=== PATIENT | male | born 1960 | race Caucasian/White ===

== ENCOUNTER → 2017-08-10 | Outpatient (CLI) | payer OTHER, SELFPAY | PROVIDERS: Visit Provider Physician Assistant | DX: R79.89 Other specified abnormal findings of blood chemistry (principal) | CPT/HCPCS: 80048 ==

== ENCOUNTER 2018-08-22 10:43 | Inpatient (IN) ==
--- NOTE | 2018-08-22 11:18 | Emergency Department Note ---
ED Disposition Clinical Impression: Occult blood in stools, Hypokalemia Community acquired pneumonia Qualifiers: Laterality: right Lung location: lower lobe of lung Qualified Code(s): J18.1 - Lobar pneumonia, unspecified organism Anemia Qualifiers: Anemia type: unspecified type Qualified Code(s): D64.9 - Anemia, unspecified Disposition: Still a Patient Condition on Discharge: Serious Referrals: Jonathan Lucia MD [Primary Care Provider] - - Critical Care Critical Care Time: Yes Attestation: On 08/22/18, the high probability of a clinically significant, sudden or life threatening deterioration of the following system(s) required my full and direct attention, intervention and personal management. The time I documented below is in addition to time spent performing reported procedures but includes the following listed in this critical care notation. Total Critical Care Time: 40 Vital system(s) involved:: Metabolic Failure My critical care processes included: Assessment & monitoring of V/S, Initial and Re-exams, Data Review/Interpretation, Coordinating Care, Medication Orders and management, Documentation Medical Decision Making - Huy Inquiry Pt receiving controlled substance: No Vital Signs: 08/22/18 10:44 08/22/18 11:03 08/22/18 11:08 Temperature 98.2 F Temperature Source Oral Pulse Rate 100 H Pulse Rate [Right Radial] 110 H Respiratory Rate 20 Blood Pressure [Right Arm] 100/73 L Blood Pressure Mean [Right Arm] 82 Blood Pressure Source [Right Arm] Automatic Cuff Blood Pressure Position [Right Arm] Sitting 02 Sat by Pulse Oximetry 98 98 Oxygen Delivery Method Nasal Cannula Nasal Cannula Oxygen Flow Rate (LPM) 2 2 08/22/18 11:46 08/22/18 12:22 08/22/18 12:54 Temperature Temperature Source Pulse Rate Pulse Rate [Right Radial] 105 H 109 H 107 H Respiratory Rate 20 20 20 Blood Pressure [Right Arm] 111/56 L 106/64 L 105/58 L Blood Pressure Mean [Right Arm] 74 78 73 Blood Pressure Source [Right Arm] Automatic Cuff Automatic Cuff Automatic Cuff Blood Pressure Position [Right Arm] Sitting Sitting Sitting 02 Sat by Pulse Oximetry 94 L 98 98 Oxygen Delivery Method Nasal Cannula Nasal Cannula Nasal Cannula Oxygen Flow Rate (LPM) 2 2 2 - Lab Data Lab Results 08/22/18 10:55: WBC 23.7 H*, RBC 2.17 L, Hgb 4.6 L*, Hct 16.2 L*, MCV 74.6 L, MCH 21.0 L, MCHC 28.2 L, RDW 19.6 H, Plt Count 464 H, MPV 7.1 L, Neut % (Auto) 93.9 H, Lymph % (Auto) 3.3 L, [place] % (Auto) 2.8, Eos % (Auto) 0.0 L, Baso % ( Auto) 0.1, Neut # (Auto) 22.3 H, Lymph # (Auto) 0.8, [place] # (Auto) 0.7, Eos # (Auto) 0.0, Baso # (Auto) 0.0, Total Counted 100, Neutrophils % (Manual) 95 H, Band Neutrophils % 1.0, Lymphocytes % (Manual) 3 L, Monocytes % (Manual) 1 L, Platelet Estimate Normal, Hypochromasia 3+, Microcytosis 1+ 08/22/18 10:55: Sodium 124 L, Potassium 2.3 L*, Chloride 83 L, Carbon Dioxide 30, Anion Gap 13.3, BUN 10, Creatinine 1.43 H, Estimated Creat Clear 59, Estimated GFR 51 L, Est GFR ( Amer) 62, Glucose 119 H, Calcium 8.0 L, To daniel Bilirubin 0.3, AST 16, ALT 8 L, Alkaline Phosphatase 259 H, Total Protein 6.4, Albumin 1.5 L, Globulin 4.9 H, Albumin/Globulin Ratio 0.3 L 08/22/18 11:10: Lactate 2.3 H 08/22/18 11:10: Troponin I < 0.02 08/22/18 11:30: Stool Occult Blood Positive A Result diagrams: 08/22/18 10:55 08/22/18 10:55 Orders (Tests/Meds): ED MEDICATIONS Generic Name Dose Route Start Last Admin Trade Name Freq PRN Reason Stop Dose Admin Azithromycin 500 mg/ Sodium 250 mls @ 250 mls/hr 08/22/18 11:30 08/22/18 12:49 Chloride IV 09/05/18 11:29 250 mls/hr 1100 DULCE Administration Protocol Ceftriaxone Sodium 1 gm/ 50 mls @ 100 mls/hr 08/22/18 11:30 08/22/18 11:42 Sodium Chloride IV 09/05/18 11:29 100 mls/hr 0900 DULCE Administration Protocol Potassium Chloride/Water 100 mls @ 50 mls/hr 08/22/18 13:00 Potassium Chloride 20meq/100ml Ivpb IV 08/22/18 14:59 ONCE ONE Sodium Chloride 10 ml 08/22/18 10:55 Saline Flush 10ml Syringe IV 09/21/18 10:54 NEEDED PRN Maintain IV Site Discontinued Medications Generic Name Dose Route Start Last Admin Trade Name Freq PRN Reason Stop Dose Admin Albuterol/Ipratropium 3 ml 08/22/18 10:53 08/22/18 11:02 Duoneb 3ml Neb IH 08/22/18 10:54 3 ml ONCE ONE Administration Methylprednisolone Sodium Succinate 125 mg 08/22/18 11:25 08/22/18 11:42 Solu-Medrol 125mg/2ml Vial IV 08/22/18 11:26 125 mg ONCE ONE Administration Potassium Chloride 60 meq 08/22/18 12:30 08/22/18 12:49 Klor-Con 20meq Tablet PO 08/22/18 12:31 60 meq ONCE ONE Administration ORDERS Category Date Time Status Occult Blood,Stool Stat Lab 08/22/18 11:30 Ordered Blood Culture Stat Micro 08/22/18 11:10 Received - Radiology Data #1 Image(s): Chest Image Reviewed: Yes I reviewed the patient's radiology image infiltrate R base - ECG Data Tracing #1 EKG interpreted by Jorge Sharp MD: Rhythm: sinus Rate: 100 [place]: normal Ectopy: none Conduction: Prolonged QT ST Segment Changes: none T Wave Changes: none Q Waves: none No evidence of acute ischemia or injury - Physician Consults Physician Consulted: Nuno Jain NP for Dr. Lucia Time: 13:04 Reason -: Admission Comment/Response: Agrees to admit the patient to the hospital. We discussed the patient's clinical information, including history, exam, laboratory and radiology results and ED course. Per hospital procedure, I will write temporary bridge inpatient orders on the patient. Specific orders requested by the admitting physician: Antibiotics, transfusion, potassium placement General Adult HPI - General Chief complaint: Weakness Stated complaint: weakness Time Seen by Provider: 08/22/18 11:18 Mode of Arrival: EMS Limitations: No Limitations Description of Symptoms (Recalled from ER Triage Doc. by RN): Pt reports weakness for 3-4 days, reports has not eating since yesterday. Pt reports just not felling well. Pt reports productive cough, pt reports SOA - History of Present Illness HPI narrative: History from patient and . He has been sick for about 1 month. He has had a sinus and chest infection. He has been on one course of antibiotic, possibly Keflex, and 2 courses of prednisone per his primary care physician. He quit smoking and started Chantix during this time. The Chantix made him sick. He complains of worsening shortness of breath, productive cough. Sputum production has improved somewhat. - Related Data Home Medications Medication Instructions Recorded Confirmed Fluticasone/Vilanterol [Breo 1 inh INHALATION DAILY 08/22/18 08/22/18 Ellipta] Furosemide [Furosemide 40MG tAB] 40 mg PO DAILY 08/22/18 08/22/18 Gabapentin [Gabapentin 100mg Cap] 100 mg PO TID 08/22/18 08/22/18 Potassium Chloride [Klor-con 20 20 meq PO DAILY 08/22/18 08/22/18 mEq tablet] Quetiapine Fumarate 450 mg PO HS 08/22/18 08/22/18 SUMAtriptan succinate [Imitrex] 50 mg PO DAILY PRN 08/22/18 08/22/18 hydroCHLOROthiazide [HCTZ 25mg 25 mg PO DAILY 08/22/18 08/22/18 tab] Previous Rx's Medication Instructions Recorded albuterol sulfate HFA 90 2 puff INHALATION BID PRN #6.7 g 07/13/18 mcg/actuation aerosol inhaler Allergies Allergy/AdvReac Type Severity Reaction Status Date / Time No Known Allergies Allergy Verified 07/13/18 14:35 [facility] History - Hepatitis A Screen Drug use history?: No High risk sexual behaviors?: No History of sexually transmitted infection?: No Currently employed?: No Childcare worker?: No Do you have indoor plumbing?: Yes Do you have electricity?: Yes Attestation statement:: This patient has been screened for Hepatitis A risk factors. Medical History: Reports:: Hypertension Denies:: Diabetes Mellitus Type 1, Diabetes Mellitus Type 2 Other Surgeries: Yes: Other Amputation: No Fractures: Yes - Social History Smoking Status: Former smoker Alcohol Intake: current Alcohol Intake Frequency:: holidays/special occasions only Substance Use Type: denies use - Psychiatric History Expresses thoughts of harming self/others: None Suicide Plan Description: No Plan Family Hx:: Stroke ROS Obtained: Yes All systems reviewed & no additional complaints - Constitutional Constitutional: Reports fatigue - ENT Ears, Nose, Mouth, and Throat: Reports nasal discharge - Respiratory Respiratory: Yes cough, Yes dyspnea, Yes excessive phlegm production - Gastrointestinal Gastrointestingal: Denies: bright red blood in stools, black, tarry stools Physical Exam - General General appearance: alert Comment: Frequent cough. Very pale. - Head Head exam: atraumatic, normocephalic - Eye Eye exam: Present: normal appearance, PERRL, EOMI - ENT ENT exam: Present: mucous membranes moist - Neck Neck exam: Present: normal inspection, trachea midline - Chest Chest inspection: Present: normal inspection, symmetric chest wall rise - Respiratory Respiratory exam: Present: normal lung sounds bilaterally - Cardiovascular Cardiovascular exam: Present: normal rhythm, tachycardia, normal heart sounds - Abdominal Exam Abdominal exam: Present: soft, normal bowel sounds. Absent: distention, tenderness - Rectal Exam Rectal exam: Present: normal inspection, normal rectal tone. Absent: black stool, bloody stool, fecal impaction, mass, tenderness - Extremities Exam Extremities exam: Present: normal inspection - Neurological Exam Neurological exam: Present: alert, oriented X3 - Psychiatric Psychiatric exam: Present: normal affect, normal mood - Skin Skin exam: Present: warm, pallor
[2018-08-22 11:23] LABS: Basophils % 0.1 % (0.1-2.0); Lymphocytes # 0.8 K/mm3 (0.7-4.5); Lymphocytes % 3.3 % (10-50); Mean Corpuscular HGB Conc 28.2 g/dL (31.8-35.4); Mean Corpuscular Volume 74.6 fl (80-94); Mean Platelet Volume 7.1 fl (7.4-10.4); Monocytes # 0.7 K/mm3 (0.1-1.0); Monocytes % 2.8 % (1.7-9.3); Neutrophils # 22.3 K/mm3 (1.8-7.8); Neutrophils % 93.9 % (37.0-80.0); Platelet Count 464 K/mm3 (142-424); Red Blood Count 2.17 M/mm3 (4.60-6.20); Red Cell Distribution Width 19.6 % (11.5-17.5); White Blood Count 23.7 K/mm3 (4.8-10.8)
[2018-08-22 11:26] LABS: Hematocrit 16.2 % (42.0-52.0); Hemoglobin 4.6 g/dL (14.1-18.0)
[2018-08-22 11:34] LABS: Albumin Level 1.5 gm/dL (3.4-5.0)
[2018-08-22 11:35] LABS: Lymphocytes % 3 % (10-50); Monocytes % 1 % (2-9); Neutrophils % 95 % (42-76); Total Cells Counted 100
[2018-08-22 11:36] LABS: Hypochromasia 3+
[2018-08-22 12:03] LABS: Albumin/Globulin Ratio 0.3 (1.1-1.8); Anion Gap 13.3 mEq/L (5-15); Bilirubin,Total 0.3 mg/dL (0.2-1.0); Globulin 4.9 gm/dl (1.3-3.2); Total Protein,Serum 6.4 gm/dL (6.4-8.2)
[2018-08-22 12:26] LABS: Potassium 2.3 mmoL/L (3.5-5.1)
--- NOTE | 2018-08-22 15:29 | Pharmacy Consult Notes ---
[facility] Pharmacy VTE Monitoring - Patient Demographics Admission date: 08/22/18 Report Date: 08/22/18 Time: 15:29 Allergies/Adverse Reactions: Patient Allergies No Known Allergies Allergy (Verified 07/13/18 14:35) Height: 1.75 m Weight: 63.503 kg Patient Problems: Current Active Problems Community acquired pneumonia (Acute) Anemia (Acute) Occult blood in stools (Acute) Hypokalemia (Acute) - VTE Risk Labs: VTE Related Lab Results Hgb 4.6 g/dL (14.1-18.0) L* 08/22/18 10:55 Hct 16.2 % (42.0-52.0) L* 08/22/18 10:55 Plt Count 464 K/mm3 (142-424) H 08/22/18 10:55 BUN 10 mg/dL (7-18) 08/22/18 10:55 Creatinine 1.43 mg/dL (0.70-1.30) H 08/22/18 10:55 Estimated Creat Clear 59 mL/min (50-200) 08/22/18 10:55 VTE Score: 3 VTE Risk Level: Low Risk - Prophylaxis VTE Prophylaxis Ordered?: Yes Types of VTE Prophylaxis: TEDS Knee High Location of Applied Device: Bilateral Lower Extremeties
[2018-08-22 15:45] LABS: Microscopic, Urine URINE MICROSCOPIC (MICROSCOPIC)
[2018-08-22 15:46] LABS: Appearance,Urine CLEAR (Clear); Bilirubin,Urine Negative (Negative); Blood, Urine TRACE-I (Negative); Color,Urine YELLOW (Yellow); Glucose,Urine (UA) Negative (Negative); Ketones,Urine Negative (Negative); Leukocyte Esterase,Urine Negative (Negative); PH,Urine 7.5 (5.0-8.5); Protein,Urine Negative (Negative); Urobilinogen,Urine 0.2 EU/dl (0.2)
[2018-08-22 16:05] LABS: Bacteria,Urine Trace /lpf
[2018-08-23 01:02] LABS: Hematocrit 21.7 % (42.0-52.0); Hemoglobin 6.7 g/dL (14.1-18.0)
--- NOTE | 2018-08-23 06:36 | Consult Report ---
*Admission Date: 08/22/18 *Chief complaint: Anemia/gastrointestinal blood loss *History of present illness: This is a 58-year-old gentleman who presented to the emergency department yesterday "feeling sick". He was diagnosed with pneumonia, but was also found to be profoundly anemic. He was guaiac positive. The surgical service was consulted for evaluation regarding possible gastrointestinal blood loss. A copy of his HPI from his emergency department evaluation is forwarded below: History from patient and . He has been sick for about 1 month. He has had a sinus and chest infection. He has been on one course of antibiotic, possibly Keflex, and 2 courses of prednisone per his primary care physician. He quit smoking and started Chantix during this time. The Chantix made him sick. He complains of worsening shortness of breath, productive cough. Sputum production has improved somewhat. NOTE: He had an appropriate response to his initial 2 unit blood transfusion. 2 additional units were ordered; however, he has received only 1 of those units for a total of 3. Posttransfusion H&H pending. Review of Systems - Constitutional Denies fever(s) - Eyes Denies change in vision - *Cardiovascular Denies chest pain - *Respiratory Reports chest congestion, Reports cough - *Gastrointestinal Denies bright, red blood in stools Comments: "dark stools" - Psychiatric Denies anxiety - Hematologic/Lymphatic Denies easy bleeding [facility] History Medical History: Reports:: Hypertension Denies:: Cancer, Diabetes Mellitus Type 1, Diabetes Mellitus Type 2, MRSA Have you ever received a pneumonia vaccine?: No Have you received a flu vaccine this season?: No Other Surgeries: Yes: No Previous Surgery, Other Amputation: No Fractures: Yes (arm fracture at age 8) - *Social History Educational Level: Completed College Smoking Status: Former smoker Tobacco Type: cigarettes # Packs/Day (cigarettes): 3 #Yrs smoked (if former smoker): 40 Smoking End Date: 08/04/18 Alcohol Intake: never Alcohol Intake Frequency:: holidays/special occasions only Substance Use Type: denies use Occupational Status: disabled Housing: house Household Members: significant other Travel in the last 8 weeks: Inside the [place] - Psychiatric History Expresses thoughts of harming self/others: None Suicide Plan Description: No Plan *Family Hx:: Unable to obtain, Stroke Meds Home Medications Medication Instructions Recorded Confirmed Type albuterol sulfate HFA 90 2 puff INHALATION BID PRN #6.7 g 07/13/18 08/22/18 Rx mcg/actuation aerosol inhaler Ascorbic Acid [Vitamin C] 250 mg PO DAILY 08/22/18 08/22/18 History Calcium Carbonate [Calcium] 500 mg PO DAILY 08/22/18 08/22/18 History Fluticasone/Vilanterol [Breo 1 inh INHALATION DAILY 08/22/18 08/22/18 History Ellipta] Furosemide [Furosemide 40MG tAB] 40 mg PO DAILY 08/22/18 08/22/18 History Gabapentin [Gabapentin 100mg Cap] 100 mg PO TID 08/22/18 08/22/18 History Multivit-Min/Folic/Vit K/Lycop 1 each PO DAILY 08/22/18 08/22/18 History [Men's Multivitamin Caplet] Potassium Chloride [Klor-con 20 20 meq PO DAILY 08/22/18 08/22/18 History mEq tablet] Quetiapine Fumarate 450 mg PO HS 08/22/18 08/22/18 History SUMAtriptan succinate [Imitrex] 50 mg PO DAILY 08/22/18 08/22/18 History Venlafaxine HCl [Effexor XR 75mg 75 mg PO DAILY 08/22/18 08/22/18 History capsule] hydroCHLOROthiazide [HCTZ 25mg 25 mg PO DAILY 08/22/18 08/22/18 History tab] Allergies Allergy/AdvReac Type Severity Reaction Status Date / Time No Known Allergies Allergy Verified 07/13/18 14:35 Exam Vital signs and Labs for Last 24 Hours: Temp Pulse Resp BP Pulse Ox 97.7 F 84 16 102/63 L 94 L 08/23/18 05:00 08/23/18 05:00 08/23/18 05:00 08/23/18 05:00 08/23/18 05:00 Laboratory Results - last 24 hr 08/22/18 10:55: WBC 23.7 H*, RBC 2.17 L, Hgb 4.6 L*, Hct 16.2 L*, MCV 74.6 L, MCH 21.0 L, MCHC 28.2 L, RDW 19.6 H, Plt Count 464 H, MPV 7.1 L, Neut % (Auto) 93.9 H, Lymph % (Auto) 3.3 L, [place] % (Auto) 2.8, Eos % (Auto) 0.0 L, Baso % (Auto) 0.1, Neut # (Auto) 22.3 H, Lymph # (Auto) 0.8, [place] # (Auto) 0.7, Eos # (Auto) 0.0, Baso # (Auto) 0.0, Total Counted 100, Neutrophils % (Manual) 95 H, Band Neutrophils % 1.0, Lymphocytes % (Manual) 3 L, Monocytes % (Manual) 1 L, Platelet Estimate Normal, Hypochromasia 3+, Microcytosis 1+ 08/22/18 10:55: Sodium 124 L, Potassium 2.3 L*, Chloride 83 L, Carbon Dioxide 30, Anion Gap 13.3, BUN 10, Creatinine 1.43 H, Estimated Creat Clear 59, Estimated GFR 51 L, Est GFR ( Amer) 62, Glucose 119 H, Calcium 8.0 L, Total Bilirubin 0.3, AST 16, ALT 8 L, Alkaline Phosphatase 259 H, Total Protein 6.4, Albumin 1.5 L, Globulin 4.9 H, Albumin/Globulin Ratio 0.3 L 08/22/18 11:10: Lactate 2.3 H 08/22/18 11:10: Troponin I < 0.02 08/22/18 11:30: Stool Occult Blood Positive A 08/22/18 13:15: Urine Color Yellow, Urine Appearance Clear, Urine pH 7.5, Ur Specific [place] 1.010, Urine Protein Negative, Urine Glucose (UA) Negative, Urine Ketones Negative, Urine Blood Trace-i, Urine Nitrate Negative, Urine Bilirubin Negative, Urine Urobilinogen 0.2, Ur Leukocyte Esterase Negative, Urine RBC None, Urine WBC 5-10, Ur Squamous Epith Cells None, Urine Bacteria Trace 08/22/18 14:19: Blood Type A Negative, Antibody Screen Negative, Crossmatch (AHG) See Detail 08/22/18 14:40: Blood Type Confirm A Negative 08/22/18 15:22: Lactate 2.8 H 08/22/18 18:00: Lactate 1.7 08/23/18 00:35: Hgb 6.7 L* D, Hct 21.7 L* I & O for Last 24 hours: Intake & Output 08/20/18 08/21/18 08/22/18 08/23/18 11:59 11:59 11:59 11:59 Intake Total 860 / 860 Output Total 200 / 200 Balance 660 / 660 Weight 160 lb 140 lb - Constitutional no acute distress - *Routine Respiratory Exam Absent: respiratory distress - *Routine Cardiovascular Exam Present: RRR - *Routine Abdominal Exam Present: soft Results - Labs 08/23/18 00:35 08/22/18 10:55 Laboratory Results - last 24 hr 08/22/18 10:55: WBC 23.7 H*, RBC 2.17 L, Hgb 4.6 L*, Hct 16.2 L*, MCV 74.6 L, MCH 21.0 L, MCHC 28.2 L, RDW 19.6 H, Plt Count 464 H, MPV 7.1 L, Neut % (Auto) 93.9 H, Lymph % (Auto) 3.3 L, [place] % (Auto) 2.8, Eos % (Auto) 0.0 L, Baso % (Auto) 0.1, Neut # (Auto) 22.3 H, Lymph # (Auto) 0.8, [place] # (Auto) 0.7, Eos # (Auto) 0.0, Baso # (Auto) 0.0, Total Counted 100, Neutrophils % (Manual) 95 H, Band Neutrophils % 1.0, Lymphocytes % (Manual) 3 L, Monocytes % (Manual) 1 L, Platelet Estimate Normal, Hypochromasia 3+, Microcytosis 1+ 08/22/18 10:55: Sodium 124 L, Potassium 2.3 L*, Chloride 83 L, Carbon Dioxide 30, Anion Gap 13.3, BUN 10, Creatinine 1.43 H, Estimated Creat Clear 59, Estimated GFR 51 L, Est GFR ( Amer) 62, Glucose 119 H, Calcium 8.0 L, Total Bilirubin 0.3, AST 16, ALT 8 L, Alkaline Phosphatase 259 H, Total Protein 6.4, Albumin 1.5 L, Globulin 4.9 H, Albumin/Globulin Ratio 0.3 L 08/22/18 11:10: Lactate 2.3 H 08/22/18 11:10: Troponin I < 0.02 08/22/18 11:30: Stool Occult Blood Positive A 08/22/18 13:15: Urine Color Yellow, Urine Appearance Clear, Urine pH 7.5, Ur Specific [place] 1.010, Urine Protein Negative, Urine Glucose (UA) Negative, Urine Ketones Negative, Urine Blood Trace-i, Urine Nitrate Negative, Urine Bilirubin Negative, Urine Urobilinogen 0.2, Ur Leukocyte Esterase Negative, [place] RBC None, Urine WBC 5-10, Ur Squamous Epith Cells None, Urine Bacteria Trace 08/22/18 14:19: Blood Type A Negative, Antibody Screen Negative, Crossmatch (AHG) See Detail 08/22/18 14:40: Blood Type Confirm A Negative 08/22/18 15:22: Lactate 2.8 H 08/22/18 18:00: Lactate 1.7 08/23/18 00:35: Hgb 6.7 L* D, Hct 21.7 L* Assessment and Plan (1) Anemia Current visit: Yes Status: Acute Qualifiers: Anemia type: unspecified type Qualified Code(s): D64.9 - Anemia, unspecified Category: Medical Code(s): D64.9 - Anemia, unspecified The patient's blood loss has likely been chronic over the past few months. He does not appear to be acutely hemorrhaging. He has had an appropriate response to his first 2 units of packed red blood cells. EGD once medically stable (unless required urgently) Colonoscopy in near future (may combine with EGD; however, his ability to tolerate a bowel prep may be limited as he recovers from pneumonia) ? SBFT and ? Capsule Endoscopy (pending results of EGD/Colonoscopy) (2) Community acquired pneumonia Current visit: Yes Status: Acute Qualifiers: Laterality: right Lung location: lower lobe of lung Qualified Code(s): J18.1 - Lobar pneumonia, unspecified organism Category: Medical Code(s): J18.9 - Pneumonia, unspecified organism (3) Hypokalemia Current visit: Yes Status: Acute Category: Medical Code(s): E87.6 - Hypokalemia (4) Occult blood in stools Current visit: Yes Status: Acute Category: Medical Code(s): R19.5 - Other fecal abnormalities
[2018-08-23 07:21] LABS: Basophils % 0.1 % (0.1-2.0); Lymphocytes # 0.7 K/mm3 (0.7-4.5); Mean Corpuscular HGB Conc 31.2 g/dL (31.8-35.4); Mean Corpuscular Hemoglobin 25.5 pg (27.0-31.2); Mean Corpuscular Volume 81.7 fl (80-94); Mean Platelet Volume 7.2 fl (7.4-10.4); Monocytes # 0.3 K/mm3 (0.1-1.0); Monocytes % 2.4 % (1.7-9.3); Neutrophils # 10.6 K/mm3 (1.8-7.8); Neutrophils % 91.5 % (37.0-80.0); Platelet Count 372 K/mm3 (142-424); Red Blood Count 3.51 M/mm3 (4.60-6.20); Red Cell Distribution Width 17.8 % (11.5-17.5); White Blood Count 11.6 K/mm3 (4.8-10.8)
[2018-08-23 07:24] LABS: Anion Gap 14.6 mEq/L (5-15); Calcium 7.8 mg/dL (8.5-10.1)
[2018-08-23 07:29] LABS: Potassium 2.6 mmoL/L (3.5-5.1)
[2018-08-23 08:15] LABS: Anisocytosis 1+; Hypochromasia 1+; Lymphocytes % 4 % (10-50); Monocytes % 4 % (2-9); Neutrophils % 91 % (42-76); Total Cells Counted 100
--- NOTE | 2018-08-23 09:22 | History & Physical Report ---
*Admission Date: 08/22/18 *Chief complaint: soa *History of present illness: 58-year-old male who presented to the emergency department yesterday "feeling sick"and shortness of breath. Pt states he has been sick for over 1 month and has been on antibotics and steroids. Pt was admittied and diagnosed with p neumonia, and anemia-guaiac positive. [facility] History I have reviewed the patient's past medical history: Yes Medical History: Reports:: Hypertension Denies:: Cancer, Diabetes Mellitus Type 1, Diabetes Mellitus Type 2, MRSA Have you ever received a pneumonia vaccine?: No Have you received a flu vaccine this season?: No Other Surgeries: Yes: No Previous Surgery, Other Amputation: No Fractures: Yes (arm fracture at age 8) - *Social History Educational Level: Completed College Smoking Status: Former smoker Tobacco Type: cigarettes # Packs/Day (cigarettes): 3 #Yrs smoked (if former smoker): 40 Smoking End Date: 08/04/18 Alcohol Intake: never Alcohol Intake Frequency:: holidays/special occasions only Substance Use Type: denies use Occupational Status: disabled Housing: house Household Members: significant other Travel in the last 8 weeks: Inside the [place] - Psychiatric History Expresses thoughts of harming self/others: None Suicide Plan Description: No Plan *Family Hx:: Unable to obtain, Stroke Review of Systems - Review of Systems Review of systems:: pertinent systems reviewed and negative unless documented below - Constitutional Reports weakness, Denies chills, Denies fever(s) - Eyes Denies change in vision - ENT Denies change in voice - *Cardiovascular Reports shortness of breath, Reports shortness of breath with activity - *Respiratory Reports change in phlegm color, Reports shortness of breath, Reports shortness of breath with activity - *Gastrointestinal Reports vomiting, Denies abdominal pain, Denies vomiting blood - *Genitourinary Denies difficulty urinating - *Musculoskeletal Denies back pain - Integumentary/Breasts Denies rash - *Neurologic Denies abnormal movements - Psychiatric Denies anxiety - Endocrine Denies heat intolerance - Hematologic/Lymphatic Denies enlarged lymph nodes - Allergic/Immunologic Denies lip swelling Meds Home Medications Medication Instructions Recorded Confirmed Type albuterol sulfate HFA 90 2 puff INHALATION BID PRN #6.7 g 07/13/18 08/22/18 Rx mcg/actuation aerosol inhaler Ascorbic Acid [Vitamin C] 250 mg PO DAILY 08/22/18 08/23/18 History Calcium Carbonate [Calcium] 500 mg PO DAILY 08/22/18 08/22/18 History Fluticasone/Vilanterol [Breo 1 inh INHALATION DAILY 08/22/18 08/22/18 History Ellipta] Furosemide [Furosemide 40MG tAB] 40 mg PO DAILY 08/22/18 08/23/18 History Gabapentin [Gabapentin 100mg Cap] 100 mg PO TID 08/22/18 08/23/18 History Multivit-Min/Folic/Vit K/Lycop 1 each PO DAILY 08/22/18 08/23/18 History [Men's Multivitamin Caplet] Potassium Chloride [Klor-con 20 20 meq PO DAILY 08/22/18 08/23/18 History mEq tablet] Quetiapine Fumarate 450 mg PO HS 08/22/18 08/23/18 History SUMAtriptan succinate [Imitrex] 50 mg PO NEEDED PRN 08/22/18 08/23/18 History Venlafaxine HCl [Effexor XR 75mg 75 mg PO DAILY 08/22/18 08/23/18 History capsule] hydroCHLOROthiazide [HCTZ 25mg 25 mg PO DAILY 08/22/18 08/23/18 History tab] clonazePAM [Clonazepam] 0.5 mg PO HS 08/23/18 08/23/18 History Allergies Allergy/AdvReac Type Severity Reaction Status Date / Time No Known Allergies Allergy Verified 07/13/18 14:35 Exam Vital signs and Labs for Last 24 Hours: Temp Pulse Resp BP Pulse Ox 98.0 F 83 17 106/63 L 98 08/23/18 06:31 08/23/18 06:52 08/23/18 06:31 08/23/18 06:31 08/23/18 06:52 Laboratory Results - last 24 hr 08/22/18 10:55: WBC 23.7 H*, RBC 2.17 L, Hgb 4.6 L*, Hct 16.2 L*, MCV 74.6 L, MCH 21.0 L, MCHC 28.2 L, RDW 19.6 H, Plt Count 464 H, MPV 7.1 L, Neut % (Auto) 93.9 H, Lymph % (Auto) 3.3 L, [place] % (Auto) 2.8, Eos % (Auto) 0.0 L, Baso % (Auto) 0.1, Neut # (Auto) 22.3 H, Lymph # (Auto) 0.8, [place] # (Auto) 0.7, Eos # (Auto) 0.0, Baso # (Auto) 0.0, Total Counted 100, Neutrophils % (Manual) 95 H, Band Neutrophils % 1.0, Lymphocytes % (Manual) 3 L, Monocytes % (Manual) 1 L, Platelet Estimate Normal, Hypochromasia 3+, Microcytosis 1+ 08/22/18 10:55: Sodium 124 L, Potassium 2.3 L*, Chloride 83 L, Carbon Dioxide 30, Anion Gap 13.3, BUN 10, Creatinine 1.43 H, Estimated Creat Clear 59, Estimated GFR 51 L, Est GFR ( Amer) 62, Glucose 119 H, Calcium 8.0 L, Total Bilirubin 0.3, AST 16, ALT 8 L, Alkaline Phosphatase 259 H, Total Protein 6.4, Albumin 1.5 L, Globulin 4.9 H, Albumin/Globulin Ratio 0.3 L 08/22/18 11:10: Lactate 2.3 H 08/22/18 11:10: Troponin I < 0.02 08/22/18 11:30: Stool Occult Blood Positive A 08/22/18 13:15: Urine Color Yellow, Urine Appearance Clear, Urine pH 7.5, Ur Specific [place] 1.010, Urine Protein Negative, Urine Glucose (UA) Negative, Urine Ketones Negative, Urine Blood Trace-i, Urine Nitrate Negative, Urine Bilirubin Negative, Urine Urobilinogen 0.2, Ur Leukocyte Esterase Negative, Urine RBC None, Urine WBC 5-10, Ur Squamous Epith Cells None, Urine Bacteria Trace 08/22/18 14:19: Blood Type A Negative, Antibody Screen Negative, Crossmatch (AHG) See Detail 08/22/18 14:40: Blood Type Confirm A Negative 08/22/18 15:22: Lactate 2.8 H 08/22/18 18:00: Lactate 1.7 08/23/18 00:35: Hgb 6.7 L* D, Hct 21.7 L* 08/23/18 07:04: WBC 11.6 H D, RBC 3.51 L D, Hgb 9.0 L D, Hct 29.0 L, MCV 81.7, MCH 25.5 L, MCHC 31.2 L, RDW 17.8 H, Plt Count 372, MPV 7.2 L, Neut % (Auto) 91.5 H, Lymph % (Auto) 6.0 L, [place] % (Auto) 2.4, Eos % (Auto) 0.0 L, Baso % (Auto) 0.1, Neut # (Auto) 10.6 H, Lymph # (Auto) 0.7, [place] # (Auto) 0.3, Eos # (Auto) 0.0, Baso # (Auto) 0.0, Total Counted 100, Neutrophils % (Manual) 91 H, Band Neutrophils % 1.0, Lymphocytes % (Manual) 4 L, Monocytes % (Manual) 4, Platelet Estimate Normal, RBC Morphology Not Reportable, Hypochromasia 1+, Anisocytosis 1+ 08/23/18 07:04: Sodium 128 L, Potassium 2.6 L*, Chloride 90 L, Carbon Dioxide 26, Anion Gap 14.6, BUN 10, Creatinine 0.99 D, Estimated Creat Clear 75, Estimated GFR 78, Est GFR ( Amer) 95 D, Glucose 141 H, Calcium 7.8 L I & O for Last 24 hours: Intake & Output 08/20/18 08/21/18 08/22/18 08/23/18 11:59 11:59 11:59 11:59 Intake Total 1110 / 1110 Output Total 200 / 200 Balance 910 / 910 Weight 160 lb 140 lb - Constitutional no acute distress - *Routine HEENT Exam Head: Present: normocephalic Eye: Present: PERRL ENT: Present: mucous membranes moist - *Routine Neck Exam Present: supple. Absent: lymphadenopathy - *Routine Respiratory Exam Present: rhonchi, diminished air movement - *Routine Cardiovascular Exam Present: RRR - *Routine Abdominal Exam Present: soft, normoactive bowel sounds, tenderness - *Routine Extremities Exam Absent: cyanosis, clubbing, edema - *Routine Skin Exam Present: warm. Absent: rash - *Routine Neurological Exam Present: alert, oriented X3 - Routine Psychiatric Exam Present: normal affect Assessment and Plan (1) Anemia Current visit: Yes Status: Acute Qualifiers: Anemia type: unspecified type Qualified Code(s): D64.9 - Anemia, unspecified Category: Medical Code(s): D64.9 - Anemia, unspecified (2) Community acquired pneumonia Current visit: Yes Status: Acute Qualifiers: Laterality: right Lung location: lower lobe of lung Qualified Code(s): J18.1 - Lobar pneumonia, unspecified organism Category: Medical Code(s): J18.9 - Pneumonia, unspecified organism (3) Hypokalemia Current visit: Yes Status: Acute Category: Medical Code(s): E87.6 - Hypokalemia (4) Occult blood in stools Current visit: Yes Status: Acute Category: Medical Code(s): R19.5 - Other fecal abnormalities - Assessment and plan all Dx Assessment and Plan for all problems:: rounded with alfie, all orders per alfie ct abd/pelvis chest x ray replace Ka+
[2018-08-23 14:42] LABS: Hematocrit 31.8 % (42.0-52.0); Hemoglobin 9.7 g/dL (14.1-18.0)
--- NOTE | 2018-08-24 06:23 | Progress Note ---
Subjective Patient reports: no new complaints (The patient states that he is "first on the list for transfer to ".) Exam Vital signs and Labs for Last 24 Hours: Temp Pulse Resp BP Pulse Ox 98.1 F 109 H 17 117/75 92 L 08/24/18 00:00 08/24/18 06:08 08/24/18 00:00 08/24/18 00:00 08/24/18 06:08 Laboratory Results - last 24 hr 08/22/18 14:19: Blood Type A Negative, Antibody Screen Negative, Crossmatch (AHG) See Detail 08/23/18 07:04: WBC 11.6 H D, RBC 3.51 L D, Hgb 9.0 L D, Hct 29.0 L, MCV 81.7, MCH 25.5 L, MCHC 31.2 L, RDW 17.8 H, Plt Count 372, MPV 7.2 L, Neut % (Auto) 91.5 H, Lymph % (Auto) 6.0 L, [place] % (Auto) 2.4, Eos % (Auto) 0.0 L, Baso % (Auto) 0.1, Neut # (Auto) 10.6 H, Lymph # (Auto) 0.7, [place] # (Auto) 0.3, Eos # (Auto) 0.0, Baso # (Auto) 0.0, Total Counted 100, Neutrophils % (Manual) 91 H, Band Neutrophils % 1.0, Lymphocytes % (Manual) 4 L, Monocytes % (Manual) 4, Platelet Estimate Normal, RBC Morphology Not Reportable, Hypochromasia 1+, Anisocytosis 1+ 08/23/18 07:04: Sodium 128 L, Potassium 2.6 L*, Chloride 90 L, Carbon Dioxide 26, Anion Gap 14.6, BUN 10, Creatinine 0.99 D, Estimated Creat Clear 75, Estimated GFR 78, Est GFR ( Amer) 95 D, Glucose 141 H, Calcium 7.8 L 08/23/18 07:04: ESR > 120 H 08/23/18 14:30: Hgb 9.7 L, Hct 31.8 L I & O for Last 24 hours: Intake & Output 08/21/18 08/22/18 08/23/18 08/24/18 11:59 11:59 11:59 11:59 Intake Total 1110 / 1110 4511.667 / 4511.667 Output Total 600 / 600 375 / 375 Balance 510 / 510 4136.667 / 4136.667 Weight 160 lb 140 lb Microbiology Reports for the Last 24 Hours: Microbiology 08/24/18 01:45 Sputum - Expectorated Sputum Gram Stain - Final 08/24/18 01:45 Sputum - Expectorated Sputum Sputum Culture - Final Not Reportable Radiology Reports for the Last 24 Hours: CT chest w con IMPRESSION: 1. Dense heterogeneous consolidation of the right lower lobe in the posterior aspect of the right middle lobe consistent with necrotizing pneumonia. A large heterogeneous pulmonary masses felt to be less likely but not totally excluded 2. Small bilateral effusions. 3. Centrilobular emphysema with COPD CT abdomen pelvis w con IMPRESSION: 1. There is mild thickening of the duodenal bulb and minimal stranding of the fat between the gallbladder and duodenum suggesting some underlying inflammatory change. The tinnitus is considered. Gallstones are also noted. 2. Minimal amount of perihepatic fluid with a small amount fluid also noted in the pelvis. - Constitutional no acute distress - *Routine Abdominal Exam Present: soft Progress Note: A&P (1) Anemia Status: Acute Assessment and plan: Good response blood transfusion. Once the patient is stable from overall medical standpoint (significant pneumonia) endoscopy is warranted. In the interim, it is reasonable to continue to treat the patient as if he has peptic ulcer disease (particularly with some duodenal thickening noted on CT scan). Ongoing evaluation and management with regard to anemia can be accomplished after transfer to the [facility]. Current Visit: Yes (2) Community acquired pneumonia Status: Acute Current Visit: Yes (3) Hypokalemia Status: Acute Current Visit: Yes (4) Occult blood in stools Status: Acute Current Visit: Yes
[2018-08-24 07:16] LABS: Basophils % 0.1 % (0.1-2.0); Hematocrit 30.9 % (42.0-52.0); Hemoglobin 9.7 g/dL (14.1-18.0); Lymphocytes # 0.9 K/mm3 (0.7-4.5); Lymphocytes % 6.4 % (10-50); Mean Corpuscular HGB Conc 31.5 g/dL (31.8-35.4); Mean Corpuscular Volume 82.4 fl (80-94); Mean Platelet Volume 7.5 fl (7.4-10.4); Monocytes # 0.6 K/mm3 (0.1-1.0); Monocytes % 4.3 % (1.7-9.3); Neutrophils # 11.8 K/mm3 (1.8-7.8); Neutrophils % 89.2 % (37.0-80.0); Platelet Count 348 K/mm3 (142-424); Red Blood Count 3.75 M/mm3 (4.60-6.20); Red Cell Distribution Width 17.7 % (11.5-17.5); White Blood Count 13.2 K/mm3 (4.8-10.8)
[2018-08-24 07:27] LABS: Anion Gap 16.9 mEq/L (5-15); Calcium 7.9 mg/dL (8.5-10.1)
[2018-08-24 07:31] LABS: Potassium 2.9 mmoL/L (3.5-5.1)
--- NOTE | 2018-08-24 07:36 | Pharmacy Consult Notes ---
- Pharmacy Consult Date: 08/24/18 Time: 07:35 Referring provider: DR. HESS Reason for Consult:: VANCOMYCIN DOSING Allergies and ADEs:: Allergies Allergy/AdvReac Type Severity Reaction Status Date / Time No Known Allergies Allergy Verified 07/13/18 14:35 Home Medications:: Home Medications Medication Instructions Recorded Confirmed Type albuterol sulfate HFA 90 2 puff INHALATION BID PRN #6.7 g 07/13/18 08/22/18 Rx mcg/actuation aerosol inhaler Ascorbic Acid [Vitamin C] 250 mg PO DAILY 08/22/18 08/23/18 History Calcium Carbonate [Calcium] 500 mg PO DAILY 08/22/18 08/22/18 History Fluticasone/Vilanterol [Breo 1 inh INHALATION DAILY 08/22/18 08/22/18 History Ellipta] Furosemide [Furosemide 40MG tAB] 40 mg PO DAILY 08/22/18 08/23/18 History Gabapentin [Gabapentin 100mg Cap] 100 mg PO TID 08/22/18 08/23/18 History Multivit-Min/Folic/Vit K/Lycop 1 each PO DAILY 08/22/18 08/23/18 History [Men's Multivitamin Caplet] Potassium Chloride [Klor-con 20 20 meq PO DAILY 08/22/18 08/23/18 History mEq tablet] Quetiapine Fumarate 450 mg PO HS 08/22/18 08/23/18 History SUMAtriptan succinate [Imitrex] 50 mg PO NEEDED PRN 08/22/18 08/23/18 History Venlafaxine HCl [Effexor XR 75mg 75 mg PO DAILY 08/22/18 08/23/18 History capsule] hydroCHLOROthiazide [HCTZ 25mg 25 mg PO DAILY 08/22/18 08/23/18 History tab] clonazePAM [Clonazepam] 0.5 mg PO HS 08/23/18 08/23/18 History Height: 1.75 m Weight: 63.503 kg Laboratory Results:: Laboratory Results - last 24 hr 08/22/18 14:19: Blood Type A Negative, Antibody Screen Negative, Crossmatch (AHG) See Detail 08/23/18 07:04: WBC 11.6 H D, RBC 3.51 L D, Hgb 9.0 L D, Hct 29.0 L, MCV 81.7, MCH 25.5 L, MCHC 31.2 L, RDW 17.8 H, Plt Count 372, MPV 7.2 L, Neut % (Auto) 91.5 H, Lymph % (Auto) 6.0 L, [place] % (Auto) 2.4, Eos % (Auto) 0.0 L, Baso % (Auto) 0.1, Neut # (Auto) 10.6 H, Lymph # (Auto) 0.7, [place] # (Auto) 0.3, Eos # (Auto) 0.0, Baso # (Auto) 0.0, Total Counted 100, Neutrophils % (Manual) 91 H, Band Neutrophils % 1.0, Lymphocytes % (Manual) 4 L, Monocytes % (Manual) 4, Platelet Estimate Normal, RBC Morphology Not Reportable, Hypochromasia 1+, Anisocytosis 1+ 08/23/18 07:04: ESR > 120 H 08/23/18 14:30: Hgb 9.7 L, Hct 31.8 L 08/24/18 06:33: WBC 13.2 H, RBC 3.75 L, Hgb 9.7 L, Hct 30.9 L, MCV 82.4, MCH 26.0 L, MCHC 31.5 L, RDW 17.7 H, Plt Count 348, MPV 7.5, Neut % (Auto) 89.2 H, Lymph % (Auto) 6.4 L, [place] % (Auto) 4.3, Eos % (Auto) 0.0 L, Baso % (Auto) 0.1, Neut # (Auto) 11.8 H, Lymph # (Auto) 0.9, [place] # (Auto) 0.6, Eos # (Auto) 0.0, Baso # (Auto) 0.0 08/24/18 06:33: Sodium 132 L, Potassium 2.9 L*, Chloride 97 L, Carbon Dioxide 21, Anion Gap 16.9 H, BUN 9, Creatinine 1.01, Estimated Creat Clear 73, Estimated GFR 76, Est GFR ( Amer) 92, Glucose 126 H, Calcium 7.9 L Medical History: Reports:: Hypertension Denies:: Cancer, Diabetes Mellitus Type 1, Diabetes Mellitus Type 2, MRSA Assessment and Plan (1) Anemia Current visit: Yes Status: Acute Qualifiers: Anemia type: unspecified type Qualified Code(s): D64.9 - Anemia, unspecified Category: Medical Code(s): D64.9 - Anemia, unspecified (2) Community acquired pneumonia Current visit: Yes Status: Acute Qualifiers: Laterality: right Lung location: lower lobe of lung Qualified Code(s): J18.1 - Lobar pneumonia, unspecified organism Category: Medical Code(s): J18.9 - Pneumonia, unspecified organism (3) Hypokalemia Current visit: Yes Status: Acute Category: Medical Code(s): E87.6 - Hypokalemia (4) Occult blood in stools Current visit: Yes Status: Acute Category: Medical Code(s): R19.5 - Other fecal abnormalities - Assessment and plan all Dx Assessment and Plan for all problems:: BASED ON PATIENT FACTORS, RECOMMEND VANCOMYCIN 1,250MG IV EVERY 18 HOURS. PHARMACY WILL MONITOR AND ADJUST DOSE APPROPRIATE. -RICARDA MCRAE, GERARDD
[2018-08-24 08:52] LABS: Lymphocytes % 7 % (10-50); Monocytes % 3 % (2-9); Neutrophils % 90 % (42-76); Total Cells Counted 100
[2018-08-24 08:53] LABS: Anisocytosis 1+; Hypochromasia 1+
[2018-08-24 08:54] LABS: Stomatocytes 1+
--- NOTE | 2018-08-24 08:56 | Progress Note ---
Internal Medicine - PN: Subj *Date: 08/24/18 *Time: 08:51 Interval history: Awaiting transfer to for further evaluation and treatment Exam Vital signs and Labs for Last 24 Hours: Temp Pulse Resp BP Pulse Ox 97.8 F 94 H 18 123/62 92 L 08/24/18 08:00 08/24/18 08:00 08/24/18 08:00 08/24/18 08:00 08/24/18 08:00 Laboratory Results - last 24 hr 08/22/18 14:19: Blood Type A Negative, Antibody Screen Negative, Crossmatch (AHG) See Detail 08/23/18 07:04: ESR > 120 H 08/23/18 14:30: Hgb 9.7 L, Hct 31.8 L 08/24/18 06:33: WBC 13.2 H, RBC 3.75 L, Hgb 9.7 L, Hct 30.9 L, MCV 82.4, MCH 26.0 L, MCHC 31.5 L, RDW 17.7 H, Plt Count 348, MPV 7.5, Neut % (Auto) 89.2 H, Lymph % (Auto) 6.4 L, [place] % (Auto) 4.3, Eos % (Auto) 0.0 L, Baso % (Auto) 0.1, Neut # (Auto) 11.8 H, Lymph # (Auto) 0.9, [place] # (Auto) 0.6, Eos # (Auto) 0.0, Baso # (Auto) 0.0 08/24/18 06:33: Sodium 132 L, Potassium 2.9 L*, Chloride 97 L, Carbon Dioxide 21, Anion Gap 16.9 H, BUN 9, Creatinine 1.01, Estimated Creat Clear 73, Estimated GFR 76, Est GFR ( Amer) 92, Glucose 126 H, Calcium 7.9 L I & O for Last 24 hours: Intake & Output 08/21/18 08/22/18 08/23/18 08/24/18 11:59 11:59 11:59 11:59 Intake Total 1110 / 1110 4991.667 / 4991.667 Output Total 600 / 600 375 / 375 Balance 510 / 510 4616.667 / 4616.667 Weight 160 lb 140 lb 140 lb Microbiology Reports for the Last 24 Hours: Microbiology 01/11/19 01:45 Sputum - Expectorated Sputum Gram Stain - Final 08/24/18 01:45 Sputum - Expectorated Sputum Sputum Culture - Final Not Reportable - Constitutional no acute distress - *Routine HEENT Exam Head: Present: normocephalic Eye: Present: PERRL ENT: Present: mucous membranes moist - *Routine Neck Exam Present: supple. Absent: lymphadenopathy - *Routine Respiratory Exam Present: rhonchi, wheezes, diminished air movement - *Routine Cardiovascular Exam Present: RRR - *Routine Abdominal Exam Present: soft, normoactive bowel sounds. Absent: tenderness - *Routine Extremities Exam Absent: cyanosis, clubbing, edema - *Routine Skin Exam Present: warm. Absent: rash - *Routine Neurological Exam Present: alert, oriented X3 - Routine Psychiatric Exam Present: normal affect Assessment and Plan (1) Anemia Current visit: Yes Status: Acute Qualifiers: Anemia type: unspecified type Qualified Code(s): D64.9 - Anemia, unspecified Category: Medical Code(s): D64.9 - Anemia, unspecified (2) Community acquired pneumonia Current visit: Yes Status: Acute Qualifiers: Laterality: right Lung location: lower lobe of lung Qualified Code(s): J18.1 - Lobar pneumonia, unspecified organism Category: Medical Code(s): J18.9 - Pneumonia, unspecified organism (3) Hypokalemia Current visit: Yes Status: Acute Category: Medical Code(s): E87.6 - Hypokalemia (4) Occult blood in stools Current visit: Yes Status: Acute Category: Medical Code(s): R19.5 - Other fecal abnormalities (5) Necrotizing pneumonia Current visit: Yes Status: Acute Category: Medical Code(s): J85.0 - Gangrene and necrosis of lung (6) Multiple sclerosis Current visit: Yes Status: Acute Category: Medical Code(s): G35 - Multiple sclerosis (7) Anemia associated with acute blood loss Current visit: Yes Status: Acute Category: Medical Code(s): D62 - Acute posthemorrhagic anemia (8) COPD exacerbation Current visit: Yes Status: Acute Category: Medical Code(s): J44.1 - Chronic obstructive pulmonary disease with (acute) exacerbation - Assessment and plan all Dx Assessment and Plan for all problems:: Rounded with Dr. Lucia all orders per Khari
[2018-08-25 06:55] LABS: Basophils % 0.1 % (0.1-2.0); Eosinophils % 0.1 % (0.1-12.0); Hematocrit 30.8 % (42.0-52.0); Hemoglobin 9.9 g/dL (14.1-18.0); Lymphocytes # 0.6 K/mm3 (0.7-4.5); Lymphocytes % 5.3 % (10-50); Mean Corpuscular HGB Conc 32.1 g/dL (31.8-35.4); Mean Corpuscular Hemoglobin 26.3 pg (27.0-31.2); Mean Platelet Volume 7.5 fl (7.4-10.4); Monocytes # 0.4 K/mm3 (0.1-1.0); Monocytes % 3.4 % (1.7-9.3); Neutrophils # 10.8 K/mm3 (1.8-7.8); Neutrophils % 91.2 % (37.0-80.0); Platelet Count 342 K/mm3 (142-424); Red Blood Count 3.76 M/mm3 (4.60-6.20); Red Cell Distribution Width 17.9 % (11.5-17.5); White Blood Count 11.9 K/mm3 (4.8-10.8)
[2018-08-25 07:02] LABS: Anion Gap 17.4 mEq/L (5-15); Calcium 7.3 mg/dL (8.5-10.1)
[2018-08-25 07:05] LABS: Potassium 2.4 mmoL/L (3.5-5.1)
[2018-08-25 07:19] LABS: Lymphocytes % 4 % (10-50); Monocytes % 2 % (2-9); Neutrophils % 94 % (42-76); RBC Morphology Normal; Total Cells Counted 100
--- NOTE | 2018-08-25 09:38 | Progress Note ---
Subjective Patient reports: feels better (awaiting transfer) Exam Vital signs and Labs for Last 24 Hours: Temp Pulse Resp BP Pulse Ox 98.3 F 105 H 19 127/69 94 L 08/25/18 08:00 08/25/18 08:00 08/25/18 08:00 08/25/18 08:00 08/25/18 08:00 Laboratory Results - last 24 hr 08/23/18 07:04: Carcinoembryonic Ag 3.6 08/25/18 06:45: WBC 11.9 H, RBC 3.76 L, Hgb 9.9 L, Hct 30.8 L, MCV 82.0, MCH 26.3 L, MCHC 32.1, RDW 17.9 H, Plt Count 342, MPV 7.5, Neut % (Auto) 91.2 H, Lymph % (Auto) 5.3 L, [place] % (Auto) 3.4, Eos % (Auto) 0.1, Baso % (Auto) 0.1, Neut # (Auto) 10.8 H, Lymph # (Auto) 0.6 L, [place] # (Auto) 0.4, Eos # (Auto) 0.0, Baso # (Auto) 0.0, Total Counted 100, Neutrophils % (Manual) 94 H, Lymphocytes % (Manual) 4 L, Monocytes % (Manual) 2, Platelet Estimate Normal, RBC Morphology Normal 08/25/18 06:45: Sodium 135 L, Potassium 2.4 L*, Chloride 100, Carbon Dioxide 20 L, Anion Gap 17.4 H, BUN 7, Creatinine 0.96, Estimated Creat Clear 77, Estimated GFR 81, Est GFR ( Amer) 98, Glucose 132 H, Calcium 7.3 L I & O for Last 24 hours: Intake & Output 08/22/18 08/23/18 08/24/18 08/25/18 11:59 11:59 11:59 11:59 Intake Total 1110 / 1110 4991.667 / 4991.667 720 / 720 Output Total 600 / 600 375 / 375 1500 / 1500 Balance 510 / 510 4616.667 / 4616.667 -780 / -780 Weight 160 lb 140 lb 140 lb Microbiology Reports for the Last 24 Hours: Microbiology 08/24/18 11:05 Sputum - Expectorated Sputum Gram Stain - Final 08/24/18 11:05 Sputum - Expectorated Sputum Sputum Culture - Preliminary 08/22/18 11:10 Blood Blood Culture - Preliminary NO GROWTH AFTER 48 HOURS 08/22/18 11:10 Blood Blood Culture - Preliminary NO GROWTH AFTER 48 HOURS 08/24/18 01:45 Sputum - Expectorated Sputum Gram Stain - Final 08/24/18 01:45 Sputum - Expectorated Sputum Sputum Culture - Final Not Reportable - Constitutional no acute distress - *Routine Respiratory Exam Absent: respiratory distress - *Routine Abdominal Exam Present: soft Progress Note: A&P (1) Anemia Status: Acute Assessment and plan: stable with no sign of ongoing blood loss. endoscopy when medically stable Current Visit: Yes (2) Community acquired pneumonia Status: Acute Assessment and plan: awaiting transfer to [facility] Current Visit: Yes (3) Hypokalemia Status: Acute Current Visit: Yes (4) Occult blood in stools Status: Acute Current Visit: Yes (5) Necrotizing pneumonia Status: Acute Current Visit: Yes (6) Multiple sclerosis Status: Acute Current Visit: Yes (7) Anemia associated with acute blood loss Status: Acute Current Visit: Yes (8) COPD exacerbation Status: Acute Current Visit: Yes
--- NOTE | 2018-08-25 14:30 | Swing Bed Reports ---
Discharge/Transfer - Discharge Disposition: Xfer Short-Term Hosp Condition: Fair - Plan of Care Resident has been informed of condition and prognosis?: Yes Mobility Status: ambulatory with assistance Goal of treatment:: dx and rx lung infection Rehab Potential: Good I concur with the most recent H & P: Yes Date of most recent H & P: 08/23/18 Certification: I have reviewed and agree with this resident's plan of care. I certify that post-hospital correction facility services are required to be given on an inpatient basis because of the need for correction care on a continuing basis for the condition(s) for which he/she is receiving inpatient hospital services prior to admission to swing bed. I also certify that the resident meets existing SNF level of care definition.
--- NOTE | 2018-08-25 14:30 | Discharge Summary ---
General - General Admission date:: 08/22/18 Discharge date: 08/25/18 HPI HPI: 58-year-old male who presented to the emergency department yesterday "feeling sick"and shortness of breath. Pt states he has been sick for over 1 month and has been on antibotics and steroids. Pt was admittied and diagnosed with pneumonia, and anemia-guaiac positive. History from patient and . He has been sick for about 1 month. He has had a sinus and chest infection. He has been on one course of antibiotic, possibly Keflex, and 2 courses of prednisone per his primary care physician. He quit smoking and started Chantix during this time. The Chantix made him sick. He complains of worsening shortness of breath, productive cough. Sputum production has improved somewhat. Hospital Course Hospital Course: pt with progressve sob and was treated with ivf and abx and blood transfusion which has aided sob - is a 58-year-old gentleman who presented to the emergency department yesterday "feeling sick". He was diagnosed with pneumonia, but was also found to be profoundly anemic. He was guaiac positive. The surgical service was consulted for evaluation regarding possible gastrointestinal blood loss. A copy of his HPI from his emergency department evaluation is forwarded below: History from patient and . He has been sick for about 1 month. He has had a sinus and chest infection. He has been on one course of antibiotic, possibly Keflex, and 2 courses of prednisone per his primary care physician. He quit smoking and started Chantix during this time. The Chantix made him sick. He complains of worsening shortness of breath, productive cough. Sputum production has improved somewhat. NOTE: He had an appropriate response to his initial 2 unit blood transfusion. 2 additional units were ordered; however, he has received only 1 of those units for a total of 3. Posttransfusion H&H pending. There remains dense consolidation in the right middle and right lower lobe consistent with pneumonia with small parapneumonic effusion. Probably unchanged given difference in technique. Old right-sided rib fractures noted with evidence of old granulomatous disease. Normal heart size. No acute bony anomalies. IMPRESSION: Persistent right lower lobe and right middle lobe pneumonia with small parapneumonic effusion and on ctINGS: No obvious mediastinal or hilar mass is evident. No adenopathy.. There are centrilobular and paraseptal emphysematous changes with scattered areas of scarring. Pleural thickening is present involving the right apex. There is diffuse bronchial thickening. There is heterogeneous consolidation involving the right lower lobe within the lung base. Less densely consolidated posteriorly. There is a small right effusion as well. In addition, there is some heterogeneous consolidation involving the posterior aspect of the right middle lobe. This is felt to represent necrotizing pneumonia. There is bulging of the major fissure anteriorly. There are a few scattered air densities along the anterior aspect of the pneumonia. An abscess is not felt to be present. There is occlusion of the right lower lobe subsegmental bronchi the mass effect from the pneumonia. There is a calcified granuloma in the left lower lobe. There is a trace left-sided effusion and calcified granulomas in the left perihilar region. Patchy groundglass density is present in the left upper lobe and may be due to an area of mild pneumonitis. There is an old left seventh rib fracture laterally. IMPRESSION: 1. Dense heterogeneous consolidation of the right lower lobe in the posterior aspect of the right middle lobe consistent with necrotizing pneumonia. A large heterogeneous pulmonary masses felt to be less likely but not totally excluded 2. Small bilateral effusions. 3. Centrilobular emphysema with COPD pt was discussed with surg and [place] pul - dr hernández and will be transfered to for rx and eval which are beyond scope of [facility]- he was changed to abx reques juana by Objective Vital signs: Temp Pulse Resp BP Pulse Ox 97.3 F L 102 H 17 137/90 93 L 08/25/18 12:00 08/25/18 12:00 08/25/18 12:00 08/25/18 12:00 08/25/18 12:00 no acute distress - *Routine HEENT Exam Head: Present: normocephalic Eye: Present: EOMI, PERRL. Absent: conjunctival icterus ENT: Present: mucous membranes dry - *Routine Neck Exam Present: supple - *Routine Respiratory Exam Present: decreased breath sounds, rhonchi. Absent: respiratory distress - *Routine Cardiovascular Exam Present: RRR, murmur, S4 - *Routine Abdominal Exam Present: soft - *Routine Extremities Exam Present: full ROM - Routine Back/Spine/Pelvis Exam Back/Spine: Present: full ROM - *Routine Skin Exam Present: intact - *Routine Neurological Exam Present: alert, oriented X3, CN II-XII intact - Routine Psychiatric Exam Present: normal affect Results Labs on day of discharge: Labs from last 24 hours 08/25/18 08/25/18 08/23/18 06:45 06:45 07:04 WBC 11.9 H RBC 3.76 L Hgb 9.9 L Hct 30.8 L MCV 82.0 MCH 26.3 L MCHC 32.1 RDW 17.9 H Plt Count 342 MPV 7.5 Neut % (Auto) 91.2 H Lymph % (Auto) 5.3 L [place] % (Auto) 3.4 Eos % (Auto) 0.1 Baso % (Auto) 0.1 Neut # (Auto) 10.8 H Lymph # (Auto) 0.6 L [place] # (Auto) 0.4 Eos # (Auto) 0.0 Baso # (Auto) 0.0 Total Counted 100 Neutrophils % (Manual) 94 H Lymphocytes % (Manual) 4 L Monocytes % (Manual) 2 Platelet Estimate Normal RBC Morphology Normal Sodium 135 L Potassium 2.4 L* Chloride 100 Carbon Dioxide 20 L Anion Gap 17.4 H BUN 7 Creatinine 0.96 Estimated Creat Clear 77 Estimated GFR 81 Est GFR ( Amer) 98 Glucose 132 H Calcium 7.3 L Carcinoembryonic Ag 3.6 Preliminary micro results at discharge 08/24/18 11:05 Sputum Culture - Preliminary Sputum - Expectorated Sputum 08/22/18 11:10 Blood Culture - Preliminary Blood NO GROWTH AFTER 48 HOURS 08/22/18 11:10 Blood Culture - Preliminary Blood NO GROWTH AFTER 48 HOURS DS: Diagnosis - Discharge Diagnosis (1) Anemia Status: Acute (2) Community acquired pneumonia Status: Acute (3) Hypokalemia Status: Acute (4) Occult blood in stools Status: Acute (5) Necrotizing pneumonia Status: Acute (6) Multiple sclerosis Status: Acute (7) Anemia associated with acute blood loss Status: Acute (8) COPD exacerbation Status: Acute Discharge Plan - Patient Discharge Instructions ACTIVITY: Continue current activity DIET: continue same diet Patient Instructions: Anemia, DI for Pneumonia -- Adult, DI for Hypokalemia - Follow up Plan Follow up with: Manjit Blake MD [Staff Physician] - 1 week Disposition: Xfer Short-Term Hosp Home Medications: Home Medications Medication Instructions Recorded Confirmed Type albuterol sulfate HFA 90 2 puff INHALATION BID PRN #6.7 g 07/13/18 08/22/18 Rx mcg/actuation aerosol inhaler Ascorbic Acid [Vitamin C] 250 mg PO DAILY 08/22/18 08/23/18 History Calcium Carbonate [Calcium] 500 mg PO DAILY 08/22/18 08/22/18 History Fluticasone/Vilanterol [Breo 1 inh INHALATION DAILY 08/22/18 08/22/18 History Ellipta] Furosemide [Furosemide 40MG tAB] 40 mg PO DAILY 08/22/18 08/23/18 History Gabapentin [Gabapentin 100mg Cap] 100 mg PO TID 08/22/18 08/23/18 History Multivit-Min/Folic/Vit K/Lycop 1 each PO DAILY 08/22/18 08/23/18 History [Men's Multivitamin Caplet] Potassium Chloride [Klor-con 20 20 meq PO DAILY 08/22/18 08/23/18 History mEq tablet] Quetiapine Fumarate 450 mg PO HS 08/22/18 08/23/18 History SUMAtriptan succinate [Imitrex] 50 mg PO NEEDED PRN 08/22/18 08/23/18 History Venlafaxine HCl [Effexor XR 75mg 75 mg PO DAILY 08/22/18 08/23/18 History capsule] hydroCHLOROthiazide [HCTZ 25mg 25 mg PO DAILY 08/22/18 08/23/18 History tab] clonazePAM [Clonazepam] 0.5 mg PO HS 08/23/18 08/23/18 History Prescriptions/Medication Reconciliation: New Pantoprazole Sodium [Protonix 40mg Vial] 40 mg IV BID vial Potassium Chloride [Klor-con 20 mEq tablet] 40 meq PO TIDWM tablet Piperacillin/Tazo [Zosyn 4.5gm ADV] 4.5 gm IV Q6H vial.port Vancomycin HCl [Vancomycin 1000mg Vial] 1,250 mg IV Q18H vial Venlafaxine HCl [Effexor XR 75mg capsule] 75 mg PO DAILY cap.er.24h Continue albuterol sulfate HFA 90 mcg/actuation aerosol inhaler 2 puff INHALATION BID PRN #6.7 g PRN Reason: shortness of breath or wheezing SUMAtriptan succinate [Imitrex] 50 mg PO NEEDED PRN PRN Reason: MIGRAINES Quetiapine Fumarate 450 mg PO HS Potassium Chloride [Klor-con 20 mEq tablet] 20 meq PO DAILY Gabapentin [Gabapentin 100mg Cap] 100 mg PO TID Fluticasone/Vilanterol [Breo Ellipta] 1 inh INHALATION DAILY Calcium Carbonate [Calcium] 500 mg PO DAILY Multivit-Min/Folic/Vit K/Lycop [Men's Multivitamin Caplet] 1 each PO DAILY Ascorbic Acid [Vitamin C] 250 mg PO DAILY clonazePAM [Clonazepam] 0.5 mg PO HS Venlafaxine HCl [Effexor XR 75mg capsule] 75 mg PO DAILY Discontinued hydroCHLOROthiazide [HCTZ 25mg tab] 25 mg PO DAILY Furosemide [Furosemide 40MG tAB] 40 mg PO DAILY
[2018-08-26 06:43] LABS: Basophils % 0.1 % (0.1-2.0); Eosinophils % 0.1 % (0.1-12.0); Hematocrit 31.1 % (42.0-52.0); Hemoglobin 9.8 g/dL (14.1-18.0); Lymphocytes # 0.7 K/mm3 (0.7-4.5); Lymphocytes % 5.7 % (10-50); Mean Corpuscular HGB Conc 31.3 g/dL (31.8-35.4); Mean Corpuscular Hemoglobin 25.7 pg (27.0-31.2); Mean Platelet Volume 7.6 fl (7.4-10.4); Monocytes # 0.4 K/mm3 (0.1-1.0); Monocytes % 3.1 % (1.7-9.3); Platelet Count 361 K/mm3 (142-424); Red Cell Distribution Width 18.1 % (11.5-17.5); White Blood Count 13.2 K/mm3 (4.8-10.8)
[2018-08-26 06:57] LABS: Calcium 7.6 mg/dL (8.5-10.1)
[2018-08-26 06:59] LABS: Lymphocytes % 10 % (10-50); Neutrophils % 88 % (42-76); Total Cells Counted 100
[2018-08-26 07:00] LABS: Hypochromasia 1+; Polychromasia 1+; Rouleaux 1+
--- NOTE | 2018-08-26 08:52 | Pharmacy Consult Notes ---
- Pharmacy Consult Date: 08/26/18 Time: 08:51 Referring provider: DR. HESS Reason for Consult:: BASED ON VANCOMYCIN TROUGH LEVEL OF 14.4, RECOMMEND CONTINUING CURRENT DOSE OF VANCOMYCIN (1,250MG IV EVERY 18H). PHARMACY WILL CONTINUE TO MONITOR AND WILL ADJUST DOSE APPROPRIATE. -RICARDA MCRAE PHARMD Allergies and ADEs:: Allergies Allergy/AdvReac Type Severity Reaction Status Date / Time No Known Allergies Allergy Verified 07/13/18 14:35 Home Medications:: Home Medications Medication Instructions Recorded Confirmed Type albuterol sulfate HFA 90 2 puff INHALATION BID PRN #6.7 g 07/13/18 08/22/18 Rx mcg/actuation aerosol inhaler Ascorbic Acid [Vitamin C] 250 mg PO DAILY 08/22/18 08/23/18 History Calcium Carbonate [Calcium] 500 mg PO DAILY 08/22/18 08/22/18 History Fluticasone/Vilanterol [Breo 1 inh INHALATION DAILY 08/22/18 08/22/18 History Ellipta] Furosemide [Furosemide 40MG tAB] 40 mg PO DAILY 08/22/18 08/23/18 History Gabapentin [Gabapentin 100mg Cap] 100 mg PO TID 08/22/18 08/23/18 History Multivit-Min/Folic/Vit K/Lycop 1 each PO DAILY 08/22/18 08/23/18 History [Men's Multivitamin Caplet] Potassium Chloride [Klor-con 20 20 meq PO DAILY 08/22/18 08/23/18 History mEq tablet] Quetiapine Fumarate 450 mg PO HS 08/22/18 08/23/18 History SUMAtriptan succinate [Imitrex] 50 mg PO NEEDED PRN 08/22/18 08/23/18 History Venlafaxine HCl [Effexor XR 75mg 75 mg PO DAILY 08/22/18 08/23/18 History capsule] hydroCHLOROthiazide [HCTZ 25mg 25 mg PO DAILY 08/22/18 08/23/18 History tab] clonazePAM [Clonazepam] 0.5 mg PO HS 08/23/18 08/23/18 History Height: 1.75 m Weight: 63.503 kg Laboratory Results:: Laboratory Results - last 24 hr 08/25/18 22:10: Vancomycin Trough 14.4 08/26/18 06:31: WBC 13.2 H, RBC 3.80 L, Hgb 9.8 L, Hct 31.1 L, MCV 82.0, MCH 25.7 L, MCHC 31.3 L, RDW 18.1 H, Plt Count 361, MPV 7.6, Neut % (Auto) 91.0 H, Lymph % (Auto) 5.7 L, [place] % (Auto) 3.1, Eos % (Auto) 0.1, Baso % (Auto) 0.1, Neut # (Auto) 12.0 H, Lymph # (Auto) 0.7, [place] # (Auto) 0.4, Eos # (Auto) 0.0, Baso # (Auto) 0.0, Total Counted 100, Neutrophils % (Manual) 88 H, Band Neutrophils % 2.0, Lymphocytes % (Manual) 10, Platelet Estimate Normal, Polychromasia 1+, Hypochromasia 1+, Poikilocytosis 1+, Rouleaux 1+ 08/26/18 06:31: Sodium 135 L, Potassium 3.0 L, Chloride 102, Carbon Dioxide 19 L , Anion Gap 17.0 H, BUN 8, Creatinine 1.03, Estimated Creat Clear 72, Estimated GFR 75, Est GFR ( Amer) 90, Glucose 128 H, Calcium 7.6 L Medical History: Reports:: Hypertension Denies:: Cancer, Diabetes Mellitus Type 1, Diabetes Mellitus Type 2, MRSA Assessment and Plan (1) Anemia Current visit: Yes Status: Acute Qualifiers: Anemia type: unspecified type Qualified Code(s): D64.9 - Anemia, unspecified Category: Medical Code(s): D64.9 - Anemia, unspecified (2) Community acquired pneumonia Current visit: Yes Status: Acute Qualifiers: Laterality: right Lung location: lower lobe of lung Qualified Code(s): J18.1 - Lobar pneumonia, unspecified organism Category: Medical Code(s): J18.9 - Pneumonia, unspecified organism (3) Hypokalemia Current visit: Yes Status: Acute Category: Medical Code(s): E87.6 - Hypokalemia (4) Occult blood in stools Current visit: Yes Status: Acute Category: Medical Code(s): R19.5 - Other fecal abnormalities (5) Necrotizing pneumonia Current visit: Yes Status: Acute Category: Medical Code(s): J85.0 - Gangrene and necrosis of lung (6) Multiple sclerosis Current visit: Yes Status: Acute Category: Medical Code(s): G35 - Multiple sclerosis (7) Anemia associated with acute blood loss Current visit: Yes Status: Acute Category: Medical Code(s): D62 - Acute posthemorrhagic anemia (8) COPD exacerbation Current visit: Yes Status: Acute Category: Medical Code(s): J44.1 - Chronic obstructive pulmonary disease with (acute) exacerbation
--- NOTE | 2018-08-26 09:43 | Progress Note ---
Internal Medicine - PN: Subj *Date: 08/26/18 *Time: 09:43 Exam Vital signs and Labs for Last 24 Hours: Temp Pulse Resp BP Pulse Ox 98.7 F 105 H 17 141/85 H 94 L 08/26/18 08:00 08/26/18 08:00 08/26/18 08:00 08/26/18 08:00 08/26/18 08:00 Laboratory Results - last 24 hr 08/25/18 22:10: Vancomycin Trough 14.4 08/26/18 06:31: WBC 13.2 H, RBC 3.80 L, Hgb 9.8 L, Hct 31.1 L, MCV 82.0, MCH 25.7 L, MCHC 31.3 L, RDW 18.1 H, Plt Count 361, MPV 7.6, Neut % (Auto) 91.0 H, Lymph % (Auto) 5.7 L, [place] % (Auto) 3.1, Eos % (Auto) 0.1, Baso % (Auto) 0.1, Neut # (Auto) 12.0 H, Lymph # (Auto) 0.7, [place] # (Auto) 0.4, Eos # (Auto) 0.0, Baso # (Auto) 0.0, Total Counted 100, Neutrophils % (Manual) 88 H, Band Neutrophils % 2.0, Lymphocytes % (Manual) 10, Platelet Estimate Normal, Polychromasia 1+, Hypochromasia 1+, Poikilocytosis 1+, Rouleaux 1+ 08/26/18 06:31: Sodium 135 L, Potassium 3.0 L, Chloride 102, Carbon Dioxide 19 L , Anion Gap 17.0 H, BUN 8, Creatinine 1.03, Estimated Creat Clear 72, Estimated GFR 75, Est GFR ( Amer) 90, Glucose 128 H, Calcium 7.6 L I & O for Last 24 hours: Intake & Output 08/23/18 08/24/18 08/25/18 08/26/18 23:59 23:59 23:59 23:59 Intake Total 1123.667 / 4542.040 6852 / 4848 720 / 720 240 / 240 Output Total 400 / 400 1575 / 1575 900 / 900 Balance 723.667 / 444.343 5247 / 3273 -180 / -180 240 / 240 Weight 63.503 kg 63.503 kg Microbiology Reports for the Last 24 Hours: Microbiology 08/24/18 11:05 Sputum - Expectorated Sputum Gram Stain - Final 08/24/18 11:05 Sputum - Expectorated Sputum Sputum Culture - Preliminary Assessment and Plan (1) Anemia Current visit: Yes Status: Acute Qualifiers: Anemia type: unspecified type Qualified Code(s): D64.9 - Anemia, unspecified Category: Medical Code(s): D64.9 - Anemia, unspecified (2) Community acquired pneumonia Current visit: Yes Status: Acute Qualifiers: Laterality: right Lung location: lower lobe of lung Qualified Code(s): J18.1 - Lobar pneumonia, unspecified organism Category: Medical Code(s): J18.9 - Pneumonia, unspecified organism (3) Hypokalemia Current visit: Yes Status: Acute Category: Medical Code(s): E87.6 - Hypokalemia (4) Occult blood in stools Current visit: Yes Status: Acute Category: Medical Code(s): R19.5 - Other fecal abnormalities (5) Necrotizing pneumonia Current visit: Yes Status: Acute Category: Medical Code(s): J85.0 - Gangrene and necrosis of lung (6) Multiple sclerosis Current visit: Yes Status: Acute Category: Medical Code(s): G35 - Multiple sclerosis (7) Anemia associated with acute blood loss Current visit: Yes Status: Acute Category: Medical Code(s): D62 - Acute posthemorrhagic anemia (8) COPD exacerbation Current visit: Yes Status: Acute Category: Medical Code(s): J44.1 - Chronic obstructive pulmonary disease with (acute) exacerbation The patient's infection will respond to the chosen ABx?: Yes Is the patient receiving the right drug, dose, and route?: Yes Could a more targeted ABx be ordered?: No (CX'S PENDING AT THIS TIME)
--- NOTE | 2018-08-26 10:15 | Progress Note ---
Internal Medicine - PN: Subj *Date: 08/26/18 *Time: 11:29 Interval history: doing ok - awaiting transfer - labs ok Exam Vital signs and Labs for Last 24 Hours: Temp Pulse Resp BP Pulse Ox 98.7 F 105 H 17 141/85 H 94 L 08/26/18 08:00 08/26/18 08:00 08/26/18 08:00 08/26/18 08:00 08/26/18 08:00 Laboratory Results - last 24 hr 08/25/18 22:10: Vancomycin Trough 14.4 08/26/18 06:31: WBC 13.2 H, RBC 3.80 L, Hgb 9.8 L, Hct 31.1 L, MCV 82.0, MCH 25.7 L, MCHC 31.3 L, RDW 18.1 H, Plt Count 361, MPV 7.6, Neut % (Auto) 91.0 H, Lymph % (Auto) 5.7 L, [place] % (Auto) 3.1, Eos % (Auto) 0.1, Baso % (Auto) 0.1, Neut # (Auto) 12.0 H, Lymph # (Auto) 0.7, [place] # (Auto) 0.4, Eos # (Auto) 0.0, Baso # (Auto) 0.0, Total Counted 100, Neutrophils % (Manual) 88 H, Band Neutrophils % 2.0, Lymphocytes % (Manual) 10, Platelet Estimate Normal, Polychromasia 1+, Hypochromasia 1+, Poikilocytosis 1+, Rouleaux 1+ 08/26/18 06:31: Sodium 135 L, Potassium 3.0 L, Chloride 102, Carbon Dioxide 19 L , Anion Gap 17.0 H, BUN 8, Creatinine 1.03, Estimated Creat Clear 72, Estimated GFR 75, Est GFR ( Amer) 90, Glucose 128 H, Calcium 7.6 L I & O for Last 24 hours: Intake & Output 08/23/18 08/24/18 08/25/18 08/26/18 11:59 11:59 11:59 11:59 Intake Total 1110 / 1110 4991.667 / 4991.667 720 / 720 720 / 720 Output Total 600 / 600 375 / 375 1500 / 1500 600 / 600 Balance 510 / 510 4616.667 / 4616.667 -780 / -780 120 / 120 Weight 140 lb 140 lb 140 lb Microbiology Reports for the Last 24 Hours: Microbiology 08/24/18 11:05 Sputum - Expectorated Sputum Gram Stain - Final 08/24/18 11:05 Sputum - Expectorated Sputum Sputum Culture - Preliminary - Constitutional no acute distress - *Routine HEENT Exam Head: Present: normocephalic Eye: Present: EOMI, PERRL ENT: Present: mucous membranes dry - *Routine Neck Exam Present: supple - *Routine Respiratory Exam Present: decreased breath sounds, rhonchi - *Routine Cardiovascular Exam Present: RRR, murmur - *Routine Abdominal Exam Present: soft - *Routine Extremities Exam Absent: calf tenderness - *Routine Skin Exam Present: intact - *Routine Neurological Exam Present: alert, oriented X3, CN II-XII intact - Routine Psychiatric Exam Present: normal affect Assessment and Plan (1) Anemia Current visit: Yes Status: Acute Qualifiers: Anemia type: unspecified type Qualified Code(s): D64.9 - Anemia, unspecified Category: Medical Code(s): D64.9 - Anemia, unspecified (2) Community acquired pneumonia Current visit: Yes Status: Acute Qualifiers: Laterality: right Lung location: lower lobe of lung Qualified Code(s): J18.1 - Lobar pneumonia, unspecified organism Category: Medical Code(s): J18.9 - Pneumonia, unspecified organism (3) Hypokalemia Current visit: Yes Status: Acute Category: Medical Code(s): E87.6 - Hypokalemia (4) Occult blood in stools Current visit: Yes Status: Acute Category: Medical Code(s): R19.5 - Other fecal abnormalities (5) Necrotizing pneumonia Current visit: Yes Status: Acute Category: Medical Code(s): J85.0 - Gangrene and necrosis of lung (6) Multiple sclerosis Current visit: Yes Status: Acute Category: Medical Code(s): G35 - Multiple sclerosis (7) Anemia associated with acute blood loss Current visit: Yes Status: Acute Category: Medical Code(s): D62 - Acute posthemorrhagic anemia (8) COPD exacerbation Current visit: Yes Status: Acute Category: Medical Code(s): J44.1 - Chronic obstructive pulmonary disease with (acute) exacerbation (9) Elevated erythrocyte sedimentation rate Current visit: Yes Status: Acute Category: Medical Code(s): R70.0 - Elevated erythrocyte sedimentation rate
--- NOTE | 2018-08-27 12:41 | Progress Note ---
Internal Medicine - PN: Subj *Date: 08/27/18 *Time: 08:00 Interval history: doing better - on day 3 of abx - no bed at -[facility] Exam Vital signs and Labs for Last 24 Hours: Temp Pulse Resp BP Pulse Ox 98.5 F 118 H 20 145/97 H 93 L 08/27/18 11:13 08/27/18 11:13 08/27/18 11:13 08/27/18 11:13 08/27/18 11:13 I & O for Last 24 hours: Intake & Output 08/25/18 08/26/18 08/27/18 08/28/18 11:59 11:59 11:59 11:59 Intake Total 720 / 720 720 / 720 1710 / 1710 Output Total 1500 / 1500 600 / 600 600 / 600 Balance -780 / -780 120 / 120 1110 / 1110 Weight 140 lb Microbiology Reports for the Last 24 Hours: Microbiology 08/22/18 11:10 Blood Blood Culture - Final NO GROWTH AFTER 5 DAYS 08/22/18 11:10 Blood Blood Culture - Final NO GROWTH AFTER 5 DAYS 08/24/18 11:05 Sputum - Expectorated Sputum Gram Stain - Final 08/24/18 11:05 Sputum - Expectorated Sputum Sputum Culture - Final Yeast - Constitutional no acute distress - *Routine HEENT Exam Head: Present: normocephalic Eye: Present: EOMI, PERRL ENT: Present: mucous membranes dry - *Routine Neck Exam Present: supple - *Routine Respiratory Exam Present: decreased breath sounds - *Routine Cardiovascular Exam Present: RRR, murmur - *Routine Abdominal Exam Present: soft - *Routine Extremities Exam Present: full ROM - *Routine Skin Exam Present: intact - *Routine Neurological Exam Present: alert, oriented X3, CN II-XII intact - Routine Psychiatric Exam Present: normal affect Assessment and Plan (1) Anemia Current visit: Yes Status: Acute Qualifiers: Anemia type: unspecified type Qualified Code(s): D64.9 - Anemia, unspecified Category: Medical Code(s): D64.9 - Anemia, unspecified (2) Community acquired pneumonia Current visit: Yes Status: Acute Qualifiers: Laterality: right Lung location: lower lobe of lung Qualified Code(s): J18.1 - Lobar pneumonia, unspecified organism Category: Medical Code(s): J18.9 - Pneumonia, unspecified organism (3) Hypokalemia Current visit: Yes Status: Acute Category: Medical Code(s): E87.6 - Hypokalemia (4) Occult blood in stools Current visit: Yes Status: Acute Category: Medical Code(s): R19.5 - Other fecal abnormalities (5) Necrotizing pneumonia Current visit: Yes Status: Acute Category: Medical Code(s): J85.0 - Gangrene and necrosis of lung (6) Multiple sclerosis Current visit: Yes Status: Acute Category: Medical Code(s): G35 - Multiple sclerosis (7) Anemia associated with acute blood loss Current visit: Yes Status: Acute Category: Medical Code(s): D62 - Acute posthemorrhagic anemia (8) COPD exacerbation Current visit: Yes Status: Acute Category: Medical Code(s): J44.1 - Chronic obstructive pulmonary disease with (acute) exacerbation (9) Elevated erythrocyte sedimentation rate Current visit: Yes Status: Acute Category: Medical Code(s): R70.0 - Elevated erythrocyte sedimentation rate
--- NOTE | 2018-08-28 08:53 | Progress Note ---
Internal Medicine - PN: Subj *Date: 08/28/18 *Time: 08:52 Exam Vital signs and Labs for Last 24 Hours: Temp Pulse Resp BP Pulse Ox 98.7 F 109 H 18 133/86 98 08/28/18 07:57 08/28/18 07:57 08/28/18 07:57 08/28/18 07:57 08/28/18 07:57 I & O for Last 24 hours: Intake & Output 08/25/18 08/26/18 08/27/18 08/28/18 11:59 11:59 11:59 11:59 Intake Total 720 / 720 720 / 720 1710 / 1710 720 / 720 Output Total 1500 / 1500 600 / 600 600 / 600 600 / 600 Balance -780 / -780 120 / 120 1110 / 1110 120 / 120 Weight 140 lb Microbiology Reports for the Last 24 Hours: Microbiology 08/22/18 11:10 Blood Blood Culture - Final NO GROWTH AFTER 5 DAYS 08/22/18 11:10 Blood Blood Culture - Final NO GROWTH AFTER 5 DAYS 08/24/18 11:05 Sputum - Expectorated Sputum Gram Stain - Final 08/24/18 11:05 Sputum - Expectorated Sputum Sputum Culture - Final Yeast - *Routine HEENT Exam Head: Present: normocephalic Eye: Present: PERRL ENT: Present: mucous membranes moist - *Routine Neck Exam Present: supple. Absent: lymphadenopathy - *Routine Respiratory Exam Present: rhonchi, diminished air movement - *Routine Cardiovascular Exam Present: RRR - *Routine Abdominal Exam Present: soft, normoactive bowel sounds. Absent: tenderness - *Routine Extremities Exam Present: full ROM. Absent: cyanosis, clubbing, edema - *Routine Skin Exam Present: warm. Absent: rash - *Routine Neurological Exam Present: alert, oriented X3 - Routine Psychiatric Exam Present: normal affect Assessment and Plan (1) Anemia Current visit: Yes Status: Acute Qualifiers: Anemia type: unspecified type Qualified Code(s): D64.9 - Anemia, unsp ecified Category: Medical Code(s): D64.9 - Anemia, unspecified (2) Community acquired pneumonia Current visit: Yes Status: Acute Qualifiers: Laterality: right Lung location: lower lobe of lung Qualified Code(s): J18.1 - Lobar pneumonia, unspecified organism Category: Medical Code(s): J18.9 - Pneumonia, unspecified organism (3) Hypokalemia Current visit: Yes Status: Acute Category: Medical Code(s): E87.6 - Hyp okalemia (4) Occult blood in stools Current visit: Yes Status: Acute Category: Medical Code(s): R19.5 - Other fecal abnormalities (5) Necrotizing pneumonia Current visit: Yes Status: Acute Category: Medical Code(s): J85.0 - Gangrene and necrosis of lung (6) Multiple sclerosis Current visit: Yes Status: Acute Category: Medical Code(s): G35 - Multiple sclerosis (7) Anemia associated with acute blood loss Current visit: Yes Status: Acute Category: Medical Code(s): D62 - Acute posthemorrhagic anemia (8) COPD exacerbation Current visit: Yes Status: Acute Category: Medical Code(s): J44.1 - Chronic obstructive pulmonary disease with (acute) exacerbation (9) Elevated erythrocyte sedimentation rate Current visit: Yes Status: Acute Category: Medical Code(s): R70.0 - Elevated erythrocyte sedimentation rate (10) Candidal pneumonia Current visit: Yes Status: Acute Category: Medical Code(s): B37.1 - Pulmonary candidiasis - Assessment and plan all Dx Assessment and Plan for all problems:: Rounded with Dr. Lucia all orders per Khari Wang to see today
[2018-08-28 09:16] LABS: Basophils % 0.1 % (0.1-2.0); Eosinophils % 0.1 % (0.1-12.0); Hematocrit 30.9 % (42.0-52.0); Hemoglobin 9.3 g/dL (14.1-18.0); Lymphocytes # 0.8 K/mm3 (0.7-4.5); Lymphocytes % 5.1 % (10-50); Mean Corpuscular HGB Conc 30.3 g/dL (31.8-35.4); Mean Corpuscular Hemoglobin 25.7 pg (27.0-31.2); Mean Corpuscular Volume 84.8 fl (80-94); Mean Platelet Volume 7.7 fl (7.4-10.4); Monocytes # 0.3 K/mm3 (0.1-1.0); Monocytes % 1.8 % (1.7-9.3); Neutrophils # 13.8 K/mm3 (1.8-7.8); Neutrophils % 92.9 % (37.0-80.0); Platelet Count 430 K/mm3 (142-424); Red Blood Count 3.64 M/mm3 (4.60-6.20); Red Cell Distribution Width 18.9 % (11.5-17.5); White Blood Count 14.9 K/mm3 (4.8-10.8)
[2018-08-28 09:24] LABS: Albumin Level 1.9 gm/dL (3.4-5.0); Albumin/Globulin Ratio 0.6 (1.1-1.8); Anion Gap 14.4 mEq/L (5-15); Bilirubin,Total 0.7 mg/dL (0.2-1.0); Calcium 7.7 mg/dL (8.5-10.1); Globulin 3.4 gm/dl (1.3-3.2); Potassium 4.4 mmoL/L (3.5-5.1); Total Protein,Serum 5.3 gm/dL (6.4-8.2)
[2018-08-28 09:41] LABS: Lymphocytes % 5 % (10-50); Monocytes % 2 % (2-9); Neutrophils % 93 % (42-76); Total Cells Counted 100
--- NOTE | 2018-08-28 16:25 | Consult Report ---
*Admission Date: 08/22/18 *Chief complaint: I have pneumonia. *History of present illness: Mr. Childress is a 58-year-old man who has the significant past history of multiple sclerosis for about the last 12 years which has caused generalized weakness, I understand, although he has been able to walk and has not had significant problems with toileting. He had no visual difficulty. He was in his usual state of health until about a month ago when, he recalls, he was started on Chantix. He has a long history of cigarette smoking, beginning in the mid 1970s and extending until the time of this admission. He smoked up to 3 packages of cigarettes daily. Before this illness, he had a daily cough which was productive of small amounts of sputum but had no history of exacerbations of bronchitis and had no history of pneumonia. He has been more breathless over the years but related that to multiple sclerosis. He was never diagnosed with a chronic lung disease. Soon after starting Chantix, he developed severe abdominal pain associated with nausea and intermittent vomiting of voluminous amounts of black and bloody sputum. This went on for 9 hours and then he went to the emergency room where he was treated and evaluated and kept overnight. Soon after, he developed fever and chills with temperatures up to 104 associated with left-sided pleuritic chest pain. The cough increased and was productive of large volumes of yellow sputum without blood. I believe he was treated as an outpatient with antibiotics without success and was ultimately admitted here almost a week ago. Since admission and management with broad-spectrum antibiotics, he feels slightly better but he is still coughing in spasms and quite short of breath. His chest pain seems better. [facility] History I have reviewed the patient's past medical history: Yes (Multiple sclerosis) Medical History: Reports:: Hypertension Denies:: Cancer, Diabetes Mellitus Type 1, Diabetes Mellitus Type 2, MRSA Have you ever received a pneumonia vaccine?: No Have you received a flu vaccine this season?: No Other Surgeries: Yes: No Previous Surgery, Other Amputation: No Fractures: Yes (arm fracture at age 8) - *Social History Educational Level: Completed College Smoking Status: Former smoker Tobacco Type: cigarettes # Packs/Day (cigarettes): 3 #Yrs smoked (if former smoker): 40 Smoking End Date: 08/04/18 Alcohol Intake: never Alcohol Intake Frequency:: holidays/special occasions only Substance Use Type: denies use Occupational Status: disabled Housing: house Household Members: significant other Travel in the last 8 weeks: Inside the [place] - Psychiatric History Expresses thoughts of harming self/others: None Suicide Plan Description: No Plan *Family Hx:: Unable to obtain, No significant family history (His father of a stroke and his mother had COPD.), Stroke Review of Systems - Constitutional Reports anorexia - *Respiratory Comments: See hpi - *Gastrointestinal Comments: see hpi - *Neurologic Reports weakness, Denies abnormal movements Meds Home Medications Medication Instructions Recorded Confirmed Type albuterol sulfate HFA 90 2 puff INHALATION BID PRN #6.7 g 07/13/18 08/22/18 Rx mcg/actuation aerosol inhaler Ascorbic Acid [Vitamin C] 250 mg PO DAILY 08/22/18 08/23/18 History Calcium Carbonate [Calcium] 500 mg PO DAILY 08/22/18 08/22/18 History Fluticasone/Vilanterol [Breo 1 inh INHALATION DAILY 08/22/18 08/22/18 History Ellipta 100-25 Mcg INH] Gabapentin [Gabapentin 100mg Cap] 100 mg PO TID 08/22/18 08/23/18 History Multivit-Min/Folic/Vit K/Lycop 1 each PO DAILY 08/22/18 08/23/18 History [Men's Multivitamin Caplet] Potassium Chloride [Klor-con 20 20 meq PO DAILY 08/22/18 08/23/18 History mEq tablet] Quetiapine Fumarate 450 mg PO HS 08/22/18 08/23/18 History SUMAtriptan succinate [Imitrex] 50 mg PO NEEDED PRN 08/22/18 08/23/18 History Venlafaxine HCl [Effexor XR 75mg 75 mg PO DAILY 08/22/18 08/23/18 History capsule] clonazePAM [Clonazepam] 0.5 mg PO HS 08/23/18 08/23/18 History Pantoprazole Sodium [Protonix 40mg 40 mg IV BID vial 08/25/18 Rx Vial] Piperacillin/Tazo [Zosyn 4.5gm ADV] 4.5 gm IV Q6H vial.port 08/25/18 Rx Potassium Chloride [Klor-con 20 40 meq PO TIDWM tab 08/25/18 Rx mEq tablet] Vancomycin HCl [Vancomycin 1000mg 1,250 mg IV Q18H vial 08/25/18 Rx Vial] Venlafaxine HCl [Effexor XR 75mg 75 mg PO DAILY cap.er.24h 08/25/18 Rx capsule] Allergies Allergy/AdvReac Type Severity Reaction Status Date / Time No Known Allergies Allergy Verified 07/13/18 14:35 Exam Vital signs and Labs for Last 24 Hours: Temp Pulse Resp BP Pulse Ox 98.4 F 121 H 23 142/72 H 94 L 08/28/18 15:59 08/28/18 15:59 08/28/18 15:59 08/28/18 15:59 08/28/18 15:59 Laboratory Results - last 24 hr 08/28/18 09:00: WBC 14.9 H, RBC 3.64 L, Hgb 9.3 L, Hct 30.9 L, MCV 84.8, MCH 25.7 L, MCHC 30.3 L, RDW 18.9 H, Plt Count 430 H, MPV 7.7, Neut % (Auto) 92.9 H, Lymph % (Auto) 5.1 L, Boyle % (Auto) 1.8, Eos % (Auto) 0.1, Baso % (Auto) 0.1, Neut # (Auto) 13.8 H, Lymph # (Auto) 0.8, Boyle # (Auto) 0.3, Eos # (Auto) 0.0, Baso # (Auto) 0.0, Total Counted 100, Neutrophils % (Manual) 93 H, Lymphocytes % (Manual) 5 L, Monocytes % (Manual) 2, Platelet Estimate Slight increase 08/28/18 09:00: Sodium 137, Potassium 4.4 D, Chloride 106, Carbon Dioxide 21, Anion Gap 14.4, BUN 7, Creatinine 1.13, Estimated Creat Clear 66, Estimated GFR 67, Est GFR ( Amer) 81, Glucose 100, Calcium 7.7 L, Total Bilirubin 0.7, AST 9 L, ALT 16, Alkaline Phosphatase 120 H, Total Protein 5.3 L, Albumin 1.9 L, Globulin 3.4 H, Albumin/Globulin Ratio 0.6 L I & O for Last 24 hours: Intake & Output 08/25/18 08/26/18 08/27/18 08/28/18 23:59 23:59 23:59 23:59 Intake Total 720 / 720 840 / 840 1590 / 1590 2723 / 2723 Output Total 900 / 900 1200 / 1200 Balance -180 / -180 840 / 840 390 / 390 2723 / 2723 Weight 63.503 kg Radiology Reports for the Last 24 Hours: I reviewed his x-rays and CT scan. The CT shows evidence of a masslike density in the right lower lobe without air bronchograms and extending to the hilar area. The hilar lymph nodes appear to be enlarged and there is heterogeneity in the density and in the nodes suggesting necrosis. A portion of the right lower lobe shows evidence of patchy alveolar infiltrates. I see that he was profoundly anemic on admission and had evidence of GI bleeding. He was transfused. Narrative: Mr. Go is a pleasant and articulate, acutely ill man who is sitting up in bed wearing oxygen at 2 L/min. Because he is acutely ill, I do not think his history is completely accurate and it does differ somewhat from what is in the medical record. He did not complain of headache or any visual difficulty. He is dyspneic in conversation. HEENT: Sclerae clear; conjunctivae pink; PERRLA; EOMs full. Oral mucosa is dry and the oropharynx is Mallampati IV. I see no oral lesions. Neck: Carotids 2+; no JVD; no adenopathy. Chest: Diminished expansion bilaterally; dullness at the right base posteriorly with diminished breath sounds. No adventitious sounds and no pleural friction rubs are audible. Heart: Regular rhythm; tachycardia. No obvious murmur or rub. Abdomen: Protuberant; bowel sounds diminished; soft, nontender, no masses or organomegaly. Skin: Numerous ecchymoses over the hands and arms and over the chest where leads must have been placed. Extremities: No edema Neurological: He seem to be able to move extremities but is quite weak in the lower extremities. His hand shake is weak as well. I see no muscle fasciculations. His voice is strong but he is dyspneic in conversation. Internal Medicine - CN: Reslt - Labs CBC & Chem 7: 08/28/18 09:00 08/28/18 09:00 Labs: Short CBC 08/28/18 Range/Units 09:00 WBC 14.9 H (4.8-10.8) K/mm3 Hgb 9.3 L (14.1-18.0) g/dL Hct 30.9 L (42.0-52.0) % Plt Count 430 H (142-424) K/mm3 BMP 08/28/18 09:00 Sodium 137 Potassium 4.4 D Chloride 106 Carbon Dioxide 21 BUN 7 Creatinine 1.13 Glucose 100 Calcium 7.7 L Liver Function 08/28/18 Range/Units 09:00 Total Bilirubin 0.7 (0.2-1.0) mg/dL AST 9 L (15-37) U/L ALT 16 (12-78) U/L Alkaline Phosphatase 120 H (46-116) U/L Albumin 1.9 L (3.4-5.0) gm/dL Assessment and Plan (1) Anemia Current visit: Yes Status: Acute Qualifiers: Anemia type: unspecified type Qualified Code(s): D64.9 - Anemia, unspecified Category: Medical Code(s): D64.9 - Anemia, unspecified (2) Community acquired pneumonia Current visit: Yes Status: Acute Qualifiers: Laterality: right Lung location: lower lobe of lung Qualified Code(s): J18.1 - Lobar pneumonia, unspecified organism Category: Medical Code(s): J18.9 - Pneumonia, unspecified organism (3) Hypokalemia Current visit: Yes Status: Acute Category: Medical Code(s): E87.6 - Hypokalemia (4) Occult blood in stools Current visit: Yes Status: Acute Category: Medical Code(s): R19.5 - Other fecal abnormalities (5) Necrotizing pneumonia Current visit: Yes Status: Acute Category: Medical Code(s): J85.0 - Gangrene and necrosis of lung (6) Multiple sclerosis Current visit: Yes Status: Acute Category: Medical Code(s): G35 - Multiple sclerosis (7) Anemia associated with acute blood loss Current visit: Yes Status: Acute Category: Medical Code(s): D62 - Acute posthemorrhagic anemia (8) COPD exacerbation Current visit: Yes Status: Acute Category: Medical Code(s): J44.1 - Chronic obstructive pulmonary disease with (acute) exacerbation (9) Elevated erythrocyte sedimentation rate Current visit: Yes Status: Acute Category: Medical Code(s): R70.0 - Elevated erythrocyte sedimentation rate (10) Candidal pneumonia Current visit: Yes Status: Acute Category: Medical Code(s): B37.1 - Pulmonary candidiasis - Assessment and plan all Dx Assessment and Plan for all problems:: Mr. Go has a history of multiple sclerosis but appears to have been in good health until the last 4-6 weeks. His history is somewhat vague this evening but he was very precise about the onset of the illness. His appetite is "0" and he is lost about 20 pounds in the last 4-6 weeks, he told me. He is profoundly weak now, much more weak than he was 6 months ago, for example. He has evidence of either a necrotizing pneumonia which may be distal to a bronchial obstruction or a necrotizing mass, possibly malignant, in the lung. When I initially saw the x-rays before I saw him, I suspected fungal infection like a pneumonia due to Histoplasma or Blastomyces. However, he has been quite disabled by multiple sclerosis and has not really gone out very much in the last 3 years, he told me. It would seem difficult for him to have been exposed to a fungus like those. I do believe he needs to undergo bronchoscopy and probably further GI evaluation for the source of the gastrointestinal bleeding. I do not believe that high- dose steroids are needed and they may be harmful. I see that he has been on chronic low-dose prednisone for a time and stress dose steroids should be sufficient. If he cannot be transferred to the [facility], I do suggest transfer to somewhere else where pulmonary consultation and bronchoscopy is available. I spent 60 minutes examining Mr. Go and evaluating personally his x-rays and tests. He is critically ill and requires monitoring and [id number] care.
--- NOTE | 2018-08-28 23:57 | Discharge Summary ---
General - General Admission date:: 08/22/18 Discharge date: 08/28/18 HPI HPI: 58-year-old male who presented to the emergency department yesterday "feeling sick"and shortness of breath. Pt states he has been sick for over 1 month and has been on antibotics and steroids. Pt was admittied and diagnosed with pneumonia, and anemia-guaiac positive. History from patient and . He has been sick for about 1 month. He has had a sinus and chest infection. He has been on one course of antibiotic, possibly Keflex, and 2 courses of prednisone per his primary care physician. He quit smoking and started Chantix during this time. The Chantix made him sick. He complains of worsening shortness of breath, productive cough. Sputum production has improved somewhat. Hospital Course Hospital Course: pt was admitted and given transfusion for his anemia - uncertain og any blood loss site did have pos hemocult but no evid of melena or other gi loss - he was found to have cap on xray and placed on abx - l Contrast: Gastroview IV Contrast: 75 mL of Isovue-[id number]. FINDINGS: Please see chest CT report for description of the lung base. There is a small amount of perihepatic fluid. 7 mm isodensity is present in the left lobe of the liver superiorly nonspecific. Low density changes are present along the falciform ligament and may be due to focal fatty infiltration. There are least 2 hyperdensities within the gallbladder consistent with small stones. There is some minimal stranding of the fat around the gallbladder to be due to some underlying inflammatory change. The duodenal bulb also appear slightly thickened. The spleen and pancreas is unremarkable.. The adrenal glands are somewhat prominent but maintain an adreniform shape. Isodensity is present in the mid aspect of the left kidney posteriorly at 14 mm consistent with a renal cyst. No renal or ureteral calculi. Urinary bladder somewhat distended. There is a small amount of fluid in the pelvis. There is a moderate amount retained colonic feces. No evidence of intestinal obstruction or free air. IMPRESSION: 1. There is mild thickening of the duodenal bulb and minimal stranding of the fat between the gallbladder and duodenum suggesting some underlying inflammatory change. The tinnitus is considered. Gallstones are also noted. 2. Minimal amount of perihepatic fluid with a small amount fluid also noted in the pelvis. he was seen by surg -s a 58-year-old gentleman who presented to the emergency department yesterday "feeling sick". He was diagnosed with pneumonia, but was also found to be profoundly anemic. He was guaiac positive. The surgical service was consulted for evaluation regarding possible gastrointestinal blood loss. A copy of his HPI from his emergency department evaluation is forwarded below: History from patient and . He has been sick for about 1 month. He has had a sinus and chest infection. He has been on one course of antibiotic, possibly Keflex, and 2 courses of prednisone per his primary care physician. He quit smoking and started Chantix during this time. The Chantix made him sick. He complains of worsening shortness of breath, productive cough. Sputum production has improved somewhat. NOTE: He had an appropriate response to his initial 2 unit blood transfusion. 2 additional units were ordered; however, he has received only 1 of those units for a total of 3. Posttransfusion H&H pending. : No obvious mediastinal or hilar mass is evident. No adenopathy.. There are centrilobular and paraseptal emphysematous changes with scattered areas of scarring. Pleural thickening is present involving the right apex. There is diffuse bronchial thickening. There is heterogeneous consolidation involving the right lower lobe within the lung base. Less densely consolidated posteriorly. There is a small right effusion as well. In addition, there is some heterogeneous consolidation involving the posterior aspect of the right middle lobe. This is felt to represent necrotizing pneumonia. There is bulging of the major fissure anteriorly. There are a few scattered air densities along the anterior aspect of the pneumonia. An abscess is not felt to be present. There is occlusion of the right lower lobe subsegmental bronchi the mass effect from the pneumonia. There is a calcified granuloma in the left lower lobe. There is a trace left-sided effusion and calcified granulomas in the left perihilar region. Patchy groundglass density is present in the left upper lobe and may be due to an area of mild pneumonitis. There is an old left seventh rib fracture laterally. IMPRESSION: 1. Dense heterogeneous consolidation of the right lower lobe in the posterior aspect of the right middle lobe consistent with necrotizing pneumonia. A large heterogeneous pulmonary masses felt to be less likely but not totally excluded 2. Small bilateral effusions. 3. Centrilobular emphysema with COPD he was placed on abx vancomycin and zosyn and has lt sided pic line - pt has hx of ms which has been stable and tob use - he has no sig pul hx - he has long hx of hypokalemia in past - he was seen by pul . Monroe is a 58-year-old man who has the significant past history of multiple sclerosis for about the last 12 years which has caused generalized weakness, I understand, although he has been able to walk and has not had significant problems with toileting. He had no visual difficulty. He was in his usual state of health until about a month ago when, he recalls, he was started on Chantix. He has a long history of cigarette smoking, beginning in the mid 1970s and extending until the time of this admission. He smoked up to 3 packages of cigarettes daily. Before this illness, he had a daily cough which was productive of small amounts of sputum but had no history of exacerbations of bronchitis and had no history of pneumonia. He has been more breathless over the years but related that to multiple sclerosis. He was never diagnosed with a chronic lung disease. Soon after starting Chantix, he developed severe abdominal pain associated with nausea and intermittent vomiting of voluminous amounts of black and bloody sputum. This went on for 9 hours and then he went to the emergency room where he was treated and evaluated and kept overnight. Soon after, he developed fever and chills with temperatures up to 104 associated with left-sided pleuritic chest pain. The cough increased and was productive of large volumes of yellow sputum without blood. I believe he was treated as an outpatient with antibiotics without success and was ultimately admitted here almost a week ago. Since admission and management with broad-spectrum antibiotics, he feels slightly better but he is still coughing in spasms and quite short of breath. His chest pain seems better. iewed his x-rays and CT scan. The CT shows evidence of a masslike density in the right lower lobe without air bronchograms and extending to the hilar area. The hilar lymph nodes appear to be enlarged and there is heterogeneity in the density and in the nodes suggesting necrosis. A portion of the right lower lobe shows evidence of patchy alveolar infiltrates. I see that he was profoundly anemic on admission and had evidence of GI bleeding. He was transfused. Narrative: Mr. Go is a pleasant and articulate, acutely ill man who is sitting up in bed wearing oxygen at 2 L/min. Because he is acutely ill, I do not think his history is completely accurate and it does differ somewhat from what is in the medical record. He did not complain of headache or any visual difficulty. He is dyspneic in conversation. HEENT: Sclerae clear; conjunctivae pink; PERRLA; EOMs full. Oral mucosa is dry and the oropharynx is Mallampati IV. I see no oral lesions. Neck: Carotids 2+; no JVD; no adenopathy. Chest: Diminished expansion bilaterally; dullness at the right base posteriorly with diminished breath sounds. No adventitious sounds and no pleural friction rubs are audible. Heart: Regular rhythm; tachycardia. No obvious murmur or rub. Abdomen: Protuberant; bowel sounds diminished; soft, nontender, no masses or organomegaly. Skin: Numerous ecchymoses over the hands and arms and over the chest where leads must have been placed. Extremities: No edema Neurological: He seem to be able to move extremities but is quite weak in the lower extremities. His hand shake is weak as well. I see no muscle fasciculations. His voice is strong but he is dyspneic in conversation. Internal Medicine - CN: Reslt - Labs CBC & Chem 7: 08/28/18 09:00 08/28/18 09:00 Labs: Short CBC 08/28/18 Range/Units 09:00 WBC 14.9 H (4.8-10.8) K/mm3 Hgb 9.3 L (14.1-18.0) g/dL Hct 30.9 L (42.0-52.0) % Plt Count 430 H (142-424) K/mm3 BMP 08/28/18 09:00 Sodium 137 Potassium 4.4 D Chloride 106 Carbon Dioxide 21 BUN 7 Creatinine 1.13 Glucose 100 Calcium 7.7 L Liver Function 08/28/18 Range/Units 09:00 Total Bilirubin 0.7 (0.2-1.0) mg/dL AST 9 L (15-37) U/L ALT 16 (12-78) U/L Alkaline Phosphatase 120 H (46-116) U/L Albumin 1.9 L (3.4-5.0) gm/dL Assessment and Plan (1) Anemia Current visit: Yes Status: Acute Qualifiers: Anemia type: unspecified type Qualified Code(s): D64.9 - Anemia, unspecified Category: Medical Code(s): D64.9 - Anemia, unspecified (2) Community acquired pneumonia Current visit: Yes Status: Acute Qualifiers: Laterality: right Lung location: lower lobe of lung Qualified Code(s): J18.1 - Lobar pneumonia, unspecified organism Category: Medical Code(s): J18.9 - Pneumonia, unspecified organism (3) Hypokalemia Current visit: Yes Status: Acute Category: Medical Code(s): E87.6 - Hypokalemia (4) Occult blood in stools Current visit: Yes Status: Acute Category: Medical Code(s): R19.5 - Other fecal abnormalities (5) Necrotizing pneumonia Current visit: Yes Status: Acute Category: Medical Code(s): J85.0 - Gangrene and necrosis of lung (6) Multiple sclerosis Current visit: Yes Status: Acute Category: Medical Code(s): G35 - Multiple sclerosis (7) Anemia associated with acute blood loss Current visit: Yes Status: Acute Category: Medical Code(s): D62 - Acute posthemorrhagic anemia (8) COPD exacerbation Current visit: Yes Status: Acute Category: Medical Code(s): J44.1 - Chronic obstructive pulmonary disease with (acute) exacerbation (9) Elevated erythrocyte sedimentation rate Current visit: Yes Status: Acute Category: Medical Code(s): R70.0 - Elevated erythrocyte sedimentation rate (10) Candidal pneumonia Current visit: Yes Status: Acute Category: Medical Code(s): B37.1 - Pulmonary candidiasis - Assessment and plan all Dx Assessment and Plan for all problems:: Mr. Go has a history of multiple sclerosis but appears to have been in good health until the last 4-6 weeks. His history is somewhat vague this evening but he was very precise about the onset of the illness. His appetite is "0" and he is lost about 20 pounds in the last 4-6 weeks, he told me. He is profoundly weak now, much more weak than he was 6 months ago, for example. He has evidence of either a necrotizing pneumonia which may be distal to a bronchial obstruction or a necrotizing mass, possibly malignant, in the lung. When I initially saw the x-rays before I saw him, I suspected fungal infection like a pneumonia due to Histoplasma or Blastomyces. However, he has been quite disabled by multiple sclerosis and has not really gone out very much in the last 3 years, he told me. It would seem difficult for him to have been exposed to a fungus like those. I do believe he needs to undergo bronchoscopy and probably further GI evaluation for the source of the gastrointestinal bleeding. I do not believe that high- dose steroids are needed and they may be harmful. I see that he has been on chronic low-dose prednisone for a time and stress dose steroids should be sufficient. If he cannot be transferred to the [facility], I do suggest transfer to somewhere else where pulmonary consultation and bronchoscopy is available. pt was discussed and will be transferred to [facility] for eval and treatment - discussed this with pt Objective Vital signs: Temp Pulse Resp BP Pulse Ox 98.3 F 119 H 15 145/93 H 95 08/28/18 20:00 08/28/18 20:00 08/28/18 20:00 08/28/18 20:00 08/28/18 20:00 no acute distress - *Routine HEENT Exam Head: Present: normocephalic Eye: Present: EOMI, PERRL. Absent: conjunctival icterus ENT: Present: mucous membranes dry - *Routine Neck Exam Present: supple. Absent: JVD - *Routine Respiratory Exam Present: decreased breath sounds, rhonchi. Absent: respiratory distress - *Routine Cardiovascular Exam Present: RRR, murmur, S4 - *Routine Abdominal Exam Present: soft - *Routine Extremities Exam Absent: calf tenderness - *Routine Skin Exam Present: intact - *Routine Neurological Exam Present: alert, oriented X3, CN II-XII intact - Routine Psychiatric Exam Present: normal affect Results Labs on day of discharge: Labs from last 24 hours 08/28/18 08/28/18 08/28/18 22:00 16:10 09:00 WBC RBC Hgb Hct MCV MCH MCHC RDW Plt Count MPV Neut % (Auto) Lymph % (Auto) Hooker % (Auto) Eos % (Auto) Baso % (Auto) Neut # (Auto) Lymph # (Auto) Hooker # (Auto) Eos # (Auto) Baso # (Auto) Total Counted Neutrophils % (Manual) Lymphocytes % (Manual) Monocytes % (Manual) Platelet Estimate Sodium 137 Potassium 4.4 D Chloride 106 Carbon Dioxide 21 Anion Gap 14.4 BUN 7 Creatinine 1.13 Estimated Creat Clear 66 Estimated GFR 67 Est GFR ( Amer) 81 Glucose 100 Calcium 7.7 L Total Bilirubin 0.7 AST 9 L ALT 16 Alkaline Phosphatase 120 H Total Protein 5.3 L Albumin 1.9 L Globulin 3.4 H Albumin/Globulin Ratio 0.6 L Stl Aeromonas (PCR) Not detected Stl C. cayetanensis PCR Not detected Stool Rotavirus (PCR) Not detected Stl Adenov F 40/ PCR Not detected Stool Astrovirus (PCR) Not detected Stool Campylobacter PCR Not detected Stl C.difficile Tox PCR Not detected Stool Cryptosporidium PCR Not detected Stl E.coli Shiga Tox PCR Not detected Stool E coli O157 PCR Not detected Stl Enterotoxigenic E PCR Not detected Stool EPEC (PCR) Not detected Stool EAEC (PCR) Not detected Stl E. histolytica PCR Not detected Stool Giardia Lamblia PCR Not detected Stool Salmonella PCR Not detected Stool Sapovirus (PCR) Not detected Stl P. shigelloides PCR Not detected Stl Shigella/EIEC PCR Not detected St Y.enterocolitica PCR Not detected Stool Vibrio (PCR) Not detected Stl Vibrio cholerae PCR Not detected Stl Norovirus GI/GII PCR Not detected Vancomycin Trough 20.1 H 08/28/18 09:00 WBC 14.9 H RBC 3.64 L Hgb 9.3 L Hct 30.9 L MCV 84.8 MCH 25.7 L MCHC 30.3 L RDW 18.9 H Plt Count 430 H MPV 7.7 Neut % (Auto) 92.9 H Lymph % (Auto) 5.1 L Hooker % (Auto) 1.8 Eos % (Auto) 0.1 Baso % (Auto) 0.1 Neut # (Auto) 13.8 H Lymph # (Auto) 0.8 Hooker # (Auto) 0.3 Eos # (Auto) 0.0 Baso # (Auto) 0.0 Total Counted 100 Neutrophils % (Manual) 93 H Lymphocytes % (Manual) 5 L Monocytes % (Manual) 2 Platelet Estimate Slight increase Sodium Potassium Chloride Carbon Dioxide Anion Gap BUN Creatinine Estimated Creat Clear Estimated GFR Est GFR ( Amer) Glucose Calcium Total Bilirubin AST ALT Alkaline Phosphatase Total Protein Albumin Globulin Albumin/Globulin Ratio Stl Aeromonas (PCR) Stl C. cayetanensis PCR Stool Rotavirus (PCR) Stl Adenov F 40/41 PCR Stool Astrovirus (PCR) Stool Campylobacter PCR Stl C.difficile Tox PCR Stool Cryptosporidium PCR Stl E.coli Shiga Tox PCR Stool E coli O157 PCR Stl Enterotoxigenic E PCR Stool EPEC (PCR) Stool EAEC (PCR) Stl E. histolytica PCR Stool Giardia Lamblia PCR Stool Salmonella PCR Stool Sapovirus (PCR) Stl P. shigelloides PCR Stl Shigella/EIEC PCR St Y.enterocolitica PCR Stool Vibrio (PCR) Stl Vibrio cholerae PCR Stl Norovirus GI/GII PCR Vancomycin Trough DS: Diagnosis - Discharge Diagnosis (1) Anemia Status: Acute (2) Community acquired pneumonia Status: Acute (3) Hypokalemia Status: Acute (4) Occult blood in stools Status: Acute (5) Necrotizing pneumonia Status: Acute (6) Multiple sclerosis Status: Acute (7) Anemia associated with acute blood loss Status: Acute (8) COPD exacerbation Status: Acute (9) Elevated erythrocyte sedimentation rate Status: Acute (10) Candidal pneumonia Status: Acute Discharge Plan - Patient Discharge Instructions ACTIVITY: Continue current activity (change d/c date to 08/28/18) DIET: continue same diet Patient Instructions: Anemia, DI for Pneumonia -- Adult, DI for Hypokalemia, Peripherally Inserted Central Catheter, Surgical Site Infection Forms: Transfer Record - Follow up Plan Follow up with: Manjit Blkae MD [Staff Physician] - 1 week Disposition: Xfer Short-Term Hosp Home Medications: Home Medications Medication Instructions Recorded Confirmed Type albuterol sulfate HFA 90 2 puff INHALATION BID PRN #6.7 g 07/13/18 08/22/18 Rx mcg/actuation aerosol inhaler Ascorbic Acid [Vitamin C] 250 mg PO DAILY 08/22/18 08/23/18 History Calcium Carbonate [Calcium] 500 mg PO DAILY 08/22/18 08/22/18 History Fluticasone/Vilanterol [Breo 1 inh INHALATION DAILY 08/22/18 08/22/18 History Ellipta 100-25 Mcg INH] Gabapentin [Gabapentin 100mg Cap] 100 mg PO TID 08/22/18 08/23/18 History Multivit-Min/Folic/Vit K/Lycop 1 each PO DAILY 08/22/18 08/23/18 History [Men's Multivitamin Caplet] Potassium Chloride [Klor-con 20 20 meq PO DAILY 08/22/18 08/23/18 History mEq tablet] Quetiapine Fumarate 450 mg PO HS 08/22/18 08/23/18 History SUMAtriptan succinate [Imitrex] 50 mg PO NEEDED PRN 08/22/18 08/23/18 History Venlafaxine HCl [Effexor XR 75mg 75 mg PO DAILY 08/22/18 08/23/18 History capsule] clonazePAM [Clonazepam] 0.5 mg PO HS 08/23/18 08/23/18 History Pantoprazole Sodium [Protonix 40mg 40 mg IV BID vial 08/25/18 Rx Vial] Piperacillin/Tazo [Zosyn 4.5gm ADV] 4.5 gm IV Q6H vial.port 08/25/18 Rx Potassium Chloride [Klor-con 20 40 meq PO TIDWM tab 08/25/18 Rx mEq tablet] Vancomycin HCl [Vancomycin 1000mg 1,250 mg IV Q18H vial 08/25/18 Rx Vial] Venlafaxine HCl [Effexor XR 75mg 75 mg PO DAILY cap.er.24h 08/25/18 Rx capsule] Prescriptions/Medication Reconciliation: New Pantoprazole Sodium [Protonix 40mg Vial] 40 mg IV BID vial Potassium Chloride [Klor-con 20 mEq tablet] 40 meq PO TIDWM tab Piperacillin/Tazo [Zosyn 4.5gm ADV] 4.5 gm IV Q6H vial.port Vancomycin HCl [Vancomycin 1000mg Vial] 1,250 mg IV Q18H vial Venlafaxine HCl [Effexor XR 75mg capsule] 75 mg PO DAILY cap.er.24h Continue albuterol sulfate HFA 90 mcg/actuation aerosol inhaler 2 puff INHALATION BID PRN #6.7 g PRN Reason: shortness of breath or wheezing SUMAtriptan succinate [Imitrex] 50 mg PO NEEDED PRN PRN Reason: MIGRAINES Quetiapine Fumarate 450 mg PO HS Potassium Chloride [Klor-con 20 mEq tablet] 20 meq PO DAILY Gabapentin [Gabapentin 100mg Cap] 100 mg PO TID Fluticasone/Vilanterol [Breo Ellipta 100-25 Mcg INH] 1 inh INHALATION DAILY Calcium Carbonate [Calcium] 500 mg PO DAILY Multivit-Min/Folic/Vit K/Lycop [Men's Multivitamin Caplet] 1 each PO DAILY Ascorbic Acid [Vitamin C] 250 mg PO DAILY clonazePAM [Clonazepam] 0.5 mg PO HS Venlafaxine HCl [Effexor XR 75mg capsule] 75 mg PO DAILY Discontinued hydroCHLOROthiazide [HCTZ 25mg tab] 25 mg PO DAILY Furosemide [Furosemide 40MG tAB] 40 mg PO DAILY
--- NOTE | 2018-08-29 00:08 | Swing Bed Reports ---
Discharge/Transfer - Discharge Disposition: Xfer Short-Term Hosp Condition: Fair - Plan of Care Resident has been informed of condition and prognosis?: Yes Mobility Status: ambulatory with assistance Goal of treatment:: eval abn cxr and appropiate treatment Rehab Potential: Fair I concur with the most recent H & P: Yes Date of most recent H & P: 08/28/18 Certification: I have reviewed and agree with this resident's plan of care. I certify that post-hospital penitentiary facility services are required to be given on an inpatient basis because of the need for penitentiary care on a continuing basis for the condition(s) for which he/she is receiving inpatient hospital services prior to admission to swing bed. I also certify that the resident meets existing SNF level of care definition.
== END 2018-08-29 01:36 | disposition short-term general hospital (02) | DRG 177 ==
LOC: SUPCPDRO → ER 10:43 → 2ND 13:08
PROVIDERS: ADMIT Emergency Medicine; ATTEND Emergency Medicine
CPT/HCPCS: 36415; 36569; 71010; 71020; 71045; 71046; 71260; 74177; 80048; 80053; 80202; 81001; 82272; 82378; 83605; 84484; 85007; 85014; 85018; 85025; 85651; 86850; 87040; 87070; 87205; 87507; 93005; 94640; 94760; 94761; 96365; 96375; 99285; C1751; G0328; J0456; J2543; J3370; P9016; Q9967

== ENCOUNTER 2018-09-05 16:10 | Outpatient (CLI) | payer MEDICARE, SELFPAY ==
[2018-09-05 16:30] VITALS: BP 109/63; PULSE 112; RESP 20; O2SAT 100
[2018-09-05 17:00] VITALS: BP 111/67; PULSE 110; RESP 20; O2SAT 99
[2018-09-05 17:20] VITALS: BP 108/64; PULSE 109; RESP 20; O2SAT 100
== END 2018-09-05 17:28 | disposition home or self-care (01) ==
LOC: INF 16:39
PROVIDERS: Visit Provider Internal Medicine Infectious Disease
DX: J18.9 Pneumonia, unspecified organism (principal)
CPT/HCPCS: 96365

== ENCOUNTER 2018-09-06 13:15 | Outpatient (CLI) | payer MEDICARE, SELFPAY ==
[2018-09-06 13:40] VITALS: BP 109/69; PULSE 108; RESP 18; TEMP 36.9; O2SAT 96
[2018-09-06 14:10] VITALS: BP 112/67; PULSE 107; RESP 18
== END 2018-09-06 14:30 | disposition home or self-care (01) ==
LOC: INF 13:24
PROVIDERS: Visit Provider Internal Medicine Infectious Disease
DX: J18.9 Pneumonia, unspecified organism (principal)
CPT/HCPCS: 96365

== ENCOUNTER 2018-09-07 13:28 | Outpatient (CLI) | payer MEDICARE, SELFPAY ==
[2018-09-07 13:40] VITALS: BP 110/76; PULSE 110; RESP 20; TEMP 36.9; O2SAT 95
[2018-09-07 14:10] VITALS: BP 122/74; PULSE 68; RESP 20; TEMP 36.9; O2SAT 95
== END 2018-09-07 14:30 | disposition home or self-care (01) ==
LOC: INF 13:29
PROVIDERS: Visit Provider Internal Medicine Infectious Disease
DX: J18.9 Pneumonia, unspecified organism (principal)
CPT/HCPCS: 96365

== ENCOUNTER → 2018-09-08 13:18 | Outpatient (CLI) | payer MEDICARE, SELFPAY ==
[2018-09-08 13:33] VITALS: BP 112/78; PULSE 105; RESP 16; TEMP 36.6; O2SAT 96; BMI 23.6
[2018-09-08 14:11] VITALS: BP 116/71; PULSE 104; RESP 16; TEMP 36.4; O2SAT 99
== END ==
PROVIDERS: PCP Emergency Medicine; Visit Provider Internal Medicine Infectious Disease
DX: J18.9 Pneumonia, unspecified organism (principal)
CPT/HCPCS: 96365

== ENCOUNTER → 2018-09-09 12:51 | Outpatient (CLI) | payer MEDICARE, SELFPAY ==
[2018-09-09 13:00] VITALS: BP 115/71; PULSE 110; RESP 16; TEMP 36.6; O2SAT 98; BMI 23.6
[2018-09-09 13:51] VITALS: BP 108/69; PULSE 105; RESP 16; TEMP 36.7; O2SAT 99
== END ==
PROVIDERS: PCP Internal Medicine Infectious Disease; Visit Provider Internal Medicine Infectious Disease
DX: J18.9 Pneumonia, unspecified organism (principal)
CPT/HCPCS: 96365

== ENCOUNTER 2018-09-10 13:19 | Outpatient (CLI) | payer MEDICARE, SELFPAY ==
[2018-09-10 13:35] VITALS: BP 106/69; PULSE 113; RESP 18; TEMP 36.6; O2SAT 98
[2018-09-10 14:05] VITALS: BP 110/62; PULSE 110; RESP 18; O2SAT 97
[2018-09-10 14:20] VITALS: BP 108/70; PULSE 109; RESP 18; O2SAT 97
== END 2018-09-10 14:20 | disposition home or self-care (01) ==
LOC: INF 13:19
PROVIDERS: Visit Provider Internal Medicine Infectious Disease
DX: J18.9 Pneumonia, unspecified organism (principal)
CPT/HCPCS: 96365

== ENCOUNTER 2018-09-11 14:10 | Outpatient (CLI) | payer MEDICARE, SELFPAY ==
[2018-09-11 14:20] VITALS: BP 115/68; PULSE 113; RESP 20; TEMP 36.7; O2SAT 98
[2018-09-11 14:50] VITALS: BP 112/64; PULSE 111; RESP 20
[2018-09-11 15:05] VITALS: BP 116/72; PULSE 110; RESP 20; O2SAT 99
== END 2018-09-11 15:10 | disposition home or self-care (01) ==
LOC: INF 14:10
PROVIDERS: Visit Provider Internal Medicine Infectious Disease
DX: J18.9 Pneumonia, unspecified organism (principal)
CPT/HCPCS: 96365

== ENCOUNTER 2018-09-12 13:07 | Outpatient (CLI) | payer MEDICARE, SELFPAY ==
[2018-09-12 13:25] VITALS: BP 97/72; PULSE 107; RESP 20; TEMP 36.2; O2SAT 98
[2018-09-12 14:00] VITALS: BP 112/71; PULSE 98; RESP 20
== END 2018-09-12 14:55 | disposition home or self-care (01) ==
LOC: INF 13:07
PROVIDERS: Visit Provider Surgery
DX: J18.9 Pneumonia, unspecified organism (principal)
CPT/HCPCS: 96365

== ENCOUNTER 2018-09-13 13:02 | Outpatient (CLI) | payer MEDICARE, SELFPAY ==
[2018-09-13 12:55] VITALS: BP 90/61; PULSE 110; RESP 16; TEMP 36.9; O2SAT 100
[2018-09-13 13:10] VITALS: BP 93/63; PULSE 99; RESP 18; TEMP 36.9; O2SAT 100
[2018-09-13 13:53] VITALS: BP 98/65; PULSE 98; RESP 18; TEMP 36.9; O2SAT 100
== END 2018-09-13 13:53 | disposition home or self-care (01) ==
LOC: INF 13:02
PROVIDERS: Visit Provider Internal Medicine Infectious Disease
DX: J18.9 Pneumonia, unspecified organism (principal)
CPT/HCPCS: 96365

== ENCOUNTER 2018-09-14 13:00 | Outpatient (CLI) | payer MEDICARE, SELFPAY ==
[2018-09-14 13:15] VITALS: BP 96/65; PULSE 100; RESP 20; TEMP 36.9; O2SAT 95
[2018-09-14 13:45] VITALS: BP 106/60; PULSE 68; RESP 20; TEMP 36.9; O2SAT 95
== END 2018-09-14 14:00 | disposition home or self-care (01) ==
LOC: INF 14:17
PROVIDERS: Visit Provider Internal Medicine Infectious Disease
DX: J18.9 Pneumonia, unspecified organism (principal)
CPT/HCPCS: 96365

== ENCOUNTER 2018-10-08 09:09 | Outpatient (RCR) | payer MEDICARE, SELFPAY ==
--- NOTE | 2018-10-08 10:18 | [facility].PTOPEV ---
PT Outpatient Evaluation Rehab PT Outpatient Evaluation Start: 10/08/18 09:46 Freq: Status: Active Protocol: Document 10/08/18 09:46 ROSLYN (Rec: 10/08/18 10:18 ROSLYN [id number]) Electronically Signed By Shaun Trejo, PT 10/08/18 09:46 Outpatient Therapy Subjective History Subjective History Pt reports h/o weakness, decreased balance, and pain secondary to M.S. Pt reports severe exacerbation s/s began ~3 yrs ago, R > L LE weakness, severe B LE and UE (stocking and glove pattern) pain, and multiple falls d/t balance deficits. Pt reports recent hospital stay d/t pneumonia, ' that took a lot of me recently as well'. Chief Complaint Pain Paresthesia Weakness Symptom Type Ache Throb Sharp Dull Stabbing Burning Numbness Tingling Shooting Symptoms Relieved By Rest/Positioning Symptoms Aggravated By Standing Physical Activity Walking Prior Functional Limitations Lifting Housework Standing Walking Stairs Balance Current Functional Limitations Lifting Housework Standing Walking Stairs Balance Symptom Description Constant and Continuous Level of pain today (0-10) 6 Pain scale - at its best (0-10) 6 Pain scale - at its worst (0-10) 10 Cervical Eval MMT Bilateral Deltoid (C5) 4- Good- Biceps Brachii Strength Grade 4 Good Wrist Extension Strength Grade 4 Good Triceps Brachii Strength Grade 4 Good Wrist Flexion Strength Grade 5 Normal Extensor Pollicis Longus Strength Grade 5 Normal Finger Abduction Strength Grade 5 Normal Altered Sensation Upper extremity Dermatomes C6 C7 Lumbopelvic Eval Gait Observation General Gait Pattern Observation Antalgic Gait
== END 2018-10-08 09:10 | disposition home or self-care (01) ==
LOC: PT 09:09
PROVIDERS: Visit Provider Emergency Medicine
DX: G35 Multiple sclerosis (principal)
CPT/HCPCS: 97110; 97163

== ENCOUNTER 2019-09-28 21:22 | Inpatient (IN) ==
[2019-09-28 22:41] LABS: Basophils % 0.2 % (0.1-2.0); Eosinophils % 0.2 % (0.1-12.0); Lymphocytes # 0.9 K/mm3 (0.7-4.5); Red Cell Distribution Width 14.6 % (11.5-17.5)
[2019-09-28 22:47] LABS: Lymphocytes % 6.8 % (10-50); Mean Corpuscular HGB Conc 33.3 g/dL (31.8-35.4); Mean Corpuscular Volume 101.7 fl (80-94); Monocytes # 0.4 K/mm3 (0.1-1.0); Neutrophils # 11.6 K/mm3 (1.8-7.8); Neutrophils % 89.8 % (37.0-80.0); Platelet Count 339 K/mm3 (142-424); Red Blood Count 5.53 M/mm3 (4.60-6.20); White Blood Count 12.9 K/mm3 (4.8-10.8)
[2019-09-28 22:50] LABS: Hematocrit 56.2 % (42.0-52.0); Hemoglobin 18.7 g/dL (14.1-18.0)
[2019-09-28 22:55] LABS: Albumin Level 3.4 g/dL (3.4-5.0); Albumin/Globulin Ratio 0.9 (1.1-1.8); Anion Gap 20.2 mEq/L (5-15); Bilirubin,Total 0.8 mg/dL (0.2-1.0); Calcium 9.1 mg/dL (8.5-10.1); Globulin 3.6 gm/dl (1.3-3.2)
--- NOTE | 2019-09-28 23:00 | Emergency Department Note ---
ED Disposition Clinical Impression: Non-STEMI (non-ST elevated myocardial infarction), Multiple sclerosis, Esophagitis Disposition: Admitted as Observation Condition on Discharge: Fair - Critical Care Critical Care Time: No Attestation: On 09/28/19, the high probability of a clinically significant, sudden or life threatening deterioration of the following system(s) required my full and direct attention, intervention and personal management. The time I documented below is in addition to time spent performing reported procedures but includes the following listed in this critical care notation. Medical Decision Making - Medical Records Medical records reviewed: Yes: I reviewed the patient's medical records. - Huy Inquiry Pt receiving controlled substance: No Vital Signs: 09/28/19 21:26 09/28/19 22:33 09/28/19 23:10 Temperature 99.4 F Temperature Source Oral Pulse Rate Pulse Rate [Right Brachial] 113 H 103 H 99 H Respiratory Rate 16 Blood Pressure [Right Arm] 165/109 H 165/106 H 172/41 H Blood Pressure Mean [Right Arm] 127 125 84 Blood Pressure Source [Right Arm] Automatic Cuff Automatic Cuff Blood Pressure Position [Right Arm] Sitting Sitting Sitting 02 Sat by Pulse Oximetry 99 94 L 100 Oxygen Delivery Method Room Air Room Air Room Air 09/28/19 23:41 09/28/19 23:56 09/29/19 00:22 Temperature Temperature Source Pulse Rate 77 Pulse Rate [Right Brachial] 95 H 98 H Respiratory Rate Blood Pressure [Right Arm] 160/87 H 157/100 H Blood Pressure Mean [Right Arm] 111 119 Blood Pressure Source [Right Arm] Automatic Cuff Blood Pressure Position [Right Arm] Sitting Sitting 02 Sat by Pulse Oximetry 95 100 Oxygen Delivery Method Room Air 09/29/19 01:11 Temperature Temperature Source Pulse Rate Pulse Rate [Right Brachial] 105 H Respiratory Rate Blood Pressure [Right Arm] 171/118 H Blood Pressure Mean [Right Arm] 135 Blood Pressure Source [Right Arm] Automatic Cuff Blood Pressure Position [Right Arm] Sitting 02 Sat by Pulse Oximetry 95 Oxygen Delivery Method - Lab Data Lab results reviewed: Yes: I reviewed the patient's lab results. Lab Results 09/28/19 21:24: Influenza Type A Ag Negative, Influenza Type B Ag Negative 09/28/19 22:20: WBC 12.9 H, RBC 5.53, Hgb 18.7 H*, Hct 56.2 H, MCV 101.7 H, MCH 33.8 H, MCHC 33.3, RDW 14.6, Plt Count 339, MPV 8.0, Neut % (Auto) 89.8 H, Lymph % (Auto) 6.8 L, [place] % (Auto) 3.0, Eos % (Auto) 0.2, Baso % (Auto) 0.2, Neut # (Auto) 11.6 H, Lymph # (Auto) 0.9, [place] # (Auto) 0.4, Eos # (Auto) 0.0, Baso # (Auto) 0.0, Total Counted 100, Neutrophils % (Manual) 88 H, Band Neutrophils % 7.0, Lymphocytes % (Manual) 5 L, Platelet Estimate Normal, Macrocytosis 2+ 09/28/19 22:20: Sodium 144, Potassium 3.2 L, Chloride 103, Carbon Dioxide 24, Anion Gap 20.2 H, BUN 11, Creatinine 1.35 H, Estimated Creat Clear 62, Estimated GFR 54 L, Est GFR ( Amer) 66, Glucose 103, Calcium 9.1, Total Bilirubin 0.8, AST 60 H, ALT 22, Alkaline Phosphatase 123 H, Total Protein 7.0 D, Albumin 3.4, Globulin 3.6 H, Albumin/Globulin Ratio 0.9 L, Amylase 37, Lipase 72 L 09/28/19 22:20: Troponin I 13.29 H Result diagrams: 09/28/19 22:20 09/28/19 22:20 Orders (Tests/Meds): ED MEDICATIONS Generic Name Dose Route Start Last Admin Trade Name Freq PRN Reason Stop Dose Admin Albuterol/Ipratropium 3 ml 09/29/19 06:00 09/28/19 23:40 Duoneb 3ml [facility] 10/29/19 05:59 3 ml TIDRT DULCE Administration Sodium Chloride 1,000 mls @ 999 mls/hr 09/28/19 21:30 09/28/19 22:09 Sod Chlor 0.9% 1000ml Bag IV 09/28/19 22:30 999 mls/hr .Q1H1M DULCE Administration Sodium Chloride 8 ml 09/28/19 22:52 Sodium Chloride 0.9% 10ml Vial IV 10/28/19 22:51 NEEDED PRN dilute pepcid Sodium Chloride 3 ml 09/28/19 22:59 Sodium Chloride 3% 15ml [facility] 10/28/19 22:58 ONCE PRN INDUCE SPUTUM COLLECTION Discontinued Medications Generic Name Dose Route Start Last Admin Trade Name Freq PRN Reason Stop Dose Admin Aspirin 324 mg 09/29/19 00:24 09/29/19 00:28 Aspirin 81mg Chewable Tablet PO 09/29/19 00:25 324 mg ONCE ONE Administration Famotidine 20 mg 09/28/19 22:52 09/28/19 22:59 Pepcid 20mg/2ml Vial IV 09/28/19 22:53 20 mg ONCE ONE Administration Ketorolac Tromethamine 30 mg 09/28/19 21:29 09/28/19 22:09 Toradol 30mg/Ml Vial IV 09/28/19 21:30 30 mg ONCE ONE Administration Metoclopramide HCl 10 mg 09/28/19 22:52 09/28/19 22:59 Reglan 10mg/2ml Vial IVP 09/28/19 22:53 10 mg ONCE ONE Administration Ondansetron HCl 4 mg 09/28/19 21:29 09/28/19 22:09 Zofran 4mg/2ml Vial IV 09/28/19 21:30 4 mg ONCE ONE Administration ORDERS Category Date Time Status XR chest 2V Stat Exams 09/28/19 21:29 Taken Troponin I Q3H Lab 09/29/19 05:00 Ordered Urinalysis and Microscopic Routine Lab 09/28/19 Ordered Sputum Culture & Gram Stain Routine Micro 09/28/19 Ordered - Radiology Data #1 Image(s): Chest Image Reviewed: Yes I reviewed the patient's radiology image Preliminary Findings: Normal/NAD - CT Data CT Scan: Abdomen, Pelvis Time Received: 01:[address] Reviewed: Yes: I have viewed the radiologist's interpretation Preliminary Findings: Abnormal (see report) - ECG Data Tracing #1 Normal Sinus Rhythm: Yes Ischemic changes: non-specific ST-T wave changes Tracing #2 Normal Sinus Rhythm: Yes Ischemic changes: non-specific ST-T wave changes - Physician Consults Physician Consulted: willem Reason -: Pt condition - STAR Score for Non-Stemi Age of Patient: 50-59 years old Heart Rate: 110-149 bpm Systolic Blood Pressure: 160-199 mmHg Serum Creatinine: 1.20-1.59 mg/dl CHF [place] Class: I-No CHF Other Risk Factors: Elevated Cardiac Enzymes or Biomarkers Non-Stemi Risk Score: 99 Nausea/Vomiting/Diarrhea HPI - General Chief complaint: Nausea/Vomiting/Diarrhea Stated complaint: nausea/vomiting x2 days Time Seen by Provider: 09/28/19 22:00 Mode of Arrival: EMS Source of Information: Patient, EMS, Medical Record Limitations: No Limitations Description of Symptoms (Recalled from ER Triage Doc. by RN): nausea and vomiting for 4 days - History of Present Illness HPI Narrative: pt with chest pain and assoc vomiting over the last few days - no fever or prod cough - has no known heart disease but has multiple sclerosis MD complaint: nausea, vomiting Onset (ago): day(s) Associated Abdominal Pain: No Severity: moderate Associated symptoms: chest pain - Related Data Home Medications Medication Instructions Recorded Confirmed Ascorbic Acid [Vitamin C] 250 mg PO DAILY 08/22/18 08/02/19 Calcium Carbonate [Calcium] 500 mg PO DAILY 08/22/18 08/02/19 Fluticasone/Vilanterol [Breo 1 inh INHALATION DAILY 08/22/18 08/02/19 Ellipta 100-25 Mcg INH] Multivit-Min/Folic/Vit K/Lycop 1 each PO DAILY 08/22/18 08/02/19 [Men's Multivitamin Caplet] sucralfate 1 gram tablet 1 g PO QACHS 09/05/18 08/02/19 Albuterol Sulfate [Albuterol HFA 2 puff INHALATION QIDP PRN 09/06/18 08/02/19 Inhaler] Previous Rx's Medication Instructions Recorded potassium chloride 20 mEq 20 meq PO DAILY #90 tab 03/11/19 tablet,extended release(part/cryst) sumatriptan succinate 50 mg tablet 50 mg PO NEEDED PRN #9 tab 04/16/19 furosemide 40 mg tablet 40 mg PO DAILY #90 tab 07/08/19 hydrochlorothiazide 25 mg tablet 25 mg PO DAILY #90 tab 07/08/19 pantoprazole 40 mg tablet,delayed 40 mg PO DAILY #90 tab 07/30/19 release venlafaxine 75 mg capsule,extended See Rx Instructions .ROUTE 07/30/19 release 24 hr .COMPLEX #30 capsule gabapentin 800 mg tablet 800 mg PO TID #90 tab 08/30/19 hydrocodone 5 mg-acetaminophen 325 1 tab PO TID PRN #90 tab 08/30/19 mg tablet quetiapine 300 mg tablet 450 mg PO HS 90 Days #135 tab 08/30/19 Allergies Allergy/AdvReac Type Severity Reaction Status Date / Time varenicline [From Chantix] Allergy Intermediate Vomiting Verified 08/02/19 15:51 [facility] History - Hepatitis A Screen Drug use history?: No High risk sexual behaviors?: No History of sexually transmitted infection?: No Currently employed?: No Childcare worker?: No Do you have indoor plumbing?: Yes Do you have electricity?: Yes Attestation statement:: This patient has been screened for Hepatitis A risk factors. I have reviewed the patient's past medical history: Yes Medical History: Reports:: Hypertension Denies:: Cancer, Diabetes Mellitus Type 1, Diabetes Mellitus Type 2, MRSA Other Surgeries: Yes: No Previous Surgery, Other Amputation: No Fractures: Yes (arm fracture at age 8) - Social History Smoking Status: Former smoker # Packs/Day (cigarettes): 3 #Yrs smoked (if former smoker): 40 Alcohol Intake: current Alcohol Intake Frequency:: holidays/special occasions only Substance Use Type: denies use Occupational Status: disabled Housing: house Household Members: significant other Family Hx:: Unable to obtain, No significant family history, Stroke ROS Obtained: Yes All systems reviewed & no additional complaints - Constitutional Constitutional: Denies fever(s) - Eyes Eyes: Denies change in vision - ENT Ears, Nose, Mouth, and Throat: Denies sore throat - Cardiovascular Cardiovascular: Reports chest pain, Denies dyspnea - Respiratory Respiratory: No cough - Gastrointestinal Gastrointestingal: Reports: vomiting - Genitourinary Male Genitourinary: Denies hematuria - Musculoskeletal Musculoskeletal: Denies joint pain, Denies joint swelling - Integumentary/Breasts Skin/Breast: Denies rash - Neurologic Neurologic: Denies focal weakness, Denies seizure-like activity Physical Exam - General General appearance: alert - Head Head exam: normocephalic - Eye Eye exam: Present: PERRL, EOMI. Absent: scleral icterus - ENT ENT exam: Present: mucous membranes moist - Neck Neck exam: Present: trachea midline - Respiratory Respiratory exam: Present: normal lung sounds bilaterally. Absent: respiratory distress - Cardiovascular Cardiovascular exam: Present: regular rate, systolic murmur. Absent: rubs, gallop - Abdominal Exam Abdominal exam: Present: soft. Absent: tenderness, guarding - Extremities Exam Extremities exam: Present: full ROM. Absent: calf tenderness - Neurological Exam Neurological exam: Present: alert, oriented X3, CN II-XII intact - Psychiatric Psychiatric exam: Present: normal affect - Skin Skin exam: Absent: rash
[2019-09-28 23:45] LABS: Lymphocytes % 5 % (10-50); Macrocytosis 2+; Neutrophils % 88 % (42-76); Total Cells Counted 100
[2019-09-29 01:22] LABS: C-Reactive Protein 3.4 mg/dL (0.0-0.9)
[2019-09-29 08:01] LABS: Basophils % 0.2 % (0.1-2.0); Eosinophils % 0.2 % (0.1-12.0); Hematocrit 48.1 % (42.0-52.0); Lymphocytes # 1.7 K/mm3 (0.7-4.5); Lymphocytes % 14.5 % (10-50); Mean Corpuscular HGB Conc 32.6 g/dL (31.8-35.4); Mean Platelet Volume 8.3 fl (7.4-10.4); Monocytes # 0.9 K/mm3 (0.1-1.0); Monocytes % 7.9 % (1.7-9.3); Neutrophils # 8.9 K/mm3 (1.8-7.8); Neutrophils % 77.3 % (37.0-80.0); Platelet Count 300 K/mm3 (142-424); Red Blood Count 4.67 M/mm3 (4.60-6.20); Red Cell Distribution Width 14.5 % (11.5-17.5); White Blood Count 11.5 K/mm3 (4.8-10.8)
--- NOTE | 2019-09-29 08:11 | History & Physical Report ---
*Admission Date: 09/28/19 *Chief complaint: vomiting *History of present illness: this pt presented to the ed with n/v over the last few days - with assoc midsternal chest pain - vice like - he has persistent pain during night - no known cardiac disease - hx of ms H History I have reviewed the patient's past medical history: Yes Medical History: Reports:: Congestive Heart Failure, Hypertension Denies:: Cancer, Diabetes Mellitus Type 1, Diabetes Mellitus Type 2, MRSA *Have you ever received a pneumonia vaccine?: No *Have you received a flu vaccine this season?: No Other Medical History: Reports: Anemia Other Surgeries: Yes: No Previous Surgery, Other Amputation: No Fractures: Yes (arm fracture at age 8) - *Social History Educational Level: Completed College Smoking Status: Former smoker Tobacco Type: cigarettes # Packs/Day (cigarettes): 3 #Yrs smoked (if former smoker): 40 Alcohol Intake: never Alcohol Intake Frequency:: holidays/special occasions only Substance Use Type: denies use *Occupational Status:: retired Housing: house Household Members: significant other *Travel in the last 8 weeks: None Family Hx:: Coronary Artery Disease, Heart Attack, Hyperlipidemia, Hypertension, Stroke, Alcoholism Review of Systems - Review of Systems Review of systems:: pertinent systems reviewed and negative unless documented below - Constitutional Denies fever(s) - Eyes Denies change in vision - ENT Denies dizziness, Denies nasal congestion, Denies sore throat - *Cardiovascular Reports chest pain at rest, Denies shortness of breath, Denies radiating jaw, neck or arm pain - *Respiratory Denies cough - *Gastrointestinal Reports nausea, Reports vomiting, Denies abdominal pain - *Genitourinary Denies blood in urine - *Musculoskeletal Denies joint pain - Integumentary/Breasts Denies rash - *Neurologic Denies localized weakness, Denies seizure-like activity - Psychiatric Denies anxiety Meds Home Medications Medication Instructions Recorded Confirmed Type Ascorbic Acid [Vitamin C] 1,000 mg PO DAILY 08/22/18 09/29/19 History Calcium Carbonate [Calcium] 500 mg PO DAILY 08/22/18 09/29/19 History Fluticasone/Vilanterol [Breo 1 inh INHALATION DAILY 08/22/18 09/29/19 History Ellipta 100-25 Mcg INH] Multivit-Min/Folic/Vit K/Lycop 1 each PO DAILY 08/22/18 09/29/19 History [Men's Multivitamin Caplet] sucralfate 1 gram tablet 1 g PO QACHS 09/05/18 09/29/19 History Albuterol Sulfate [Albuterol HFA 2 puff INHALATION QIDP PRN 09/06/18 09/29/19 History Inhaler] potassium chloride 20 mEq 20 meq PO DAILY #90 tab 03/11/19 09/29/19 Rx tablet,extended release(part/cryst) sumatriptan succinate 50 mg tablet 50 mg PO NEEDED PRN #9 tab 04/16/19 09/29/19 Rx furosemide 40 mg tablet 40 mg PO DAILY #90 tab 07/08/19 09/29/19 Rx hydrochlorothiazide 25 mg tablet 25 mg PO DAILY #90 tab 07/08/19 09/29/19 Rx pantoprazole 40 mg tablet,delayed 40 mg PO DAILY #90 tab 07/30/19 09/29/19 Rx release gabapentin 800 mg tablet 800 mg PO TID #90 tab 08/30/19 09/29/19 Rx hydrocodone 5 mg-acetaminophen 325 1 tab PO TID PRN #90 tab 08/30/19 09/29/19 Rx mg tablet quetiapine 300 mg tablet 450 mg PO HS 90 Days #135 tab 08/30/19 09/29/19 Rx Ubidecarenone [Co Q-10] 50 mg PO DAILY 09/29/19 09/29/19 History Venlafaxine HCl [Venlafaxine HCl 75 mg PO DAILY 09/29/19 09/29/19 History ER] Allergies Allergy/AdvReac Type Severity Reaction Status Date / Time varenicline [From Chantix] Allergy Intermediate Vomiting Verified 08/02/19 15:51 Exam Vital signs and Labs for Last 24 Hours: Temp Pulse Resp BP Pulse Ox 98.8 F 103 H 18 163/81 H 99 09/29/19 04:00 09/29/19 04:00 09/29/19 04:00 09/29/19 04:00 09/29/19 04:00 Laboratory Results - last 24 hr 09/28/19 21:24: Influenza Type A Ag Negative, Influenza Type B Ag Negative 09/28/19 22:20: WBC 12.9 H, RBC 5.53, Hgb 18.7 H*, Hct 56.2 H, MCV 101.7 H, MCH 33.8 H, MCHC 33.3, RDW 14.6, Plt Count 339, MPV 8.0, Neut % (Auto) 89.8 H, Lymph % (Auto) 6.8 L, [place] % (Auto) 3.0, Eos % (Auto) 0.2, Baso % (Auto) 0.2, Neut # (Auto) 11.6 H, Lymph # (Auto) 0.9, [place] # (Auto) 0.4, Eos # (Auto) 0.0, Baso # (Auto) 0.0, Total Counted 100, Neutrophils % (Manual) 88 H, Band Neutrophils % 7.0, Lymphocytes % (Manual) 5 L, Platelet Estimate Normal, Macrocytosis 2+ 09/28/19 22:20: Sodium 144, Potassium 3.2 L, Chloride 103, Carbon Dioxide 24, Anion Gap 20.2 H, BUN 11, Creatinine 1.35 H, Estimated Creat Clear 62, Estimated GFR 54 L, Est GFR ( Amer) 66, Glucose 103, Calcium 9.1, Total Bilirubin 0.8, AST 60 H, ALT 22, Alkaline Phosphatase 123 H, Total Protein 7.0 D, Albumin 3.4, Globulin 3.6 H, Albumin/Globulin Ratio 0.9 L, Amylase 37, Lipase 72 L 09/28/19 22:20: Troponin I 13.29 H 09/29/19 00:40: Total Creatine Kinase 420 H, Troponin I 15.65 H, C-Reactive Protein 3.4 H, Amylase 33 D, Lipase 72 L 09/29/19 00:40: ESR 3 I & O for Last 24 hours: Intake & Output 09/26/19 09/27/19 09/28/19 09/29/19 11:59 11:59 11:59 11:59 Intake Total 2091 Balance 2091 Weight 152 lb 6 oz - Constitutional no acute distress - *Routine HEENT Exam Head: Present: normocephalic Eye: Present: EOMI, PERRL ENT: Present: mucous membranes dry - *Routine Neck Exam Present: supple. Absent: JVD - *Routine Respiratory Exam Present: CTA bilaterally - *Routine Cardiovascular Exam Present: RRR, murmur - *Routine Abdominal Exam Present: soft - *Routine Extremities Exam Absent: calf tenderness - *Routine Skin Exam Present: intact - *Routine Neurological Exam Present: alert, oriented X3, CN II-XII intact - Routine Psychiatric Exam Present: normal affect Assessment and Plan (1) Unstable angina Current visit: Yes Status: Acute Category: Medical Code(s): I20.0 - Unstable angina (2) Multiple sclerosis Current visit: Yes Status: Acute Category: Medical Code(s): G35 - Multiple sclerosis (3) Non-STEMI (non-ST elevated myocardial infarction) Current visit: Yes Status: Acute Category: Medical Code(s): I21.4 - Non-ST elevation (NSTEMI) myocardial infarction
[2019-09-29 08:13] LABS: Calcium 8.2 mg/dL (8.5-10.1); Chol/HDL Ratio 2.3 (1-3.5)
[2019-09-29 08:47] LABS: Microscopic, Urine URINE MICROSCOPIC (MICROSCOPIC)
[2019-09-29 08:51] LABS: Appearance,Urine CLEAR (Clear); Blood, Urine Negative (Negative); Color,Urine YELLOW (Yellow); Glucose,Urine (UA) Negative (Negative); Ketones,Urine 1+ (Negative); Leukocyte Esterase,Urine Negative (Negative); PH,Urine 6.5 (5.0-8.5); Protein,Urine TRACE (Negative); Specific Gravity, Urine >= 1.030 (1.005-1.030); Urobilinogen,Urine 0.2 EU/dl (0.2)
[2019-09-29 08:55] LABS: Bilirubin,Urine Negative (Negative)
[2019-09-29 09:09] LABS: Amorphous Sediment,Urine 1+ /lpf; Mucus,Urine 1+ /lpf; Renal Epithelial Cells,Urine Occasional #/lpf (0); Transitional Epi Cells,Urine OCC #/lpf (0-3)
[2019-09-29 09:10] LABS: Hemoglobin 15.7 g/dL (14.1-18.0)
--- NOTE | 2019-09-29 10:05 | Pharmacy Consult Notes ---
[facility] Pharmacy VTE Monitoring - Patient Demographics Admission date: 09/29/19 Report Date: 09/29/19 Time: 10:05 Allergies/Adverse Reactions: Patient Allergies varenicline [From Chantix] Allergy (Intermediate, Verified 08/02/19 15:51) Vomiting Height: 1.73 m Weight: 69.116 kg Patient Problems: Current Active Problems Multiple sclerosis (Acute) Non-STEMI (non-ST elevated myocardial infarction) (Acute) Esophagitis (Acute) Unstable angina (Acute) - VTE Risk Labs: VTE Related Lab Results Hgb 15.7 g/dL (14.1-18.0) D 09/29/19 06:44 Hct 48.1 % (42.0-52.0) 09/29/19 06:44 Plt Count 300 K/mm3 (142-424) 09/29/19 06:44 BUN 12 mg/dL (7-18) 09/29/19 06:44 Creatinine 1.23 mg/dL (0.70-1.30) 09/29/19 06:44 Estimated Creat Clear 65 mL/min (50-200) 09/29/19 06:44 Was VTE Risk Assessment Performed: No VTE Score: 6 VTE Risk Level: Moderate Risk - Prophylaxis Types of VTE Prophylaxis: TEDS Knee High (SAMEERA HOSE ORDERED)
--- NOTE | 2019-09-30 09:25 | Progress Note ---
Internal Medicine - PN: Subj *Date: 09/30/19 *Time: 09:08 Interval history: Patient sitting up in bed states he feels better but does have an increase in pain on the left side of the chest with laying down Exam Vital signs and Labs for Last 24 Hours: Temp Pulse Resp BP Pulse Ox 97.7 F 72 18 149/68 H 98 09/30/19 04:00 09/30/19 04:00 09/30/19 04:00 09/30/19 04:00 09/30/19 04:00 Laboratory Results - last 24 hr 09/29/19 06:44: Hgb 15.7 D 09/29/19 08:31: Urine RBC None, Urine WBC 5-10, Ur Squamous Epith Cells 10-20, Ur Transition Epith Cell Occ, Ur Renal Epithelial Cell Occasional, Amorphous Sediment 1+, Urine Bacteria None, Hyaline Casts 5-10, Urine Mucus 1+ I & O for Last 24 hours: Intake & Output 09/27/19 09/28/19 09/29/19 09/30/19 11:59 11:59 11:59 11:59 Intake Total 2091 1523 / 1523 Output Total 300 / 300 Balance 2091 1223 / 1223 Weight 152 lb 6 oz 158 lb Microbiology Reports for the Last 24 Hours: Microbiology 09/29/19 06:40 Sputum - Expectorated Sputum Gram Stain - Final - Constitutional no acute distress - *Routine HEENT Exam Head: Present: normocephalic Eye: Present: PERRL ENT: Present: mucous membranes moist - *Routine Neck Exam Present: supple - *Routine Respiratory Exam Present: CTA bilaterally - *Routine Cardiovascular Exam Present: RRR - *Routine Abdominal Exam Present: soft, normoactive bowel sounds. Absent: tenderness - *Routine Extremities Exam Present: normal capillary refill. Absent: cyanosis, clubbing, edema - *Routine Skin Exam Present: warm. Absent: rash - *Routine Neurological Exam Present: alert, oriented X3 - Routine Psychiatric Exam Present: normal affect Assessment and Plan (1) Unstable angina Current visit: Yes Status: Acute Category: Medical Code(s): I20.0 - Unstable angina (2) Multiple sclerosis Current visit: Yes Status: Acute Category: Medical Code(s): G35 - Multiple sclerosis (3) Non-STEMI (non-ST elevated myocardial infarction) Current visit: Yes Status: Acute Category: Medical Code(s): I21.4 - Non-ST elevation (NSTEMI) myocardial infarction - Assessment and plan all Dx Assessment and Plan for all problems:: Rounded with Dr. Lucia all orders per Khari Recheck troponin Cardiology consulted Out of bed Add Solu-Medrol x1
[2019-09-30 09:43] LABS: Basophils % 0.5 % (0.1-2.0); Eosinophils # 0.1 K/mm3 (0.0-0.4); Eosinophils % 1.4 % (0.1-12.0); Hematocrit 42.4 % (42.0-52.0); Hemoglobin 13.8 g/dL (14.1-18.0); Lymphocytes # 1.7 K/mm3 (0.7-4.5); Lymphocytes % 23.3 % (10-50); Mean Corpuscular HGB Conc 32.5 g/dL (31.8-35.4); Mean Corpuscular Volume 103.3 fl (80-94); Monocytes # 0.6 K/mm3 (0.1-1.0); Neutrophils # 4.8 K/mm3 (1.8-7.8); Neutrophils % 66.8 % (37.0-80.0); Platelet Count 227 K/mm3 (142-424); Red Cell Distribution Width 14.6 % (11.5-17.5); White Blood Count 7.3 K/mm3 (4.8-10.8)
--- NOTE | 2019-09-30 10:07 | Consult Report ---
History of Present Illness Consult date: 09/30/19 Requesting physician: Jonathan Lucia Consult reason: chest pain Chief complaint: N/V, chest pain Additional Medical History:: 1. Myocarditis, 09/2019 A. Troponins elevated with peak of >15 B. LHC, 09/29/2019, ANGIOGRAPHIC RESULTS The left main artery Normal The left anterior descending artery Has a proximal 30 to 40% [id number] stenosis with remaining vessel normal The circumflex artery Large dominant and normal The right coronary artery Small vestigial and normal The GARG ventriculogram reveals Ejection fraction of 45% with inferior apical hypokinesis The left ventricular end-diastolic pressure 20 mmHg IMPRESSION Mild to moderate [id number] coronary artery disease Elevated troponins with regional wall motion abnormality most consistent with myocarditis/pericarditis Mildly elevated LVEDP consistent with myocarditis PLAN 1. Supportive care for myocarditis 2. Beta-blockers OLIVIA inhibitors 3. Echocardiogram in the morning 2. Multiple sclerosis, diagnosed about 2009 3. History of drug and ETOH use, remote 4. Tobacco use, stopped 2018 5. History of hypertension History of present illness: 59-year-old white male presented to the emergency department with 4-day history of nausea and vomiting with associated chest wall discomfort. Patient states he initially came for IV fluids due to inability to keep anything down orally. Work-up in the ER included troponins noted to be markedly elevated and due to ongoing chest discomfort patient underwent cardiac catheterization yesterday revealing nonobstructive coronary artery disease with diagnosis of myocarditis. He has been started on anti-inflammatories in the form of indomethacin with improvement in symptoms. EKG on admission showed sinus rhythm with no acute ST segment changes. Low voltage noted with poor R wave progression anteriorly. Patient does have a history of tobacco use that was discontinued last year after having GI bleed that required multiple units of blood transfusion. He does have a history of multiple sclerosis along with prior drug use and alcohol use which have been discontinued per patient. [facility] History Medical History: Reports:: Congestive Heart Failure, Hypertension Denies:: Cancer, Diabetes Mellitus Type 1, Diabetes Mellitus Type 2, MRSA *Have you ever received a pneumonia vaccine?: No *Have you received a flu vaccine this season?: No Other Medical History: Reports: Anemia Other Surgeries: Yes: No Previous Surgery, Other Amputation: No Fractures: Yes (arm fracture at age 8) - *Social History Educational Level: Completed College Smoking Status: Former smoker Tobacco Type: cigarettes # Packs/Day (cigarettes): 3 #Yrs smoked (if former smoker): 40 Alcohol Intake: never Alcohol Intake Frequency:: holidays/special occasions only Substance Use Type: denies use *Occupational Status:: retired Housing: house Household Members: significant other *Travel in the last 8 weeks: None Family Hx:: Coronary Artery Disease, Heart Attack, Hyperlipidemia, Hypertension, Stroke, Alcoholism Meds Home Medications Medication Instructions Recorded Confirmed Type Ascorbic Acid [Vitamin C] 1,000 mg PO DAILY 08/22/18 09/29/19 History Calcium Carbonate [Calcium] 500 mg PO DAILY 08/22/18 09/29/19 History Fluticasone/Vilanterol [Breo 1 inh INHALATION DAILY 08/22/18 09/29/19 History Ellipta 100-25 Mcg INH] Multivit-Min/Folic/Vit K/Lycop 1 each PO DAILY 08/22/18 09/29/19 History [Men's Multivitamin Caplet] sucralfate 1 gram tablet 1 g PO QACHS 09/05/18 09/29/19 History Albuterol Sulfate [Albuterol HFA 2 puff INHALATION QIDP PRN 09/06/18 09/29/19 History Inhaler] potassium chloride 20 mEq 20 meq PO DAILY #90 tab 03/11/19 09/29/19 Rx tablet,extended release(part/cryst) sumatriptan succinate 50 mg tablet 50 mg PO NEEDED PRN #9 tab 04/16/19 09/29/19 Rx furosemide 40 mg tablet 40 mg PO DAILY #90 tab 07/08/19 09/29/19 Rx hydrochlorothiazide 25 mg tablet 25 mg PO DAILY #90 tab 07/08/19 09/29/19 Rx pantoprazole 40 mg tablet,delayed 40 mg PO DAILY #90 tab 07/30/19 09/29/19 Rx release gabapentin 800 mg tablet 800 mg PO TID #90 tab 08/30/19 09/29/19 Rx hydrocodone 5 mg-acetaminophen 325 1 tab PO TID PRN #90 tab 08/30/19 09/29/19 Rx mg tablet quetiapine 300 mg tablet 450 mg PO HS 90 Days #135 tab 08/30/19 09/29/19 Rx Ubidecarenone [Co Q-10] 50 mg PO DAILY 09/29/19 09/29/19 History Venlafaxine HCl [Venlafaxine HCl 75 mg PO DAILY 09/29/19 09/29/19 History ER] Allergies Allergy/AdvReac Type Severity Reaction Status Date / Time varenicline [From Chantix] Allergy Intermediate Vomiting Verified 08/02/19 15:51 Review of Systems - Review of Systems Review of systems:: pertinent systems reviewed and negative unless documented below - *Cardiovascular Reports chest pain, Denies shortness of breath - *Respiratory Denies cough, Denies shortness of breath - *Gastrointestinal Reports nausea, Reports vomiting, Denies loose stools - *Genitourinary Denies blood in urine - *Musculoskeletal Reports muscle weakness - *Neurologic Denies dizziness, Denies localized weakness, Denies seizure-like activity Exam Vital signs and Labs for Last 24 Hours: Temp Pulse Resp BP Pulse Ox 97.6 F 62 20 129/97 H 99 09/30/19 08:00 09/30/19 08:00 09/30/19 08:00 09/30/19 08:00 09/30/19 08:00 Laboratory Results - last 24 hr 09/30/19 09:35: WBC 7.3 D, RBC 4.10 L, Hgb 13.8 L, Hct 42.4, MCV 103.3 H, MCH 33.6 H, MCHC 32.5, RDW 14.6, Plt Count 227, MPV 8.0, Neut % (Auto) 66.8, Lymph % (Auto) 23.3, [place] % (Auto) 8.0, Eos % (Auto) 1.4, Baso % (Auto) 0.5, Neut # (Auto) 4.8, Lymph # (Auto) 1.7, [place] # (Auto) 0.6, Eos # (Auto) 0.1, Baso # (Auto) 0.0 I & O for Last 24 hours: Intake & Output 09/27/19 09/28/19 09/29/19 09/30/19 11:59 11:59 11:59 11:59 Intake Total 2091 1883 / 1883 Output Total 300 / 300 Balance 2091 1583 / 1583 Weight 152 lb 6 oz 158 lb Microbiology Reports for the Last 24 Hours: Microbiology 09/29/19 06:40 Sputum - Expectorated Sputum Gram Stain - Final 09/29/19 06:40 Sputum - Expectorated Sputum Sputum Culture - Preliminary - *Routine HEENT Exam Head: Present: normocephalic Eye: Present: EOMI, PERRL ENT: Present: mucous membranes moist - *Routine Neck Exam Present: supple. Absent: JVD, carotid bruit - *Routine Respiratory Exam Present: CTA bilaterally. Absent: accessory muscle use, rales, rhonchi, wheezes - *Routine Cardiovascular Exam Present: RRR. Absent: murmur, gallop, rubs - *Routine Abdominal Exam Present: soft. Absent: tenderness, distended, guarding - *Routine Extremities Exam Absent: edema, calf tenderness - *Routine Neurological Exam Present: alert, oriented X3, moving all extremities Assessment and Plan (1) Unstable angina Current visit: Yes Status: Acute Category: Medical Code(s): I20.0 - Unstable angina (2) Multiple sclerosis Current visit: Yes Status: Acute Category: Medical Code(s): G35 - Multiple sclerosis (3) Non-STEMI (non-ST elevated myocardial infarction) Current visit: Yes Status: Acute Category: Medical Code(s): I21.4 - Non-ST elevation (NSTEMI) myocardial infarction (4) Myocarditis Current visit: Yes Status: Acute Category: Medical Code(s): I51.4 - Myocarditis, unspecified - Assessment and plan all Dx Assessment and Plan for all problems:: 1. Myocarditis with mild Cardiomyopathy, likely due to recent viral GI illness, continue indomethacin and combo of beta jermaine and will add lisinopril. Plan is to discharge home in AM if no further problems. Telemetry shows NSR without arrhythmias. 2. MS, per Dr. Lucia
[2019-09-30 10:11] LABS: Anion Gap 12.9 mEq/L (5-15); Calcium 8.1 mg/dL (8.5-10.1)
--- NOTE | 2019-09-30 18:12 | Electrocardiograph Report ---
APPROVED REPORT Exam: Resting ECG HR:96 bpm ECG Measurements Heart Rate [address] 142 P 69 QRSd 66 QRS -54 QT 362 T16 QTc 457 <Conclusion> Normal sinus rhythm Possible Left atrial enlargement Left axis deviation,LAHB Low voltage QRS Inferior infarct, age undetermined infarct(versus changes due to LAHB), Incomplete RBBB Abnormal ECG Electronically signed by : Jose Cruz Eaton, 09/30/2019 18:12:32
--- NOTE | 2019-09-30 18:16 | Electrocardiograph Report ---
APPROVED REPORT Exam: Resting ECG HR:99 bpm ECG Measurements Heart Rate 99 AXES MI 142 P 90 QRSd 66 QRS -27 QT 378 T89 QTc 485 <Conclusion> Normal sinus rhythm Right atrial enlargement Low voltage QRS Possible Inferior infarct, age undetermined(versus changes due to LAHB) Incomplete RBBB,LAHB Abnormal ECG Electronically signed by : Jose Cruz Eaton, 09/30/2019 18:16:38
--- NOTE | 2019-09-30 18:20 | Electrocardiograph Report ---
APPROVED REPORT Exam: Resting ECG HR:101 bpm ECG Measurements Heart Rate 101 AXES FL 136 P 79 QRSd 66 QRS -76 QT 360 T67 QTc 466 <Conclusion> Sinus tachycardia Right atrial enlargement Left axis deviation,LAHB Low voltage QRS Inferior infarct, age undetermined(versus changes due to LAHB) Incomplete RBBB Abnormal ECG Electronically signed by : Jose Cruz Eaton, 09/30/2019 18:19:57
--- NOTE | 2019-09-30 18:39 | Cardiology Report ---
APPROVED REPORT EXAM: Comprehensive 2D, Doppler, and color-flow Echocardiogram Professional Programmer Analyst: Felicity Villalobos RDCS Ht: 5 ft 8 in Wt: 158lbs BSA: 1.85 BP: 163/81 mmHg Indications: Chest Pain, Hypertension/HDD,NSTEMI,CHF,MS M-Mode Dimensions RVDd 2.92 cm (0.9-2.6)LVDd 4.61 cm (3.5-5.7) LVDs 4.07 cm (3.5-5.7)IVSd 0.78 cm (0.6-1.1) PWd 0.74 cm (0.6-1.1)EF (Teich) 25.50% FS 11.70% EDV (Teich) 97.80 mL ESV (Teich) 72.90 mL LV Diastology E/A Ratio 1.05 Mitral Valve MV A Velocity 54.00 (40-130 cm/s) Left Ventricle Left atrium is mildly enlarged, left ventricle is normal size, mild concentric left ventricular hypertrophy, visually estimated ejection fraction 55% with no regional wall motion abnormality, grade 1 diastolic dysfunction seen without tissue Doppler evidence of raise left atrial pressure. Right Ventricle Right atrium and right ventricular normal size and contractility. Aortic Valve Aortic valve is thickened and calcified leaflet chordae display good mobility, there is no aortic stenosis, there is mild aortic insufficiency. Mitral Valve Mitral valve is grossly normal, there is mild mitral regurgitation. Tricuspid Valve Tricuspid valve is grossly normal, there is mild tricuspid regurgitation. Pulmonic Valve Pulmonic valve is poorly visualized. Great Vessels Aortic root is normal size. Pericardium No significant pericardial effusion noted. Conclusion 1. Mildly enlarged left atrium, normal left ventricular size, mild concentric left ventricular hypertrophy, visually estimated ejection fraction 55% with no regional wall motion abnormality, grade 1 diastolic dysfunction seen without tissue Doppler evidence of raise left atrial pressure. 2. Mild mitral and tricuspid regurgitation. 3. mild aortic insufficiency. 4. No significant pericardial effusion noted. Electronically signed by : Miki Reid, 09/30/2019 18:38:41
[2019-10-01 07:02] LABS: Mean Corpuscular Volume 102.7 fl (80-94); Mean Platelet Volume 8.8 fl (7.4-10.4)
[2019-10-01 07:10] LABS: Anion Gap 13.5 mEq/L (5-15)
[2019-10-01 07:11] LABS: Basophils % 0.2 % (0.1-2.0); Eosinophils % 0.3 % (0.1-12.0); Hematocrit 38.5 % (42.0-52.0); Lymphocytes % 16.6 % (10-50); Mean Corpuscular HGB Conc 32.6 g/dL (31.8-35.4); Monocytes # 0.4 K/mm3 (0.1-1.0); Monocytes % 7.1 % (1.7-9.3); Neutrophils # 4.5 K/mm3 (1.8-7.8); Neutrophils % 75.9 % (37.0-80.0); Platelet Count 203 K/mm3 (142-424); Red Blood Count 3.75 M/mm3 (4.60-6.20); Red Cell Distribution Width 14.5 % (11.5-17.5)
[2019-10-01 07:13] LABS: Hemoglobin 12.6 g/dL (14.1-18.0)
--- NOTE | 2019-10-01 07:49 | Progress Note ---
Subjective Date: 10/01/19 Time: 07:46 Principal diagnosis: Myocarditis Interval history: 59-year-old white male sleeping in bed in no acute distress. No complaints overnight. Telemetry shows sinus rhythm with no arrhythmias. Blood pressure noted to be borderline low but patient asymptomatic. Exam Vital signs and Labs for Last 24 Hours: Temp Pulse Resp BP Pulse Ox 97.6 F 57 L 16 95/50 L 97 10/01/19 04:00 10/01/19 04:00 10/01/19 04:00 10/01/19 04:00 10/01/19 04:00 Laboratory Results - last 24 hr 09/30/19 09:35: Troponin I 2.88 H 09/30/19 09:35: WBC 7.3 D, RBC 4.10 L, Hgb 13.8 L, Hct 42.4, MCV 103.3 H, MCH 33.6 H, MCHC 32.5, RDW 14.6, Plt Count 227, MPV 8.0, Neut % (Auto) 66.8, Lymph % (Auto) 23.3, [place] % (Auto) 8.0, Eos % (Auto) 1.4, Baso % (Auto) 0.5, Neut # (Auto) 4.8, Lymph # (Auto) 1.7, [place] # (Auto) 0.6, Eos # (Auto) 0.1, Baso # (Auto) 0.0 09/30/19 09:35: Sodium 145, Potassium 2.9 L*, Chloride 111 H, Carbon Dioxide 24 D, Anion Gap 12.9, BUN 10, Creatinine 1.30, Estimated Creat Clear 64, Estimated GFR 57 L, Est GFR ( Amer) 69, Glucose 64 L, Calcium 8.1 L 10/01/19 06:18: WBC 6.0, RBC 3.75 L, Hgb 12.6 L, Hct 38.5 L, MCV 102.7 H, MCH 33.5 H, MCHC 32.6, RDW 14.5, Plt Count 203, MPV 8.8, Neut % (Auto) 75.9, Lymph % (Auto) 16.6, [place] % (Auto) 7.1, Eos % (Auto) 0.3, Baso % (Auto) 0.2, Neut # (Auto) 4.5, Lymph # (Auto) 1.0, [place] # (Auto) 0.4, Eos # (Auto) 0.0, Baso # (Auto) 0.0 10/01/19 06:18: Sodium 139, Potassium 3.5 D, Chloride 109 H, Carbon Dioxide 20 L, Anion Gap 13.5, BUN 10, Creatinine 1.18, Estimated Creat Clear 73, Estimated GFR 64, Est GFR ( Amer) 77, Glucose 112 H D, Calcium 8.0 L I & O for Last 24 hours: Intake & Output 09/28/19 09/29/19 09/30/19 10/01/19 11:59 11:59 11:59 11:59 Intake Total 2091 1883 / 1883 780 / 780 Output Total 300 / 300 Balance 2091 1583 / 1583 780 / 780 Weight 152 lb 6 oz 158 lb 164 lb Microbiology Reports for the Last 24 Hours: Microbiology 09/29/19 06:40 Sputum - Expectorated Sputum Gram Stain - Final 09/29/19 06:40 Sputum - Expectorated Sputum Sputum Culture - Preliminary - *Routine Respiratory Exam Present: CTA bilaterally. Absent: accessory muscle use, rales, rhonchi, wheezes - *Routine Cardiovascular Exam Present: RRR. Absent: murmur, gallop, rubs - *Routine Extremities Exam Absent: edema, calf tenderness Progress Note: A&P (1) Myocarditis Status: Acute Current Visit: Yes (2) Multiple sclerosis Status: Acute Current Visit: Yes (3) Non-STEMI (non-ST elevated myocardial infarction) Status: Acute Current Visit: Yes Assessment and Plan for All Diagnoses:: 1. Myocarditis without pericardial effusion, continue indomethacin therapy. 2. Mild cardiomyopathy at the time of cath with echocardiogram showing ejection fraction approximately 55%, patient has been started on lisinopril 2.5 mg daily and will reduce bisoprolol to 5 mg daily due to borderline low blood pressure. 3. Hypokalemia, has been corrected 4. Multiple sclerosis, per PCP 5. Mild coronary artery disease, will begin statin therapy 6. Patient okay for discharge home with follow-up in our office in 1 to 2 weeks.
--- NOTE | 2019-10-01 09:05 | Discharge Summary ---
General - General Admission date:: 09/29/19 Discharge date: 10/01/19 HPI HPI: this pt presented to the ed with n/v over the last few days - with assoc midsternal chest pain - vice like - he has persistent pain during night - no known cardiac disease - hx of ms Hospital Course Hospital Course: 89-year-old male patient sitting up in bed resting quietly, denies chest pain. Discussed with patient discharge this morning he is agreeable to this this pt presented to the ed with n/v over the last few days - with assoc midsternal chest pain - vice like - he has persistent pain during night - no known cardiac disease - hx of ms 09/30/2019 ECHO: Conclusion 1. Mildly enlarged left atrium, normal left ventricular size, mild concentric left ventricular hypertrophy, visually estimated ejection fraction 55% with no regional wall motion abnormality, grade 1 diastolic dysfunction seen without tissue Doppler evidence of raise left atrial pressure. 2. Mild mitral and tricuspid regurgitation. 3. mild aortic insufficiency. 4. No significant pericardial effusion noted. Electronically signed by : Miki Reid 09/29/2019 Abd/Pelvis: IMPRESSION: Circumferential wall thickening of distal esophagus. Diffuse esophagitis is suspected. Upper endoscopy or barium swallow could further evaluate if felt to be clinically indicated. Otherwise, no acute finding Interval clearing of previously reported pulmonary findings including infiltrates and bilateral pleural effusions. Dictated by: Dr. Hairston 09/28/2019 CXR: IMPRESSION: No acute findings. Dictated by: Yovanny Cards seen and Rec: 1. Myocarditis without pericardial effusion, continue indomethacin therapy. 2. Mild cardiomyopathy at the time of cath with echocardiogram showing ejection fraction approximately 55%, patient has been started on lisinopril 2.5 mg daily and will reduce bisoprolol to 5 mg daily due to borderline low blood pressure. 3. Hypokalemia, has been corrected 4. Multiple sclerosis, per PCP 5. Mild coronary artery disease, will begin statin therapy 6. Patient okay for discharge home with follow-up in our office in 1 to 2 weeks. Objective Vital signs: Temp Pulse Resp BP Pulse Ox 97.9 F 70 18 104/53 L 97 10/01/19 08:00 10/01/19 08:00 10/01/19 08:00 10/01/19 08:00 10/01/19 08:00 no acute distress - *Routine HEENT Exam Head: Present: normocephalic, atraumatic. Absent: scalp tenderness Eye: Present: EOMI, PERRL, normal accommodation. Absent: periorbital tenderness ENT: Present: mucous membranes moist, mucous membranes dry. Absent: sinus tenderness - *Routine Neck Exam Present: supple, full ROM, trachea midline. Absent: JVD, tracheal deviation - *Routine Respiratory Exam Present: CTA bilaterally. Absent: accessory muscle use - *Routine Cardiovascular Exam Present: RRR - *Routine Abdominal Exam Present: normoactive bowel sounds. Absent: tenderness, firm - *Routine Extremities Exam Present: full ROM, pulses intact. Absent: calf tenderness - Routine Back/Spine/Pelvis Exam Back/Spine: Present: full ROM. Absent: CVA tenderness - *Routine Skin Exam Present: intact, warm. Absent: jaundice, wounds - *Routine Neurological Exam Present: alert, oriented X3, CN II-XII intact. Absent: altered mental status - Routine Psychiatric Exam Present: normal affect, normal thought process. Absent: auditory hallucinations, visual hallucinations Results Labs on day of discharge: Labs from last 24 hours 10/01/19 10/01/19 09/30/19 06:18 06:18 09:35 WBC 6.0 RBC 3.75 L Hgb 12.6 L Hct 38.5 L MCV 102.7 H MCH 33.5 H MCHC 32.6 RDW 14.5 Plt Count 203 MPV 8.8 Neut % (Auto) 75.9 Lymph % (Auto) 16.6 [place] % (Auto) 7.1 Eos % (Auto) 0.3 Baso % (Auto) 0.2 Neut # (Auto) 4.5 Lymph # (Auto) 1.0 [place] # (Auto) 0.4 Eos # (Auto) 0.0 Baso # (Auto) 0.0 Sodium 139 145 Potassium 3.5 D 2.9 L* Chloride 109 H 111 H Carbon Dioxide 20 L 24 D Anion Gap 13.5 12.9 BUN 10 10 Creatinine 1.18 1.30 Estimated Creat Clear 73 64 Estimated GFR 64 57 L Est GFR ( Amer) 77 69 Glucose 112 H D 64 L Calcium 8.0 L 8.1 L Troponin I 09/30/19 09/30/19 09:35 09:35 WBC 7.3 D RBC 4.10 L Hgb 13.8 L Hct 42.4 MCV 103.3 H MCH 33.6 H MCHC 32.5 RDW 14.6 Plt Count 227 MPV 8.0 Neut % (Auto) 66.8 Lymph % (Auto) 23.3 [place] % (Auto) 8.0 Eos % (Auto) 1.4 Baso % (Auto) 0.5 Neut # (Auto) 4.8 Lymph # (Auto) 1.7 [place] # (Auto) 0.6 Eos # (Auto) 0.1 Baso # (Auto) 0.0 Sodium Potassium Chloride Carbon Dioxide Anion Gap BUN Creatinine Estimated Creat Clear Estimated GFR Est GFR ( Amer) Glucose Calcium Troponin I 2.88 H Preliminary micro results at discharge 09/29/19 06:40 Sputum Culture - Preliminary Sputum - Expectorated Sputum - Additional Comments Rounded with Dr. Lucia, all orders per Dr. Lucia 1. We will discharge home today 2. Follow-up with cardiology in 1 to 2 weeks 3. Follow-up with PCP in 1 to 2 weeks DS: Diagnosis - Discharge Diagnosis (1) Myocarditis Status: Acute (2) Multiple sclerosis Status: Acute (3) Non-STEMI (non-ST elevated myocardial infarction) Status: Acute Discharge Plan - Patient Discharge Instructions ACTIVITY: Continue current activity DIET: continue same diet - Follow up Plan Follow up with: Jonathan Lucia MD [Primary Care Provider] - 2 weeks Carlos Medrano MD [Staff Physician] - Disposition: Home, Self-Longterm Medications: Home Medications Medication Instructions Recorded Confirmed Type Ascorbic Acid [Vitamin C] 1,000 mg PO DAILY 08/22/18 09/29/19 History Calcium Carbonate [Calcium] 500 mg PO DAILY 08/22/18 09/29/19 History Fluticasone/Vilanterol [Breo 1 inh INHALATION DAILY 08/22/18 09/29/19 History Ellipta 100-25 Mcg INH] Multivit-Min/Folic/Vit K/Lycop 1 each PO DAILY 08/22/18 09/29/19 History [Men's Multivitamin Caplet] sucralfate 1 gram tablet 1 g PO QACHS 09/05/18 09/29/19 History Albuterol Sulfate [Albuterol HFA 2 puff INHALATION QIDP PRN 09/06/18 09/29/19 History Inhaler] potassium chloride 20 mEq 20 meq PO DAILY #90 tab 03/11/19 09/29/19 Rx tablet,extended release(part/cryst) sumatriptan succinate 50 mg tablet 50 mg PO NEEDED PRN #9 tab 04/16/19 09/29/19 Rx furosemide 40 mg tablet 40 mg PO DAILY #90 tab 07/08/19 09/29/19 Rx hydrochlorothiazide 25 mg tablet 25 mg PO DAILY #90 tab 07/08/19 09/29/19 Rx pantoprazole 40 mg tablet,delayed 40 mg PO DAILY #90 tab 07/30/19 09/29/19 Rx release gabapentin 800 mg tablet 800 mg PO TID #90 tab 08/30/19 09/29/19 Rx hydrocodone 5 mg-acetaminophen 325 1 tab PO TID PRN #90 tab 08/30/19 09/29/19 Rx mg tablet quetiapine 300 mg tablet 450 mg PO HS 90 Days #135 tab 08/30/19 09/29/19 Rx Ubidecarenone [Co Q-10] 50 mg PO DAILY 09/29/19 09/29/19 History Venlafaxine HCl [Venlafaxine HCl 75 mg PO DAILY 09/29/19 09/29/19 History ER] Prescriptions/Medication Reconciliation: Continued potassium chloride 20 mEq tablet,extended release(part/cryst) 20 meq PO DAILY #90 tab sumatriptan succinate 50 mg tablet 50 mg PO NEEDED PRN #9 tab PRN Reason: MIGRAINES pantoprazole 40 mg tablet,delayed release 40 mg PO DAILY #90 tab hydrocodone 5 mg-acetaminophen 325 mg tablet 1 tab PO TID PRN #90 tab PRN Reason: pain gabapentin 800 mg tablet 800 mg PO TID #90 tab sucralfate 1 gram tablet 1 g PO QACHS hydrochlorothiazide 25 mg tablet 25 mg PO DAILY #90 tab furosemide 40 mg tablet 40 mg PO DAILY #90 tab quetiapine 300 mg tablet 450 mg PO HS 90 Days #135 tab Fluticasone/Vilanterol [Breo Ellipta 100-25 Mcg INH] 1 inh INHALATION DAILY Calcium Carbonate [Calcium] 500 mg PO DAILY Multivit-Min/Folic/Vit K/Lycop [Men's Multivitamin Caplet] 1 each PO DAILY Ascorbic Acid [Vitamin C] 1,000 mg PO DAILY Albuterol Sulfate [Albuterol HFA Inhaler] 2 puff INHALATION QIDP PRN PRN Reason: shortness of breath or wheezing Ubidecarenone [Co Q-10] 50 mg PO DAILY Venlafaxine HCl [Venlafaxine HCl ER] 75 mg PO DAILY - Problem Reconciliation Problems Reviewed?: Yes
== END 2019-10-01 10:55 | disposition home or self-care (01) | DRG 280 ==
LOC: 2ND 21:22 → ER 21:22 → 2ND 09-29 02:19
PROVIDERS: ADMIT Emergency Medicine; ATTEND Emergency Medicine
CPT/HCPCS: 36415; 71020; 71046; 74176; 80048; 80053; 80061; 81001; 82150; 82550; 83690; 83735; 84484; 85007; 85025; 85651; 86140; 87070; 87077; 87186; 87205; 87275; 87276; 93005; 93306; 93458; 96365; 99152; 99284; C1725; C1769; J1644; J2405; Q9967

== ENCOUNTER 2019-10-03 14:05 | Observation (INO) ==
--- NOTE | 2019-10-03 14:27 | Emergency Department Note ---
ED Disposition Clinical Impression: Chest pain, Fall, Influenza A Disposition: Admitted as Observation Condition on Discharge: Good Referrals: Jonathan Lucia MD [Primary Care Provider] - - Critical Care Critical Care Time: No Attestation: On 10/03/19, the high probability of a clinically significant, sudden or life threatening deterioration of the following system(s) required my full and direct attention, intervention and personal management. The time I documented below is in addition to time spent performing reported procedures but includes the following listed in this critical care notation. Medical Decision Making - Medical Records MR Comment: Patient has influenza positive and fever. He feels weak, he has intermittent chest pain. His troponin was 0.9 2:09 hours was 1.11. Discussed the case with Dr. Santacruz and he agreed to admit for observation with IV fluid. Troponin in the morning. - Huy Inquiry Pt receiving controlled substance: No Huy was queried for this patient: No Vital Signs: 10/03/19 14:06 10/03/19 15:33 10/03/19 17:19 Temperature 101.7 F H Temperature Source Oral Pulse Rate [Left Radial] 105 H 99 H 91 H Respiratory Rate 20 Blood Pressure [Right Arm] 116/74 103/65 L Blood Pressure Mean [Right Arm] 88 77 Blood Pressure Position [Right Arm] Sitting Sitting 02 Sat by Pulse Oximetry 90 L 95 96 Oxygen Delivery Method Room Air Room Air Room Air - Lab Data Lab Results 10/03/19 14:24: Urine Color Yellow, Urine Appearance Clear, Urine pH 5.0, Ur Specific [place] 1.015, Urine Protein Negative, Urine Glucose (UA) Negative, Uri ne Ketones Negative, Urine Blood Negative, Urine Nitrate Negative, Urine Bilirubin Negative, Urine Urobilinogen 0.2, Ur Leukocyte Esterase Negative, Urine RBC None, Urine WBC None, Ur Squamous Epith Cells Occasional, Urine Bacteria None 10/03/19 14:30: WBC 8.7 D, RBC 4.40 L, Hgb 15.2, Hct 44.7, MCV 101.4 H, MCH 34.5 H, MCHC 34.0, RDW 14.3, Plt Count 266 D, MPV 8.4, Neut % (Auto) 82.5 H, Lymph % (Auto) 6.6 L, [place] % (Auto) 7.8, Eos % (Auto) 1.5, Baso % (Auto) 1.6, Neut # (Auto) 7.2, Lymph # (Auto) 0.6 L, [place] # (Auto) 0.7, Eos # (Auto) 0.1, Baso # (Auto) 0.1 10/03/19 14:30: Sodium 129 L, Potassium 3.4 L, Chloride 93 L, Carbon Dioxide 31 H, Anion Gap 8.4, BUN 9, Creatinine 1.20, Estimated Creat Clear 70, Estimated GFR 62, Est GFR ( Amer) 76, Glucose 94, Calcium 8.3 L, Total Bilirubin 0.4, Direct Bilirubin 0.0, Conjugated Bilirubin 0.0, Indirect Bilirubin 0.4, Unconjugated Bilirubin 0.4, AST 34, ALT 22, Alkaline Phosphatase 81, Troponin I 0.99 H, Total Protein 6.1 L, Albumin 3.4 L 10/03/19 14:30: Lactate 2.3 H 10/03/19 14:30: Influenza Type A Ag Positive A, Influenza Type B Ag Negative 10/03/19 16:25: Troponin I 1.11 H Result diagrams: 10/03/19 14:30 10/03/19 14:30 Orders (Tests/Meds): ED MEDICATIONS Generic Name Dose Route Start Last Admin Trade Name Freq PRN Reason Stop Dose Admin Oseltamivir Phosphate 75 mg 10/03/19 21:00 10/03/19 17:22 Tamiflu 75mg Capsule PO 10/17/19 20:59 75 mg BID DULCE Administration Discontinued Medications Generic Name Dose Route Start Last Admin Trade Name Freq PRN Reason Stop Dose Admin Aspirin 325 mg 10/03/19 15:05 10/03/19 15:27 Aspirin 325mg Tablet PO 10/03/19 15:06 Not Given ONCE ONE Sodium Chloride 1,000 mls @ 999 mls/hr 10/03/19 15:15 10/03/19 15:33 Sod Chlor 0.9% 1000ml Bag IV 10/03/19 16:15 999 mls/hr .Q1H1M DULCE Administration Ibuprofen 600 mg 10/03/19 15:28 10/03/19 15:28 Motrin 600mg Tablet PO 10/03/19 15:29 600 mg ONCE ONE Administration ORDERS Category Date Time Status Troponin I Q3H Lab 10/03/19 20:15 Ordered Blood Culture Stat Micro 10/03/19 14:30 Received General Adult HPI - General Chief complaint: Fall Stated complaint: FALL Time Seen by Provider: 10/03/19 14:23 Mode of Arrival: EMS Limitations: No Limitations Description of Symptoms (Recalled from ER Triage Doc. by RN): TO ED PER SQUAD PT C/O COUGH, SOB, CHEST PAIN, LT ARM PAIN LOWER BACK PAIN, GENERALIZED WEAKNESS X 2 DAYS PT STATES FELL AT HOME APPROX 2 1/2 HRS AGO DUE TO UNSTEADY GAIT AND WAS UNABLE TO GET UP OFF FLOOR. PT STATES SEEN LAST WEEK DUE TO HI AND HAS NOT HAD HIS MEDICATIONS FILLED SINCE DISCHARGE FROM HOSPITAL. PT DENIES NAUSEA, VOMITING, DIAPHORESIS. PT TOOK EXCEDRIN AT 11 AM - History of Present Illness HPI narrative: 59-year-old male. He was brought here by EMS after a fall injury. He said he has history of multiple sclerosis for the past 8 years and his gait is clumsy all the time. He fell and landed on his back. He said today he started having intermittent chest pain with no radiation and no diaphoresis or nausea. He was discharged from the hospital 5 days ago with a diagnosis of acute HI. He had a heart catheter at that time. According to him he did not have PTCA. He used to be a smoker 2 packs a day for 35 years till he quitted 14 months ago. He drinks alcohol once or twice a week. He never had any heavy consumption of alcohol in the past. He takes pain medication on daily basis consistent with hydrocodone and gabapentin. He used to's be seen by neurologist till few years ago. He said he has chest pain today but he does not know was related to the fall or not he said when he fell he landed on his back on his buttocks. There was no chest wall tenderness. He said he could not get up because of the back pain so he called a friend and then subsequently called EMS to bring him to the emergency room. He is and lives by himself. He takes aspirin daily. The results of the heart catheterization which was done on September 29 shows 30 to 40% blockage of the left descending artery with good flow. Right artery was normal. His troponin was 15.6 on September 29 and 2.88 on September 30/2010. Had a heart catheterization on September 292009. - Related Data Home Medications Medication Instructions Recorded Confirmed Ascorbic Acid [Vitamin C] 1,000 mg PO DAILY 08/22/18 09/29/19 Calcium Carbonate [Calcium] 500 mg PO DAILY 08/22/18 09/29/19 Fluticasone/Vilanterol [Breo 1 inh INHALATION DAILY 08/22/18 09/29/19 Ellipta 100-25 Mcg INH] Multivit-Min/Folic/Vit K/Lycop 1 each PO DAILY 08/22/18 09/29/19 [Men's Multivitamin Caplet] sucralfate 1 gram tablet 1 g PO QACHS 09/05/18 09/29/19 Albuterol Sulfate [Albuterol HFA 2 puff INHALATION QIDP PRN 09/06/18 09/29/19 Inhaler] Ubidecarenone [Co Q-10] 50 mg PO DAILY 09/29/19 09/29/19 Venlafaxine HCl [Venlafaxine HCl 75 mg PO DAILY 09/29/19 09/29/19 ER] Previous Rx's Medication Instructions Recorded potassium chloride 20 mEq 20 meq PO DAILY #90 tab 03/11/19 tablet,extended release(part/cryst) sumatriptan succinate 50 mg tablet 50 mg PO NEEDED PRN #9 tab 04/16/19 furosemide 40 mg tablet 40 mg PO DAILY #90 tab 07/08/19 hydrochlorothiazide 25 mg tablet 25 mg PO DAILY #90 tab 07/08/19 pantoprazole 40 mg tablet,delayed 40 mg PO DAILY #90 tab 07/30/19 release gabapentin 800 mg tablet 800 mg PO TID #90 tab 08/30/19 hydrocodone 5 mg-acetaminophen 325 1 tab PO TID PRN #90 tab 08/30/19 mg tablet quetiapine 300 mg tablet 450 mg PO HS 90 Days #135 tab 08/30/19 Allergies Allergy/AdvReac Type Severity Reaction Status Date / Time varenicline [From Chantix] Allergy Intermediate Vomiting Verified 08/02/19 15:51 [facility] History - Hepatitis A Screen Drug use history?: No High risk sexual behaviors?: No History of sexually transmitted infection?: No Currently employed?: No Childcare worker?: No Do you have indoor plumbing?: Yes Do you have electricity?: Yes Attestation statement:: This patient has been screened for Hepatitis A risk factors. I have reviewed the patient's past medical history: Yes Medical History: Reports:: Congestive Heart Failure, Hypertension Denies:: Cancer, Diabetes Mellitus Type 1, Diabetes Mellitus Type 2, MRSA Other Medical History: Reports: Anemia Other Surgeries: Yes: No Previous Surgery, Other Amputation: No Fractures: Yes (arm fracture at age 8) - Social History Smoking Status: Former smoker Tobacco Type: cigarettes # Packs/Day (cigarettes): 3 #Yrs smoked (if former smoker): 40 Alcohol Intake: never Alcohol Intake Frequency:: holidays/special occasions only Substance Use Type: denies use Occupational Status: other Housing: house Household Members: significant other Family Hx:: Coronary Artery Disease, Heart Attack, Hyperlipidemia, Hypertension, Stroke, Alcoholism ROS Obtained: Yes All systems reviewed & no additional complaints - Constitutional Constitutional: Reports system reviewed and no additional complaints, except as docu - Eyes Eyes: Reports system reviewed and no additional complaints, except as docu - ENT Ears, Nose, Mouth, and Throat: Reports system reviewed and no additional complaints, except as docu - Cardiovascular Cardiovascular: Reports system reviewed and no additional complaints, except as docu, Reports chest pain, Reports lightheadedness - Respiratory Respiratory: Yes system reviewed and no additional complaints, except as docu - Gastrointestinal Gastrointestingal: Reports: system reviewed and no additional complaints, except as docu - Genitourinary Male Genitourinary: Reports system reviewed and no additional complaints, except as docu - Musculoskeletal Musculoskeletal: Reports back pain - Integumentary/Breasts Skin/Breast: Reports system reviewed and no additional complaints, except as docu - Neurologic Neurologic: Reports system reviewed and no additional complaints, except as docu - Endocrine Endocrine: Reports system reviewed and no additional complaints, except as docu - Hematologic/Lymphatic Henatologic/Lymphatic: Reports system reviewed and no additional complaints, except as docu - Allergic/Immunologic Allergic/Immunologic: Reports system reviewed and no additional complaints, except as docu Physical Exam - General General appearance: alert, in no apparent distress - Head Head exam: atraumatic, normocephalic, normal inspection - Eye Eye exam: Present: normal appearance, PERRL, EOMI - ENT ENT exam: Present: normal exam, normal oropharynx, mucous membranes moist, TM's normal bilaterally, normal external ear exam - Neck Neck exam: Present: normal inspection, full ROM, trachea midline. Absent: meningismus, lymphadenopathy - Chest Chest inspection: Present: normal inspection, symmetric chest wall rise. Absent: tenderness - Respiratory Respiratory exam: Present: normal lung sounds bilaterally. Absent: respiratory distress - Cardiovascular Cardiovascular exam: Present: regular rate, normal rhythm. Absent: JVD - Abdominal Exam Abdominal exam: Present: soft, normal bowel sounds. Absent: distention, tenderness, guarding - Extremities Exam Extremities exam: Present: normal inspection, full ROM, normal capillary refill. Absent: calf tenderness - Back Exam Back exam: Present: normal inspection. Absent: tenderness - Neurological Exam Neurological exam: Present: alert, oriented X3 - Psychiatric Psychiatric exam: Present: normal affect, normal mood - Skin Skin exam: Present: warm, dry, intact, normal color - Lymphatic Lymphatic Findings: no adenopathy
[2019-10-03 14:50] LABS: Microscopic, Urine URINE MICROSCOPIC (MICROSCOPIC)
[2019-10-03 14:50] LABS: Basophils # 0.1 K/mm3 (0-0.2); Basophils % 1.6 % (0.1-2.0); Eosinophils # 0.1 K/mm3 (0.0-0.4); Eosinophils % 1.5 % (0.1-12.0); Hematocrit 44.7 % (42.0-52.0); Hemoglobin 15.2 g/dL (14.1-18.0); Lymphocytes # 0.6 K/mm3 (0.7-4.5); Lymphocytes % 6.6 % (10-50); Mean Corpuscular Volume 101.4 fl (80-94); Mean Platelet Volume 8.4 fl (7.4-10.4); Monocytes # 0.7 K/mm3 (0.1-1.0); Monocytes % 7.8 % (1.7-9.3); Neutrophils # 7.2 K/mm3 (1.8-7.8); Neutrophils % 82.5 % (37.0-80.0); Platelet Count 266 K/mm3 (142-424); Red Cell Distribution Width 14.3 % (11.5-17.5); White Blood Count 8.7 K/mm3 (4.8-10.8)
[2019-10-03 14:54] LABS: Appearance,Urine CLEAR (Clear); Bilirubin,Urine Negative (Negative); Blood, Urine Negative (Negative); Color,Urine YELLOW (Yellow); Glucose,Urine (UA) Negative (Negative); Ketones,Urine Negative (Negative); Leukocyte Esterase,Urine Negative (Negative); Protein,Urine Negative (Negative); Specific Gravity, Urine 1.015 (1.005-1.030); Urobilinogen,Urine 0.2 EU/dl (0.2)
[2019-10-03 14:57] LABS: Albumin Level 3.4 g/dl (3.5-5.0); Anion Gap 8.4 mEq/L (5-15); Bilirubin,Indirect 0.4 mg/dL (0.0-0.9); Bilirubin,Total 0.4 mg/dl (0.2-1.3); Bilirubin,Unconjugated 0.4 mg/dL (0.0-1.1); Calcium 8.3 mg/dl (8.4-10.2); Total Protein,Serum 6.1 g/dl (6.3-8.2)
[2019-10-03 14:59] LABS: Squamous Epithelial Cell,Urine Occasional #/hpf (0-5)
--- NOTE | 2019-10-03 17:22 | Consult Report ---
History of Present Illness Consult date: 10/03/19 Consult reason: chest pain Chief complaint: Fall, chest pain Additional Medical History:: 1. Myocarditis, 09/2019 A. Troponins elevated with peak of >15 B. LHC, 09/29/2019, ANGIOGRAPHIC RESULTS The left main artery Normal The left anterior descending artery Has a proximal 30 to 40% [id number] stenosis with remaining vessel normal The circumflex artery Large dominant and normal The right coronary artery Small vestigial and normal The GARG ventriculogram reveals Ejection fraction of 45% with inferior apical hypokinesis The left ventricular end-diastolic pressure 20 mmHg IMPRESSION Mild to moderate [id number] coronary artery disease Elevated troponins with regional wall motion abnormality most consistent with myocarditis/pericarditis Mildly elevated LVEDP consistent with myocarditis PLAN 1. Supportive care for myocarditis 2. Beta-blockers OLIVIA inhibitors 3. Echocardiogram in the morning C. Echo, 09/30/2019, 1. Mildly enlarged left atrium, normal left ventricular size, mild concentric left ventricular hypertrophy, visually estimated ejection fraction 55% with no regional wall motion abnormality, grade 1 diastolic dysfunction seen without tissue Doppler evidence of raise left atrial pressure. 2. Mild mitral and tricuspid regurgitation. 3. mild aortic insufficiency. 4. No significant pericardial effusion noted 2. Multiple sclerosis, diagnosed about 2009 3. History of drug and ETOH use, remote 4. Tobacco use, stopped 2018 5. History of hypertension History of present illness: 59 yo WM brought to ER via EMS due to fall with chest pain thereafter. Pt hit granite top table as he fell. Unable to stand due to back pain from fall compounded by weakness and fatigue due to combination of chronic MS and recent respiratory illness with cough which may have precipitated the fall. No acute EKG changes with troponin elevated but trending down from recent diagnosis of myocarditis/hospitalization earlier this week with mild CAD by cath and no pericardial effusion on echo. Found to be positive for Type A Influenza. Cardiology consulted for evaluation and recommendations. ER MD note states pt did not yet get discharge meds from recent hospital stay. [facility] History Medical History: Reports:: Congestive Heart Failure, Hypertension Denies:: Cancer, Diabetes Mellitus Type 1, Diabetes Mellitus Type 2, MRSA *Have you ever received a pneumonia vaccine?: No *Have you received a flu vaccine this season?: No Other Medical History: Reports: Anemia Other Surgeries: Yes: No Previous Surgery, Other Amputation: No Fractures: Yes (arm fracture at age 8) - *Social History Smoking Status: Former smoker Tobacco Type: cigarettes # Packs/Day (cigarettes): 3 #Yrs smoked (if former smoker): 40 Alcohol Intake: never Alcohol Intake Frequency:: holidays/special occasions only Substance Use Type: denies use *Occupational Status:: other Housing: house Household Members: significant other *Travel in the last 8 weeks: None Family Hx:: Coronary Artery Disease, Heart Attack, Hyperlipidemia, Hypertension, Stroke, Alcoholism Meds Home Medications Medication Instructions Recorded Confirmed Type Ascorbic Acid [Vitamin C] 1,000 mg PO DAILY 08/22/18 10/03/19 History Calcium Carbonate [Calcium] 500 mg PO DAILY 08/22/18 10/03/19 History Fluticasone/Vilanterol [Breo 1 inh INHALATION DAILY 08/22/18 10/03/19 History Ellipta 100-25 Mcg INH] Multivit-Min/Folic/Vit K/Lycop 1 each PO DAILY 08/22/18 10/03/19 History [Men's Multivitamin Caplet] sucralfate 1 gram tablet 1 g PO QACHS 09/05/18 10/03/19 History Albuterol Sulfate [Albuterol HFA 2 puff INHALATION QIDP PRN 09/06/18 10/03/19 History Inhaler] potassium chloride 20 mEq 20 meq PO DAILY #90 tab 03/11/19 10/03/19 Rx tablet,extended release(part/cryst) sumatriptan succinate 50 mg tablet 50 mg PO NEEDED PRN #9 tab 04/16/19 10/03/19 Rx furosemide 40 mg tablet 40 mg PO DAILY #90 tab 07/08/19 10/03/19 Rx hydrochlorothiazide 25 mg tablet 25 mg PO DAILY #90 tab 07/08/19 10/03/19 Rx hydrocodone 5 mg-acetaminophen 325 1 tab PO TID PRN #90 tab 08/30/19 10/03/19 Rx mg tablet quetiapine 300 mg tablet 450 mg PO HS 90 Days #135 tab 08/30/19 10/03/19 Rx Ubidecarenone [Co Q-10] 50 mg PO DAILY 09/29/19 10/03/19 History Venlafaxine HCl [Venlafaxine HCl 75 mg PO DAILY 09/29/19 10/03/19 History ER] Gabapentin 800 mg PO TID 10/03/19 10/03/19 History Pantoprazole Sodium [Protonix 40mg 40 mg PO DAILY 10/03/19 10/03/19 History tablet] Allergies Allergy/AdvReac Type Severity Reaction Status Date / Time varenicline [From Chantix] Allergy Intermediate Vomiting Verified 08/02/19 15:51 Review of Systems - Review of Systems Review of systems:: pertinent systems reviewed and negative unless documented below - Constitutional Reports fatigue, Reports malaise, Reports weakness - *Cardiovascular Reports chest pain, Reports shortness of breath - *Respiratory Reports chest congestion, Reports cough, Reports shortness of breath - *Musculoskeletal Reports back pain, Reports muscle weakness Exam Vital signs and Labs for Last 24 Hours: Temp Pulse Resp BP Pulse Ox 101.7 F H 99 H 20 103/65 L 95 10/03/19 14:06 10/03/19 15:33 10/03/19 14:06 10/03/19 15:33 10/03/19 15:33 Laboratory Results - last 24 hr 10/03/19 14:24: Urine Color Yellow, Urine Appearance Clear, Urine pH 5.0, Ur Specific [place] 1.015, Urine Protein Negative, Urine Glucose (UA) Negative, Urine Ketones Negative, Urine Blood Negative, Urine Nitrate Negative, Urine Bilirubin Negative, Urine Urobilinogen 0.2, Ur Leukocyte Esterase Negative, Urine RBC None, Urine WBC None, Ur Squamous Epith Cells Occasional, Urine Bacteria None 10/03/19 14:30: WBC 8.7 D, RBC 4.40 L, Hgb 15.2, Hct 44.7, MCV 101.4 H, MCH 34.5 H, MCHC 34.0, RDW 14.3, Plt Count 266 D, MPV 8.4, Neut % (Auto) 82.5 H, Lymph % (Auto) 6.6 L, [place] % (Auto) 7.8, Eos % (Auto) 1.5, Baso % (Auto) 1.6, [place] # (Auto) 7.2, Lymph # (Auto) 0.6 L, [place] # (Auto) 0.7, Eos # (Auto) 0.1, Baso # (Auto) 0.1 10/03/19 14:30: Sodium 129 L, Potassium 3.4 L, Chloride 93 L, Carbon Dioxide 31 H, Anion Gap 8.4, BUN 9, Creatinine 1.20, Estimated Creat Clear 70, Estimated GFR 62, Est GFR ( Amer) 76, Glucose 94, Calcium 8.3 L, Total Bilirubin 0.4, Direct Bilirubin 0.0, Conjugated Bilirubin 0.0, Indirect Bilirubin 0.4, Unconjugated Bilirubin 0.4, AST 34, ALT 22, Alkaline Phosphatase 81, Troponin I 0.99 H, Total Protein 6.1 L, Albumin 3.4 L 10/03/19 14:30: Lactate 2.3 H 10/03/19 14:30: Influenza Type A Ag Positive A, Influenza Type B Ag Negative 10/03/19 16:25: Troponin I 1.11 H I & O for Last 24 hours: Intake & Output 10/01/19 10/02/19 10/03/19 10/04/19 11:59 11:59 11:59 11:59 Weight 160 lb - *Routine HEENT Exam Head: Present: normocephalic Eye: Present: EOMI, PERRL ENT: Present: mucous membranes moist - *Routine Respiratory Exam Present: rhonchi. Absent: accessory muscle use, rales, wheezes - *Routine Cardiovascular Exam Present: RRR. Absent: murmur, gallop, rubs - *Routine Abdominal Exam Present: soft. Absent: tenderness, distended, guarding - *Routine Extremities Exam Absent: edema, calf tenderness - *Routine Neurological Exam Present: alert, oriented X3, moving all extremities Assessment and Plan (1) Influenza A Current visit: Yes Status: Acute Category: Medical Code(s): J10.1 - Influenza due to other identified influenza virus with other respiratory manifestations (2) Fall Current visit: Yes Status: Acute Category: Medical Code(s): W19.XXXA - Unspecified fall, initial encounter (3) Chest pain Current visit: Yes Status: Acute Category: Medical Code(s): R07.9 - Chest pain, unspecified (4) Multiple sclerosis Current visit: No Status: Acute Category: Medical Code(s): G35 - Multiple sclerosis (5) Myocarditis Current visit: No Status: Acute Category: Medical Code(s): I51.4 - Myocarditis, unspecified - Assessment and plan all Dx Assessment and Plan for all problems:: 1. Chest pain related to trauma during fall on top of chest pain related to myocarditis. 2. Influenza A, treatment per PCP 3. Elevated troponin related to myocarditis. Continue supportive care with use of NSAIDs sparingly if needed. No rub noted on exam, No ST elevation on EKG and no acute change in cardiac silhouette on CXR. 4. Multiple Sclerosis, treatment per PCP.
[2019-10-04 06:15] LABS: Basophils % 0.6 % (0.1-2.0); Monocytes # 0.4 K/mm3 (0.1-1.0)
[2019-10-04 06:24] LABS: Anion Gap 8.7 mEq/L (5-15)
[2019-10-04 06:25] LABS: Eosinophils % 0.7 % (0.1-12.0); Hematocrit 38.2 % (42.0-52.0); Lymphocytes # 0.7 K/mm3 (0.7-4.5); Lymphocytes % 16.1 % (10-50); Mean Corpuscular HGB Conc 34.3 g/dL (31.8-35.4); Mean Corpuscular Volume 100.4 fl (80-94); Mean Platelet Volume 8.9 fl (7.4-10.4); Monocytes % 8.7 % (1.7-9.3); Neutrophils # 3.4 K/mm3 (1.8-7.8); Neutrophils % 73.9 % (37.0-80.0); Platelet Count 219 K/mm3 (142-424); Red Cell Distribution Width 14.5 % (11.5-17.5); White Blood Count 4.6 K/mm3 (4.8-10.8)
[2019-10-04 06:28] LABS: Hemoglobin 13.1 g/dL (14.1-18.0)
--- NOTE | 2019-10-04 07:27 | Pharmacy Consult Notes ---
[facility] [place] Pharmacy VTE Monitoring - Patient Demographics Admission date: 10/03/19 Report Date: 10/04/19 Time: 07:26 Allergies/Adverse Reactions: Patient Allergies varenicline [From Chantix] Allergy (Intermediate, Verified 08/02/19 15:51) Vomiting Height: 1.73 m Weight: 73.255 kg Patient Problems: Current Active Problems Chest pain (Acute) Fall (Acute) Influenza A (Acute) - VTE Risk Labs: VTE Related Lab Results Hgb 13.1 g/dL (14.1-18.0) L D 10/04/19 05:48 Hct 38.2 % (42.0-52.0) L 10/04/19 05:48 Plt Count 219 K/mm3 (142-424) 10/04/19 05:48 BUN 9 mg/dl (9-20) 10/04/19 05:48 Creatinine 1.00 mg/dl (0.66-1.25) 10/04/19 05:48 Estimated Creat Clear 84 mL/min (50-200) 10/04/19 05:48 Clinical Trial Participant: No - Prophylaxis VTE Prophylaxis Ordered?: Yes Types of VTE Prophylaxis: TEDS Knee High
--- NOTE | 2019-10-04 07:40 | Progress Note ---
Subjective Date: 10/04/19 Time: 07:37 Principal diagnosis: Influenza A Interval history: 59-year-old white male in bed in no acute distress. Chest discomfort from his fall is still present but improved. He denies any worsening of symptoms. Still with productive cough and still feels weak. Exam Vital signs and Labs for Last 24 Hours: Temp Pulse Resp BP Pulse Ox 97.6 F 90 17 118/68 96 10/04/19 03:36 10/04/19 04:00 10/04/19 03:36 10/04/19 03:36 10/04/19 03:36 Laboratory Results - last 24 hr 10/03/19 14:24: Urine Color Yellow, Urine Appearance Clear, Urine pH 5.0, Ur Spe cific [place] 1.015, Urine Protein Negative, Urine Glucose (UA) Negative, Urine Ketones Negative, Urine Blood Negative, Urine Nitrate Negative, Urine Bilirubin Negative, Urine Urobilinogen 0.2, Ur Leukocyte Esterase Negative, Urine RBC None, Urine WBC None, Ur Squamous Epith Cells Occasional, Urine Bacteria None 10/03/19 14:30: WBC 8.7 D, RBC 4.40 L, Hgb 15.2, Hct 44.7, MCV 101.4 H, MCH 34.5 H, MCHC 34.0, RDW 14.3, Plt Count 266 D, MPV 8.4, Neut % (Auto) 82.5 H, Lymph % (Auto) 6.6 L, [place] % (Auto) 7.8, Eos % (Auto) 1.5, Baso % (Auto) 1.6, Neut # (Auto) 7.2, Lymph # (Auto) 0.6 L, [place] # (Auto) 0.7, Eos # (Auto) 0.1, Baso # (Auto) 0.1 10/03/19 14:30: Sodium 129 L, Potassium 3.4 L, Chloride 93 L, Carbon Dioxide 31 H, Anion Gap 8.4, BUN 9, Creatinine 1.20, Estimated Creat Clear 70, Estimated GFR 62, Est GFR ( Amer) 76, Glucose 94, Calcium 8.3 L, Total Bilirubin 0.4, Direct Bilirubin 0.0, Conjugated Bilirubin 0.0, Indirect Bilirubin 0.4, Unconjugated Bilirubin 0.4, AST 34, ALT 22, Alkaline Phosphatase 81, Troponin I 0.99 H, Total Protein 6.1 L, Albumin 3.4 L 10/03/19 14:30: Lactate 2.3 H 10/03/19 14:30: Influenza Type A Ag Positive A, Influenza Type B Ag Negative 10/03/19 16:25: Troponin I 1.11 H 10/03/19 18:57: Lactate 1.7 10/04/19 05:48: WBC 4.6 L D, RBC 3.80 L, Hgb 13.1 L D, Hct 38.2 L, MCV 100.4 H, MCH 34.5 H, MCHC 34.3, RDW 14.5, Plt Count 219, MPV 8.9, Neut % (Auto) 73.9, Lymph % (Auto) 16.1, [place] % (Auto) 8.7, Eos % (Auto) 0.7, Baso % (Auto) 0.6, Neut # (Auto) 3.4, Lymph # (Auto) 0.7, [place] # (Auto) 0.4, Eos # (Auto) 0.0, Baso # (Auto) 0.0 10/04/19 05:48: Sodium 135 L, Potassium 2.7 L* D, Chloride 103, Carbon Dioxide 26, Anion Gap 8.7, BUN 9, Creatinine 1.00, Estimated Creat Clear 84, Estimated GFR 77, Est GFR ( Amer) 93 D, Glucose 83 10/04/19 05:50: Troponin I 0.71 H I & O for Last 24 hours: Intake & Output 10/01/19 10/02/19 10/03/19 10/04/19 11:59 11:59 11:59 11:59 Intake Total 1200 / 1200 Output Total 600 / 600 Balance 600 / 600 Weight 161 lb 8 oz - *Routine Respiratory Exam Present: rhonchi. Absent: accessory muscle use, rales, wheezes - *Routine Cardiovascular Exam Present: RRR. Absent: murmur, gallop, rubs - *Routine Extremities Exam Absent: edema, calf tenderness - *Routine Neurological Exam Present: alert, oriented X3, moving all extremities Progress Note: A&P (1) Influenza A Status: Acute Current Visit: Yes (2) Fall Status: Acute Current Visit: Yes (3) Chest pain Status: Acute Current Visit: Yes (4) Multiple sclerosis Status: Acute Current Visit: No (5) Myocarditis Status: Acute Current Visit: No Assessment and Plan for All Diagnoses:: 1. Cardiac status is stable with no appreciable murmur, gallop or rub on exam today. Troponin has trended down after a slight bump yesterday to 1.1 but currently 0.71. Telemetry shows no significant arrhythmias. Patient could be discharged from a cardiology standpoint with follow-up in 2 weeks. 2. Influenza type a, patient has been started on Tamiflu 3. Multiple sclerosis 4. Hypokalemia, replacement is in progress with recent magnesium level of 1.9 earlier this week 5. Mild coronary artery disease by cardiac catheterization this week
--- NOTE | 2019-10-04 07:59 | Electrocardiograph Report ---
APPROVED REPORT Exam: Resting ECG HR:102 bpm ECG Measurements Heart Rate 102 AXES DC 138 P 72 QRSd 66 QRS -52 QT 316 T80 QTc 411 <Conclusion> Sinus tachycardia Biatrial enlargement Left axis deviation Incomplete left bundle branch block Low voltage QRS Inferior changes noted from left anterior hemiblock Poor R wave progression Abnormal ECG Electronically signed by : Foreign Villanueva, 10/04/2019 07:59:28
--- NOTE | 2019-10-04 09:09 | Discharge Summary ---
General - General Admission date:: 10/03/19 Discharge date: 10/04/19 HPI HPI: 59-year-old male presented to ed via EMS after a fall injury. History of multiple sclerosis for the past 8 years and his gait is clumsy all the time. He fell and landed on his back and then started having intermittent chest pain with no radiation and no diaphoresis or nausea. He was discharged from the hospital 5 days ago with a diagnosis of acute NH. He said he has chest pain today but he does not know was related to the fall or not he said when he fell he landed on his back on his buttocks. There was no chest wall tenderness. He said he could not get up because of the back pain so he called a friend and then subsequently called EMS to bring him to the emergency room. Pt poss for flu and admitted to monitor troponin and cardiology consult. Hospital Course Hospital Course: cardiology consult- see note flu A poss Laboratory Results - last 48 hr 10/03/19 10/03/19 10/03/19 14:24 14:30 14:30 WBC 8.7 D RBC 4.40 L Hgb 15.2 Hct 44.7 MCV 101.4 H MCH 34.5 H MCHC 34.0 RDW 14.3 Plt Count 266 D MPV 8.4 Neut % (Auto) 82.5 H Lymph % (Auto) 6.6 L [place] % (Auto) 7.8 Eos % (Auto) 1.5 Baso % (Auto) 1.6 Neut # (Auto) 7.2 Lymph # (Auto) 0.6 L [place] # (Auto) 0.7 Eos # (Auto) 0.1 Baso # (Auto) 0.1 Sodium 129 L Potassium 3.4 L Chloride 93 L Carbon Dioxide 31 H Anion Gap 8.4 BUN 9 Creatinine 1.20 Estimated Creat Clear 70 Estimated GFR 62 Est GFR ( Amer) 76 Glucose 94 Lactate Calcium 8.3 L Total Bilirubin 0.4 Direct Bilirubin 0.0 Conjugated Bilirubin 0.0 Indirect Bilirubin 0.4 Unconjugated Bilirubin 0.4 AST 34 ALT 22 Alkaline Phosphatase 81 Troponin I 0.99 H Total Protein 6.1 L Albumin 3.4 L Urine Color Yellow Urine Appearance Clear Urine pH 5.0 Ur Specific [place] 1.015 Urine Protein Negative Urine Glucose (UA) Negative Urine Ketones Negative Urine Blood Negative Urine Nitrate Negative Urine Bilirubin Negative Urine Urobilinogen 0.2 Ur Leukocyte Esterase Negative Urine RBC None Urine WBC None Ur Squamous Epith Cells Occasional Urine Bacteria None Influenza Type A Ag Influenza Type B Ag 10/03/19 10/03/19 10/03/19 14:30 14:30 16:25 WBC RBC Hgb Hct MCV MCH MCHC RDW Plt Count MPV Neut % (Auto) Lymph % (Auto) [place] % (Auto) Eos % (Auto) Baso % (Auto) Neut # (Auto) Lymph # (Auto) [place] # (Auto) Eos # (Auto) Baso # (Auto) Sodium Potassium Chloride Carbon Dioxide Anion Gap BUN Creatinine Estimated Creat Clear Estimated GFR Est GFR ( Amer) Glucose Lactate 2.3 H Calcium Total Bilirubin Direct Bilirubin Conjugated Bilirubin Indirect Bilirubin Unconjugated Bilirubin AST ALT Alkaline Phosphatase Troponin I 1.11 H Total Protein Albumin Urine Color Urine Appearance Urine pH Ur Specific [place] Urine Protein Urine Glucose (UA) Urine Ketones Urine Blood Urine Nitrate Urine Bilirubin Urine Urobilinogen Ur Leukocyte Esterase Urine RBC Urine WBC Ur Squamous Epith Cells Urine Bacteria Influenza Type A Ag Positive A Influenza Type B Ag Negative 10/03/19 10/04/19 10/04/19 18:57 05:48 05:48 WBC 4.6 L D RBC 3.80 L Hgb 13.1 L D Hct 38.2 L MCV 100.4 H MCH 34.5 H MCHC 34.3 RDW 14.5 Plt Count 219 MPV 8.9 Neut % (Auto) 73.9 Lymph % (Auto) 16.1 [place] % (Auto) 8.7 Eos % (Auto) 0.7 Baso % (Auto) 0.6 Neut # (Auto) 3.4 Lymph # (Auto) 0.7 [place] # (Auto) 0.4 Eos # (Auto) 0.0 Baso # (Auto) 0.0 Sodium 135 L Potassium 2.7 L* D Chloride 103 Carbon Dioxide 26 Anion Gap 8.7 BUN 9 Creatinine 1.00 Estimated Creat Clear 84 Estimated GFR 77 Est GFR ( Amer) 93 D Glucose 83 Lactate 1.7 Calcium Total Bilirubin Direct Bilirubin Conjugated Bilirubin Indirect Bilirubin Unconjugated Bilirubin AST ALT Alkaline Phosphatase Troponin I Total Protein Albumin Urine Color Urine Appearance Urine pH Ur Specific [place] Urine Protein Urine Glucose (UA) Urine Ketones Urine Blood Urine Nitrate Urine Bilirubin Urine Urobilinogen Ur Leukocyte Esterase Urine RBC Urine WBC Ur Squamous Epith Cells Urine Bacteria Influenza Type A Ag Influenza Type B Ag 10/04/19 05:50 WBC RBC Hgb Hct MCV MCH MCHC RDW Plt Count MPV Neut % (Auto) Lymph % (Auto) [place] % (Auto) Eos % (Auto) Baso % (Auto) Neut # (Auto) Lymph # (Auto) [place] # (Auto) Eos # (Auto) Baso # (Auto) Sodium Potassium Chloride Carbon Dioxide Anion Gap BUN Creatinine Estimated Creat Clear Estimated GFR Est GFR ( Amer) Glucose Lactate Calcium Total Bilirubin Direct Bilirubin Conjugated Bilirubin Indirect Bilirubin Unconjugated Bilirubin AST ALT Alkaline Phosphatase Troponin I 0.71 H Total Protein Albumin Urine Color Urine Appearance Urine pH Ur Specific [place] Urine Protein Urine Glucose (UA) Urine Ketones Urine Blood Urine Nitrate Urine Bilirubin Urine Urobilinogen Ur Leukocyte Esterase Urine RBC Urine WBC Ur Squamous Epith Cells Urine Bacteria Influenza Type A Ag Influenza Type B Ag will discharge home on tamiflu and follow up in office tues. xray l spine:IMPRESSION: No acute findings. Degenerative disc disease. chest x ray : no acute findings Objective Vital signs: Temp Pulse Resp BP Pulse Ox 98.9 F 83 20 125/78 93 L 10/04/19 07:31 10/04/19 07:31 10/04/19 07:31 10/04/19 07:31 10/04/19 07:31 no acute distress - *Routine HEENT Exam Head: Present: normocephalic Eye: Present: PERRL ENT: Present: mucous membranes moist - *Routine Neck Exam Present: supple - *Routine Respiratory Exam Present: CTA bilaterally - *Routine Cardiovascular Exam Present: RRR - *Routine Abdominal Exam Present: soft, normoactive bowel sounds. Absent: tenderness - *Routine Extremities Exam Absent: cyanosis, clubbing, edema - *Routine Skin Exam Present: warm. Absent: rash - *Routine Neurological Exam Present: alert, oriented X3 - Routine Psychiatric Exam Present: normal affect Results Labs on day of discharge: Labs from last 24 hours 10/04/19 10/04/19 10/04/19 05:50 05:48 05:48 WBC 4.6 L D RBC 3.80 L Hgb 13.1 L D Hct 38.2 L MCV 100.4 H MCH 34.5 H MCHC 34.3 RDW 14.5 Plt Count 219 MPV 8.9 Neut % (Auto) 73.9 Lymph % (Auto) 16.1 [place] % (Auto) 8.7 Eos % (Auto) 0.7 Baso % (Auto) 0.6 Neut # (Auto) 3.4 Lymph # (Auto) 0.7 [place] # (Auto) 0.4 Eos # (Auto) 0.0 Baso # (Auto) 0.0 Sodium 135 L Potassium 2.7 L* D Chloride 103 Carbon Dioxide 26 Anion Gap 8.7 BUN 9 Creatinine 1.00 Estimated Creat Clear 84 Estimated GFR 77 Est GFR ( Amer) 93 D Glucose 83 Lactate Calcium Total Bilirubin Direct Bilirubin Conjugated Bilirubin Indirect Bilirubin Unconjugated Bilirubin AST ALT Alkaline Phosphatase Troponin I 0.71 H Total Protein Albumin Urine Color Urine Appearance Urine pH Ur Specific [place] Urine Protein Urine Glucose (UA) Urine Ketones Urine Blood Urine Nitrate Urine Bilirubin Urine Urobilinogen Ur Leukocyte Esterase Urine RBC Urine WBC Ur Squamous Epith Cells Urine Bacteria Influenza Type A Ag Influenza Type B Ag 10/03/19 10/03/19 10/03/19 18:57 16:25 14:30 WBC RBC Hgb Hct MCV MCH MCHC RDW Plt Count MPV Neut % (Auto) Lymph % (Auto) [place] % (Auto) Eos % (Auto) Baso % (Auto) Neut # (Auto) Lymph # (Auto) [place] # (Auto) Eos # (Auto) Baso # (Auto) Sodium Potassium Chloride Carbon Dioxide Anion Gap BUN Creatinine Estimated Creat Clear Estimated GFR Est GFR ( Amer) Glucose Lactate 1.7 Calcium Total Bilirubin Direct Bilirubin Conjugated Bilirubin Indirect Bilirubin Unconjugated Bilirubin AST ALT Alkaline Phosphatase Troponin I 1.11 H Total Protein Albumin Urine Color Urine Appearance Urine pH Ur Specific [place] Urine Protein Urine Glucose (UA) Urine Ketones Urine Blood Urine Nitrate Urine Bilirubin Urine Urobilinogen Ur Leukocyte Esterase Urine RBC Urine WBC Ur Squamous Epith Cells Urine Bacteria Influenza Type A Ag Positive A Influenza Type B Ag Negative 10/03/19 10/03/19 10/03/19 14:30 14:30 14:30 WBC 8.7 D RBC 4.40 L Hgb 15.2 Hct 44.7 MCV 101.4 H MCH 34.5 H MCHC 34.0 RDW 14.3 Plt Count 266 D MPV 8.4 Neut % (Auto) 82.5 H Lymph % (Auto) 6.6 L [place] % (Auto) 7.8 Eos % (Auto) 1.5 Baso % (Auto) 1.6 Neut # (Auto) 7.2 Lymph # (Auto) 0.6 L [place] # (Auto) 0.7 Eos # (Auto) 0.1 Baso # (Auto) 0.1 Sodium 129 L Potassium 3.4 L Chloride 93 L Carbon Dioxide 31 H Anion Gap 8.4 BUN 9 Creatinine 1.20 Estimated Creat Clear 70 Estimated GFR 62 Est GFR ( Amer) 76 Glucose 94 Lactate 2.3 H Calcium 8.3 L Total Bilirubin 0.4 Direct Bilirubin 0.0 Conjugated Bilirubin 0.0 Indirect Bilirubin 0.4 Unconjugated Bilirubin 0.4 AST 34 ALT 22 Alkaline Phosphatase 81 Troponin I 0.99 H Total Protein 6.1 L Albumin 3.4 L Urine Color Urine Appearance Urine pH Ur Specific [place] Urine Protein Urine Glucose (UA) Urine Ketones Urine Blood Urine Nitrate Urine Bilirubin Urine Urobilinogen Ur Leukocyte Esterase Urine RBC Urine WBC Ur Squamous Epith Cells Urine Bacteria Influenza Type A Ag Influenza Type B Ag 10/03/19 14:24 WBC RBC Hgb Hct MCV MCH MCHC RDW Plt Count MPV Neut % (Auto) Lymph % (Auto) [place] % (Auto) Eos % (Auto) Baso % (Auto) Neut # (Auto) Lymph # (Auto) [place] # (Auto) Eos # (Auto) Baso # (Auto) Sodium Potassium Chloride Carbon Dioxide Anion Gap BUN Creatinine Estimated Creat Clear Estimated GFR Est GFR ( Amer) Glucose Lactate Calcium Total Bilirubin Direct Bilirubin Conjugated Bilirubin Indirect Bilirubin Unconjugated Bilirubin AST ALT Alkaline Phosphatase Troponin I Total Protein Albumin Urine Color Yellow Urine Appearance Clear Urine pH 5.0 Ur Specific [place] 1.015 Urine Protein Negative Urine Glucose (UA) Negative Urine Ketones Negative Urine Blood Negative Urine Nitrate Negative Urine Bilirubin Negative Urine Urobilinogen 0.2 Ur Leukocyte Esterase Negative Urine RBC None Urine WBC None Ur Squamous Epith Cells Occasional Urine Bacteria None Influenza Type A Ag Influenza Type B Ag - Additional Comments rounded with dr judge all orders per dr judge DS: Diagnosis - Discharge Diagnosis (1) Influenza A Status: Acute (2) Fall Status: Acute (3) Chest pain Status: Acute (4) Multiple sclerosis Status: Acute (5) Myocarditis Status: Acute Discharge Plan - Patient Discharge Instructions ACTIVITY: Continue current activity DIET: continue same diet Patient Instructions: Influenza, Myocarditis -- Adult, DI for Myocarditis, DI for Chest Pain - Follow up Plan Follow up with: Jonathan Judge MD [Primary Care Provider] - 10/08/19 Disposition: Home, Self-Residential Medications: Home Medications Medication Instructions Recorded Confirmed Type Ascorbic Acid [Vitamin C] 1,000 mg PO DAILY 08/22/18 10/03/19 History Calcium Carbonate [Calcium] 500 mg PO DAILY 08/22/18 10/03/19 History Fluticasone/Vilanterol [Breo 1 inh INHALATION DAILY 08/22/18 10/03/19 History Ellipta 100-25 Mcg INH] Multivit-Min/Folic/Vit K/Lycop 1 each PO DAILY 08/22/18 10/03/19 History [Men's Multivitamin Caplet] sucralfate 1 gram tablet 1 g PO ACHS 09/05/18 10/04/19 History Albuterol Sulfate [Albuterol HFA 2 puff INHALATION QIDP PRN 09/06/18 10/03/19 History Inhaler] potassium chloride 20 mEq 20 meq PO DAILY #90 tab 03/11/19 10/04/19 Rx tablet,extended release(part/cryst) sumatriptan succinate 50 mg tablet 50 mg PO NEEDED PRN #9 tab 04/16/19 10/03/19 Rx furosemide 40 mg tablet 40 mg PO DAILY #90 tab 07/08/19 10/04/19 Rx hydrochlorothiazide 25 mg tablet 25 mg PO DAILY #90 tab 07/08/19 10/04/19 Rx hydrocodone 5 mg-acetaminophen 325 1 tab PO TID PRN #90 tab 08/30/19 10/04/19 Rx mg tablet quetiapine 300 mg tablet 450 mg PO HS 90 Days #135 tab 08/30/19 10/04/19 Rx Ubidecarenone [Co Q-10] 50 mg PO DAILY 09/29/19 10/03/19 History Venlafaxine HCl [Venlafaxine HCl 75 mg PO DAILY 09/29/19 10/04/19 History ER] Gabapentin 800 mg PO TID 10/03/19 10/04/19 History Pantoprazole Sodium [Protonix 40mg 40 mg PO DAILY 10/03/19 10/04/19 History tablet] Oseltamivir Phosphate [Tamiflu 75 mg PO BID 5 Days #10 cap 10/04/19 Rx 75mg Capsule] Prescriptions/Medication Reconciliation: New Oseltamivir Phosphate [Tamiflu 75mg Capsule] 75 mg PO BID 5 Days #10 cap Continued potassium chloride 20 mEq tablet,extended release(part/cryst) 20 meq PO DAILY #90 tab sumatriptan succinate 50 mg tablet 50 mg PO NEEDED PRN #9 tab PRN Reason: MIGRAINES hydrocodone 5 mg-acetaminophen 325 mg tablet 1 tab PO TID PRN #90 tab PRN Reason: pain sucralfate 1 gram tablet 1 g PO ACHS hydrochlorothiazide 25 mg tablet 25 mg PO DAILY #90 tab furosemide 40 mg tablet 40 mg PO DAILY #90 tab quetiapine 300 mg tablet 450 mg PO HS 90 Days #135 tab Fluticasone/Vilanterol [Breo Ellipta 100-25 Mcg INH] 1 inh INHALATION DAILY Calcium Carbonate [Calcium] 500 mg PO DAILY Multivit-Min/Folic/Vit K/Lycop [Men's Multivitamin Caplet] 1 each PO DAILY Ascorbic Acid [Vitamin C] 1,000 mg PO DAILY Albuterol Sulfate [Albuterol HFA Inhaler] 2 puff INHALATION QIDP PRN PRN Reason: shortness of breath or wheezing Ubidecarenone [Co Q-10] 50 mg PO DAILY Gabapentin 800 mg PO TID Pantoprazole Sodium [Protonix 40mg tablet] 40 mg PO DAILY Venlafaxine HCl [Venlafaxine HCl ER] 75 mg PO DAILY - Problem Reconciliation Problems Reviewed?: Yes
[2019-10-04 10:13] LABS: Calcium 7.2 mg/dl (8.4-10.2)
== END 2019-10-04 15:01 | disposition home or self-care (01) ==
LOC: 2ND 14:05 → ER 14:05 → 2ND 18:44
PROVIDERS: ADMIT Internal Medicine Adolescent Medicine; ATTEND Emergency Medicine
CPT/HCPCS: 36415; 71010; 71045; 72100; 80048; 80076; 81001; 83605; 84484; 85025; 87040; 87275; 87276; 93005; 96365; 96375; 99285; G0378

== ENCOUNTER → 2020-08-25 14:27 | Outpatient (CLI) | payer MEDICARE, SELFPAY ==
[2020-08-27 11:47] LABS: Covid-19 Nasal PCR Sendout P&C NEGATIVE
== END ==
PROVIDERS: PCP Emergency Medicine; Visit Provider Emergency Medicine
DX: Z11.52 Encounter for screening for COVID-19 (principal)
CPT/HCPCS: U0004

== ENCOUNTER 2020-10-08 12:58 | Emergency (ER) | payer MEDICARE, MEDICAID, SELFPAY ==
[2020-10-08 12:58] VITALS: BP 104/79; PULSE 120; RESP 18; TEMP 37.4; O2SAT 98; BMI 24.3
[2020-10-08 13:20] LABS: Basophils # 0.1 K/mm3 (0-0.2); Basophils % 0.7 % (0.1-2.0); Eosinophils # 0.3 K/mm3 (0.0-0.4); Eosinophils % 2.3 % (0.1-12.0); Hemoglobin 14.6 g/dL (14.1-18.0); Lymphocytes # 1.6 K/mm3 (0.7-4.5); Lymphocytes % 14.3 % (10-50); Mean Corpuscular HGB Conc 30.4 g/dL (31.8-35.4); Mean Corpuscular Hemoglobin 32.3 pg (27.0-31.2); Mean Platelet Volume 7.5 fl (7.4-10.4); Monocytes # 0.6 K/mm3 (0.1-1.0); Monocytes % 5.1 % (1.7-9.3); Neutrophils # 8.7 K/mm3 (1.8-7.8); Neutrophils % 77.6 % (37.0-80.0); Platelet Count 414 K/mm3 (142-424); Red Blood Count 4.53 M/mm3 (4.60-6.20); Red Cell Distribution Width 13.8 % (11.5-17.5); White Blood Count 11.2 K/mm3 (4.8-10.8)
[2020-10-08 13:25] LABS: Chloride 101 mmol/L (98-107); Potassium 4.1 mmoL/L (3.5-5.1); Sodium 136 mmol/L (136-145)
[2020-10-08 13:27] LABS: Blood Urea Nitrogen 15 mg/dl (9-20); Creatinine Clearance Estimated 49 mL/min (50-200); Estimated Glomerular Filt Rate 42 ml/min (>60); GFR (African American) 50 ML/MIN (>60)
--- NOTE | 2020-10-08 13:27 | [facility].EDGENADL ---
ED Disposition Clinical Impression: Fecal impaction in rectum Disposition: Home, Self-Care Condition on Discharge: Good Instructions: DI for Acute Abdominal Pain, DI for Fecal Impaction Additional Instructions: Drink a bottle of magnesium citrate today, [id number]. Take MiraLAX daily for 5 days. Follow-up with your primary care doctor if continued problems with constipation. Return to the emergency department if severe abdominal pain or distention, fever, vomiting, or passing large amounts of blood. Referrals: Jonathan Lucia MD [Primary Care Provider] - - Critical Care Critical Care Time: No Attestation: On 10/08/20, the high probability of a clinically significant, sudden or life threatening deterioration of the following system(s) required my full and direct attention, intervention and personal management. The time I documented below is in addition to time spent performing reported procedures but includes the following listed in this critical care notation. Medical Decision Making - Huy Inquiry Pt receiving controlled substance: No Vital Signs: 10/08/20 12:58 Temperature 99.3 F Temperature Source Oral Pulse Rate [Radial] 120 H Respiratory Rate 18 Blood Pressure [Right Arm] 104/79 L Blood Pressure Mean [Right Arm] 87 Blood Pressure Position [Right Arm] Sitting 02 Sat by Pulse Oximetry 98 Oxygen Delivery Method Room Air - Lab Data Lab Results 10/08/20 13:10: WBC 11.2 H, RBC 4.53 L, Hgb 14.6, Hct 48.0, MCV 106.0 H, MCH 32.3 H, MCHC 30.4 L, RDW 13.8, Plt Count 414, MPV 7.5, Neut % (Auto) 77.6, Lymph % (Auto) 14.3, [place] % (Auto) 5.1, Eos % (Auto) 2.3, Baso % (Auto) 0.7, Neut # (Auto) 8.7 H, Lymph # (Auto) 1.6, [place] # (Auto) 0.6, Eos # (Auto) 0.3, Baso # (Auto) 0.1 10/08/20 13:10: Sodium 136, Potassium 4.1, Chloride 101, Carbon Dioxide 24, Anion Gap 15.1 H, BUN 15, Creatinine 1.70 H, Estimated Creat Clear 49, Estimated GFR 42 L, Est GFR ( Amer) 50 L, Glucose 127 H, Calcium 10.1, Total Bilirubin 0.5, AST 28, ALT 16, Alkaline Phosphatase 76, Total Protein 7.2, Albumin 4.2, Globulin 3.0, Albumin/Globulin Ratio 1.4 Result diagrams: 10/08/20 13:10 10/08/20 13:10 Orders (Tests/Meds): ORDERS Category Date Time Status Occult Blood,Stool Stat Lab 10/08/20 13:38 Ordered Urinalysis and Microscopic Stat Lab 10/08/20 13:11 Ordered - Reevaluation(s) Time: 14:21 Reevaluation #1: Had a large bowel movement after enema and was then able to urinate. He feels much better and is having no abdominal pain at all. Just feels a little distended. Abdomen is very soft and completely non-tender. General Adult HPI - General Chief complaint: Abdominal Pain Stated complaint: constipation Time Seen by Provider: 10/08/20 13:27 Mode of Arrival: Ambulatory Limitations: No Limitations Description of Symptoms (Recalled from ER Triage Doc. by RN): to ed per pvt car with c/o constipation and lower abd pain. states last BM 2 days ago. pt states he tried a fleets enema at home but I could not hold it . pt denies nausea, vomiting. - History of Present Illness HPI narrative: States that 2 days ago he had difficulty having a bowel movement. Was not able to have a bowel movement yesterday at all. Today has a lot of pressure in his rectum and lower abdomen and tried to give himself a glycerin enema, was unable to hold the enema, and the blood flowed . Also states having difficulty urinating. He does not think he has urinated since yesterday morning. He is uncertain whether his bladder feels distended or not. He states that he is on chronic pain medication but has not had significant problems with his bowels before. No fever. No vomiting. He is on Miralax, but is non-compliant. - Related Data Home Medications Medication Instructions Recorded Confirmed Ascorbic Acid [Vitamin C] 1,000 mg PO DAILY 08/22/18 09/16/20 Calcium Carbonate [Calcium] 500 mg PO DAILY 08/22/18 09/16/20 Fluticason
[2020-10-08 13:28] LABS: Alanine Aminotransferase 16 U/L (12-78); Albumin Level 4.2 g/dl (3.5-5.0); Albumin/Globulin Ratio 1.4 (1.1-1.8); Alkaline Phosphatase 76 U/L (38-126); Anion Gap 15.1 mEq/L (5-15); Aspartate Amino Transferase 28 U/L (17-59); Bilirubin,Total 0.5 mg/dl (0.2-1.3); Calcium 10.1 mg/dl (8.4-10.2); Carbon Dioxide 24 mmol/L (22.0-30.0); Glucose 127 mg/dl (74-100); Total Protein,Serum 7.2 g/dl (6.3-8.2)
--- NOTE | 2020-10-08 14:05 | PC.NURSE ---
Patient noted to have large bowel movement at this time, patient appears more comfortable, MD notified.
[2020-10-08 14:24] VITALS: BP 109/82; PULSE 113; O2SAT 95
--- NOTE | 2020-10-08 14:25 | PC.NURSE ---
Pt up pacing room. He doesn't seem to be in any distress. Pt asks when he will be ready to go. Will contiune to check for his discharge
[2020-10-08 14:29] VITALS: BP 141/80; PULSE 80; RESP 20; TEMP 36.8; O2SAT 98
[2020-10-08 15:06] LABS: Occult Blood,Stool Positive (Negative)
== END 2020-10-08 14:42 | disposition home or self-care (01) ==
PROVIDERS: Emergency Provider Emergency Medicine; PCP Emergency Medicine
DX: K59.00 Constipation, unspecified (principal); I10 Essential (primary) hypertension; I50.9 Heart failure, unspecified; I25.2 Old myocardial infarction; Z87.891 Personal history of nicotine dependence; Z88.8 Allergy status to other drugs, medicaments and biological substances; Z79.899 Other long term (current) drug therapy
CPT/HCPCS: 80053; 82272; 85025; 99282; G0328

== ENCOUNTER 2021-02-10 20:23 | Observation (INO) | payer MEDICARE, MEDICAID, SELFPAY ==
[2021-02-10 20:24] VITALS: BP 123/77; PULSE 78; RESP 18; TEMP 37.1; O2SAT 97; BMI 22.8
[2021-02-10 20:52] VITALS: BMI 22.8
--- NOTE | 2021-02-10 20:53 | XR_ITS ---
PROCEDURE INFORMATION: Exam: XR Chest Exam date and time: 02/10/2021 8:53 PM Age: 61 years old Clinical indication: Pain; Angina pectoris; Patient HX: N/v/d x3 days. PT has rectal cancer; Additional info: SOA TECHNIQUE: Imaging protocol: XR of the chest. Views: 2 views. Total images: 2 COMPARISON: CR XR CHEST PORTABLE 10/03/2019 2:28 PM FINDINGS: Lungs: Benign granulomatous disease of the lung is noted. Trace atelectasis or scar noted in the right lung base. Pulmonary hyperinflation is evident, suspicious for COPD. Pleural spaces: Unremarkable. No pleural effusion. No pneumothorax. Heart/Mediastinum: Unremarkable. No cardiomegaly. Bones/joints: Old rib fractures are evident. IMPRESSION: 1. Trace atelectasis or scar noted in the right lung base. 2. Pulmonary hyperinflation is evident, suspicious for COPD.
--- NOTE | 2021-02-10 20:53 | CT_ITS ---
PROCEDURE INFORMATION: Exam: CT Abdomen And Pelvis Without Contrast Exam date and time: 02/10/2021 8:53 PM Age: 61 years old Clinical indication: Condition or disease; Patient HX: N/v/d x3 days. PT has rectal cancer; Additional info: Abd pain TECHNIQUE: Imaging protocol: Computed tomography of the abdomen and pelvis without contrast. Total images: 311 Radiation optimization: All CT scans at this facility use at least one of these dose optimization techniques: automated exposure control; mA and/or kV adjustment per patient size (includes targeted exams where dose is matched to clinical indication); or iterative reconstruction. COMPARISON: CT ABDOMEN PELVIS WO CON 09/29/2019 12:49 AM FINDINGS: Lungs: Benign granulomatous disease of the lung is noted. There is subsegmental bibasilar atelectasis. Liver: Decreased density of the liver adjacent to the falciform ligament is likely a benign perfusional variant. Unchanged 8 mm non-specific low density focus of the liver statistically favors a benign process (no further follow-up needed). Gallbladder and bile ducts: Normal. No calcified stones. No ductal dilation. Pancreas: Normal. No ductal dilation. Spleen: Incidental splenic granulomata are noted. Adrenal glands: Normal. No mass. Kidneys and ureters: Normal. No hydronephrosis. Stomach and bowel: Inflamed duodenal bulb with a right lateral 12 x 13 x 13 mm large ulcer that could be related to peptic ulcer disease. This is likely extending to a subserosal location. No perforation. Oral contrast material passes beyond this region but significant distension of the stomach is felt to likely be related to this process. Colonic diverticulosis is present without diverticulitis. Appendix: Normal appendix. Intraperitoneal space: Unremarkable. No free air. No significant fluid collection. 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 Lymph nodes: Unremarkable. No enlarged lymph nodes. Urinary bladder: Unremarkable as visualized. Reproductive: Unremarkable as visualized. Bones/joints: Old left rib fracture evident. Transitional type vertebral body at the lumbosacral junction. Moderate disc space height loss at L3/L4. Disc bulging noted at L3-L5; Multifocal neural foraminal stenosis, due to degeneration. Soft tissues: Unremarkable. IMPRESSION: 1. Inflamed duodenal bulb with a right lateral 12 x 13 x 13 mm large ulcer that could be related to peptic ulcer disease. This is likely extending to a subserosal location. No perforation. Oral contrast material passes beyond this region but significant distension of the stomach is felt to likely be related to this process. 2. Normal appendix. 3. 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
--- NOTE | 2021-02-10 21:21 | HMH.EDNVD ---
ED Disposition Clinical Impression: Duodenal bulb ulcer, Hypokalemia, Multiple sclerosis Disposition: Admitted As Inpatient Condition on Discharge: Good - Critical Care Critical Care Time: No Attestation: On 02/10/21, the high probability of a clinically significant, sudden or life threatening deterioration of the following system(s) required my full and direct attention, intervention and personal management. The time I documented below is in addition to time spent performing reported procedures but includes the following listed in this critical care notation. Medical Decision Making - Medical Records Medical records reviewed: Yes: I reviewed the patient's medical records. - Huy Inquiry Pt receiving controlled substance: No Vital Signs: 02/10/21 20:24 02/10/21 21:30 02/10/21 22:30 Temperature 98.8 F Temperature Source Oral Pulse Rate 96 H 63 Pulse Rate [Right] 78 Respiratory Rate 18 Blood Pressure 106/61 L 109/70 L Blood Pressure [Right Arm] 123/77 Blood Pressure Mean [Right Arm] 92 02 Sat by Pulse Oximetry 97 100 100 02/10/21 23:15 02/10/21 23:30 02/11/21 00:00 Temperature Temperature Source Pulse Rate 75 72 65 Pulse Rate [Right] Respiratory Rate Blood Pressure 113/78 110/71 114/75 Blood Pressure [Right Arm] Blood Pressure Mean [Right Arm] 02 Sat by Pulse Oximetry 99 99 100 02/11/21 00:30 02/11/21 01:00 Temperature Temperature Source Pulse Rate 65 70 Pulse Rate [Right] Respiratory Rate Blood Pressure 112/73 111/71 Blood Pressure [Right Arm] Blood Pressure Mean [Right Arm] 02 Sat by Pulse Oximetry 99 100 - Lab Data Lab results reviewed: Yes: I reviewed the patient's lab results. Lab Results 02/10/21 21:20: WBC 7.3, RBC 4.68, Hgb 14.6, Hct 44.1, MCV 94.3 H, MCH 31.1, MCHC 33.0, RDW 12.9, Plt Count 319, MPV 9.2, Neut % (Auto) 67.7, Lymph % (Auto) 22.4, [place] % (Auto) 7.5, Eos % (Auto) 1.8, Baso % (Auto) 0.6, Neut # (Auto) 5.0, Lymph # (Auto) 1.6, [place] # (Auto) 0.6, Eos # (Auto) 0.1, Baso # (Auto) 0.0, ESR 19 02/10/21 21:20: Sodium 135 L, Potassium 2.6 L*, Chloride 89 L, Carbon Dioxide 38 H, Anion Gap 10.6, BUN 20, Creatinine 2.20 H, Estimated Creat Clear 35, Estimated GFR 31 L, Est GFR ( Amer) 37 L, Glucose 99, Calcium 8.1 L, Total Bilirubin 0.5, AST 21, ALT 14, Alkaline Phosphatase 92, C-Reactive Protein 37.8 H, Total Protein 7.0, Albumin 4.1, Globulin 2.9, Albumin/Globulin Ratio 1.4, Amylase 69, Lipase 67, Procalcitonin 0.066 02/11/21 00:03: SARS-CoV-2 (PCR) Not detected, Influenza A Untype (PCR) Not detected, Influenza Type B (PCR) Not detected Result diagrams: 02/10/21 21:20 02/10/21 21:20 Orders (Tests/Meds): ED MEDICATIONS Generic Name Dose Route Start Last Admin Trade Name Freq PRN Reason Stop Dose Admin Sodium Chloride 1,000 mls @ 999 mls/hr 02/10/21 21:00 02/10/21 21:02 Sod Chlor 0.9% 1000ml Bag IV 02/10/21 22:00 999 mls/hr .Q1H1M DULCE Administration Sodium Chloride 1,000 mls @ 999 mls/hr 02/10/21 23:15 02/10/21 23:34 Sod Chlor 0.9% 1000ml Bag IV 02/11/21 00:15 999 mls/hr .Q1H1M DULCE Administration Pantoprazole Sodium 80 mg/ 100 mls @ 10 mls/hr 02/11/21 01:15 02/11/21 01:16 Sodium Chloride IV 02/14/21 01:14 10 mls/hr .Q10H DULCE Administration Sodium Chloride 8 ml 02/10/21 20:56 Sodium Chloride 0.9% 10ml Vial IV 03/12/21 20:55 NEEDED PRN dilute pepcid Discontinued Medications Generic Name Dose Route Start Last Admin Trade Name Freq PRN Reason Stop Dose Admin Diatrizoate Meglum/Diatrizoate Sod 30 ml 02/10/21 20:53 02/10/21 21:23 Diatrizoate [place] 66% & Diatrizoate Na 10% 30ml Udc PO 02/10/21 20:54 30 ml ONCE ONE Administration Famotidine 20 mg 02/10/21 20:56 02/10/21 21:02 Famotidine 20mg/2ml Vial IV 02/10/21 20:57 20 mg ONCE ONE Administration Ketorolac Tromethamine 30 mg 02/10/21 20:56 02/10/21 21:02 Ketorolac 30mg/Ml Vial IV
[2021-02-10 21:30] VITALS: BP 106/61; PULSE 96; O2SAT 100
--- NOTE | 2021-02-10 21:40 | PC.NURSE ---
pt complete po contrast and notified radiology
[2021-02-10 21:54] LABS: Alanine Aminotransferase 14 U/L (12-78); Albumin Level 4.1 g/dl (3.5-5.0); Albumin/Globulin Ratio 1.4 (1.1-1.8); Alkaline Phosphatase 92 U/L (38-126); Amylase 69 U/L (30-110); Anion Gap 10.6 mEq/L (5-15); Aspartate Amino Transferase 21 U/L (17-59); Bilirubin,Total 0.5 mg/dl (0.2-1.3); Blood Urea Nitrogen 20 mg/dl (9-20); Calcium 8.1 mg/dl (8.4-10.2); Carbon Dioxide 38 mmol/L (22.0-30.0); Chloride 89 mmol/L (98-107); Creatinine Clearance Estimated 35 mL/min (50-200); Estimated Glomerular Filt Rate 31 ml/min (>60); GFR (African American) 37 ML/MIN (>60); Globulin 2.9 g/dL (1.3-3.2); Glucose 99 mg/dl (74-100); Lipase 67 U/L (23-300); Sodium 135 mmol/L (136-145)
[2021-02-10 22:00] LABS: C-Reactive Protein 37.8 mg/L (0-4)
[2021-02-10 22:03] LABS: Potassium 2.6 mmoL/L (3.5-5.1)
--- NOTE | 2021-02-10 22:03 | PC.NURSE ---
Анна from Lab called critical K+ on pt, Name and verified.
[2021-02-10 22:11] LABS: Procalcitonin 0.066 ng/mL (0.0-2.0)
[2021-02-10 22:30] VITALS: BP 109/70; PULSE 63; O2SAT 100
[2021-02-10 22:31] LABS: Basophils % 0.6 % (0.1-2.0); Eosinophils # 0.1 K/mm3 (0.0-0.4); Eosinophils % 1.8 % (0.1-12.0); Hematocrit 44.1 % (42.0-52.0); Hemoglobin 14.6 g/dL (14.1-18.0); Lymphocytes # 1.6 K/mm3 (0.7-4.5); Lymphocytes % 22.4 % (10-50); Mean Corpuscular Hemoglobin 31.1 pg (27.0-31.2); Mean Corpuscular Volume 94.3 fl (80-94); Mean Platelet Volume 9.2 fl (7.4-10.4); Monocytes # 0.6 K/mm3 (0.1-1.0); Monocytes % 7.5 % (1.7-9.3); Neutrophils % 67.7 % (37.0-80.0); Platelet Count 319 K/mm3 (142-424); Red Blood Count 4.68 M/mm3 (4.60-6.20); Red Cell Distribution Width 12.9 % (11.5-17.5); White Blood Count 7.3 K/mm3 (4.8-10.8)
[2021-02-10 23:15] VITALS: BP 113/78; PULSE 75; O2SAT 99
[2021-02-10 23:27] LABS: Erythrocyte Sedimentation Rate 19 mm/hr (0-20)
[2021-02-10 23:30] VITALS: BP 110/71; PULSE 72; O2SAT 99
[2021-02-11] VITALS: BP 114/75; PULSE 65; O2SAT 100
[2021-02-11 00:13] LABS: Coronavirus 19, PCR Not Detected (NotDetected); Influenza A, PCR Not Detected (NotDetected); Influenza B, PCR Not Detected (NotDetected)
[2021-02-11 00:30] VITALS: BP 112/73; PULSE 65; O2SAT 99
[2021-02-11 01:00] VITALS: BP 111/71; PULSE 70; O2SAT 100
[2021-02-11 01:38] VITALS: BMI 23.0
--- NOTE | 2021-02-11 02:29 | PC.NURSE ---
PT ARRIVED TO FLOOR VIA WHEELCHAIR FROM ED. 02:28
[2021-02-11 02:40] VITALS: BP 111/73; PULSE 67; RESP 16; TEMP 37.2; O2SAT 99
[2021-02-11 02:58] VITALS: BP 109/72; PULSE 56; RESP 17; TEMP 36.6; O2SAT 100
--- NOTE | 2021-02-11 03:29 | PC.NURSE ---
A&OX4. TOLERATING RA WELL. PT IS VERY PLEASANT. PROTONIX INFUSING. PT STATES THAT HIS ABD PAIN IS VERY MILD AT THIS TIME. UP INDEPENDENTLY IN ROOM. TOLERATING NPO DIET. VSS WILL CONTINUE TO MONITOR.
--- NOTE | 2021-02-11 06:57 | HMH.GSCON ---
*Admission Date: 02/11/21 *Reason for consult:: Peptic ulcer disease *History of present illness: This is a 61-year-old gentleman seen in consultation from Dr. Lucia for evaluation regarding peptic ulcer disease. He was evaluated overnight in emergency department after presenting with epigastric pain. He had radiographic evidence of fairly severe peptic ulcer disease. He was admitted for further evaluation and management. Forwarded for emergency department evaluation History of Present Illness HPI Narrative: upper abd pain with vomiting and wt loss - no melena - no hx of h pylori - this has been progressive over the last few weeks MD complaint: nausea, abdominal pain Onset (ago): week(s) Associated Abdominal Pain: Yes Location of pain: epigastric Severity: moderate Consistency: intermittent Associated symptoms: denies other symptoms History of Present Illness HPI Narrative: upper abd pain with vomiting and wt loss - no melena - no hx of h pylori - this has been progressive over the last few weeks MD complaint: nausea, abdominal pain Onset (ago): week(s) Associated Abdominal Pain: Yes Location of pain: epigastric Severity: moderate Consistency: intermittent Associated symptoms: denies other symptoms Review of Systems - Eyes Denies change in vision - ENT Denies difficulty swallowing - *Cardiovascular Denies chest pain - *Respiratory Denies cough - *Gastrointestinal Reports abdominal pain, Reports nausea - *Neurologic Denies localized weakness, Denies headache(s), Denies seizure-like activity [facility] History Medical History: Reports:: Congestive Heart Failure, Hyperlipidemia, Hypertension, Myocardial Infarction Denies:: Cancer, Diabetes Mellitus Type 1, Diabetes Mellitus Type 2, MRSA *Have you ever received a pneumonia vaccine?: No *Have you received a flu vaccine this season?: Yes Other Medical History: Reports: Anemia Other Surgeries: Yes: No Previous Surgery, Colonoscopy, EGD, Other Amputation: No Fractures: Yes (arm fracture at age 8) - *Social History Smoking Status: Former smoker Tobacco Type: cigarettes # Packs/Day (cigarettes): 3 #Yrs smoked (if former smoker): 40 Alcohol Intake: never Alcohol Intake Frequency:: holidays/special occasions only Substance Use Type: denies use *Occupational Status:: retired Housing: house Household Members: significant other *Travel in the last 8 weeks: None Family Hx:: No significant family history Meds Home Medications Medication Instructions Recorded Confirmed Type Calcium Carbonate [Calcium] 500 mg PO DAILY 08/22/18 02/11/21 History Fluticasone/Vilanterol [Breo 1 inh INHALATION DAILY 08/22/18 02/11/21 History Ellipta 100-25 Mcg INH] Multivit-Min/Folic/Vit K/Lycop 1 each PO DAILY 08/22/18 02/11/21 History [Men's Multivitamin Caplet] sucralfate 1 gram tablet 1 g PO ACHS 09/05/18 02/11/21 History Albuterol Sulfate [Ventolin HFA 2 puff INHALATION QID PRN 09/06/18 02/11/21 History Inhaler] potassium chloride 20 mEq 20 meq PO DAILY #90 tab 03/11/19 02/11/21 Rx tablet,extended release(part/cryst) tadalafil 2.5 mg tablet 2.5 mg PO DAILY PRN #30 tab 11/13/20 02/11/21 Rx gabapentin 800 mg tablet 800 mg PO TID #90 tab 02/10/21 02/11/21 Rx hydrocodone 5 mg-acetaminophen 325 1 tab PO QID 30 Days #120 tab 02/10/21 02/11/21 Rx mg tablet Atorvastatin Calcium [Lipitor 10mg 10 mg PO HS 02/11/21 02/11/21 History Tab] Furosemide [Furosemide 40MG tAB*] 40 mg PO DAILY 02/11/21 02/11/21 History Omeprazole 40 mg PO DAILY 02/11/21 02/11/21 History Quetiapine Fumarate 450 mg PO HS 02/11/21 02/11/21 History SUMAtriptan succinate [Sumatriptan 50 mg PO BID PRN 02/11/21 02/11/21 History Succinate] Venlafaxine HCl [Effexor Xr] 75 mg PO DAILY 02/11/21 02/11/21 History bisoproloL fumarate [Bisoprolol 5 mg PO DAILY 02/11/21 02/11/21 History Fumarate] carBAMazepine [Carbamazepine ER] 200 mg PO DAILY PRN 02/11/21 02/11/21 History hydroCHLOROthiazi
[2021-02-11 07:09] LABS: Chloride 102 mmol/L (98-107); Sodium 135 mmol/L (136-145)
[2021-02-11 07:12] LABS: Blood Urea Nitrogen 17 mg/dl (9-20); Creatinine Clearance Estimated 41 mL/min (50-200); Estimated Glomerular Filt Rate 36 ml/min (>60); GFR (African American) 44 ML/MIN (>60)
[2021-02-11 07:13] LABS: Anion Gap 9.8 mEq/L (5-15); Carbon Dioxide 26 mmol/L (22.0-30.0); Glucose 85 mg/dl (74-100)
[2021-02-11 07:14] LABS: Potassium 2.8 mmoL/L (3.5-5.1)
[2021-02-11 07:15] LABS: Calcium 6.9 mg/dl (8.4-10.2)
[2021-02-11 07:57] VITALS: BP 114/75; PULSE 57; RESP 17; TEMP 36; O2SAT 100
[2021-02-11 07:57] LABS: Basophils % 0.8 % (0.1-2.0); Eosinophils # 0.2 K/mm3 (0.0-0.4); Eosinophils % 3.5 % (0.1-12.0); Hematocrit 38.4 % (42.0-52.0); Hemoglobin 12.8 g/dL (14.1-18.0); Lymphocytes # 1.6 K/mm3 (0.7-4.5); Lymphocytes % 31.8 % (10-50); Mean Corpuscular HGB Conc 33.4 g/dL (31.8-35.4); Mean Corpuscular Hemoglobin 31.8 pg (27.0-31.2); Mean Corpuscular Volume 95.1 fl (80-94); Mean Platelet Volume 9.3 fl (7.4-10.4); Monocytes # 0.4 K/mm3 (0.1-1.0); Monocytes % 8.1 % (1.7-9.3); Neutrophils # 2.8 K/mm3 (1.8-7.8); Neutrophils % 55.7 % (37.0-80.0); Platelet Count 241 K/mm3 (142-424); Red Blood Count 4.04 M/mm3 (4.60-6.20); Red Cell Distribution Width 12.9 % (11.5-17.5); White Blood Count 5.1 K/mm3 (4.8-10.8)
--- NOTE | 2021-02-11 08:03 | PC.NURSE ---
Have made Dr. Mcbride community relations advisor aware of critical k of 2.8, which is a slight improvement and calcium of 6.9. He is going to speak with pcp. Awaiting further orders.
--- NOTE | 2021-02-11 08:16 | P.CONPHA_ITS ---
[facility] Pharmacy VTE Monitoring - Patient Demographics Admission date: 02/11/21 Report Date: 02/11/21 Time: 08:16 Allergies/Adverse Reactions: Patient Allergies varenicline [From Chantix] Allergy (Intermediate, Verified 02/10/21 13:32) Vomiting Height: 1.73 m Weight: 68.606 kg Patient Problems: Current Active Problems Duodenal bulb ulcer (Acute) Hypokalemia (Acute) Multiple sclerosis (Acute) - VTE Risk Labs: VTE Related Lab Results Hgb 12.8 g/dL (14.1-18.0) L D 02/11/21 06:24 Hct 38.4 % (42.0-52.0) L 02/11/21 06:24 Plt Count 241 K/mm3 (142-424) 02/11/21 06:24 BUN 17 mg/dl (9-20) 02/11/21 06:24 Creatinine 1.90 mg/dl (0.66-1.25) H 02/11/21 06:24 Estimated Creat Clear 41 mL/min (50-200) 02/11/21 06:24 Clinical Trial Participant: No - Prophylaxis VTE Prophylaxis Ordered?: Yes Types of VTE Prophylaxis: TEDS Knee High
--- NOTE | 2021-02-11 08:24 | HMH.PHAINT ---
MEDICATION RECONCILIATION COMPLETE ON PATIENT USING EXTERNAL PHARMACY FILL HX AND LIST FROM MD OFFICE.
[2021-02-11 08:47] LABS: Microscopic, Urine URINE MICROSCOPIC (MICROSCOPIC)
[2021-02-11 08:48] LABS: Appearance,Urine CLEAR (Clear); Bilirubin,Urine Negative (Negative); Blood, Urine Negative (Negative); Color,Urine YELLOW (Yellow); Glucose,Urine (UA) Negative (Negative); Ketones,Urine Negative (Negative); Leukocyte Esterase,Urine Negative (Negative); Nitrate,Urine Negative (Negative); Protein,Urine Negative (Negative); Urobilinogen,Urine 0.2 EU/dl (0.2)
--- NOTE | 2021-02-11 11:59 | HMH.HPDC ---
General - General Admission date:: 02/11/21 Discharge date: 02/11/21 *Admission Date: 02/11/21 *Chief complaint: Abdominal pain and nausea *History of present illness: 61-year-old male presented to the [facility] emergency department with reports of increasing abdominal pain, nausea, and vomiting over the last 3 weeks. He denies any visible blood in emesis or stool. [facility] History I have reviewed the patient's past medical history: Yes Medical History: Reports:: Congestive Heart Failure, Hyperlipidemia, Hypertension, Myocardial Infarction Denies:: Cancer, Diabetes Mellitus Type 1, Diabetes Mellitus Type 2, MRSA *Have you ever received a pneumonia vaccine?: No *Have you received a flu vaccine this season?: Yes Other Medical History: Reports: Anemia Other Surgeries: Yes: No Previous Surgery, Colonoscopy, EGD, Other Amputation: No Fractures: Yes (arm fracture at age 8) - *Social History Smoking Status: Former smoker Tobacco Type: cigarettes # Packs/Day (cigarettes): 3 #Yrs smoked (if former smoker): 40 Alcohol Intake: never Alcohol Intake Frequency:: holidays/special occasions only Substance Use Type: denies use *Occupational Status:: retired Housing: house Household Members: significant other *Travel in the last 8 weeks: None Family Hx:: No significant family history Review of Systems - Review of Systems Review of systems:: pertinent systems reviewed and negative unless documented below - Constitutional Reports lack of energy, Denies body ache(s), Denies fever(s) - Eyes Denies blurry vision, Denies double vision - ENT Denies abnormal hearing, Denies pain with swallowing - *Cardiovascular Denies chest pain, Denies shortness of breath - *Respiratory Reports cough, Denies chest congestion - *Gastrointestinal Reports abdominal pain, Reports loose stools, Reports nausea, Reports vomiting, Denies coffee ground vomit, Denies vomiting blood, Denies black, tarry stools - *Genitourinary Denies difficulty urinating, Denies painful urination - *Musculoskeletal Reports muscle weakness, Denies abnormal walking - Integumentary/Breasts Denies hair loss, Denies yellowing of the skin - *Neurologic Denies localized weakness, Denies headache(s), Denies seizure-like activity - Psychiatric Reports abnormal sleep pattern, Denies confusion - Endocrine Reports cold intolerance, Reports excessive sweating - Hematologic/Lymphatic Reports easy bruising, Denies enlarged lymph nodes - Allergic/Immunologic Denies itchy eyes, Denies tongue swelling Exam Vital signs and Labs for Last 24 Hours: Temp Pulse Resp BP Pulse Ox 96.8 F L 57 L 17 114/75 100 02/11/21 07:57 02/11/21 07:57 02/11/21 07:57 02/11/21 07:57 02/11/21 07:57 Laboratory Results - last 24 hr 02/10/21 08:30: Urine Color Yellow, Urine Appearance Clear, Urine pH 8.0, Ur Specific [place] 1.010, Urine Protein Negative, Urine Glucose (UA) Negative, Urine Ketones Negative, Urine Blood Negative, Urine Nitrate Negative, Urine Bilirubin Negative, Urine Urobilinogen 0.2, Ur Leukocyte Esterase Negative, Ur Squamous Epith Cells 3-5 02/10/21 21:20: WBC 7.3, RBC 4.68, Hgb 14.6, Hct 44.1, MCV 94.3 H, MCH 31.1, MCHC 33.0, RDW 12.9, Plt Count 319, MPV 9.2, Neut % (Auto) 67.7, Lymph % (Auto) 22.4, [place] % (Auto) 7.5, Eos % (Auto) 1.8, Baso % (Auto) 0.6, Neut # (Auto) 5.0, Lymph # (Auto) 1.6, [place] # (Auto) 0.6, Eos # (Auto) 0.1, Baso # (Auto) 0.0, ESR 19 02/10/21 21:20: Sodium 135 L, Potassium 2.6 L*, Chloride 89 L, Carbon Dioxide 38 H, Anion Gap 10.6, BUN 20, Creatinine 2.20 H, Estimated Creat Clear 35, Estimated GFR 31 L, Est GFR ( Amer) 37 L, Glucose 99, Calcium 8.1 L, Total Bilirubin 0.5, AST 21, ALT 14, Alkaline Phosphatase 92, C-Reactive Protein 37.8 H, Total Protein 7.0, Albumin 4.1, Globulin 2.9, Albumin/Globulin Ratio 1.4, Amylase 69, Lipase 67, Procalcitonin 0.066 02/11/21 00:03: SARS-CoV-2 (PCR) Not detect
--- NOTE | 2021-02-11 14:02 | HMH.PHAINT ---
DISCHARGE MEDICATION COUNSELING PROVIDED TO PATIENT. DISCUSSED THE STOPPAGE OF THE PRILOSEC AND INITIATION OF PROTONIX. PATIENT STATED UNDERSTANDING AND HAD NO QUESTIONS AT THAT TIME.
[2021-02-12 23:10] LABS: H. pylori Breath Test Negative (Negative)
== END 2021-02-11 14:40 | disposition home or self-care (01) ==
LOC: ER 20:43 → 2ND 02-11 01:52
PROVIDERS: Surgery; Admitting Provider Emergency Medicine; Emergency Provider Emergency Medicine; PCP Emergency Medicine; Visit Provider Emergency Medicine
DX: K26.9 Duodenal ulcer, unspecified as acute or chronic, without hemorrhage or perforation (principal); E87.6 Hypokalemia; Z88.8 Allergy status to other drugs, medicaments and biological substances; Z87.891 Personal history of nicotine dependence; I11.0 Hypertensive heart disease with heart failure; I50.9 Heart failure, unspecified; I25.2 Old myocardial infarction; E78.5 Hyperlipidemia, unspecified; Z79.899 Other long term (current) drug therapy
CPT/HCPCS: 71046; 74176; 80048; 80053; 81001; 82150; 83013; 83690; 84145; 85025; 85651; 86140; 96365; 96366; 96375; 99284; 99291; G0378; J2405; U0003

== ENCOUNTER → 2021-02-22 08:35 | Outpatient (CLI) | payer MEDICARE, SELFPAY ==
--- NOTE | 2021-02-22 08:36 | FL_ITS ---
PROCEDURE: FL UPPER GI SMALL BOWEL CLINICAL INDICATION: ulcer Peptic ulcer disease, abdominal pain, weight loss COMPARISON: CT ABDPELW CT abdomen pelvis w con from 08/23/[address] ABDOMEN PELVIS WO CON from 09/29/[address] ABDOMEN PELVIS WO CON from 02/10/2021 FINDINGS: Fluoroscopy time: 3 minutes and 40 seconds. There is spasm of the cricopharyngeus. There is diffuse dilatation the stomach with retained secretions. There is cloverleaf deformity of the duodenal bulb suggesting chronic peptic ulcer disease with scarring. There is also dilatation of the descending portion of the duodenum with a transition point at the junction the 2nd and 3rd portion of the duodenum. There is high-grade band like narrowing of the junction of the descending and transverse portion of the duodenum. Small bowel exam was not able to be performed due to the limited amount contrast in the small bowel. There is severe gastro paresis with virtually no peristalsis of the stomach. IMPRESSION: 1. Chronic peptic ulcer disease is suspected with cloverleaf deformity at the duodenal bulb. Neoplasm is included in the differential diagnosis. 2. Diffuse gastric distension which may be due to a combination of gastro paresis and partial gastric outlet obstruction at the duodenal bulb 3. High-grade concentric bandlike narrowing at the junction of the descending and transverse portion of the duodenum causing partial obstruction. This could be inflammatory or neoplastic. An adhesion would also be a consideration. 4. Upper endoscopy suggested for further evaluation. Dictated by: Mario Rome MD 02/23/2021 07:25 Mario Rome MD in OV 02/23/2021 07:25
== END ==
PROVIDERS: PCP Emergency Medicine; Visit Provider Surgery
DX: K26.9 Duodenal ulcer, unspecified as acute or chronic, without hemorrhage or perforation (principal)
CPT/HCPCS: 74246; 74248

== ENCOUNTER → 2021-02-23 10:36 | Outpatient (CLI) | payer MEDICARE, SELFPAY ==
[2021-02-23 11:35] LABS: Basophils # 0.1 K/mm3 (0-0.2); Basophils % 1.1 % (0.1-2.0); Eosinophils # 0.2 K/mm3 (0.0-0.4); Eosinophils % 2.9 % (0.1-12.0); Hematocrit 41.7 % (42.0-52.0); Lymphocytes # 1.7 K/mm3 (0.7-4.5); Lymphocytes % 26.2 % (10-50); Mean Corpuscular HGB Conc 33.5 g/dL (31.8-35.4); Mean Corpuscular Hemoglobin 31.3 pg (27.0-31.2); Mean Corpuscular Volume 93.3 fl (80-94); Mean Platelet Volume 9.1 fl (7.4-10.4); Monocytes # 0.5 K/mm3 (0.1-1.0); Monocytes % 7.2 % (1.7-9.3); Neutrophils # 4.1 K/mm3 (1.8-7.8); Neutrophils % 62.7 % (37.0-80.0); Platelet Count 265 K/mm3 (142-424); Red Blood Count 4.47 M/mm3 (4.60-6.20); Red Cell Distribution Width 13.2 % (11.5-17.5); White Blood Count 6.6 K/mm3 (4.8-10.8)
[2021-02-23 14:21] LABS: Blood Urea Nitrogen 32 mg/dl (9-20); Calcium 8.9 mg/dl (8.4-10.2); Carbon Dioxide 34 mmol/L (22.0-30.0); Chloride 91 mmol/L (98-107); Estimated Glomerular Filt Rate 23 ml/min (>60); GFR (African American) 28 ML/MIN (>60); Glucose 99 mg/dl (74-100); Sodium 135 mmol/L (136-145)
== END ==
PROVIDERS: Visit Provider Surgery
DX: K26.9 Duodenal ulcer, unspecified as acute or chronic, without hemorrhage or perforation (principal); D64.9 Anemia, unspecified; Z01.812 Encounter for preprocedural laboratory examination; Z11.52 Encounter for screening for COVID-19
CPT/HCPCS: 36415; 80048; 85025; U0003

== ENCOUNTER 2021-02-24 12:45 | Inpatient (IN) | payer MEDICARE, MEDICAID, SELFPAY ==
[2021-02-24 13:03] VITALS: BP 94/62; PULSE 57; RESP 16; TEMP 36.5; O2SAT 96; BMI 22.5
[2021-02-24 14:12] LABS: Lipase 92 U/L (23-300)
[2021-02-24 14:17] LABS: Alanine Aminotransferase 14 U/L (12-78); Albumin Level 4.3 g/dl (3.5-5.0); Albumin/Globulin Ratio 1.6 (1.1-1.8); Alkaline Phosphatase 83 U/L (38-126); Amylase 86 U/L (30-110); Aspartate Amino Transferase 22 U/L (17-59); Bilirubin,Total 0.6 mg/dl (0.2-1.3); Blood Urea Nitrogen 34 mg/dl (9-20); Calcium 8.8 mg/dl (8.4-10.2); Carbon Dioxide 30 mmol/L (22.0-30.0); Chloride 92 mmol/L (98-107); Creatinine Clearance Estimated 28 mL/min (50-200); Estimated Glomerular Filt Rate 24 ml/min (>60); GFR (African American) 29 ML/MIN (>60); Globulin 2.7 g/dL (1.3-3.2); Glucose 92 mg/dl (74-100); Magnesium 3.1 mg/dl (1.6-2.3); Sodium 131 mmol/L (136-145)
[2021-02-24 14:27] LABS: Basophils # 0.1 K/mm3 (0-0.2); Basophils % 0.7 % (0.1-2.0); Eosinophils # 0.2 K/mm3 (0.0-0.4); Hematocrit 40.6 % (42.0-52.0); Hemoglobin 13.7 g/dL (14.1-18.0); Lymphocytes # 1.6 K/mm3 (0.7-4.5); Lymphocytes % 19.3 % (10-50); Mean Corpuscular HGB Conc 33.8 g/dL (31.8-35.4); Mean Corpuscular Hemoglobin 31.3 pg (27.0-31.2); Mean Corpuscular Volume 92.5 fl (80-94); Mean Platelet Volume 9.4 fl (7.4-10.4); Monocytes # 0.4 K/mm3 (0.1-1.0); Monocytes % 5.3 % (1.7-9.3); Neutrophils # 5.9 K/mm3 (1.8-7.8); Neutrophils % 72.7 % (37.0-80.0); Platelet Count 221 K/mm3 (142-424); Red Blood Count 4.39 M/mm3 (4.60-6.20); Red Cell Distribution Width 12.9 % (11.5-17.5); White Blood Count 8.1 K/mm3 (4.8-10.8)
--- NOTE | 2021-02-24 14:53 | HMH.PHAINT ---
MEDICATION RECONCILIATION COMPLETE USING LIST FROM MD OFFICE, MOST RECENT DISCHARGE, AND CONNOR REPORT.
--- NOTE | 2021-02-24 15:23 | HMH.PHAVTE ---
[facility] Pharmacy VTE Monitoring - Patient Demographics Admission date: 02/24/21 Report Date: 02/24/21 Time: 15:23 Allergies/Adverse Reactions: Patient Allergies varenicline [From Chantix] Allergy (Intermediate, Verified 02/24/21 11:46) Vomiting Height: 1.73 m Weight: 67.273 kg - VTE Risk Labs: VTE Related Lab Results Hgb 13.7 g/dL (14.1-18.0) L 02/24/21 13:45 Hct 40.6 % (42.0-52.0) L 02/24/21 13:45 Plt Count 221 K/mm3 (142-424) 02/24/21 13:45 BUN 34 mg/dl (9-20) H 02/24/21 13:45 Creatinine 2.70 mg/dl (0.66-1.25) H 02/24/21 13:45 Estimated Creat Clear 28 mL/min (50-200) 02/24/21 13:45 VTE Risk Level: Low Risk - Prophylaxis VTE Prophylaxis Ordered?: Yes Types of VTE Prophylaxis: TEDS Knee High Location of Applied Device: Bilateral Lower Extremeties
--- NOTE | 2021-02-24 16:36 | PC.NURSE ---
Pt is A+Ox4 and pleasant. Pt is able to voice needs to staff. Pt was directly admitted to floor today for abdominal pain and hypotension. Pt is rating pain a 4-6 per numerical scale t/o shift. Pt is on a clear liquid diet. Pt has knee high TEDS bilateral lower extremities. Pts girlfriend is in the room. Call light within reach. Will continue to monitor.
[2021-02-24 20:00] VITALS: BP 110/65; PULSE 57; RESP 17; TEMP 36.7; O2SAT 96
--- NOTE | 2021-02-24 20:21 | HMH.HP ---
*Admission Date: 02/24/21 *Chief complaint: abd pain *History of present illness: this pt presented to the pcp office with progressive abd pain with distention with hx of stomach ulceration-pt with increased pain and decreased po intake and marked elevation in renal function tests - pt was admitted for ivf and meds and surg consult - [facility] History I have reviewed the patient's past medical history: Yes Medical History: Reports:: Congestive Heart Failure, Hyperlipidemia, Hypertension, Myocardial Infarction Denies:: Cancer, Diabetes Mellitus Type 1, Diabetes Mellitus Type 2, Internal Pacemaker, MRSA *Have you ever received a pneumonia vaccine?: No *Have you received a flu vaccine this season?: Yes Other Medical History: Reports: Anemia Laterality Cases: Right: Other Other Surgeries: Yes: No Previous Surgery, Colonoscopy, EGD, Hernia Repair, Other (Sac removed from stomach). No: Pacemaker Amputation: No Fractures: Yes (arm fracture at age 8) - *Social History Last grade of school completed: Advanced degree Smoking Status: Former smoker Tobacco Type: cigarettes # Packs/Day (cigarettes): 1 #Yrs smoked (if former smoker): 39 Smoking End Date: 2017 Alcohol Intake: current Alcohol Intake Frequency:: holidays/special occasions only Substance Use Type: denies use *Occupational Status:: retired, disabled Housing: apartment Household Members: significant other *Travel in the last 8 weeks: None Family Hx:: Coronary Artery Disease, Stroke Review of Systems - Review of Systems Review of systems:: pertinent systems reviewed and negative unless documented below - Constitutional Denies fever(s) - Eyes Denies blurry vision - ENT Denies sore throat - *Cardiovascular Denies chest pain - *Respiratory Denies cough - *Gastrointestinal Reports abdominal pain, Reports bloating, Reports nausea, Reports vomiting, Denies black, tarry stools - *Genitourinary Denies urinary frequency - *Musculoskeletal Denies joint pain - Integumentary/Breasts Denies rash - *Neurologic Denies localized weakness, Denies headache(s), Denies seizure-like activity - Psychiatric Denies anxiety Meds Home Medications Medication Instructions Recorded Confirmed Type Calcium Carbonate [Calcium] 500 mg PO DAILY 08/22/18 02/24/21 History Fluticasone/Vilanterol [Breo 1 inh INHALATION DAILYP PRN 08/22/18 02/24/21 History Ellipta 100-25 Mcg INH] Multivit-Min/Folic/Vit K/Lycop 1 each PO DAILY 08/22/18 02/24/21 History [Men's Multivitamin Caplet] sucralfate 1 gram tablet 1 g PO ACHS 09/05/18 02/24/21 History Albuterol Sulfate [Ventolin HFA 2 puff INHALATION QIDP PRN 09/06/18 02/24/21 History Inhaler] potassium chloride 20 mEq 20 meq PO DAILY #90 tab 03/11/19 02/24/21 Rx tablet,extended release(part/cryst) tadalafil 2.5 mg tablet 2.5 mg PO DAILY PRN #30 tab 11/13/20 02/24/21 Rx hydrocodone 5 mg-acetaminophen 325 1 tab PO QID 30 Days #120 tab 02/10/21 02/24/21 Rx mg tablet Atorvastatin Calcium [Lipitor 10mg 10 mg PO HS 02/11/21 02/24/21 History Tab] Quetiapine Fumarate 450 mg PO HS 02/11/21 02/24/21 History SUMAtriptan succinate [Sumatriptan 50 mg PO DIRECTED PRN 02/11/21 02/24/21 History Succinate] Venlafaxine HCl [Effexor Xr] 75 mg PO DAILY 02/11/21 02/24/21 History bisoproloL fumarate [Bisoprolol 5 mg PO DAILY 02/11/21 02/24/21 History Fumarate] carBAMazepine [Carbamazepine ER] 200 mg PO DAILYP PRN 02/11/21 02/24/21 History polyethylene glycoL 3350 [Clearlax] 17 g PO DAILY 02/11/21 02/24/21 History Pantoprazole Sodium [Protonix 40mg 40 mg PO DAILY 02/23/21 02/24/21 History tablet] Ply5493/Sod Sulf,Bicarb,Cl/KCl 240 ml PO Q10M 02/23/21 02/24/21 History [Peg-3350 and Electrolytes Soln] Gabapentin [Neurontin 800mg Tab] 800 mg PO TID 02/24/21 02/24/21 History Hydrocodone/Acetaminophen 1 tab PO QID 02/24/21 02/24/21 History [Hydrocodone-Acetamin 5-325 mg] Allergies Allergy/AdvReac Type Severi
[2021-02-25] VITALS (59 sets, daily range): BP systolic 67–145; BP diastolic 43–68; PULSE 49–120; RESP 14–24; TEMP 36.4–36.7; O2SAT 85–100; BMI 22.1; BMI 22.0
--- NOTE | 2021-02-25 03:36 | PC.NURSE ---
A&OX4. TOLERATING RA WELL. PT HAS NOT C/O PAIN THIS SHIFT. ABD IS DISTENDED AND TENDER PER PALPATION, BOWEL SOUNDS ACTIVE IN ALL QUADRANTS. PT NPO SINCE 0000, TOLERATING WELL. RECEIVED NIGHT TIME SEROQUIL DOSE PER MD HESS. PT UP TO BATHROOM INDEPENDENTLY. HAS BEEN RESTING T/O MAJORITY OF SHIFT, VSS WILL CONTINUE TO MONITOR.
--- NOTE | 2021-02-25 07:00 | HMH.GSCON ---
*Admission Date: 02/24/21 *Reason for consult:: Nausea, abdominal distention, duodenal ulcer, duodenal stricture *History of present illness: This is a 61-year-old gentleman who was scheduled for outpatient esophagogastroduodenoscopy. He has a known diagnosis of duodenal ulcer and has been on medical therapy. A recent UGI series revealed changes consistent with likely gastroparesis, duodenal ulcer, and possible duodenal stricture. He was admitted yesterday after outpatient evaluation revealed worsening renal insufficiency. Review of Systems - Constitutional Denies chills - Eyes Denies change in vision - ENT Denies difficulty swallowing - *Cardiovascular Denies chest pain - *Respiratory Denies cough - *Gastrointestinal Reports abdominal pain, Reports bloating, Reports nausea - *Genitourinary Denies blood in urine - *Musculoskeletal Reports muscle weakness - Integumentary/Breasts Denies new lesions - *Neurologic Denies confusion - Psychiatric Denies anxiety - Endocrine Denies cold intolerance - Hematologic/Lymphatic Denies easy bleeding - Allergic/Immunologic Denies wheezing [facility] History Medical History: Reports:: Congestive Heart Failure, Hyperlipidemia, Hypertension, Myocardial Infarction Denies:: Cancer, Diabetes Mellitus Type 1, Diabetes Mellitus Type 2, Internal Pacemaker, MRSA *Have you ever received a pneumonia vaccine?: No *Have you received a flu vaccine this season?: Yes Other Medical History: Reports: Anemia Laterality Cases: Right: Other Other Surgeries: Yes: No Previous Surgery, Colonoscopy, EGD, Hernia Repair, Other (Sac removed from stomach). No: Pacemaker Amputation: No Fractures: Yes (arm fracture at age 8) - *Social History Last grade of school completed: Advanced degree Smoking Status: Former smoker Tobacco Type: cigarettes # Packs/Day (cigarettes): 1 #Yrs smoked (if former smoker): 39 Smoking End Date: 2017 Alcohol Intake: current Alcohol Intake Frequency:: holidays/special occasions only Substance Use Type: denies use *Occupational Status:: retired, disabled Housing: apartment Household Members: significant other *Travel in the last 8 weeks: None Family Hx:: Coronary Artery Disease, Stroke Meds Home Medications Medication Instructions Recorded Confirmed Type Calcium Carbonate [Calcium] 500 mg PO DAILY 08/22/18 02/24/21 History Fluticasone/Vilanterol [Breo 1 inh INHALATION DAILYP PRN 08/22/18 02/24/21 History Ellipta 100-25 Mcg INH] Multivit-Min/Folic/Vit K/Lycop 1 each PO DAILY 08/22/18 02/24/21 History [Men's Multivitamin Caplet] sucralfate 1 gram tablet 1 g PO ACHS 09/05/18 02/24/21 History Albuterol Sulfate [Ventolin HFA 2 puff INHALATION QIDP PRN 09/06/18 02/24/21 History Inhaler] potassium chloride 20 mEq 20 meq PO DAILY #90 tab 03/11/19 02/24/21 Rx tablet,extended release(part/cryst) tadalafil 2.5 mg tablet 2.5 mg PO DAILY PRN #30 tab 11/13/20 02/24/21 Rx hydrocodone 5 mg-acetaminophen 325 1 tab PO QID 30 Days #120 tab 02/10/21 02/24/21 Rx mg tablet Atorvastatin Calcium [Lipitor 10mg 10 mg PO HS 02/11/21 02/24/21 History Tab] Quetiapine Fumarate 450 mg PO HS 02/11/21 02/24/21 History SUMAtriptan succinate [Sumatriptan 50 mg PO DIRECTED PRN 02/11/21 02/24/21 History Succinate] Venlafaxine HCl [Effexor Xr] 75 mg PO DAILY 02/11/21 02/24/21 History bisoproloL fumarate [Bisoprolol 5 mg PO DAILY 02/11/21 02/24/21 History Fumarate] carBAMazepine [Carbamazepine ER] 200 mg PO DAILYP PRN 02/11/21 02/24/21 History polyethylene glycoL 3350 [Clearlax] 17 g PO DAILY 02/11/21 02/24/21 History Pantoprazole Sodium [Protonix 40mg 40 mg PO DAILY 02/23/21 02/24/21 History tablet] [id number]/Sod Sulf,Bicarb,Cl/KCl 240 ml PO Q10M 02/23/21 02/24/21 History [Peg-3350 and Electrolytes Soln] Gabapentin [Neurontin 800mg Tab] 800 mg PO TID 02/24/21 02/24/21 History Hydrocodone/Acetaminophen 1 tab PO QID 02/24/21 02/24/21 History [
[2021-02-25 07:44] LABS: Basophils # 0.1 K/mm3 (0-0.2); Eosinophils # 0.2 K/mm3 (0.0-0.4); Eosinophils % 2.8 % (0.1-12.0); Hemoglobin 13.2 g/dL (14.1-18.0); Lymphocytes # 1.4 K/mm3 (0.7-4.5); Lymphocytes % 26.3 % (10-50); Mean Corpuscular HGB Conc 33.7 g/dL (31.8-35.4); Mean Corpuscular Hemoglobin 31.5 pg (27.0-31.2); Mean Corpuscular Volume 93.5 fl (80-94); Mean Platelet Volume 9.1 fl (7.4-10.4); Monocytes # 0.3 K/mm3 (0.1-1.0); Neutrophils # 3.5 K/mm3 (1.8-7.8); Neutrophils % 63.8 % (37.0-80.0); Platelet Count 182 K/mm3 (142-424); Red Blood Count 4.17 M/mm3 (4.60-6.20); White Blood Count 5.5 K/mm3 (4.8-10.8)
[2021-02-25 07:58] LABS: Anion Gap 11.8 mEq/L (5-15); Blood Urea Nitrogen 22 mg/dl (9-20); Calcium 8.1 mg/dl (8.4-10.2); Carbon Dioxide 22 mmol/L (22.0-30.0); Chloride 106 mmol/L (98-107); Creatinine Clearance Estimated 37 mL/min (50-200); Estimated Glomerular Filt Rate 34 ml/min (>60); GFR (African American) 42 ML/MIN (>60); Glucose 89 mg/dl (74-100); Potassium 3.8 mmoL/L (3.5-5.1); Sodium 136 mmol/L (136-145)
[2021-02-25 08:28] LABS: Coronavirus 19, PCR Not Detected (NotDetected); Influenza A, PCR Not Detected (NotDetected); Influenza B, PCR Not Detected (NotDetected)
--- NOTE | 2021-02-25 10:09 | HMH.ANESCL ---
[facility] Anesthesia Checklist - Patient Identification Patient Identification: Arm Band - Structural Data Admitted From: Inpatient Planned Operative Procedure/s: egd Consent for Planned Operative Procedure(s) Verified: Yes Verified Documents: Surgical Consent - NPO Status Verified Time NPO: 00:00 - Additional verifications Anesthesia Reactions: No - Airway Assessment C-Spine Mobility Assessed: Yes (mp2) TMJ Mobility Assessed: Yes Dentition: Poor Dentition - Neurological Assessment Level of Consciousness: Awake, Alert - Anesthesia Plan Anesthesia Risk discussed: Yes Anesthesia Plan: Verified ASA Class: III Anesthesia Type: MAC [facility] History I have reviewed the patient's past medical history: Yes Medical History: Reports:: Anxiety, Congestive Heart Failure, Chronic Obstructive Pulmonary Disease (COPD), Hyperlipidemia, Hypertension, Myocardial Infarction Denies:: Cancer, Diabetes Mellitus Type 1, Diabetes Mellitus Type 2, Internal Pacemaker, MRSA *Have you ever received a pneumonia vaccine?: No *Have you received a flu vaccine this season?: Yes Other Medical History: Reports: Anemia Anesthesia experience/problems:: nac Laterality Cases: Right: Other Other Surgeries: Yes: Colonoscopy, EGD, Hernia Repair, Other (Sac removed from stomach). No: Pacemaker Amputation: No Fractures: Yes (arm fracture at age 8) - *Social History Last grade of school completed: Advanced degree Smoking Status: Former smoker Tobacco Type: cigarettes # Packs/Day (cigarettes): 1 #Yrs smoked (if former smoker): 39 Smoking End Date: 2017 Alcohol Intake: current Alcohol Intake Frequency:: holidays/special occasions only Substance Use Type: denies use *Occupational Status:: retired, disabled Housing: apartment Household Members: significant other *Travel in the last 8 weeks: None Family Hx:: Coronary Artery Disease, Stroke
--- NOTE | 2021-02-25 11:29 | HMH.SCOPE ---
- Procedure: Date: 02/25/21 Patient Date of :: 1960 Procedure Performed:: Esophagogastroduodenoscopy with biopsy and dilatation of duodenal stricture Indications:: Gastroparesis Duodenal ulcer Duodenal stricture Performing Provider:: Manjit Blake MD Referring Provider:: Dr. Lucia Sedation:: Monitored anesthesia care Procedure:: After informed consent was obtained the patient was taken to the endoscopy suite. Sedation ensued after the patient was transferred to the left lateral decubitus position. Pulse, blood pressure, and oxygen saturation were monitored throughout the procedure. The endoscope was advanced beyond the duodenal bulb. Retroflexion within the gastric lumen was accomplished. The gastroscope was carefully removed and the patient was transferred to recovery in stable condition. Please see findings and specimens below for detail. Findings:: Gastric lumen with large amount of food particles throughout Duodenal bulb ulceration High-grade stricture just distal to the ulceration at junction of D2/D3 (inferior duodenal flexure) Stricture dilated sequentially to 10 mm (further dilatation deemed unwarranted due to increased risk of perforation) Specimens:: Antral biopsy Biopsy of duodenal stricture Recommendations:: Follow-up pathology Refer to tertiary care center for surgical evaluation and management (possible bypass...possible resection...possible stenting) Complications:: No immediate Estimated blood obtained (mL): 1
--- NOTE | 2021-02-25 12:33 | HMH.DCSUM ---
General - General Admission date:: 02/26/21 <Jonathan Lucia S - 02/26/21 22:50> 02/24/21 <Matthew Hess - 02/25/21 12:34> Discharge date: 02/26/21 <Jonathan Lucia - 02/26/21 22:50> 02/25/21 <Matthew Hess - 02/25/21 12:34> HPI HPI: this pt presented to the pcp office with progressive abd pain with distention with hx of stomach ulceration-pt with increased pain and decreased po intake and marked elevation in renal function tests - pt was admitted for ivf and meds and surg consult - <Matthew Hess - 02/25/21 12:43> Hospital Course Hospital Course: this pt presented to the pcp office with progressive abd pain with distention with hx of stomach ulceration-pt with increased pain and decreased po intake and marked elevation in renal function tests - pt was admitted for ivf and meds and surg consult - This is a 61-year-old gentleman who was scheduled for outpatient esophagogastroduodenoscopy. He has a known diagnosis of duodenal ulcer and has been on medical therapy. A recent UGI series revealed changes consistent with likely gastroparesis, duodenal ulcer, and possible duodenal stricture. Lab work in the emergency department revealed no leukocytosis, H/H stable BUN 34, creatinine 2.7 IV fluids infusing EGD: Findings:: Gastric lumen with large amount of food particles throughout Duodenal bulb ulceration High-grade stricture just distal to the ulceration at junction of D2/D3 (inferior duodenal flexure) Stricture dilated sequentially to 10 mm (further dilatation deemed unwarranted due to increased risk of perforation) Specimens:: Antral biopsy Biopsy of duodenal stricture Recommendations:: Follow-up pathology Refer to tertiary care center for surgical evaluation and management (possible bypass...possible resection...possible stenting) This morning lab work White blood cell count normal, H/H stable BUN 22 and creatinine 2.0 CXR revealed L sided PNA and no free air. Unable to complete CTA or Abd CT D/T decreased renal function. Oxygen requirements have increased since EGD, Vapotherm 20 LPM, BP 110's/60's, Has been accepted at [facility] has accepted. He should be transferred tonight or tomorrow. <Matthew Hess - 02/25/21 18:24> Objective Vital signs: Temp Pulse Resp BP Pulse Ox 98.8 F 92 H 23 94/59 L 99 02/26/21 22:00 02/26/21 22:00 02/26/21 22:18 02/26/21 22:00 02/26/21 22:18 <Jonathan Lucia - 02/26/21 22:50> Temp Pulse Resp BP Pulse Ox 98.0 F 66 16 83/57 L 96 02/25/21 11:25 02/25/21 11:53 02/25/21 11:53 02/25/21 11:53 02/25/21 11:53 <EribertoricardoMatthew - 02/25/21 12:34> no acute distress <EribertoricardoMatthew 02/25/21 12:43> - *Routine HEENT Exam Head: Present: normocephalic <Matthew Hess 02/25/21 12:43> Eye: Present: EOMI <Matthew Hess 02/25/21 12:43> ENT: Present: mucous membranes moist <EribertokristynnikkyMatthew 02/25/21 12:43> - *Routine Neck Exam Present: supple, trachea midline. Absent: tracheal deviation <EribertoricardoMatthew 02/25/21 12:43> - *Routine Respiratory Exam Present: CTA bilaterally. Absent: accessory muscle use <EribertoMatthew silva 02/25/21 12:43> - *Routine Cardiovascular Exam Present: RRR, murmur <EribertoMatthew silva 02/25/21 12:43> - *Routine Abdominal Exam Present: soft, normoactive bowel sounds. Absent: tenderness, firm <Matthew Hess 02/25/21 12:43> - *Routine Extremities Exam Present: full ROM, pulses intact. Absent: cyanosis, clubbing, edema <Matthew Hess 02/25/21 12:43> - *Routine Skin Exam Present: intact, dry, warm. Absent: cyanosis, erythema <Matthew Hess 02/25/21 12:43> - *Routine Neurological Exam Present: alert, oriented X3. Absent: motor deficit, pronator drift <Matthew Hess - 02/25/21 12:43> - Routine Psychiatric Exam Present: normal affect, normal thought process. Absent: homicidal ideation <Matthew Hess -
--- NOTE | 2021-02-25 12:51 | XR_ITS ---
PROCEDURE: XR CHEST PORTABLE CLINICAL HISTORY: Low O2 sat post op COMPARISON: CT CHESTW CT chest w con from 08/23/2018 CR XR CHEST 2V from 09/28/2019 CR XR CHEST PORTABLE from 10/03/2019 CR XR CHEST 2V from 02/10/[address] ABDOMEN PELVIS WO CON from 02/10/2021 CR,RF FL UPPER GI SMALL BOWEL from 02/22/2021 FINDINGS: Unremarkable cardiovascular structures. There is diffuse opacification of the left upper and left lower lobe consistent with left-sided pneumonia with some sparing of the lung apex. This has developed since the previous exam of 02/10/2021. Mild atelectatic changes are present in the lung bases. No obvious pneumoperitoneum. IMPRESSION: 1. Extensive left-sided pneumonia. 2. No evidence of pneumoperitoneum the Dictated by: Mario Rome MD 02/25/2021 14:05 Mario Rome MD in [place] 02/25/2021 14:05
--- NOTE | 2021-02-25 13:00 | CT_ITS ---
PROCEDURE INFORMATION: Exam: CT Abdomen And Pelvis With Contrast Exam date and time: 02/25/2021 1:00 PM Age: 61 years old Clinical indication: Condition or disease; Kidney or ureter condition; Acute renal insufficiency; Patient HX: Valentino recent endoscopy; Additional info: Low o2 sat TECHNIQUE: Imaging protocol: Computed tomography of the abdomen and pelvis with contrast. Radiation optimization: All CT scans at this facility use at least one of these dose optimization techniques: automated exposure control; mA and/or kV adjustment per patient size (includes targeted exams where dose is matched to clinical indication); or iterative reconstruction. Contrast material: ISOVUE; Contrast volume: 75 ml; Contrast route: IV; COMPARISON: CT ABDOMEN PELVIS WO CON 02/10/2021 10:52 PM FINDINGS: Limitations: Radiodense material within the stomach and portions of colon, which causes hardening artifact somewhat obscuring evaluation of adjacent structures. Lungs: Patchy consolidations within the visualized left upper lobe, lingula, and left lower lobe, with minimal ground-glass opacities in the visualized right lower lobe, most compatible with multifocal pneumonia. Liver: Normal. Gallbladder and bile ducts: Cholelithiasis. Pancreas: Normal. Spleen: Splenic calcifications, compatible with prior granulomatous disease. Adrenal glands: Normal. No mass. Kidneys and ureters: Simple left renal cysts, for which no further evaluation is necessary. Stomach and bowel: Several loops of nondilated, gas and fluid-filled small bowel, which is a nonspecific finding, but can be seen with enteritis. Appendix: Appendix normal. Intraperitoneal space: Unremarkable. No free air. No significant fluid collection. 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 Left external and left internal iliac arteries appear reconstituted by collateral or retrograde flow. Phleboliths within the pelvis. Lymph nodes: Unremarkable. No enlarged lymph nodes. Urinary bladder: Mild urinary bladder distention. Reproductive: Unremarkable as visualized. Bones/joints: No acute abnormality. Soft tissues: Small bilateral fat containing inguinal hernias. IMPRESSION: 1. Patchy consolidations within the visualized left upper lobe, lingula, and left lower lobe, with minimal ground-glass opacities in the visualized right lower lobe, most compatible with multifocal pneumonia. Recommend follow-up. 2. Several loops of nondilated, gas and fluid-filled small bowel, which is a nonspecific finding, but can be seen with enteritis. COMMENTS: Consistent with the [employer]'s Incidental Findings Committee white paper (J Am Indu Radiol 2018): Any incidental renal lesion less than 1 cm or classified as too small to characterize, or any incidental cystic renal lesion characterized as simple-appearing, is likely benign. No follow-up imaging is recommended for these lesions per consensus recommendations based on imaging criteria.
[2021-02-25 13:45] LABS: Basophils % 0.3 % (0.1-2.0); Eosinophils # 0.2 K/mm3 (0.0-0.4); Eosinophils % 1.5 % (0.1-12.0); Hematocrit 41.1 % (42.0-52.0); Hemoglobin 13.8 g/dL (14.1-18.0); Lymphocytes # 1.6 K/mm3 (0.7-4.5); Lymphocytes % 14.9 % (10-50); Mean Corpuscular HGB Conc 33.6 g/dL (31.8-35.4); Mean Corpuscular Hemoglobin 31.9 pg (27.0-31.2); Mean Corpuscular Volume 94.8 fl (80-94); Monocytes # 0.2 K/mm3 (0.1-1.0); Monocytes % 1.4 % (1.7-9.3); Neutrophils # 8.7 K/mm3 (1.8-7.8); Neutrophils % 81.9 % (37.0-80.0); Platelet Count 236 K/mm3 (142-424); Red Blood Count 4.34 M/mm3 (4.60-6.20); Red Cell Distribution Width 13.1 % (11.5-17.5); White Blood Count 10.7 K/mm3 (4.8-10.8)
[2021-02-25 15:00] LABS: ABG Base Excess -12.5 mmol/L (-2.4-2.3); ABG HCO3 14.6 mmhg (22.0-26.0); ABG Oxygen Saturation 82 % (90-100); ABG PCO2 33.6 mmhg (35.0-45.0); ABG PH 7.26 mmol/L (7.35-7.45); ABG PO2 52.3 mmhg (80-100); ABG TCO2 15.7 mmhg (23-27)
[2021-02-25 15:02] LABS: Allen's Test Acceptable; Source Right Radial
--- NOTE | 2021-02-25 15:51 | PC.NURSE ---
pt moved to stepdown room at this time. lungs are diminished with exp wheezes. bowel sounds are hypo. pt skin is extremely pale but warm. placed on vapotherm at this time by RT. hr tachy in the low 100's
--- NOTE | 2021-02-25 15:55 | CA_ITS ---
APPROVED REPORT EXAM: Comprehensive 2D, Doppler, and color-flow Echocardiogram Plant Engineering Manager: Leigh Kpaoor, RT(R) Ht: 5 ft 9 in Wt: 145lbs BSA: 1.80 BP: 83/57 mmHg Indications: PARVEEN, EGD done today with possible aspiration, hypotension, on vapotherm, SOB. M-Mode Dimensions RVDd 2.60 cm (0.9-2.6) LVDd 3.75 cm (3.5-5.7) LVDs 2.64 cm (3.5-5.7) IVSd 0.61 cm (0.6-1.1) PWd 0.86 cm (0.6-1.1) EF (Teich) 57.30% FS 29.60% EDV (Teich) 60.00 mL TAPSE 1.56 (<1.7) ESV (Teich) 25.60 mL LV Diastology E Decel Time 217.00 (160-240 msec) E/A Ratio 1.14 MED E' 8.00 (< 7 cm/sec) MED A' 14.00 cm/s E'/MED E' Ratio 6.15 (>14) Mitral Valve MV A Velocity 43.00 (40-130 cm/s) E/A Ratio 1.14 MV Decel. Time 217.00 (160-240 ms) Left Ventricle Technically difficult study because of the patient factors and poor acoustic windows. Endocardial surfaces and valvular structures are poorly visualized. Mildly enlarged left atrium, normal left ventricular size, visually estimated ejection fraction in the obtained views is 55% with no regional wall motion abnormality, diastolic parameters are inconclusive. Right Ventricle Right atrium and right ventricle are normal size and contractility. Aortic Valve Aortic valve leaflets are not well-visualized, there is no obvious aortic stenosis or aortic insufficiency. Mitral Valve Mitral valve grossly normal, there is trace mitral regurgitation. Tricuspid Valve Tricuspid valve grossly normal, there is trace tricuspid regurgitation, tricuspid regurgitation jet velocity is inadequate for calculation of the right ventricular systolic pressure. Pulmonic Valve Pulmonic valve is poorly visualized. Great Vessels Aortic root is normal size. Pericardium No significant pericardial effusion noted. Conclusion 1. Technically difficult and poor study as described above. Normal left ventricular size, visually estimated ejection fraction 55% with no obvious regional wall motion abnormality in the visualized portion of the endocardium. Diastolic parameters are inconclusive. 2. Trace mitral and tricuspid regurgitation. 3. No significant pericardial effusion noted. Electronically signed by : Miki Reid, 02/26/2021 09:46:44
--- NOTE | 2021-02-25 16:02 | CT_ITS ---
PROCEDURE INFORMATION: Exam: CTA Chest With Contrast Exam date and time: 02/25/2021 4:02 PM Age: 61 years old Clinical indication: Shortness of breath; Patient HX: Extrems SOA low 02 sats; Additional info: Low o2 sat TECHNIQUE: Imaging protocol: Computed tomographic angiography of the chest with contrast. 3D rendering (Not supervised by radiologist): MIP and/or 3D reconstructed images were created by the technologist. Radiation optimization: All CT scans at this facility use at least one of these dose optimization techniques: automated exposure control; mA and/or kV adjustment per patient size (includes targeted exams where dose is matched to clinical indication); or iterative reconstruction. Contrast material: ISOVUE; Contrast volume: 75 ml; Contrast route: NON-VASCULAR INTERVENTIONAL INJECTION (NON-VASCULA; COMPARISON: CHESTW CT chest w con 08/23/2018 1:49 PM FINDINGS: Pulmonary arteries: No acute pulmonary emboli. Aorta: Unremarkable. No aortic aneurysm. No aortic dissection. Lungs: Patchy ground-glass and consolidative opacities throughout the left lung, with minimal patchy ground-glass opacities throughout the right lung, most compatible with multifocal pneumonia. Calcified granulomas within the left lower lobe. Pleural spaces: Unremarkable. No pneumothorax. No pleural effusion. Heart: Unremarkable. No cardiomegaly. No pericardial effusion. Lymph nodes: Few small lymph nodes within the mediastinum, likely reactive. Liver: Hepatic calcifications, compatible with prior granulomatous disease. Spleen: Splenic calcifications, compatible with prior granulomatous disease. Bones/joints: Multiple old, healed bilateral rib fractures. Soft tissues: Unremarkable. IMPRESSION: 1. No acute pulmonary emboli. 2. Patchy ground-glass and consolidative opacities throughout the left lung, with minimal patchy ground-glass opacities throughout the right lung, most compatible with multifocal pneumonia. Recommend follow-up.
--- NOTE | 2021-02-25 16:21 | PC.NURSE ---
Report given to Jennifer Baugh RN @ [phone]
[2021-02-25 16:22] LABS: ABG Base Excess -12.4 mmol/L (-2.4-2.3); ABG HCO3 13.7 mmhg (22.0-26.0); ABG Oxygen Saturation 95 % (90-100); ABG PCO2 27.4 mmhg (35.0-45.0); ABG PH 7.32 mmol/L (7.35-7.45); ABG PO2 80.1 mmhg (80-100); ABG TCO2 14.6 mmhg (23-27)
[2021-02-25 16:23] LABS: Allen's Test Non Applicable; Oxygen 100 %; Source Left Brachial
[2021-02-25 16:30] LABS: Adenovirus,PCR Not Detected (NotDetected); Bordetella Pertussis Not Detected (NotDetected); Chlamydophila Pneumoniae, PCR Not Detected (NotDetected); Coronavirus 19, PCR Not Detected (NotDetected); Coronavirus 229E Not Detected (NotDetected); Coronavirus NL63 Not Detected (NotDetected); Coronavirus OC43 Not Detected (NotDetected); Coronovirus HKU1,PCR Not Detected (NotDetected); Human Metapneumovirus Not Detected (NotDetected); Influenza A, PCR Not Detected (NotDetected); Influenza AH1, 2009 Not Detected (NotDetected); Influenza AH1, PCR Not Detected (NotDetected); Influenza AH3,PCR Not Detected (NotDetected); Influenza B, PCR Not Detected (NotDetected); Mycoplasma Pneumoniae, PCR Not Detected (NotDetected); Parainfluenza 1, PCR Not Detected (NotDetected); Parainfluenza 2, PCR Not Detected (NotDetected); Parainfluenza 3, PCR Not Detected (NotDetected); Parainfluenza 4, PCR Not Detected (NotDetected); Respiratory Syncytial Virus Not Detected (NotDetected); Rhinovirus/Enterovirus Not Detected (NotDetected)
--- NOTE | 2021-02-25 16:32 | PC.NURSE ---
Pt returned from post-op on 3 L O2 per nasal cannula, SBP in upper 80's. Pt is easily arousible, alert and able to follow commands. Avis Javier,RN states that this is no change from while he was downstairs. Sat noted to be in mid 80's, O2 titrated to 4 L O2 per nasal cannula. Sat mainting 90-91%. Pt resting comfortably, no complaints voiced. 1252 - Noted that pt's sat decreasing to mid 80's, pt placed on venturi mask @ 50% w/ no increase in sat. Pt then placed on 100% non-rebreather, sat improved to 93%. Upon auscultation of lungs scattered wheezes, diminished throughout left. SBP improved to 105. Gurdeep Hess and Dr. Rodriguez made aware. Orders placed for CXR, CTA and duonebs. Neb admin w/ no noted improvement in air movement. Rad aware of new orders. Pt placed on cont pulse ox and cafeteria monitor. 1430 - Noted that pt desat to mid 80's still on 100% non-rebreather. HR increased to low 100's. PT very restless moving around in the bed, complains that he is unable to take a deep breath. Dr. Rodriguez made aware. New orders obtained for stat ABG to be obtained. 1508 - ABG results called to Dr. Rodriguez, orders obtained for pt to be transferred to step-down, place pt on vapotherm, repeat ABG to be collected 2 hours after pt is on vapotherm. Pt and sig other updated on current POC.
[2021-02-25 17:01] LABS: Chloride 107 mmol/L (98-107); Potassium 3.9 mmoL/L (3.5-5.1); Sodium 137 mmol/L (136-145)
[2021-02-25 17:04] LABS: Anion Gap 15.9 mEq/L (5-15); Blood Urea Nitrogen 22 mg/dl (9-20); Carbon Dioxide 18 mmol/L (22.0-30.0); Creatinine Clearance Estimated 41 mL/min (50-200); Estimated Glomerular Filt Rate 39 ml/min (>60); GFR (African American) 47 ML/MIN (>60); Glucose 109 mg/dl (74-100)
--- NOTE | 2021-02-25 18:07 | PC.NURSE ---
verbal order from rachid toledo, following pt scan, he needs a 1 liter fluid bolus.
--- NOTE | 2021-02-25 18:50 | PC.NURSE ---
Paged Dr Rodriguez at 1825. call returned at [address] Mcbride who is direct service professional for Dr Rodriguez. notified that pt bp has been trending low 70's -100's pt has triggered for sepsis as well, antibiotics had already been administered. lactic and bc have been ordered. pt is currently receiving 1000ml ns at 500 with little to no effect on bp. may pt be placed on levophed drip and can an additional 1000ml be given for sepsis bolus, (needs total of 1980ml). (lab notified of need for labs at 1845 face to face with nikky cook) ok to start levo drip for map greater than 65. give additional 1000ml for sepsis bolus and start horan cath.
[2021-02-25 19:30] LABS: Basophils % 0.2 % (0.1-2.0); Eosinophils # 0.1 K/mm3 (0.0-0.4); Eosinophils % 1.1 % (0.1-12.0); Hematocrit 40.7 % (42.0-52.0); Hemoglobin 13.6 g/dL (14.1-18.0); Lymphocytes # 0.2 K/mm3 (0.7-4.5); Lymphocytes % 3.9 % (10-50); Mean Corpuscular HGB Conc 33.5 g/dL (31.8-35.4); Mean Corpuscular Hemoglobin 31.3 pg (27.0-31.2); Mean Corpuscular Volume 93.4 fl (80-94); Mean Platelet Volume 8.4 fl (7.4-10.4); Monocytes # 0.3 K/mm3 (0.1-1.0); Neutrophils # 3.8 K/mm3 (1.8-7.8); Neutrophils % 88.9 % (37.0-80.0); Platelet Count 170 K/mm3 (142-424); Red Blood Count 4.36 M/mm3 (4.60-6.20); White Blood Count 4.3 K/mm3 (4.8-10.8)
[2021-02-25 19:33] LABS: MANUAL DIFFERENTIAL MANUAL DIFFERENTIAL (MANUAL DIFF)
[2021-02-25 19:37] LABS: Lactic Acid 1.9 mmol/L (0.7-2.1)
[2021-02-25 19:59] LABS: Lymphocytes % 9 % (10-50); Monocytes % 4 % (2-9); Neutrophils % 83 % (42-76); Platelet Estimate Normal; RBC Morphology Normal; Total Cells Counted 100
--- NOTE | 2021-02-25 20:04 | PC.NURSE ---
Pt taken off of the unit via bed and monitor at approx 1700 and returned at approx 1715. pt remained stable. bp was in the lower 70's. pt fluid bolus was started while in ct scanner. prior to return to unit pt bp improved to 101/68
--- NOTE | 2021-02-25 20:24 | PC.NURSE ---
Levophed drip started at approx 1845 started at 1mcg/min 1900 2mcg/min
--- NOTE | 2021-02-25 20:39 | PC.NURSE ---
TRASH PULLED AND URINAL EMPTIED AT THIS TIME
--- NOTE | 2021-02-25 23:56 | PC.NURSE ---
[facility] has called twice to inform of no bed availability. He is A&Ox3. He denies pain. He reports his last BM was on 02/25/21. He has a productive cough with yellow, thick sputum. He continues on vapotherm at 20LPM 100%FiO2. F/c is patent with straw colored, clear urine. His abdomen is distended.
[2021-02-26] VITALS (31 sets, daily range): BP systolic 85–117; BP diastolic 49–68; PULSE 70–104; RESP 1–28; TEMP 36.8–38.2; O2SAT 93–100; BMI 23.5
--- NOTE | 2021-02-26 04:11 | PC.NURSE ---
FiO2 decreased to 75% at this time.
--- NOTE | 2021-02-26 06:49 | HMH.GSPN ---
Subjective Narrative: The patient states that he is breathing a little better this morning . Progress Note: A&P (1) PARVEEN (acute kidney injury) Status: Acute (2) Duodenal bulb ulcer Status: Acute (3) Duodenal stricture Status: Acute (4) Gastroparesis Status: Acute (5) Multiple sclerosis Status: Acute (6) Community acquired pneumonia Status: Acute Assessment and Plan for All Diagnoses:: Once the patient is stable from a pulmonary and cardiac standpoint he will require intervention for his duodenal stricture (bypass, resection, or possibly stenting). He is awaiting transfer to tertiary [facility] for evaluation and management. Follow-up pathology from EGD/biopsy. Exam Vital signs and Labs for Last 24 Hours: Temp Pulse Resp BP Pulse Ox 97.5 F L 81 19 91/49 L 96 02/25/21 12:50 02/26/21 06:00 02/25/21 20:15 02/26/21 06:00 02/26/21 06:18 Laboratory Results - last 24 hr 02/25/21 07:35: WBC 5.5 D, RBC 4.17 L, Hgb 13.2 L, Hct 39.0 L, MCV 93.5, MCH 31.5 H, MCHC 33.7, RDW 13.0, Plt Count 182, MPV 9.1, Neut % (Auto) 63.8, Lymph % (Auto) 26.3, Latimer % (Auto) 6.0, Eos % (Auto) 2.8, Baso % (Auto) 1.0, Neut # (Auto) 3.5, Lymph # (Auto) 1.4, Latimer # (Auto) 0.3, Eos # (Auto) 0.2, Baso # (Auto) 0.1 02/25/21 07:35: Sodium 136, Potassium 3.8, Chloride 106, Carbon Dioxide 22 D, Anion Gap 11.8, BUN 22 H D, Creatinine 2.00 H D, Estimated Creat Clear 37, Estimated GFR 34 L, Est GFR ( Amer) 42 L D, Glucose 89, Calcium 8.1 L 02/25/21 08:15: SARS-CoV-2 (PCR) Not detected, Influenza A Untype (PCR) Not detected, Influenza Type B (PCR) Not detected 02/25/21 13:40: WBC 10.7 D, RBC 4.34 L, Hgb 13.8 L, Hct 41.1 L, MCV 94.8 H, MCH 31.9 H, MCHC 33.6, RDW 13.1, Plt Count 236 D, MPV 9.0, Neut % (Auto) 81.9 H, Lymph % (Auto) 14.9, Latimer % (Auto) 1.4 L, Eos % (Auto) 1.5, Baso % (Auto) 0.3, Neut # (Auto) 8.7 H, Lymph # (Auto) 1.6, Latimer # (Auto) 0.2, Eos # (Auto) 0.2, Baso # (Auto) 0.0 02/25/21 13:40: Blood Type A Negative, Antibody Screen Negative 02/25/21 14:44: Specimen Source Right radial, O2 % 100% nrb, ABG pH 7.26 L, ABG pCO2 33.6 L, ABG pO2 52.3 L, ABG HCO3 14.6 L, ABG Total CO2 15.7 L, ABG O2 Saturation 82 L*, ABG Base Excess -12.5 L, Mario Test Acceptable 02/25/21 16:19: Specimen Source Left brachial, O2 % 100, ABG pH 7.32 L, ABG pCO2 27.4 L, ABG pO2 80.1, ABG HCO3 13.7 L, ABG Total CO2 14.6 L, ABG O2 Saturation 95, ABG Base Excess -12.4 L, Mario Test Non applicable, Tidal Volume Vapo 20 02/25/21 16:20: Chlamy pneumoniae PCR Not detected, Adenovirus (PCR) Not detected, B. pertussis DNA (PCR) Not detected, Coronavirus OC43 (PCR) Not detected, Coronavirus HKU1 (PCR) Not detected, Coronavirus 229E (PCR) Not detected, SARS-CoV-2 (PCR) Not detected, Coronavirus NL63 (PCR) Not detected, Human Metapneumovir PCR Not detected, Influenza A (H1) PCR Not detected, Influ A (H1N1/09) PCR Not detected, Influenza A (H3) PCR Not detected, Influenza Type A (PCR) Not detected, Influenza Type B (PCR) Not detected, M. pneumoniae (PCR) Not detected, Parainfluenza 1 (PCR) Not detected, Parainfluenza 2 (PCR) Not detected, Parainfluenza 3 (PCR) Not detected, Parainfluenza 4 (PCR) Not detected, RSV (PCR) Not detected, Entero/Rhino (PCR) Not detected 02/25/21 16:20: Sodium 137, Potassium 3.9, Chloride 107, Carbon Dioxide 18 L, Anion Gap 15.9 H, BUN 22 H, Creatinine 1.80 H, Estimated Creat Clear 41, Estimated GFR 39 L, Est GFR ( Amer) 47 L, Glucose 109 H D, Calcium 8.0 L 02/25/21 19:19: Lactate 1.9 02/25/21 19:19: WBC 4.3 L D, RBC 4.36 L, Hgb 13.6 L, Hct 40.7 L, MCV 93.4, MCH 31.3 H, MCHC 33.5, RDW 13.0, Plt Count 170 D, MPV 8.4, Neut % (Auto) 88.9 H, Lymph % (Auto) 3.9 L, Latimer % (Auto) 6.0, Eos % (Auto) 1.1, Baso % (Auto) 0.2, Neut # (Auto) 3.8, Lymph # (Auto) 0.2 L, Latimer # (Auto) 0.3, Eos # (Auto) 0.1, Baso # (Auto) 0.0, Total Counted 100, Neutrophils % (Manual) 83 H, Band Neutrophils % 4.0, Lymphocytes % (Manual) 9 L, Monocytes % (Manual) 4, Platelet Es
--- NOTE | 2021-02-26 09:26 | HMH.CNCARD ---
History of Present Illness Consult date: 02/26/21 Requesting physician: Jonathan Lucia Chief complaint: ARDS, PARVEEN Additional Medical History:: 1. Myocarditis, 09/2019 A. Troponins elevated with peak of >15 B. [facility], 09/29/2019, ANGIOGRAPHIC RESULTS The left main artery Normal The left anterior descending artery Has a proximal 30 to 40% [id number] stenosis with remaining vessel normal The circumflex artery Large dominant and normal The right coronary artery Small vestigial and normal The GARG ventriculogram reveals Ejection fraction of 45% with inferior apical hypokinesis The left ventricular end-diastolic pressure 20 mmHg IMPRESSION Mild to moderate [id number] coronary artery disease Elevated troponins with regional wall motion abnormality most consistent with myocarditis/pericarditis Mildly elevated LVEDP consistent with myocarditis PLAN 1. Supportive care for myocarditis 2. Beta-blockers OLIVIA inhibitors 3. Echocardiogram in the morning C. Echo, 09/30/2019, 1. Mildly enlarged left atrium, normal left ventricular size, mild concentric left ventricular hypertrophy, visually estimated ejection fraction 55% with no regional wall motion abnormality, grade 1 diastolic dysfunction seen without tissue Doppler evidence of raise left atrial pressure. 2. Mild mitral and tricuspid regurgitation. 3. mild aortic insufficiency. 4. No significant pericardial effusion noted D. Echo, 02/25/2021, 1. Technically difficult and poor study as described above. Normal left ventricular size, visually estimated ejection fraction 55% with no obvious regional wall motion abnormality in the visualized portion of the endocardium. Diastolic parameters are inconclusive. 2. Trace mitral and tricuspid regurgitation. 3. No significant pericardial effusion noted. Electronically signed by : Miki Reid, 02/26/2021 09:46:44 2. Multiple sclerosis, diagnosed about 2009 3. History of drug and ETOH use, remote 4. Tobacco use, stopped [address] of the chest, 08/2018 showing centrilobular emphysema with COPD 5. History of hypertension A. Echo, 09/2019, EF 55%, grade I diastolic dysfunction, mild MR, TR, AI. No pericardial effusion. B. Echo, 02/2021, EF 55%, technically difficult study, mild AR, TR. No significant pericardial effusion. 6. Necrotizing pneumonia, 08/2018, CT of chest, treated with outpatient IV antibiotics. 7. History of peptic ulcer disease. A. Upper GI and small bowel x-ray, 02/23/2021, 1. Chronic peptic ulcer disease is suspected with cloverleaf deformity at the duodenal bulb. Neoplasm is included in the differential diagnosis. 2. Diffuse gastric distension which may be due to a combination of gastro paresis and partial gastric outlet obstruction at the duodenal bulb 3. High-grade concentric bandlike narrowing at the junction of the descending and transverse portion of the duodenum causing partial obstruction. This could be inflammatory or neoplastic. An adhesion would also be a consideration. 4. Upper endoscopy suggested for further evaluation. Dictated by: Mario Rome MD 02/23/2021 07:25 8. Hospital admission for acute renal insufficiency, 02/25/2021, felt secondary to poor p.o. intake A. EGD, 02/25/2021 showing evidence of duodenal stricture B. Acute respiratory distress post procedure, 02/25/2021 requiring Levophed for blood pressure support and Vapotherm therapy. 9. Hyperlipidemia, on statin therapy History of present illness: 61-year-old white male presented to PCPs office with complaint of abdominal pain, distention and poor oral intake. Patient was noted to have acute renal insufficiency on lab work and was admitted for further evaluation. IV fluids were started with improvement in renal function. Patient did undergo EGD yesterday showing severe stricture of the duodenal area. Post procedure patient developed acute respiratory distress requiring IV Levophed as well as ox
[2021-02-26 10:17] LABS: Triiodothryronine (T3) Uptake 37 % (23.5-40.5)
[2021-02-26 10:18] LABS: Free Thyroxine Index 1.7 ug/dL (5.93-13.13); T4 (Thyroxine) 4.5 ug/dl (5.53-11.0)
--- NOTE | 2021-02-26 11:34 | PC.NURSE ---
[facility] CALLED THIS MORNING AND STATED DUE TO BED CAPACITY THEY WERE GOINMG TO HAVE TO DECLINE ADMISSION FOR PT. NOTIFIED PCP OFFICE. [facility] CALLED BEFORE THIS AM AND THEY STATED THEY STILL DO NOT HAVE A BED AVAILABLE FOR PT BUT WILL CONTINUE TO CALL FOR AN UPDATE ON PT Q3H.
--- NOTE | 2021-02-26 12:39 | PC.NURSE ---
JUST CALLED BACK FOR AN UPDATE AND A BED IS STILL NOT AVAILABLE AT THIS TIME BUT THEY ARE CURRENTLY TRYING TO MOVE PATIENTS TO GET A BED OPEN IN ONE OF THEIR ICU'S.
--- NOTE | 2021-02-26 12:48 | XR_ITS ---
PROCEDURE: XR CHEST PORTABLE CLINICAL HISTORY: pneumonia COMPARISON: CR XR CHEST PORTABLE from 10/03/2019 CR XR CHEST 2V from 02/10/[address] ABDOMEN PELVIS W CON from 02/25/[address] ANGIO CHEST PE PROTOCOL from 02/25/2021 CR XR CHEST PORTABLE from 02/25/2021 FINDINGS: The cardiomediastinal silhouette and pulmonary vascularity are within normal limits. Consolidation once again noted in the left mid and lower lung zone consistent with left upper and left lower lobe pneumonia which appears worse compared to 02/25/2021. There may be a small left effusion. Developing infiltrate also noted in the right upper lobe. There is residual contrast within the stomach from recent upper GI. IMPRESSION: Worsening left upper and left lower lobe pneumonia as well as developing pneumonia in the right upper lobe with small left effusion Dictated by: Mario Rome MD 02/26/2021 13:19 Mario Rome MD in [place] 02/26/2021 13:19
--- NOTE | 2021-02-26 12:51 | HMH.ACPN2 ---
Internal Medicine - PN: Subj *Date: 02/26/21 *Time: 08:00 Interval history: today pt laying in bed, states feeling ok. talked with dr dias and he recommends changing antibiotics still waiting on bed at [facility]. I have called e, [facility] and all states they do not have a bed Exam Vital signs and Labs for Last 24 Hours: Temp Pulse Resp BP Pulse Ox 98.7 F 73 22 106/65 L 99 02/26/21 12:00 02/26/21 12:00 02/26/21 12:00 02/26/21 12:00 02/26/21 12:00 Laboratory Results - last 24 hr 02/25/21 13:40: WBC 10.7 D, RBC 4.34 L, Hgb 13.8 L, Hct 41.1 L, MCV 94.8 H, MCH 31.9 H, MCHC 33.6, RDW 13.1, Plt Count 236 D, MPV 9.0, Neut % (Auto) 81.9 H, Lymph % (Auto) 14.9, Mcculloch % (Auto) 1.4 L, Eos % (Auto) 1.5, Baso % (Auto) 0.3, Neut # (Auto) 8.7 H, Lymph # (Auto) 1.6, Mcculloch # (Auto) 0.2, Eos # (Auto) 0.2, Baso # (Auto) 0.0 02/25/21 13:40: Blood Type A Negative, Antibody Screen Negative 02/25/21 14:44: Specimen Source Right radial, O2 % 100% nrb, ABG pH 7.26 L, ABG pCO2 33.6 L, ABG pO2 52.3 L, ABG HCO3 14.6 L, ABG Total CO2 15.7 L, ABG O2 Saturation 82 L*, ABG Base Excess -12.5 L, Mario Test Acceptable 02/25/21 16:19: Specimen Source Left brachial, O2 % 100, ABG pH 7.32 L, ABG pCO2 27.4 L, ABG pO2 80.1, ABG HCO3 13.7 L, ABG Total CO2 14.6 L, ABG O2 Saturation 95, ABG Base Excess -12.4 L, Mario Test Non applicable, Tidal Volume Vapo 20 02/25/21 16:20: Chlamy pneumoniae PCR Not detected, Adenovirus (PCR) Not detected, B. pertussis DNA (PCR) Not detected, Coronavirus OC43 (PCR) Not detected, Coronavirus HKU1 (PCR) Not detected, Coronavirus 229E (PCR) Not detected, SARS-CoV-2 (PCR) Not detected, Coronavirus NL63 (PCR) Not detected, Human Metapneumovir PCR Not detected, Influenza A (H1) PCR Not detected, Influ A (H1N1/09) PCR Not detected, Influenza A (H3) PCR Not detected, Influenza Type A (PCR) Not detected, Influenza Type B (PCR) Not detected, M. pneumoniae (PCR) Not detected, Parainfluenza 1 (PCR) Not detected, Parainfluenza 2 (PCR) Not detected, Parainfluenza 3 (PCR) Not detected, Parainfluenza 4 (PCR) Not detected, RSV (PCR) Not detected, Entero/Rhino (PCR) Not detected 02/25/21 16:20: Sodium 137, Potassium 3.9, Chloride 107, Carbon Dioxide 18 L, Anion Gap 15.9 H, BUN 22 H, Creatinine 1.80 H, Estimated Creat Clear 41, Estimated GFR 39 L, Est GFR ( Amer) 47 L, Glucose 109 H D, Calcium 8.0 L 02/25/21 19:19: Lactate 1.9 02/25/21 19:19: WBC 4.3 L D, RBC 4.36 L, Hgb 13.6 L, Hct 40.7 L, MCV 93.4, MCH 31.3 H, MCHC 33.5, RDW 13.0, Plt Count 170 D, MPV 8.4, Neut % (Auto) 88.9 H, Lymph % (Auto) 3.9 L, Mcculloch % (Auto) 6.0, Eos % (Auto) 1.1, Baso % (Auto) 0.2, Neut # (Auto) 3.8, Lymph # (Auto) 0.2 L, Mcculloch # (Auto) 0.3, Eos # (Auto) 0.1, Baso # (Auto) 0.0, Total Counted 100, Neutrophils % (Manual) 83 H, Band Neutrophils % 4.0, Lymphocytes % (Manual) 9 L, Monocytes % (Manual) 4, Platelet Estimate Normal, RBC Morphology Normal 02/26/21 07:35: TSH 17.20 H, Free T4 Index 1.7 L, Thyroxine (T4) 4.5 L, T3 Uptake 37 I & O for Last 24 hours: Intake & Output 02/24/21 02/25/21 02/26/21 02/27/21 11:59 11:59 11:59 11:59 Intake Total 2112 / 2112 3304.086 / 3304.086 Output Total 3501 / 3501 1950 / 1950 Balance -1389 / -1389 1354.086 / 1354.086 Weight 146 lb 155 lb 4 oz - Constitutional mild distress - *Routine HEENT Exam Head: Present: normocephalic Eye: Present: PERRL ENT: Present: mucous membranes moist - *Routine Neck Exam Present: supple. Absent: lymphadenopathy - *Routine Respiratory Exam Present: decreased breath sounds, rhonchi - *Routine Cardiovascular Exam Present: tachycardia - *Routine Abdominal Exam Present: soft, normoactive bowel sounds. Absent: tenderness - *Routine Extremities Exam Present: normal capillary refill. Absent: cyanosis, clubbing, edema - *Routine Skin Exam Present: intact - *Routine Neurological Exam Present: alert, oriented X3 - Routine Psychiatric Exam Present: normal affect Assessment and P
--- NOTE | 2021-02-26 13:00 | HMH.PHACONS ---
- Pharmacy Consult Date: 02/26/21 Time: 13:00 Referring provider: DR. MESA Reason for Consult:: Subjective and Objective Data: This is a 61 year old male patient with pneumonia. Measured serum creatinine (SCr) is 1.8 mg/dL. Given a height of 173 cm and a weight of 70.4 kg, estimated creatinine clearance is 44 mL/min (using the CrCl TBW body weight). The following targets were selected for dosing: - Desired AUC = 500 mcg*h/mL - Desired Cmax = 35 mcg/mL - Desired Cmin = 12.5 mcg/mL - Vd coefficient = 0.65 L/kg - Ke equation = CrCl*0.07087+0.0044 Calculations: Based on above, the following are calculated parameters for AUC-based vancomycin dosing in this patient: - Calculated Vd = 45.76L - Calculated Ke = 0.041 inverse hours - Calculated half-life = 16.9 hours Prescribed Dosing: Empiric dose will be vancomycin IV 1000mg [id number] Which is predicted to achieve the following parameters: - Estimated AUC = 534 mcg*h/mL - Estimated Cmax = 34.9 mcg/mL - Estimated Cmin = 13.6 mcg/mL Allergies and ADEs:: Allergies Allergy/AdvReac Type Severity Reaction Status Date / Time varenicline [From Chantix] Allergy Intermediate Vomiting Verified 02/24/21 11:46 Home Medications:: Home Medications Medication Instructions Recorded Confirmed Type Calcium Carbonate [Calcium] 500 mg PO DAILY 08/22/18 02/24/21 History Fluticasone/Vilanterol [Breo 1 inh INHALATION DAILYP PRN 08/22/18 02/24/21 History Ellipta 100-25 Mcg INH] Multivit-Min/Folic/Vit K/Lycop 1 each PO DAILY 08/22/18 02/24/21 History [Men's Multivitamin Caplet] sucralfate 1 gram tablet 1 g PO ACHS 09/05/18 02/24/21 History Albuterol Sulfate [Ventolin HFA 2 puff INHALATION QIDP PRN 09/06/18 02/24/21 History Inhaler] potassium chloride 20 mEq 20 meq PO DAILY #90 tab 03/11/19 02/24/21 Rx tablet,extended release(part/cryst) tadalafil 2.5 mg tablet 2.5 mg PO DAILY PRN #30 tab 11/13/20 02/24/21 Rx hydrocodone 5 mg-acetaminophen 325 1 tab PO QID 30 Days #120 tab 02/10/21 02/24/21 Rx mg tablet Atorvastatin Calcium [Lipitor 10mg 10 mg PO HS 02/11/21 02/24/21 History Tab] Quetiapine Fumarate 450 mg PO HS 02/11/21 02/24/21 History SUMAtriptan succinate [Sumatriptan 50 mg PO DIRECTED PRN 02/11/21 02/24/21 History Succinate] Venlafaxine HCl [Effexor Xr] 75 mg PO DAILY 02/11/21 02/24/21 History bisoproloL fumarate [Bisoprolol 5 mg PO DAILY 02/11/21 02/24/21 History Fumarate] carBAMazepine [Carbamazepine ER] 200 mg PO DAILYP PRN 02/11/21 02/24/21 History polyethylene glycoL 3350 [Clearlax] 17 g PO DAILY 02/11/21 02/24/21 History Pantoprazole Sodium [Protonix 40mg 40 mg PO DAILY 02/23/21 02/24/21 History tablet] Gabapentin [Neurontin 800mg Tab] 800 mg PO TID 02/24/21 02/24/21 History Height: 1.73 m Weight: 70.42 kg Laboratory Results:: Laboratory Results - last 24 hr 02/25/21 13:40: WBC 10.7 D, RBC 4.34 L, Hgb 13.8 L, Hct 41.1 L, MCV 94.8 H, MCH 31.9 H, MCHC 33.6, RDW 13.1, Plt Count 236 D, MPV 9.0, Neut % (Auto) 81.9 H, Lymph % (Auto) 14.9, Dickey % (Auto) 1.4 L, Eos % (Auto) 1.5, Baso % (Auto) 0.3, Neut # (Auto) 8.7 H, Lymph # (Auto) 1.6, Dickey # (Auto) 0.2, Eos # (Auto) 0.2, Baso # (Auto) 0.0 02/25/21 13:40: Blood Type A Negative, Antibody Screen Negative 02/25/21 14:44: Specimen Source Right radial, O2 % 100% nrb, ABG pH 7.26 L, ABG pCO2 33.6 L, ABG pO2 52.3 L, ABG HCO3 14.6 L, ABG Total CO2 15.7 L, ABG O2 Saturation 82 L*, ABG Base Excess -12.5 L, Mario Test Acceptable 02/25/21 16:19: Specimen Source Left brachial, O2 % 100, ABG pH 7.32 L, ABG pCO2 27.4 L, ABG pO2 80.1, ABG HCO3 13.7 L, ABG Total CO2 14.6 L, ABG O2 Saturation 95, ABG Base Excess -12.4 L, Mario Test Non applicable, Tidal Volume Vapo 20 02/25/21 16:20: Chlamy pneumoniae PCR Not detected, Adenovirus (PCR) Not detected, B. pertussis DNA (PCR) Not detected, Coronavirus OC43 (PCR) Not detected, Co
[2021-02-26 14:18] LABS: Basophils % 0.3 % (0.1-2.0); Eosinophils # 0.1 K/mm3 (0.0-0.4); Eosinophils % 0.7 % (0.1-12.0); Hematocrit 39.1 % (42.0-52.0); Hemoglobin 13.2 g/dL (14.1-18.0); Lymphocytes # 0.9 K/mm3 (0.7-4.5); Lymphocytes % 9.1 % (10-50); Mean Corpuscular HGB Conc 33.8 g/dL (31.8-35.4); Mean Corpuscular Hemoglobin 31.4 pg (27.0-31.2); Mean Corpuscular Volume 92.8 fl (80-94); Monocytes # 0.2 K/mm3 (0.1-1.0); Monocytes % 2.4 % (1.7-9.3); Neutrophils # 8.4 K/mm3 (1.8-7.8); Neutrophils % 87.5 % (37.0-80.0); Platelet Count 164 K/mm3 (142-424); Red Blood Count 4.21 M/mm3 (4.60-6.20); Red Cell Distribution Width 13.3 % (11.5-17.5); White Blood Count 9.6 K/mm3 (4.8-10.8)
[2021-02-26 14:20] LABS: Anion Gap 12.6 mEq/L (5-15); Blood Urea Nitrogen 16 mg/dl (9-20); Calcium 7.2 mg/dl (8.4-10.2); Carbon Dioxide 14 mmol/L (22.0-30.0); Chloride 114 mmol/L (98-107); Creatinine Clearance Estimated 61 mL/min (50-200); Estimated Glomerular Filt Rate 57 ml/min (>60); GFR (African American) 68 ML/MIN (>60); Glucose 112 mg/dl (74-100); Potassium 3.6 mmoL/L (3.5-5.1); Sodium 137 mmol/L (136-145)
[2021-02-26 14:22] LABS: MANUAL DIFFERENTIAL MANUAL DIFFERENTIAL (MANUAL DIFF)
[2021-02-26 14:30] LABS: Lymphocytes % 11 % (10-50); Neutrophils % 79 % (42-76); Platelet Estimate Normal; RBC Morphology Normal; Total Cells Counted 100
[2021-02-26 14:47] LABS: ABG Base Excess -11.4 mmol/L (-2.4-2.3); ABG HCO3 13.5 mmhg (22.0-26.0); ABG Oxygen Saturation 90 % (90-100); ABG PCO2 22.4 mmhg (35.0-45.0); ABG TCO2 14.2 mmhg (23-27)
[2021-02-26 14:48] LABS: Allen's Test Acceptable; Source Left Radial
--- NOTE | 2021-02-26 16:05 | P.PCN_ITS ---
[facility] Procedure Note Procedure Note:: Consulted for tracheal intubation d/t worsening respiratory distress/pneumonia. Discussed plan of care with pt and pt verbalized understanding. See nurse notes for vital signs. Lidocaine 50 mg IV, Propofol 120 mg IV, Succinylcholine 140 mg IV. DVL x1 with Magdaleno 2 blade. Grade 1 view. 7.5 ETT secured at 22 cm at the lip on the right side. + ETCO2, + BBS. Sedation then started.
--- NOTE | 2021-02-26 16:47 | XR_ITS ---
PROCEDURE: XR CHEST PORTABLE CLINICAL HISTORY: confirm et tube placement COMPARISON: CR XR CHEST 2V from 02/10/[address] ANGIO CHEST PE PROTOCOL from 02/25/2021 CR XR CHEST PORTABLE from 02/25/2021 CR XR CHEST PORTABLE from 02/26/2021 FINDINGS: Endotracheal tube has been placed. The tube tip is at the upper T3 level approximately 5 cm superior to the lefty. There is diffuse left-sided pneumonia in the left upper and left lower lobe with patchy infiltrate in the right upper lobe with atelectasis or patchy infiltrate in the right lower lobe. Residual contrast is present within the stomach. No acute bony abnormalities. IMPRESSION: Endotracheal tube tip at the upper T3 level slightly high and could be advanced 1-2 cm. No change in the bilateral pneumonia left more extensive than right. Dictated by: Mario Rome MD 02/26/2021 17:08 Mario Rome MD in [place] 02/26/2021 17:08
[2021-02-26 17:05] LABS: ABG Base Excess -10.7 mmol/L (-2.4-2.3); ABG HCO3 15.3 mmhg (22.0-26.0); ABG Oxygen Saturation 99 % (90-100); ABG PCO2 29.6 mmhg (35.0-45.0); ABG PH 7.33 mmol/L (7.35-7.45); ABG PO2 169.9 mmhg (80-100); ABG TCO2 16.2 mmhg (23-27); Allen's Test Patient Unable; Oxygen 100 %; PEEP 5; Tidal Volume 450; Vent Rate 16
[2021-02-26 17:06] LABS: Source Left Radial
--- NOTE | 2021-02-26 17:25 | XR_ITS ---
PROCEDURE INFORMATION: Exam: XR Chest Exam date and time: 02/26/2021 5:25 PM Age: 61 years old Clinical indication: Device placement; Ng tube; Additional info: Et tube placement/ ng tube placement TECHNIQUE: Imaging protocol: XR of the chest. Views: 1 view. COMPARISON: CR XR CHEST PORTABLE 02/26/2021 4:46 PM FINDINGS: Tubes, catheters and devices: Endotracheal tube remains in good position. Gastric suction tube terminates in the stomach. Contrast material projects over the stomach. Moderate left and mild right infiltrates are present in the lungs. They appear increased from yesterday. Lungs: Moderate left and mild right infiltrates are present in the lungs. They appear increased from yesterday. Pleural spaces: No pneumothorax. Heart/Mediastinum: Unremarkable. No cardiomegaly. Bones/joints: Unremarkable. IMPRESSION: Slight interval worsening of left worse than right infiltrate
--- NOTE | 2021-02-26 20:21 | PC.NURSE ---
PT IS RESTING IN BED. PT HAS BEEN VERY ILL APPEARING T/O THE SHIFT. LEVOPHED DRIP HAS BEEN TITRATED TO KEEP SYSTOLIC PRESSURE >90 T/O THE SHIFT. LUNG SOUNDS HAVE RHONCHI T/O WITH CRACKLES IN THE BILATERAL BASES. RESPIRATIONS MAINTAINED 22-24 UNTIL 1400 THIS AFTERNOON AND PT BECAME MORE LABORED. O2 SATURATION MAINTAINED 93-96% ON VAPOTHERM 20 L WITH 60% FIO2. PT STATED I'M REALLY HAVING MORE TROUBLE BREATHING NOTIFIED SHIRIN AND SHE STATED WANTED A STAT ABG AND WANTED ANESTHESIA NOTIFIED ABOUT INTUBATION. PT STATED HE WAS OKAY WITH BEING INTUBATED. CALLED AT 1515 AND STATED THEY STILL DID NOT HAVE A BED AVAILABLE FOR PT. AT 1600 ANESTHESIA ARRIVED TO THE FLOOR PT WAS SEDATED AND INTUBATED WITH 7.5 ET TUBE 24 AT THE LIP. ORDERS FOR PROPROFOL DRIP WAS GIVEN TITRATED PER PROTOCOL. PROPROFOL DRIP WAS AT THE MAX AT 50 MCG. NOTIFIED PCP VERSED 5 MG IVP WAS ORDERED. PT TOLERATED WELL. LEVOPHED DRIP TITRATED TO KEEP MANUAL PRESSURE >90 DURING CONTINUOUS SEDATION. RADIOLOGY NOTIFIED FOR STAT CXR TO CONFIRM PLACEMENT. 14 FR NG TUBE INSERTED 55 AT THE RT NARE. PT HAS BEEN TURNED AND REPOSITIONED IN BED. ORAL CARE PROVIDED. RECTAL TEMP 100.7. BLANKETS REMOVED. AXILLARY TEMP 98.9. BLE ELEVATED WITH SAMEERA HOSE. NO BREAKDOWN NOTED. CALLED BACK AT 1800 FOR ANOTHER UPDATE AND THEY STATED THAT THEY COULD POSSIBLY HAVE A BED FOR PT TONIGHT BUT WAS UNSURE OF WHAT TIME. REPORT HAND OFF TO JACKIE MARQUEZ RN
--- NOTE | 2021-02-26 22:19 | PC.NURSE ---
[facility] called at 0 and notified that they would have a bed within the hour. They stated the bed just needed to be stat cleaned. No bed number given yet. [id number]-Jacky Childress notified of notification by [facility] of bed number to be given within the hour.
--- NOTE | 2021-02-26 22:44 | PC.NURSE ---
2233-Jeniffer Bashir [facility] called and stated his bed was available in the CCU unit. Call report to [phone]. [phone] called to Lala. Accepting MD is Dr. Alva.
--- NOTE | 2021-02-26 22:55 | PC.NURSE ---
[facility] notified of transfer request
--- NOTE | 2021-02-26 23:46 | PC.NURSE ---
PT WAS TRANSFERRED VIA STRETCHER PER EMS TO DIFFERENT FACILITY AT 2346
== END 2021-02-26 23:46 | disposition short-term general hospital (02) | DRG 208 ==
PROVIDERS: Family Medicine; Nurse Practitioner Family; Physician Assistant; Surgery; Admitting Provider Emergency Medicine; PCP Emergency Medicine; Visit Provider Emergency Medicine
PROC: 0DJ08ZZ Inspection of Upper Intestinal Tract, Via Natural or Artificial Opening Endoscopic (ICD-10-PCS; CPT 43235; principal; 2021-02-25 11:30)
DX: J18.9 Pneumonia, unspecified organism (principal); N17.9 Acute kidney failure, unspecified; K31.5 Obstruction of duodenum; K26.9 Duodenal ulcer, unspecified as acute or chronic, without hemorrhage or perforation; I11.0 Hypertensive heart disease with heart failure; I50.9 Heart failure, unspecified; E78.5 Hyperlipidemia, unspecified; I25.2 Old myocardial infarction; K31.84 Gastroparesis; G35 Multiple sclerosis; Z87.891 Personal history of nicotine dependence; F41.9 Anxiety disorder, unspecified; I25.10 Atherosclerotic heart disease of native coronary artery without angina pectoris
CPT/HCPCS: 43239; 43245; 31500; 94002; 36415; 71045; 71275; 74177; 74246; 74248; 80048; 80053; 82150; 82803; 83605; 83690; 83735; 84436; 84443; 84479; 85007; 85025; 86850; 87040; 87070; 87205; 87581; 87633; 87798; 88305; 93306; 94640; 94760; C1726; G0378; J2704; J3370; Q9967; U0003

== ENCOUNTER → 2021-11-01 15:26 | Outpatient (CLI) | payer MEDICARE, MEDICAID, SELFPAY | PROVIDERS: PCP Emergency Medicine; Visit Provider Internal Medicine | DX: Z01.812 Encounter for preprocedural laboratory examination (principal); Z11.52 Encounter for screening for COVID-19; Z12.11 Encounter for screening for malignant neoplasm of colon | CPT/HCPCS: C9803; U0003; U0005 ==

== ENCOUNTER 2021-11-03 08:57 | Day surgery (SDC) | payer MEDICARE, MEDICAID, SELFPAY ==
[2021-10-27 13:37] VITALS: BMI 23.6
[2021-11-03] VITALS (7 sets, daily range): BP systolic 85–118; BP diastolic 53–78; PULSE 60–82; RESP 18; TEMP 36.4–36.7; O2SAT 94–100
--- NOTE | 2021-11-03 10:06 | HMH.ANESCL ---
[facility] Anesthesia Checklist - Patient Identification Patient Identification: Arm Band - Structural Data Admitted From: Home Planned Operative Procedure/s: Colonoscopy Consent for Planned Operative Procedure(s) Verified: Yes - NPO Status Verified Time NPO: 00:00 - Additional verifications Anesthesia Reactions: No - Airway Assessment C-Spine Mobility Assessed: Yes TMJ Mobility Assessed: Yes Dentition: Good Dentition - Neurological Assessment Level of Consciousness: Awake Hx Seizures: No Numbness or tingling in extremities: No - Anesthesia Plan Anesthesia Risk discussed: Yes Anesthesia Plan: Verified ASA Class: III Anesthesia Type: MAC [facility] History I have reviewed the patient's past medical history: Yes Medical History: Reports:: Anxiety, Congestive Heart Failure, Chronic Obstructive Pulmonary Disease (COPD), Hyperlipidemia, Hypertension, Myocardial Infarction Denies:: Cancer, Diabetes Mellitus Type 1, Diabetes Mellitus Type 2, Internal Pacemaker, MRSA, Seizures *Have you ever received a pneumonia vaccine?: No *Have you received a flu vaccine this season?: Yes Other Medical History: Reports: Anemia Anesthesia experience/problems:: None Laterality Cases: Right: Other Other Surgeries: Yes: No Previous Surgery, Colonoscopy, EGD, Hernia Repair, Other. No: Pacemaker Amputation: No Fractures: Yes (arm fracture at age 8) - *Social History Last grade of school completed: Advanced degree Smoking Status: Former smoker Tobacco Type: cigarettes # Packs/Day (cigarettes): 1 #Yrs smoked (if former smoker): 39 Alcohol Intake: current Alcohol Intake Frequency:: holidays/special occasions only Substance Use Type: denies use *Occupational Status:: retired, disabled Housing: apartment Household Members: none *Travel in the last 8 weeks: None - Psychiatric History Pschychiatric History:: Reports:: Anxiety Family Hx:: Coronary Artery Disease, Stroke
--- NOTE | 2021-11-03 10:43 | HMH.SCOPE ---
- Procedure: Date: 11/03/21 Patient Date of :: 1960 Procedure Performed:: Colonoscopy Indications:: The patient is a 61 year old male who presents today for screening colonoscopy. He has had a recent positive cologuard. Performing Provider:: Umer Junior MD Referring Provider:: Anselmo Lucia MD Sedation:: See RN records Procedure:: After placing the patient in the left lateral decubitus position, the colonoscopy was gently inserted into the rectum and under direct visualization advanced to the descending colon. The quality of the bowel preparation was poor. The procedure was aborted. Findings:: Anal canal: normal Rectum: Poor preparation Sigmoid colon: Poor preparation Descending colon: Poor preparation Splenic flexure: not seen Transverse colon: not seen Hepatic flexure: not seen Ascending colon: not seen Cecum: not seen Recommendations:: Recommend repeat colonoscopy with 2 days clear liquid diet and split dose bowel preparation Complications:: None Estimated blood obtained (mL): 0
== END 2021-11-03 11:46 | disposition home or self-care (01) ==
LOC: OUTP 09:00
PROVIDERS: PCP Emergency Medicine; Visit Provider Internal Medicine
PROC: 0DJD8ZZ Inspection of Lower Intestinal Tract, Via Natural or Artificial Opening Endoscopic (ICD-10-PCS; CPT 45378; principal; 2021-11-03 10:00)
DX: R19.5 Other fecal abnormalities (principal); F41.9 Anxiety disorder, unspecified; J44.9 Chronic obstructive pulmonary disease, unspecified; E78.5 Hyperlipidemia, unspecified; I11.0 Hypertensive heart disease with heart failure; I50.9 Heart failure, unspecified; I25.2 Old myocardial infarction; D64.9 Anemia, unspecified; Z87.891 Personal history of nicotine dependence; Z82.3 Family history of stroke; Z82.49 Family history of ischemic heart disease and other diseases of the circulatory system; Z88.8 Allergy status to other drugs, medicaments and biological substances
CPT/HCPCS: 45330; J2704

== ENCOUNTER → 2021-11-15 16:26 | Outpatient (CLI) | payer MEDICARE, MEDICAID, SELFPAY | PROVIDERS: PCP Emergency Medicine; Visit Provider Internal Medicine | DX: Z01.812 Encounter for preprocedural laboratory examination (principal); Z11.52 Encounter for screening for COVID-19; Z12.11 Encounter for screening for malignant neoplasm of colon | CPT/HCPCS: C9803; U0003; U0005 ==

== ENCOUNTER 2021-11-17 09:59 | Day surgery (SDC) | payer MEDICARE, MEDICAID, SELFPAY ==
[2021-11-11 10:32] VITALS: BMI 23.6
[2021-11-17 10:24] VITALS: BP 104/65; PULSE 76; RESP 18; TEMP 36.6; O2SAT 97
[2021-11-17 11:18] VITALS: O2SAT 97
--- NOTE | 2021-11-17 11:20 | HMH.ANESCL ---
[facility] Anesthesia Checklist - Patient Identification Patient Identification: Arm Band, Verbal (Name & ) - Structural Data Admitted From: Home Planned Operative Procedure/s: Colonoscopy Consent for Planned Operative Procedure(s) Verified: Yes Verified Documents: Surgical Consent - Chart Verification Results Verified: None - Additional verifications Anesthesia Reactions: No - Airway Assessment C-Spine Mobility Assessed: Yes TMJ Mobility Assessed: Yes Dentition: Poor Dentition - Neurological Assessment Level of Consciousness: Awake, Alert, Appropriate - Anesthesia Plan Anesthesia Risk discussed: Yes ASA Class: III Anesthesia Type: MAC [facility] History I have reviewed the patient's past medical history: Yes Medical History: Reports:: Anxiety, Congestive Heart Failure, Chronic Obstructive Pulmonary Disease (COPD), Hyperlipidemia, Hypertension, Myocardial Infarction Denies:: Cancer, Diabetes Mellitus Type 1, Diabetes Mellitus Type 2, Internal Pacemaker, MRSA, Seizures *Have you ever received a pneumonia vaccine?: Yes *Have you received a flu vaccine this season?: Yes Other Medical History: Reports: Anemia Anesthesia experience/problems:: no issues Laterality Cases: Right: Other Other Surgeries: Yes: No Previous Surgery, Colonoscopy, EGD, Hernia Repair, Other. No: Pacemaker Amputation: No Fractures: Yes (arm fracture at age 8 ORIF) - *Social History Last grade of school completed: Advanced degree Smoking Status: Former smoker Tobacco Type: cigarettes # Packs/Day (cigarettes): 1 #Yrs smoked (if former smoker): 39 Alcohol Intake: never Alcohol Intake Frequency:: holidays/special occasions only Substance Use Type: denies use *Occupational Status:: retired, disabled Housing: apartment Household Members: significant other *Travel in the last 8 weeks: None - Psychiatric History Pschychiatric History:: Reports:: Anxiety Family Hx:: Coronary Artery Disease, Stroke
--- NOTE | 2021-11-17 11:44 | P.PCN_ITS ---
- Procedure: Date: 11/17/21 Patient Date of :: 1960 Procedure Performed:: Colonoscopy Indications:: The patient is a 61 year old who presents for colonoscopy. The patient had a positive cologaurd test Performing Provider:: Umer Junior MD Referring Provider:: Jonathan Lucia MD Sedation:: See RN notes Procedure:: After placing the patient in the left lateral decubitus position, the colonoscopy was gently inserted into the rectum and under direct visualization advanced to the cecum which was identified by transillumination in the right low er quadrant, identification of the ileocecal valve, appendiceal orifice, and cecal strap. Color, texture, mucosa, and anatomy of the colon were carefully examined with the scope. Findings:: Anal canal: normal Rectum: Internal hemorrhoids Sigmoid colon: Diverticulosis Descending colon: normal without polyps or inflammatory changes Splenic flexure: normal Transverse colon: normal without polyps or inflammatory changes Hepatic flexure: normal Ascending colon: normal without polyps or inflammatory changes Cecum: normal Terminal ileum: not visualized Tortuous colon suggestive of intraabdominal adhesions Recommendations:: Reassuring examination Recommend repeat colonoscopy in 5 years Complications:: none Estimated blood obtained (mL): 0
[2021-11-17 11:45] VITALS: BP 78/42; PULSE 80; RESP 16; TEMP 36.2; O2SAT 95
--- NOTE | 2021-11-17 11:53 | PC.NURSE ---
anesthesia aware of blood pressure
[2021-11-17 11:55] VITALS: BP 91/53; PULSE 77; RESP 16; O2SAT 94
[2021-11-17 12:05] VITALS: BP 116/56; PULSE 78; RESP 16; O2SAT 95
[2021-11-17 12:15] VITALS: BP 122/75; PULSE 75; RESP 16; TEMP 36.2; O2SAT 96
== END 2021-11-17 12:15 | disposition home or self-care (01) ==
LOC: OUTP 10:01
PROVIDERS: PCP Emergency Medicine; Visit Provider Internal Medicine
PROC: 0DJD8ZZ Inspection of Lower Intestinal Tract, Via Natural or Artificial Opening Endoscopic (ICD-10-PCS; CPT 45378; principal; 2021-11-17 11:00)
DX: R19.5 Other fecal abnormalities (principal); K64.9 Unspecified hemorrhoids; K56.2 Volvulus; F41.9 Anxiety disorder, unspecified; I11.0 Hypertensive heart disease with heart failure; J44.9 Chronic obstructive pulmonary disease, unspecified; E78.5 Hyperlipidemia, unspecified; I50.9 Heart failure, unspecified; I25.2 Old myocardial infarction; D64.9 Anemia, unspecified; Z79.899 Other long term (current) drug therapy; Z87.891 Personal history of nicotine dependence; Z82.3 Family history of stroke; Z88.8 Allergy status to other drugs, medicaments and biological substances
CPT/HCPCS: 45378

== ENCOUNTER 2022-11-26 19:51 | Emergency (ER) | payer MEDICARE, MEDICAID, SELFPAY ==
[2022-11-26 19:52] VITALS: BP 127/90; PULSE 115; RESP 16; TEMP 36.9; O2SAT 97; BMI 23.6
[2022-11-26 19:57] VITALS: BP 127/90; PULSE 118; O2SAT 97
--- NOTE | 2022-11-26 19:59 | HMH.EDFALL ---
Discharge Plan Disposition Patient Disposition: Home, Self-Care Prescriptions Prescriptions: No Action tadalafil [Cialis] 2.5 mg tablet 2.5 mg PO DAILY PRN (Reason: sexual activity) Qty: 30 1RF Rx Instructions: administer approximately 30min before sexual activity; do not use more than 1 dose per 24hrs potassium chloride 20 mEq tablet,ER particles/crystals 20 meq PO DAILY Qty: 90 1RF albuterol sulfate 90 mcg/actuation HFA aerosol inhaler 2 puff INHALATION QIDP PRN (Reason: Shortness Of Breath Or Wheezing) Qty: 8.5 2RF hydrochlorothiazide 25 mg tablet 25 mg PO DAILY Qty: 90 2RF atorvastatin 10 mg tablet See Rx Instructions .ROUTE .COMPLEX Qty: 30 0RF Dose Instruction: TAKE ONE TABLET BY MOUTH AT BEDTIME FOR CHOLESTEROL Rx Instructions: TAKE ONE TABLET BY MOUTH AT BEDTIME FOR CHOLESTEROL bisoprolol fumarate 5 mg tablet See Rx Instructions .ROUTE .COMPLEX Qty: 30 0RF Dose Instruction: TAKE ONE TABLET BY MOUTH ONCE A DAY Rx Instructions: TAKE ONE TABLET BY MOUTH ONCE A DAY quetiapine 300 mg tablet See Rx Instructions .ROUTE .COMPLEX Qty: 180 3RF Dose Instruction: TAKE TWO TABLETS BY MOUTH AT BEDTIME FOR MOOD Rx Instructions: TAKE TWO TABLETS BY MOUTH AT BEDTIME FOR MOOD gabapentin 800 mg tablet 800 mg PO TID Qty: 90 0RF hydrocodone-acetaminophen 5-325 mg tablet 1 tab PO QID Qty: 120 0RF polyethylene glycol 3350 119 GM powder 17 g PO DAILY fluticasone furoate-vilanterol 1 EACH blister with device 1 inh INHALATION DAILYP PRN (Reason: asthma) calcium carbonate 500 MG tablet 500 mg PO DAILY tqsgikpk-uro-nupkk-vit K-lycop 1 EACH tablet 1 each PO DAILY furosemide 40 MG tablet 40 mg PO DAILY venlafaxine 75 MG capsule,extended release 24hr 75 mg PO DAILY midodrine 5 MG tablet 5 mg PO TID Rx Instructions: do not give last dose of day after 6PM or within 4 hrs of bedtime sumatriptan succinate 50 MG tablet See Rx Instructions .Route .COMPLEX Rx Instructions: TAKE 1 TABLET BY MOUTH AT ONSET OF MIGRAINE, THEN MAY REPEAT 1 TIME IN 2 HOURS IF NO RELIEF. MAX OF 2 IN 24 HOURS. carbamazepine 200 MG tablet extended release 12 hr See Rx Instructions .Route .COMPLEX Rx Instructions: TAKE ONE TABLET BY MOUTH ONCE A DAY pantoprazole 40 MG tablet,delayed release (DR/EC) See Rx Instructions .Route .COMPLEX Rx Instructions: TAKE ONE TABLET BY MOUTH ONCE A DAY metoprolol tartrate 25 MG tablet 25 mg PO BID magnesium citrate 296 ML solution 150 ml PO DAILY Rx Instructions: see bowel prep for complete instructions Referrals Follow up/Referrals: Jonathan Lucia MD [Primary Care Provider] - See instructions Bunny Stiles MD [Referring] - 7-14 days (Left radial neck fracture needs follow-up) Activity Restrictions/Add. Instructions Additional Instructions/Restrictions: You can take mqmw-hba-oriwqsc Tylenol for your pain. Follow-up with your primary care doctor in about 3 to 4 days. Follow-up with the orthopedist as instructed within the next week or so. Keep the arm elevated. Avoid getting the splint that you have wet. Return to the emergency department immediately if you feel worse in any way. You received morphine in the emergency department today. Please do not drive or operate any heavy machinery until tomorrow. Clinical Impressions Clinical Impression: Fracture of elbow Instructions Patient Instructions: DI for Elbow Fracture Discharge ED Provider: [facility] General Chief Complaint: Fall Stated Complaint: AO 11/25 Left arm and leg pain Time Seen by Provider: 11/26/22 20:03 Mode of Arrival: Family Vehicle Source of Information: Patient and Relative Limitations: No Limitations History of Present Illness complaint: fall Related Data Home Medications Medication Instructions Recorded Confirmed calcium
--- NOTE | 2022-11-26 20:06 | XR_ITS ---
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 Views: 3 or more views. COMPARISON: CR XR FOREARM LT 2V 11/26/2022 8:08 PM FINDINGS: Bones/joints: Evaluation is limited by positioning. Subtle transversely oriented radial neck fracture. Soft tissues: Suspect joint effusion. IMPRESSION: Subtle transversely oriented radial neck fracture.
--- NOTE | 2022-11-26 20:06 | XR_ITS ---
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 Views: 3 or more views. COMPARISON: No relevant prior studies available. FINDINGS: Bones/joints: Normal. Soft tissues: Normal. IMPRESSION: No acute findings.
--- NOTE | 2022-11-26 20:06 | XR_ITS ---
PROCEDURE INFORMATION: Exam: XR Left Hip Exam date and time: 11/26/2022 8:12 PM Age: 62 years old Clinical indication: Injury or trauma; Fall; Additional info: Fall/injury TECHNIQUE: Imaging protocol: Radiologic exam of the left hip. Views: 2 or 3 views hip with pelvis when performed. COMPARISON: CT ABDOMEN PELVIS W CON 02/25/2021 5:04 PM FINDINGS: Bones/joints: Unremarkable. No acute fracture. Soft tissues: Unremarkable. IMPRESSION: No acute findings.
--- NOTE | 2022-11-26 20:06 | XR_ITS ---
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 Views: 2 views. COMPARISON: CR XR WRIST LT MIN 3V 11/26/2022 8:07 PM FINDINGS: Bones/joints: Normal. Soft tissues: Normal. IMPRESSION: No acute findings.
--- NOTE | 2022-11-26 20:15 | PC.NURSE ---
Pt gone to RAD via wheelchair
--- NOTE | 2022-11-26 20:25 | PC.NURSE ---
Pt back from RAD
--- NOTE | 2022-11-26 20:52 | PC.NURSE ---
Dr. Hernández at updating pt/visitor of results
--- NOTE | 2022-11-26 21:00 | PC.NURSE ---
preparing to place a posterior splint to L arm, materials at bedside
[2022-11-26 21:16] VITALS: BP 120/72; PULSE 90; RESP 17; TEMP 36.9; O2SAT 99
== END 2022-11-26 21:20 | disposition home or self-care (01) ==
PROVIDERS: Emergency Provider Student in an Organized Health Care Education/Training Program; PCP Emergency Medicine
DX: S52.132A Displaced fracture of neck of left radius, initial encounter for closed fracture (principal); W01.0XXA Fall on same level from slipping, tripping and stumbling without subsequent striking against object, initial encounter
CPT/HCPCS: 29105; 73080; 73090; 73110; 73502; 96372; 99285

== ENCOUNTER 2022-11-29 18:45 | Inpatient (IN) | payer MEDICARE, MEDICAID, SELFPAY ==
[2022-11-29 18:45] VITALS: BP 133/89; PULSE 109; RESP 18; TEMP 37.3; O2SAT 98; BMI 25.0
--- NOTE | 2022-11-29 18:56 | XR_ITS ---
PROCEDURE INFORMATION: Exam: XR Left Hip Exam date and time: 11/29/2022 7:00 PM Age: 62 years old Clinical indication: Injury or trauma; Fall; Fracture of pelvis & hip; Left; Neck of femur; Closed fracture and not specified TECHNIQUE: Imaging protocol: Radiologic exam of the left hip. Views: 2 or 3 views hip with pelvis when performed. COMPARISON: CR XR HIP LT 2-3V W/PELVIS 11/26/2022 8:12 PM FINDINGS: Bones/joints: Transverse fracture of the left femoral neck with varus angulation. Soft tissues: Unremarkable. IMPRESSION: Transverse fracture of the left femoral neck with varus angulation.
--- NOTE | 2022-11-29 18:56 | XR_ITS ---
PROCEDURE INFORMATION: Exam: XR Left Femur Exam date and time: 11/29/2022 7:02 PM Age: 62 years old Clinical indication: Injury or trauma; Fall; Blunt trauma; Thigh or upper leg; Left TECHNIQUE: Imaging protocol: Radiologic exam of the left femur. Views: 2 views. COMPARISON: CR Hip L 11/29/2022 7:00 PM FINDINGS: Bones/joints: Transverse fracture of the left femoral neck with varus angulation. Soft tissues: Unremarkable. IMPRESSION: Transverse fracture of the left femoral neck with varus angulation.
--- NOTE | 2022-11-29 19:04 | PC.NURSE ---
PT TO XR
--- NOTE | 2022-11-29 19:15 | XR_ITS ---
PROCEDURE INFORMATION: Exam: XR Chest Exam date and time: 11/29/2022 7:10 PM Age: 62 years old Clinical indication: Injury or trauma; Fall; Blunt trauma (contusions or hematomas) TECHNIQUE: Imaging protocol: Radiologic exam of the chest. Views: 1 view. COMPARISON: CR XR CHEST PORTABLE 02/26/2021 5:40 PM FINDINGS: Lungs: Left lower lobe subsegmental opacities compatible with atelectasis. Calcified granulomas of the lung bases unchanged from prior exam. Pleural spaces: Unremarkable. No pleural effusion. No pneumothorax. Heart/Mediastinum: Unremarkable. No cardiomegaly. Bones/joints: Healed fracture of the left lateral 7th rib. IMPRESSION: 1. Healed fracture of the left lateral 7th rib. 2. Left lower lobe subsegmental opacities compatible with atelectasis.
--- NOTE | 2022-11-29 19:16 | CT_ITS ---
PROCEDURE INFORMATION: Exam: CT Left Lower Extremity Without Contrast, Hip Exam date and time: 11/29/2022 7:25 PM Age: 62 years old Clinical indication: Injury or trauma; Fall TECHNIQUE: Imaging protocol: CT of the left lower extremity without contrast was performed. Exam focused on the hip. Radiation optimization: All CT scans at this facility use at least one of these dose optimization techniques: automated exposure control; mA and/or kV adjustment per patient size (includes targeted exams where dose is matched to clinical indication); or iterative reconstruction. REPORTING DATA: Count of CT and Cardiac NM exams in prior 12 months: This patient has received 0 known CTs and 0 known cardiac nuclear medicine studies in the 12 months prior to the current study. COMPARISON: CR Hip L 11/29/2022 7:00 PM FINDINGS: Bones/joints: Transverse fracture of the left femoral neck with varus angulation. Soft tissues: Fat containing left indirect inguinal hernia. IMPRESSION: Transverse fracture of the left femoral neck with varus angulation.
--- NOTE | 2022-11-29 20:16 | ECG_ITS ---
APPROVED REPORT Exam: Resting ECG HR:100 bpm ECG Measurements Heart Rate 100 AXES SD 146 P 74 QRSd 68 QRS 25 QT 342 T 60 QTc 399 Conclusion SINUS TACHYCARDIA LOW QRS VOLTAGE [QRS DEFLECTION < 0.5/1.0 mV IN LIMB/CHEST LEADS] ABNORMAL ECG UNCONFIRMED REPORT Electronically signed by : Foreign Villanueva MD 12/02/2022 14:31:34
--- NOTE | 2022-11-29 20:30 | HMH.EDFALL ---
Discharge Plan Disposition Patient Disposition: Admitted As Inpatient Chief Complaint: Fall Prescriptions Prescriptions: No Action tadalafil [Cialis] 2.5 mg tablet 2.5 mg PO DAILY PRN (Reason: sexual activity) Qty: 30 1RF Rx Instructions: administer approximately 30min before sexual activity; do not use more than 1 dose per 24hrs potassium chloride 20 mEq tablet,ER particles/crystals 20 meq PO DAILY Qty: 90 1RF albuterol sulfate 90 mcg/actuation HFA aerosol inhaler 2 puff INHALATION QIDP PRN (Reason: Shortness Of Breath Or Wheezing) Qty: 8.5 2RF hydrochlorothiazide 25 mg tablet 25 mg PO DAILY Qty: 90 2RF atorvastatin 10 mg tablet See Rx Instructions .ROUTE .COMPLEX Qty: 30 0RF Dose Instruction: TAKE ONE TABLET BY MOUTH AT BEDTIME FOR CHOLESTEROL Rx Instructions: TAKE ONE TABLET BY MOUTH AT BEDTIME FOR CHOLESTEROL bisoprolol fumarate 5 mg tablet See Rx Instructions .ROUTE .COMPLEX Qty: 30 0RF Dose Instruction: TAKE ONE TABLET BY MOUTH ONCE A DAY Rx Instructions: TAKE ONE TABLET BY MOUTH ONCE A DAY quetiapine 300 mg tablet See Rx Instructions .ROUTE .COMPLEX Qty: 180 3RF Dose Instruction: TAKE TWO TABLETS BY MOUTH AT BEDTIME FOR MOOD Rx Instructions: TAKE TWO TABLETS BY MOUTH AT BEDTIME FOR MOOD gabapentin 800 mg tablet 800 mg PO TID Qty: 90 0RF hydrocodone-acetaminophen 5-325 mg tablet 1 tab PO QID Qty: 120 0RF polyethylene glycol 3350 119 GM powder 17 g PO DAILY fluticasone furoate-vilanterol 1 EACH blister with device 1 inh INHALATION DAILYP PRN (Reason: asthma) calcium carbonate 500 MG tablet 500 mg PO DAILY feqzgwtz-guh-qhmxs-vit K-lycop 1 EACH tablet 1 each PO DAILY furosemide 40 MG tablet 40 mg PO DAILY venlafaxine 75 MG capsule,extended release 24hr 75 mg PO DAILY midodrine 5 MG tablet 5 mg PO TID Rx Instructions: do not give last dose of day after 6PM or within 4 hrs of bedtime sumatriptan succinate 50 MG tablet See Rx Instructions .Route .COMPLEX Rx Instructions: TAKE 1 TABLET BY MOUTH AT ONSET OF MIGRAINE, THEN MAY REPEAT 1 TIME IN 2 HOURS IF NO RELIEF. MAX OF 2 IN 24 HOURS. carbamazepine 200 MG tablet extended release 12 hr See Rx Instructions .Route .COMPLEX Rx Instructions: TAKE ONE TABLET BY MOUTH ONCE A DAY pantoprazole 40 MG tablet,delayed release (DR/EC) See Rx Instructions .Route .COMPLEX Rx Instructions: TAKE ONE TABLET BY MOUTH ONCE A DAY metoprolol tartrate 25 MG tablet 25 mg PO BID magnesium citrate 296 ML solution 150 ml PO DAILY Rx Instructions: see bowel prep for complete instructions Clinical Impressions Clinical Impression: Closed hip fracture, Multiple sclerosis Discharge ED Provider: Khari (ED)Jonathan HPI General Chief Complaint: Fall Stated Complaint: hip pain, fall Time Seen by Provider: 11/29/22 20:15 Mode of Arrival: EMS Source of Information: Patient, EMS and Medical Record Limitations: No Limitations Description of Symptoms (Recalled from ER Triage Doc. by RN): PT BROUGHT IN VIA EMS FOR LEFT HIP PAIN. REPORTS WALKING IN KITCHEN AND FELT A POP . PT DID HAVE FALL ON MONDAY AND WAS SEEN, HAS RADIAL FRACTURE. HIP XR NEGATIVE History of Present Illness HPI Narrative: pt with acute lt hip pain after walking - has hx of recent fall with fx elbow - has hx of multiple sclerosis - MD complaint: fall Onset (ago): hour(s) Fall from: walking Fall witnessed: no Place fall occurred: home Loss of consciousness: none Prolonged down time: no Symptoms prior to fall: none Location of injury - extremities: Left: thigh Severity: moderate Associated symptoms (after fall): denies Related Data Home Medications Medication Instructions Recorded Confirmed calcium carbonate 500 mg calcium 500 mg PO DAILY Supplement 08/22/18 05/30/22 (1,250 mg) tablet fluticasone furoat
--- NOTE | 2022-11-29 20:42 | EXP.HP ---
History of Present Illness *Admission Date: 11/29/22 *Reason for visit:: Left Hip pain *History of present illness: Mari Childress is a 62-year-old male with a past medical history of Multiple Sclerosis, HTN, Hyperlipidemia. He presents to [facility] due to left hip pain and the inability to bear weight on the left. He reports that he was seen in the ER at this facility following a fall in the home from ground level on 11/26. He reports hitting his left side following tripping over a rug. He had imaging performed of the Left Upper Extremity and Left Hip on that day that identified a left radial neck fracture. He had splinting placed and was discharged to home, he reports that today he was walking in his home and heard a loud pop in his left hip and was not able to bear weight, so he came back into the ER for evaluation. In the ER, the patient underwent a CT of the hip that showed a transverse fracture of the left femoral neck with varus angulation. The ER Physician spoke with Orthopaedic Surgery who will consult on the case. [facility] Disclaimer: The information contained in this section may have been updated after the patient was seen, as this information can be updated by other users. Medical History (Updated 11/29/22 @ 21:19 by Jonathan Lucia MD (ED)) Hyperlipidemia Hypertension Multiple sclerosis Social History (Updated 11/29/22 @ 23:31 by Refugio Briones RN) Smoking Status: Former smoker pack-years: 39 second hand exposure: No alcohol intake: current substance use type: denies use current occupational status: unemployed and disabled Travel in the last 8 weeks: None household members: none housing: house current occupational exposures/hazards: No caffeine: Yes Review of Systems Review of Systems Review of systems:: pertinent systems reviewed and negative unless documented below Constitutional Constitutional: Reports system reviewed and no additional complaints, except as documented Eyes Eyes: Reports system reviewed and no additional complaints, except as documented ENT Ears, Nose, Mouth, and Throat: Reports system reviewed and no additional complaints, except as documented *Cardiovascular Cardiovascular: Reports system reviewed and no additional complaints, except as documented *Respiratory Respiratory: Reports system reviewed and no additional complaints, except as documented *Gastrointestinal Gastrointestinal: Reports system reviewed and no additional complaints, except as documented *Genitourinary Genitourinary: Reports system reviewed and no additional complaints, except as documented *Musculoskeletal Musculoskeletal: Reports as per HPI, Reports limited range of motion and Reports muscle weakness Integumentary/Breasts Skin/Breast: Reports system reviewed and no additional complaints, except as documented *Neurologic Neurologic: Reports system reviewed and no additional complaints, except as documented Psychiatric Psychiatric: Reports system reviewed and no additional complaints, except as documented Endocrine Endocrine: Reports system reviewed and no additional complaints, except as documented Hematologic/Lymphatic Hematologic/Lymphatic: Reports system reviewed and no additional complaints, except as documented Allergic/Immunologic Allergic/Immunologic: Reports system reviewed and no additional complaints, except as documented Meds Home Medications and Allergies Home Medications Medication Instructions Recorded Confirmed Type agdhohwf-zhjlretr-pnerb acid 400 1 each PO DAILY Supplement 08/22/18 11/30/22 History mcg-vit K 20 mcg-lycop 300 mcg tablet furosemide 40 mg tablet 40 mg PO DAILY Edema 10/27/21 11/30/22 History sumatriptan succinate 50 mg tablet 50 mg PO DIRECTED MIGRAINE 10/27/21 11/30/22 History venlafaxine 75 mg capsule,extended 75 mg PO DAILY Depression 10/27/21 11/30/22 History release 24 hr gabapentin 800 mg tablet 800 mg PO TID Pain #90 tabs
[2022-11-29 21:28] LABS: Coronavirus 19, PCR Not Detected (NotDetected); Influenza A, PCR Not Detected (NotDetected); Influenza B, PCR Not Detected (NotDetected)
--- NOTE | 2022-11-29 21:29 | PC.NURSE ---
COVID swab obtained and sent to lab
[2022-11-29 21:44] LABS: Basophils % 0.2 % (0.1-2.0); Eosinophils % 0.5 % (0.1-12.0); Hematocrit 49.8 % (42.0-52.0); Hemoglobin 15.3 g/dL (14.1-18.0); Lymphocytes # 0.6 K/mm3 (0.7-4.5); Lymphocytes % 8.9 % (10-50); Mean Corpuscular HGB Conc 30.6 g/dL (31.8-35.4); Mean Corpuscular Hemoglobin 32.8 pg (27.0-31.2); Mean Corpuscular Volume 107.1 fl (80-94); Mean Platelet Volume 8.2 fl (7.4-10.4); Monocytes # 0.3 K/mm3 (0.1-1.0); Monocytes % 4.4 % (1.7-9.3); Neutrophils # 5.9 K/mm3 (1.8-7.8); Platelet Count 290 K/mm3 (142-424); Red Blood Count 4.65 M/mm3 (4.60-6.20); Red Cell Distribution Width 13.7 % (11.5-17.5); White Blood Count 6.9 K/mm3 (4.8-10.8)
[2022-11-29 21:45] LABS: Chloride 100 mmol/L (98-107)
[2022-11-29 21:46] LABS: Potassium 3.4 mmoL/L (3.5-5.1); Sodium 135 mmol/L (136-145)
[2022-11-29 21:48] LABS: Alanine Aminotransferase 24 U/L (12-78); Albumin Level 3.2 g/dl (3.5-5.0); Albumin/Globulin Ratio 0.9 (1.1-1.8); Alkaline Phosphatase 181 U/L (38-126); Aspartate Amino Transferase 37 U/L (17-59); Bilirubin,Total 1.5 mg/dl (0.2-1.3); Blood Urea Nitrogen 9 mg/dl (9-20); Creatinine Clearance Estimated 83 mL/min (50-200); Estimated Glomerular Filt Rate 76 ml/min (>60); GFR (African American) 92 ML/MIN (>60); Globulin 3.4 g/dL (1.3-3.2); Total Protein,Serum 6.6 g/dl (6.3-8.2)
[2022-11-29 21:49] LABS: Anion Gap 15.4 mEq/L (5-15); Calcium 8.1 mg/dl (8.4-10.2); Carbon Dioxide 23 mmol/L (22.0-30.0); Glucose 93 mg/dl (74-100)
[2022-11-29 21:52] LABS: MANUAL DIFFERENTIAL MANUAL DIFFERENTIAL (MANUAL DIFF)
--- NOTE | 2022-11-29 22:01 | PC.NURSE ---
Pt assigned to room 203 at this time
[2022-11-29 22:34] LABS: Lymphocytes % 9 % (10-50); Macrocytosis 2+; Monocytes % 4 % (2-9); Neutrophils % 87 % (42-76); Platelet Estimate Normal; Total Cells Counted 100
--- NOTE | 2022-11-29 22:39 | PC.NURSE ---
patient resting quietly and report minimal pain at this, waiting to be transferred to the floor at this time.
[2022-11-29 22:41] VITALS: BP 128/80; PULSE 78; RESP 19; TEMP 36.7; O2SAT 98
--- NOTE | 2022-11-29 22:45 | PC.NURSE ---
PT. ARRIVED TO FLOOR BY BED AT 22:45
[2022-11-29 23:00] VITALS: BP 136/64; PULSE 124; RESP 18; TEMP 37.2; O2SAT 96; BMI 22.1
[2022-11-30] VITALS (21 sets, daily range): BP systolic 102–135; BP diastolic 66–86; PULSE 76–106; RESP 14–20; TEMP 36.3–43; O2SAT 92–99; BMI 22.1; BMI 21.7
--- NOTE | 2022-11-30 02:41 | PC.NURSE ---
Pt is a0x4, turn every 2 hours, 20g R AC SL, Pt. had one instance of emesis this shift and got zofran and morpine for pain. No other issues.
--- NOTE | 2022-11-30 07:32 | ECG_ITS ---
APPROVED REPORT Exam: Resting ECG HR:97 bpm ECG Measurements Heart Rate 97 AXES UT 147 P 68 QRSd 78 QRS 5 QT 362 T 62 QTc 416 Conclusion SINUS RHYTHM LOW QRS VOLTAGE [QRS DEFLECTION < 0.5/1.0 mV IN LIMB/CHEST LEADS] Q waves in inferior leads of questionable significance ABNORMAL ECG UNCONFIRMED REPORT Electronically signed by : Foreign Villanueva MD 12/02/2022 14:27:48
--- NOTE | 2022-11-30 07:33 | EXP.ACUTE.PN ---
Subjective *Date: 11/30/22 *Time: 09:42 Interval history: Having nausea this morning. Afebrile. Pain in left hip that is manageable as long as he does not move. Denies any chest pain or shortness of breath. Stable on room air. Hemodynamically stable. Labs reviewed and normal. Medical Exam Vital signs and Labs for Last 24 Hours: Vital Signs Temp Pulse Pulse Resp BP BP Pulse Ox 11/30/22 07:29 98.4 F 92 H 18 121/77 98 11/30/22 04:00 97.7 F 106 H 18 115/68 95 11/30/22 00:51 99 11/29/22 23:00 98.9 F 124 H 18 136/64 96 11/29/22 22:41 98.0 F 78 19 128/80 11/29/22 18:45 99.1 F 109 H 18 133/89 98 Intake and Output 11/29/22 11/29/22 11/30/22 15:59 23:59 07:59 Intake Total 1000 / 1000 0 / 0 Output Total 300 / 300 Balance 1000 / 1000 -300 / -300 Intake: Intake, Oral Amount 0 / 0 Intake, Total IV Amount 1000 / 1000 Output: Output, Emesis Amount 300 / 300 Other: Number of Unmeasured Emesis 2 Episodes Weight 66.451 kg 66.451 kg Patient Weight 11/30/22 23:59 Weight 66.451 kg Laboratory Results - last 24 hr 11/29/22 21:15: SARS-CoV-2 (PCR) Not detected, Influenza A Untype (PCR) Not detected, Influenza Type B (PCR) Not detected 11/29/22 21:25: WBC 6.9, RBC 4.65, Hgb 15.3, Hct 49.8, MCV 107.1 H, MCH 32.8 H, MCHC 30.6 L, RDW 13.7, Plt Count 290, MPV 8.2, Neut % (Auto) 86.0 H, Lymph % (Auto) 8.9 L, [place] % (Auto) 4.4, Eos % (Auto) 0.5, Baso % (Auto) 0.2, Neut # (Auto) 5.9, Lymph # (Auto) 0.6 L, [place] # (Auto) 0.3, Eos # (Auto) 0.0, Baso # (Auto) 0.0, Total Counted 100, Neutrophils % (Manual) 87 H, Lymphocytes % (Manual) 9 L, Monocytes % (Manual) 4, Platelet Estimate Normal, Macrocytosis 2+ 11/29/22 21:25: Sodium 135 L, Potassium 3.4 L, Chloride 100, Carbon Dioxide 23, Anion Gap 15.4 H, BUN 9, Creatinine 1.00, Estimated Creat Clear 83, Estimated GFR 76, Est GFR ( Amer) 92, Glucose 93, Calcium 8.1 L, Total Bilirubin 1.5 H, AST 37, ALT 24, Alkaline Phosphatase 181 H, Total Protein 6.6, Albumin 3.2 L, Globulin 3.4 H, Albumin/Globulin Ratio 0.9 L I & O for Labs for Last 24 Hours: Intake & Output 11/27/22 11/28/22 11/29/22 11/30/22 23:59 23:59 23:59 23:59 Intake Total 1000 / 1000 0 / 0 Output Total 300 / 300 Balance 1000 / 1000 -300 / -300 Weight 66.451 kg 66.451 kg Constitutional: Present no acute distress, average body habitus and chronically ill appearing Head: Present atraumatic and normocephalic ENT: Present normal exam Neck: Present normal inspection Respiratory: Present normal respiratory effort; Absent rhonchi, wheezes or crackles Cardiac: Present Reg Rate and Rhythm GI: Present soft and normal bowel sounds; Absent distention or tenderness Comment:: Left leg slightly shorter and externally rotated from right leg. Tender over left hip; left arm in brace Skin: Present intact; Absent erythema Neuro: Present Grossly Intact, alert, awake, oriented x 3 and moves all extremities Assessment and Plan *Assessment and plan (1) Fracture of femoral neck, left: Status: Acute Category: Medical Code(s): S72.002A - Fracture of unspecified part of neck of left femur, initial encounter for closed fracture (2) Radial neck fracture: Status: Acute Category: Medical Code(s): S52.133A - Displaced fracture of neck of unspecified radius, initial encounter for closed fracture (3) Multiple sclerosis: Status: Acute Category: Medical Code(s): G35 - Multiple sclerosis (4) Hypertension: Status: Acute Category: Medical Code(s): I10 - Essential (primary) hypertension (5) Hyperlipidemia: Status: Acute Category: Medical Code(s): E78.5 - Hyperlipidemia, unspecified Plan 62-year-old male with past medical history Multiple Sclerosis, HTN, Hyperlipidemia presents due to left hip pain, with recent fall from ground level resulting i left radial neck fracture
[2022-11-30 08:15] LABS: Basophils % 0.2 % (0.1-2.0); Eosinophils % 0.6 % (0.1-12.0); Hematocrit 44.7 % (42.0-52.0); Hemoglobin 14.1 g/dL (14.1-18.0); Lymphocytes # 0.7 K/mm3 (0.7-4.5); Lymphocytes % 11.4 % (10-50); Mean Corpuscular HGB Conc 31.6 g/dL (31.8-35.4); Mean Corpuscular Volume 104.4 fl (80-94); Mean Platelet Volume 8.7 fl (7.4-10.4); Monocytes # 0.3 K/mm3 (0.1-1.0); Monocytes % 4.9 % (1.7-9.3); Neutrophils # 5.2 K/mm3 (1.8-7.8); Neutrophils % 82.8 % (37.0-80.0); Platelet Count 274 K/mm3 (142-424); Red Blood Count 4.28 M/mm3 (4.60-6.20); Red Cell Distribution Width 13.9 % (11.5-17.5); White Blood Count 6.2 K/mm3 (4.8-10.8)
[2022-11-30 09:17] LABS: Chloride 104 mmol/L (98-107); Potassium 3.9 mmoL/L (3.5-5.1); Sodium 134 mmol/L (136-145)
[2022-11-30 09:20] LABS: Anion Gap 15.9 mEq/L (5-15); Blood Urea Nitrogen 10 mg/dl (9-20); Calcium 7.6 mg/dl (8.4-10.2); Carbon Dioxide 18 mmol/L (22.0-30.0); Creatinine Clearance Estimated 74 mL/min (50-200); Estimated Glomerular Filt Rate 76 ml/min (>60); GFR (African American) 92 ML/MIN (>60); Glucose 82 mg/dl (74-100)
--- NOTE | 2022-11-30 09:52 | EXP.ORTH.CON ---
History of Present Illness *Admission Date: 11/29/22 *History of present illness: Mari Childress is a 62-year-old male with a past medical history of Multiple Sclerosis, HTN, Hyperlipidemia. He presents to [facility] due to left hip pain and the inability to bear weight on the left. He reports that he was seen in the ER at this facility following a fall in the home from ground level on 11/26. He reports hitting his left side following tripping over a rug. He had imaging performed of the Left Upper Extremity and Left Hip on that day that identified a left radial neck fracture. He had splinting placed and was discharged to home, he reports that today he was walking in his home and heard a loud pop in his left hip and was not able to bear weight, so he came back into the ER for evaluation. The ER Physician spoke with Orthopaedic Surgery who will consult on the case. [facility] Disclaimer: The information contained in this section may have been updated after the patient was seen, as this information can be updated by other users. Medical History Hyperlipidemia Hypertension Multiple sclerosis Social History Smoking Status: Former smoker pack-years: 39 second hand exposure: No alcohol intake: current substance use type: denies use current occupational status: unemployed and disabled Travel in the last 8 weeks: None household members: none housing: house current occupational exposures/hazards: No caffeine: Yes Review of Systems *Neurologic Neurologic: Reports system reviewed and no additional complaints, except as documented Meds Home Medications and Allergies Home Medications Medication Instructions Recorded Confirmed Type qamlhpjm-rbbcvrbu-ijlie acid 400 1 each PO DAILY Supplement 08/22/18 11/30/22 History mcg-vit K 20 mcg-lycop 300 mcg tablet furosemide 40 mg tablet 40 mg PO DAILY Edema 10/27/21 11/30/22 History sumatriptan succinate 50 mg tablet 50 mg PO DIRECTED MIGRAINE 10/27/21 11/30/22 History venlafaxine 75 mg capsule,extended 75 mg PO DAILY Depression 10/27/21 11/30/22 History release 24 hr gabapentin 800 mg tablet 800 mg PO TID Pain #90 tabs 11/07/22 11/30/22 Rx hydrocodone 5 mg-acetaminophen 325 1 tab PO QID pain #120 tabs 11/07/22 11/30/22 Rx mg tablet atorvastatin 10 mg tablet 10 mg PO HS High cholesterol 11/30/22 11/30/22 History hydrochlorothiazide 25 mg tablet 25 mg PO DAILY Fluid 11/30/22 11/30/22 History quetiapine 300 mg tablet 600 mg PO HS MOOD 11/30/22 11/30/22 History New Prescriptions to Start Prescriptions: Allergies Allergy/AdvReac Type Severity Reaction Status Date / Time varenicline [From Chantix] Allergy Intermediate Vomiting Verified 05/30/22 15:04 Ortho Exam (Inpt) Vital signs and Labs for Last 24 Hours: Temp Pulse Resp BP Pulse Ox 98.4 F 92 H 18 121/77 98 11/30/22 07:29 11/30/22 07:29 11/30/22 07:29 11/30/22 07:29 11/30/22 07:29 Laboratory Results - last 24 hr 11/29/22 21:15: SARS-CoV-2 (PCR) Not detected, Influenza A Untype (PCR) Not detected, Influenza Type B (PCR) Not detected 11/29/22 21:25: WBC 6.9, RBC 4.65, Hgb 15.3, Hct 49.8, MCV 107.1 H, MCH 32.8 H, MCHC 30.6 L, RDW 13.7, Plt Count 290, MPV 8.2, Neut % (Auto) 86.0 H, Lymph % (Auto) 8.9 L, [place] % (Auto) 4.4, Eos % (Auto) 0.5, Baso % (Auto) 0.2, Neut # (Auto) 5.9, Lymph # (Auto) 0.6 L, [place] # (Auto) 0.3, Eos # (Auto) 0.0, Baso # (Auto) 0.0, Total Counted 100, Neutrophils % (Manual) 87 H, Lymphocytes % (Manual) 9 L, Monocytes % (Manual) 4, Platelet Estimate Normal, Macrocytosis 2+ 11/29/22 21:25: Sodium 135 L, Potassium 3.4 L, Chloride 100, Carbon Dioxide 23, Anion Gap 15.4 H, BUN 9, Creatinine 1.00, Estimated Creat Clear 83, Estimated GFR 76, Est GFR ( Amer) 92, Glucose 93, Calcium 8.1 L, Total Bilirubin 1.5 H, AST 37, ALT 24, Alkaline Phosphatase
--- NOTE | 2022-11-30 10:37 | HMH.PHAINT1 ---
Pharmacy Intervention Comments: MEDICATION RECONCILIATION COMPLETED ON PATIENT USING EXTERNAL FILL HISTORY FROM PHARMACY AND LIST FROM [facility]. -GERARD SANCHEZD
[2022-11-30 14:29] LABS: Basophils % 0.2 % (0.1-2.0); Eosinophils % 0.1 % (0.1-12.0); Hematocrit 46.4 % (42.0-52.0); Hemoglobin 14.8 g/dL (14.1-18.0); Lymphocytes # 0.9 K/mm3 (0.7-4.5); Lymphocytes % 10.8 % (10-50); Mean Corpuscular HGB Conc 31.8 g/dL (31.8-35.4); Mean Corpuscular Hemoglobin 33.3 pg (27.0-31.2); Mean Corpuscular Volume 104.8 fl (80-94); Mean Platelet Volume 8.2 fl (7.4-10.4); Monocytes # 0.5 K/mm3 (0.1-1.0); Monocytes % 5.2 % (1.7-9.3); Neutrophils # 7.1 K/mm3 (1.8-7.8); Neutrophils % 83.5 % (37.0-80.0); Platelet Count 350 K/mm3 (142-424); Red Blood Count 4.42 M/mm3 (4.60-6.20); Red Cell Distribution Width 13.8 % (11.5-17.5); White Blood Count 8.5 K/mm3 (4.8-10.8)
--- NOTE | 2022-11-30 16:07 | PC.NURSE ---
PT IS OFF THE FLOOR FOR SURGERY AT THIS TIME. ALERT AND ORIENTED X4. PT WAS MEDICATED PER MAR FOR NAUSEA/VOMITING AND PAIN. EMESIS WAS NOTED TO BE DARK BROWNISH/RED. PROTONIX WAS ADDED TO PT'S REGIMEN. LUNG SOUNDS CLEAR. ABDOMEN SOFT/ROUND/NON TENDER (HERNIA NOTED). TENDERNESS NOTED AT THE LEFT HIP. SCATTERED BRUISING. ABRASION NOTED TO THE FOREHEAD. SPLINT NOTED TO LUE.
--- NOTE | 2022-11-30 16:24 | EXP.ANES.CKL ---
[facility] Disclaimer: The information contained in this section may have been updated after the patient was seen, as this information can be updated by other users. Medical History Hyperlipidemia Hypertension Multiple sclerosis Social History Smoking Status: Former smoker pack-years: 39 second hand exposure: No alcohol intake: current substance use type: denies use current occupational status: unemployed and disabled Travel in the last 8 weeks: None household members: none housing: house current occupational exposures/hazards: No caffeine: Yes [facility] Anesthesia Checklist Patient Identification Patient Identification: Arm Band Structural Data Admitted From: Inpatient Planned Operative Procedure/s: Left Hip Hemiarthroplasty Consent for Planned Operative Procedure(s) Verified: Yes Verified Documents: Surgical Consent and History and Physical NPO Status Verified Time NPO: 00:00 Additional verifications Anesthesia Reactions: No Airway Assessment C-Spine Mobility Assessed: Yes TMJ Mobility Assessed: Yes Neurological Assessment Level of Consciousness: Awake and Alert Anesthesia Plan Anesthesia Risk discussed: Yes Anesthesia Plan: Verified ASA Class: III Anesthesia Type: General Preoperative Comments Pre-Operative Comments: Pt had EGD 2 years ago when he aspirated requiring mechanical ventilation. He ultimately required have part of his stomach surgically removed. Pt was very nervous about aspiration during this procedure. I discussed the risk of aspiration with him and explained our anesthesia plan of GA with ETT.
--- NOTE | 2022-11-30 17:06 | P.OP_ITS ---
Date of procedure: 11/30/22 Pre-op Diagnosis:: Left hip displaced femoral neck fracture Post-op Diagnosis:: Same Procedure performed:: Hemiarthroplasty left hip Surgeon:: Aime Stiles DO [employer]URAL [employer]OURCES INSTRUCTOR:: Mickey Christy Anesthesia: GETA Estimated blood loss (mL): 150 Operative findings:: Size 14 DePuy hip stem none collared press-fit with 49 mm bipolar head Operative note:: Patient is identified preoperatively left hip marked with yes my initials. Taken the operating suite placed upon the operating bed general anesthesia was administered airway secured then placed in a lateral position with the hip galvez. Left hip was then prepped and draped in normal sterile fashion. Once prepped and draped final operative timeout performed to identify proper patient procedure and extremity. Everyone involved the case agreed. Is no counter indication beginning. Did receive preoperative antibiotics with Ancef. Marking pen was used to yobani plan incision over the lateral hip. Skin knife is used to incise through skin and the IT band was split in line with the femur. Charnley retractor was placed and the hip bursa was excised. A standard anterior lateral modified Hardinge approach was utilized with abductor split to expose the fracture site. Fracture hematoma seen and evacuated. The capsule was split in a T-type fashion. Cleanup cut on the femoral neck was performed. Femoral head was removed from the acetabulum and sized to a size 49. Acetabulum was then cleaned. Leg was brought anteriorly in the bag femoral neck elevator was placed metal box maker and lateralizing canal finder was utilized initial lateralizing broach was utilized. And then the press-fit broaching system was used from size [address] up to size 14. 14 gave a good snug fit and fill within the canal. Broach trial was removed copious irrigation was performed and the final 14 chylous stem was impacted into place. Size 49 bipolar head was then assembled and impacted into place and the hip was taken into traction and internal rotation to reduce the hip. Hip was taken through range of motion found to be stable. Copious irrigation wound performed. Capsule was closed with 0 Vicryl stitch. Abductor repair was performed with #5 Ethibond. IT band closed with a running #1 strata fix. Deep layers closed with 0 Vicryl subcutaneous with 2-0 Vicryl and surgical clips in the skin for closure. Sterile dressing placed. Patient placed in a wedge pillow and taken to recovery in stable condition. Condition: stable Disposition: PACU Complications:: None apparent
--- NOTE | 2022-11-30 17:14 | XR_ITS ---
PROCEDURE INFORMATION: Exam: XR Pelvis Exam date and time: 11/30/2022 6:18 PM Age: 62 years old Clinical indication: Device placement; Other: Total left hip hemiarthroplasty; Additional info: S/P left hip hemiarthroplaty TECHNIQUE: Imaging protocol: Radiologic exam of the pelvis. Views: 1 or 2 view. COMPARISON: CR Hip L 11/29/2022 7:00 PM FINDINGS: Bones/joints: Postsurgical changes to the left hip with hemiarthroplasty hardware in place. Soft tissues: Skin closure clark overlie left lateral soft tissues. IMPRESSION: Postsurgical changes to the left hip with hemiarthroplasty hardware in place. Skin closure clark overlie left lateral soft tissues.
--- NOTE | 2022-11-30 17:14 | EXP.ANES.I ---
[facility] Anesthesia Record Part I Anesthesia Record I Intake, IV Amount: 1,400 Estimated blood loss (mL): 150 Urine output (mL): 500 Blood Products used (#): none Blood Pressure: 123/83 SaO2: 99 Pulse Rate: 85 Respiratory Rate: 16 Temperature: 97.6 F Patient is:: Drowsy and Stable Stable to PACU at:: 17:10
--- NOTE | 2022-11-30 17:25 | SUR.OPER ---
500 ml fabiola colored emptied from f/c
[2022-12-01] VITALS (8 sets, daily range): BP systolic 107–140; BP diastolic 59–85; PULSE 79–127; RESP 16–20; TEMP 36.3–37.8; O2SAT 95–99; BMI 21.8
[2022-12-01 07:28] LABS: Basophils % 0.2 % (0.1-2.0); Eosinophils # 0.1 K/mm3 (0.0-0.4); Eosinophils % 0.8 % (0.1-12.0); Lymphocytes # 0.9 K/mm3 (0.7-4.5); Lymphocytes % 11.6 % (10-50); Mean Corpuscular HGB Conc 32.5 g/dL (31.8-35.4); Mean Corpuscular Hemoglobin 33.9 pg (27.0-31.2); Mean Corpuscular Volume 104.3 fl (80-94); Monocytes # 0.6 K/mm3 (0.1-1.0); Monocytes % 7.6 % (1.7-9.3); Neutrophils # 6.1 K/mm3 (1.8-7.8); Neutrophils % 79.8 % (37.0-80.0); Platelet Count 291 K/mm3 (142-424); Red Blood Count 3.93 M/mm3 (4.60-6.20); Red Cell Distribution Width 13.7 % (11.5-17.5); White Blood Count 7.7 K/mm3 (4.8-10.8)
[2022-12-01 07:29] LABS: Hemoglobin 13.3 g/dL (14.1-18.0)
[2022-12-01 07:36] LABS: Chloride 106 mmol/L (98-107)
[2022-12-01 07:37] LABS: Potassium 4.4 mmoL/L (3.5-5.1); Sodium 134 mmol/L (136-145)
[2022-12-01 07:39] LABS: Alanine Aminotransferase 20 U/L (12-78); Alkaline Phosphatase 112 U/L (38-126); Anion Gap 9.4 mEq/L (5-15); Aspartate Amino Transferase 46 U/L (17-59); Bilirubin,Total 1.2 mg/dl (0.2-1.3); Blood Urea Nitrogen 12 mg/dl (9-20); Carbon Dioxide 23 mmol/L (22.0-30.0); Creatinine Clearance Estimated 74 mL/min (50-200); Estimated Glomerular Filt Rate 76 ml/min (>60); GFR (African American) 92 ML/MIN (>60)
[2022-12-01 07:40] LABS: Albumin Level 2.3 g/dl (3.5-5.0); Albumin/Globulin Ratio 0.8 (1.1-1.8); Calcium 7.4 mg/dl (8.4-10.2); Globulin 2.8 g/dL (1.3-3.2); Glucose 138 mg/dl (74-100); Magnesium 1.8 mg/dl (1.6-2.3); Total Protein,Serum 5.1 g/dl (6.3-8.2)
--- NOTE | 2022-12-01 08:19 | EXP.ANES.II ---
[facility] Anesthesia Record Part II Anesthesia Record Part II Discharge Time: 17:40 Destination: Medical Surgical Department PACU nurse assessment reviewed?: Yes Patient Condition:: Good Anesthesia Complications:: None Swallowing reflex intact?: Yes Cyanosis?: No Blood Pressure: 127/74 Pulse Rate: 79 Temperature: 97.4 F Mental Status: Alert & Oriented Pain level:: 9 Nausea and/or vomitting:: None Intake, IV Amount: 0
--- NOTE | 2022-12-01 08:55 | EXP.ORTH.PN ---
Subjective *Date: 12/01/22 *Time: 17:20 Interval history: Mr. Childress is a 62-year-old male patient who underwent a left hip hemiarthroplasty performed by Dr. Stiles yesterday 11/30/2022. Today the patient is postop day #1. This morning the patient is lying in bed and physical therapy/Occupational Therapy is present at the bedside. He reports left hip pain as to be expected. He reports that he ate breakfast this morning and denies any episodes of nausea or vomiting. No history of any distal tingling/numbness, fevers, chills, or rigors. He has not yet attempted to ambulate. He denies any other symptoms or concerns at this time. Ortho Exam (Inpt) Vital signs and Labs for Last 24 Hours: Temp Pulse Resp BP Pulse Ox 97.4 F L 79 20 127/74 98 12/01/22 08:20 12/01/22 08:20 12/01/22 07:24 12/01/22 08:20 12/01/22 07:24 Laboratory Results - last 24 hr 11/30/22 07:55: Sodium 134 L, Potassium 3.9, Chloride 104, Carbon Dioxide 18 L, Anion Gap 15.9 H, BUN 10, Creatinine 1.00, Estimated Creat Clear 74, Estimated GFR 76, Est GFR ( Amer) 92, Glucose 82, Calcium 7.6 L 11/30/22 13:52: WBC 8.5 D, RBC 4.42 L, Hgb 14.8, Hct 46.4, MCV 104.8 H, MCH 33.3 H, MCHC 31.8, RDW 13.8, Plt Count 350 D, MPV 8.2, Neut % (Auto) 83.5 H, Lymph % (Auto) 10.8, [place] % (Auto) 5.2, Eos % (Auto) 0.1, Baso % (Auto) 0.2, Neut # (Auto) 7.1, Lymph # (Auto) 0.9, [place] # (Auto) 0.5, Eos # (Auto) 0.0, Baso # (Auto) 0.0 12/01/22 07:10: WBC 7.7, RBC 3.93 L, Hgb 13.3 L D, Hct 41.0 L, MCV 104.3 H, MCH 33.9 H, MCHC 32.5, RDW 13.7, Plt Count 291, MPV 9.0, Neut % (Auto) 79.8, Lymph % (Auto) 11.6, [place] % (Auto) 7.6, Eos % (Auto) 0.8, Baso % (Auto) 0.2, Neut # (Auto) 6.1, Lymph # (Auto) 0.9, [place] # (Auto) 0.6, Eos # (Auto) 0.1, Baso # (Auto) 0.0 12/01/22 07:10: Sodium 134 L, Potassium 4.4, Chloride 106, Carbon Dioxide 23, Anion Gap 9.4, BUN 12, Creatinine 1.00, Estimated Creat Clear 74, Estimated GFR 76, Est GFR ( Amer) 92, Glucose 138 H D, Calcium 7.4 L, Magnesium 1.8, Total Bilirubin 1.2, AST 46, ALT 20, Alkaline Phosphatase 112, Total Protein 5.1 L, Albumin 2.3 L D, Globulin 2.8, Albumin/Globulin Ratio 0.8 L I & O for Labs for Last 24 Hours: Intake & Output 11/28/22 11/29/22 11/30/22 12/01/22 23:59 23:59 23:59 23:59 Intake Total 1000 / 1000 1400 / 1500 340 / 340 Output Total 300 / 300 200 / 200 Balance 1000 / 1000 1100 / 1200 140 / 140 Weight 146 lb 8 oz 146 lb 7.955 oz 147 lb 6 oz Head: Present normocephalic and atraumatic Eyes: Present as per HPI ENT: Present normal exam Neck: Present normal inspection, full ROM and trachea midline; Absent lymphadenopathy Respiratory: Present normal respiratory effort, able to speak in complete sentences and symmetric chest movement; Absent accessory muscle use Cardiac: Present Reg Rate and Rhythm GI: Present soft; Absent tenderness Comment:: Upon examination of the left arm: Long-arm splint is in place, clean, dry, intact Distal neurovascular status grossly intact; fingers appear pink, warm, well-perfused Sensation light touch is grossly intact Patient is actively mobilizing the fingers Upon examination of the left hip: The limb lengths are grossly symmetrical Dressings present over the left hip are clean, dry, and intact Attempted movements of the left hip are painful Thigh and calf are soft nontender; Homans' sign is negative. No clinical evidence of DVT or compartment syndrome noted. Distal neurovascular status is grossly intact; sensation light touch is grossly intact Patient is actively mobilizing the foot, ankle, toes Diagnostic imaging: Postoperative x-ray performed at [facility] on 11/30/2022 reviewed along with radiologist report. X-ray of the left hip demonstrates a left hip hemiarthroplasty with orthopedic components in satisfactory alignment and fixation. No evidence of orthopedic complications noted. Radiologist report is as follows: FINDINGS: Bones/joints: Postsurgical changes to the
--- NOTE | 2022-12-01 12:02 | EXP.ACUTE.PN ---
Subjective *Date: 12/01/22 *Time: 12:02 Interval history: Patient remained afebrile overnight. Blood pressure stable. Tolerating pain regimen with fair control. No further nausea or vomiting overnight. Stable on room air. Tolerating p.o. intake. Has not had a bowel movement since before admission Medical Exam Vital signs and Labs for Last 24 Hours: Vital Signs Temp Pulse Pulse Resp BP BP Pulse Ox 12/01/22 11:02 100.0 F H 118 H 18 117/77 97 12/01/22 07:24 97.9 F 127 H 20 107/72 L 98 12/01/22 04:00 98.9 F 100 H 16 113/77 96 12/01/22 00:35 89 16 115/81 95 11/30/22 23:35 85 18 106/79 L 92 L 11/30/22 22:35 86 16 103/69 L 97 11/30/22 21:35 87 16 102/70 L 97 11/30/22 20:47 76 18 113/68 96 11/30/22 20:05 79 18 118/66 98 11/30/22 19:35 89 18 117/74 97 12/01/22 00:00 98.2 F 91 H 16 109/59 L 97 11/30/22 19:05 81 16 135/78 96 11/30/22 18:35 85 20 119/76 97 11/30/22 18:20 85 16 128/80 96 11/30/22 18:05 98.2 F 88 16 116/77 96 11/30/22 17:50 98.3 F 83 18 116/76 98 11/30/22 17:40 79 16 127/74 97 11/30/22 17:30 85 16 123/77 99 11/30/22 17:20 82 16 130/86 98 11/30/22 17:10 97.4 F L 87 14 123/83 97 12/01/22 08:20 97.4 F L 79 127/74 11/30/22 17:15 97.6 F 85 16 123/83 Intake and Output 11/30/22 12/01/22 12/01/22 23:59 07:59 15:59 Intake Total 1400 / 1500 340 / 340 0 / 340 Output Total 0 / 300 200 / 200 0 / 200 Balance 1400 / 1200 140 / 140 0 / 140 Intake: Intake, Oral Amount 240 / 240 Intake, Total IV Amount 1400 / 1500 100 / 100 0 / 100 Cefazolin Sodium 1 gm In 0.9 % 100 / 100 Sodium Chloride 50 ml @ 100 mls /hr IV Q6H [facility] Rx#:[id number] Output: Output, Urine Amount 0 / 0 200 / 200 0 / 200 Other: Number of Unmeasured Voids 0 0 0 Weight 66.848 kg Patient Weight 12/01/22 23:59 Weight 66.848 kg Laboratory Results - last 24 hr 11/30/22 13:52: WBC 8.5 D, RBC 4.42 L, Hgb 14.8, Hct 46.4, MCV 104.8 H, MCH 33.3 H, MCHC 31.8, RDW 13.8, Plt Count 350 D, MPV 8.2, Neut % (Auto) 83.5 H, Lymph % (Auto) 10.8, [place] % (Auto) 5.2, Eos % (Auto) 0.1, Baso % (Auto) 0.2, Neut # (Auto) 7.1, Lymph # (Auto) 0.9, [place] # (Auto) 0.5, Eos # (Auto) 0.0, Baso # (Auto) 0.0 12/01/22 07:10: WBC 7.7, RBC 3.93 L, Hgb 13.3 L D, Hct 41.0 L, MCV 104.3 H, MCH 33.9 H, MCHC 32.5, RDW 13.7, Plt Count 291, MPV 9.0, Neut % (Auto) 79.8, Lymph % (Auto) 11.6, [place] % (Auto) 7.6, Eos % (Auto) 0.8, Baso % (Auto) 0.2, Neut # (Auto) 6.1, Lymph # (Auto) 0.9, [place] # (Auto) 0.6, Eos # (Auto) 0.1, Baso # (Auto) 0.0 12/01/22 07:10: Sodium 134 L, Potassium 4.4, Chloride 106, Carbon Dioxide 23, Anion Gap 9.4, BUN 12, Creatinine 1.00, Estimated Creat Clear 74, Estimated GFR 76, Est GFR ( Amer) 92, Glucose 138 H D, Calcium 7.4 L, Magnesium 1.8, Total Bilirubin 1.2, AST 46, ALT 20, Alkaline Phosphatase 112, Total Protein 5.1 L, Albumin 2.3 L D, Globulin 2.8, Albumin/Globulin Ratio 0.8 L I & O for Labs for Last 24 Hours: Intake & Output 11/28/22 11/29/22 11/30/22 12/01/22 23:59 23:59 23:59 23:59 Intake Total 1000 / 1000 1400 / 1500 340 / 340 Output Total 300 / 300 200 / 200 Balance 1000 / 1000 1100 / 1200 140 / 140 Weight 66.451 kg 66.45 kg 66.848 kg Constitutional: Present no acute distress, average body habitus and chronically ill appearing Head: Present atraumatic and normocephalic ENT: Present normal exam Neck: Present normal inspection Respiratory: Present normal respiratory effort; Absent rhonchi, wheezes or crackles Cardiac: Present Reg Rate and Rhythm GI: Present soft and normal bowel sounds; Absent distention or tenderness Comment:: Right leg normal, left upper extremity in bandage, neurovascularly intact in hand. Left lower leg equal length the right today. Tender over left hip. Surgical dressing clean dry and intact Skin: Present intact; Absent ara
--- NOTE | 2022-12-01 14:10 | HMH.PTEV ---
Physical Therapy Evaluation Rehab PT IP Evaluation Start: 11/30/22 17:12 Freq: ONCE Status: Active Protocol: Document 12/01/22 14:03 PHORNE (Rec: 12/01/22 14:10 PHORNE [id number]) Subjective/History History History 62 yowm adm to [facility] after ground level fall at home with resulting L hip fx, now S/P L hip SAINZ. He also suffered a L radial neck fx with splint in place. Pt continues to c/o significant pain, but shows no outward signs of distress. He reports he lives with significant other without steps to enter the home and is generally independent with all mobility without an AD. Subjective Subjective Pt c/o pain with even light touch to the L LE, but did agree to mobility assessment after significant encouragement. Rehab PT IP Eval Objective Appearance Patient Behavior Suspicious Patient Orientation Person,Place,Time Difficulty following instructions none Speech Pattern Clear Ambulation Patient Able to Ambulate Yes Ambulation Observation IP General Gait Pattern Observation Antalgic Gait,Shuffling Step, Decrease Stride Lngth (R), Decrease Stride Lngth (L) Ambulation Distance (feet) 2 Ambulation Assistive Device None Ambulation Ability Moderate x 2 (50% assist) Balance Ability to Arise Able, uses arms to help Sitting Balance Steady, safe Standing Balance Unsteady Dynamic Sitting Balance Ability Fair Dynamic Standing Balance Ability Poor Transfers Bed Transfer Ability Moderate x 2 (50% assist) Chair Transfer Ability Moderate x 2 (50% assist) Sit to Stand Bed Transfer Ability Moderate x 2 (50% assist) Sit to Stand Chair Transfer Ability Moderate x 2 (50% assist) ROM All Extremities PT ROM Status WFL Abnormal ROM Comment except L LE and L elbow NT MMT All Extremities PT MMT WFL Abnormal MMT Grade except L LE and L elbow NT Rehab PT IP prob,goals,plan Problems Date of Evaluation: 12/01/22 PT IP Problems Bed Mobility,Transfers,Gait, Self care,Safety Rehab Potential Rehab Potential Fair Plan PT Intervention Plan Bed Mobility,Transfers,Gait,
--- NOTE | 2022-12-01 14:40 | SW/DCPLANNER ---
Addendum entered by Chyna Pennington 12/02/22 10:55: Mariana w/ [facility] stated that she is still waiting for insurance approval for SNF level of care. Original Note: I spoke with this patient regarding plans once medically stable for discharge. Patient resides at home alone in [place]. PT evaluated patient and recommended SNF level of care at time of discharge. Patient requested [place]: currently no beds available. Patient is agreeable to [facility] and patient information has been faxed.
--- NOTE | 2022-12-01 15:50 | HMH.OTEV ---
OT Inpatient Evaluation Rehab OT IP Evaluation Start: 12/01/22 08:06 Freq: ONCE Status: Active Protocol: [facility] (Rec: 12/01/22 15:49 [facility] [id number]) Rehab OT IP Assessment Subjective History 62 [address]ow[address] adm to [facility] after ground level fall at home with resulting L hip fx, now S/P L hip SAINZ. He also suffered a L radial neck fx with splint in place. Pt continues to c/o significant pain, but shows no outward signs of distress. He reports he lives with significant other and claims to be independent with all ADLs and IADLS. He still drives and transfers without an AD. Subjective Pt required significant amount of encouragement to engage in therapy evaluation. You have to move slow! Objective Patient Orientation Person,Place,Birthday Upper Extremity Gross ROM Mod Limitation 50% Shoulder ROM Limitations Pain Elbow ROM Limitations Pain Wrist Limitations of Range of Motion Pain Bed Mobility bed mobility-scooting,bed mobility - supine/sit,bed mobility - rolling Assist Level Moderate x 2 (50% assist) Transfer Training Sit/Stand/Pivot Transfer Assist Level Moderate x 2 (50% assist) Chair Transfer Ability Moderate x 2 (50% assist) Chair Transfer Technique Stand Step Pivot Chair Transfer Assistive Devices None Rehab OT IP prob,goals,plan Problems Date of Evaluation: 12/01/22 OT IP Problems Bed Mobility,Transfers,Balance ,Self care,Safety Rehab Potential Rehab Potential Good Equipment Needs Assistive Devices Platform Walker Plan OT intervention Plan Bed Mobility,Transfers,Balance ,Self care,Safety,Therapeutic Exercise OT Plan Frequency BID Duration LOS Discharge Goals Bed Mobility Ability Assistance x1 Sit to Stand Chair Transfer Ability Minimal x 2 (25% assist) Chair Transfer Ability Minimal x 2 (25% assist) Chair Transfer Technique Stand Step Pivot Chair Transfer Assistive Devices Platform Walker Feeding Ability Assist with Tray Set Up Lower Body Dressing Ability
--- NOTE | 2022-12-01 16:51 | PC.NURSE ---
PT IS RESTING IN BED. ALERT AND ORIENTED X4. PT PARTICIPATED WITH PHYSICAL THERAPY THIS AFTERNOON. PT SLEPT FROM 0900 TILL 1330 THIS SHIFT. MEDICATED PER OCT FOR DISCOMFORT. DRESSING TO THE LEFT HIP C/D/I. SPLINT NOTED TO LUE. PT WAS A 2 ASSIST TO GET OOB THIS SHIFT. TOLERATED SITTING UP IN THE CHAIR FOR 30 MIN AND REQUESTED FOR NURSING STAFF TO PUT HIM BACK TO BED. SCATTERED BRUISING NOTED. WILL CONTINUE TO MONITOR.
--- NOTE | 2022-12-01 17:20 | P.PN_ITS ---
Subjective *Date: 12/01/22 *Time: 17:20 Interval history: Patient doing reasonly well. Pain is controlled medications. The plan is for him to spend a short period of time in acute rehab. Ortho Exam (Inpt) Vital signs and Labs for Last 24 Hours: Temp Pulse Resp BP Pulse Ox 97.3 F L 119 H 18 120/84 98 12/01/22 15:13 12/01/22 15:13 12/01/22 15:13 12/01/22 15:13 12/01/22 15:13 Laboratory Results - last 24 hr 12/01/22 07:10: WBC 7.7, RBC 3.93 L, Hgb 13.3 L D, Hct 41.0 L, MCV 104.3 H, MCH 33.9 H, MCHC 32.5, RDW 13.7, Plt Count 291, MPV 9.0, Neut % (Auto) 79.8, Lymph % (Auto) 11.6, Alexander % (Auto) 7.6, Eos % (Auto) 0.8, Baso % (Auto) 0.2, Neut # (Auto) 6.1, Lymph # (Auto) 0.9, Alexander # (Auto) 0.6, Eos # (Auto) 0.1, Baso # (Auto) 0.0 12/01/22 07:10: Sodium 134 L, Potassium 4.4, Chloride 106, Carbon Dioxide 23, Anion Gap 9.4, BUN 12, Creatinine 1.00, Estimated Creat Clear 74, Estimated GFR 76, Est GFR ( Amer) 92, Glucose 138 H D, Calcium 7.4 L, Magnesium 1.8, Total Bilirubin 1.2, AST 46, ALT 20, Alkaline Phosphatase 112, Total Protein 5.1 L, Albumin 2.3 L D, Globulin 2.8, Albumin/Globulin Ratio 0.8 L I & O for Labs for Last 24 Hours: Intake & Output 11/28/22 11/29/22 11/30/22 12/01/22 23:59 23:59 23:59 23:59 Intake Total 1000 / 1000 1400 / 1500 820 / 820 Output Total 300 / 300 450 / 450 Balance 1000 / 1000 1100 / 1200 370 / 370 Weight 146 lb 8 oz 146 lb 7.955 oz 147 lb 6 oz Additional findings:: Left hip dressing clean dry and intact Assessment and Plan *Assessment and plan (1) Fracture of femoral neck, left: Problem Comment: Status post hemiarthroplasty Status: Acute Category: Medical Code(s): S72.002A - Fracture of unspecified part of neck of left femur, initial encounter for closed fracture Plan Patient can progress with physical therapy tomorrow. Stable from an orthopedic standpoint to progress to [facility] for continued rehabilitation if that is the current plan with the insurance. Return to clinic postoperative day 21 for staple removal. Can return to the clinic earlier if discharged from rehabilitation. He is weightbearing as tolerated. In regards to his left elbow the splint was removed. The nondisplaced fracture is nonoperative in nature. Continue use of sling and Victor Manuel bandage wrap as needed. Okay to leave it unwrapped while resting. Follow-up with orthopedics upon discharge as above.
[2022-12-02] VITALS: BP 116/72; PULSE 121; RESP 18; TEMP 37.9; O2SAT 92
--- NOTE | 2022-12-02 00:31 | PC.NURSE ---
MAS REMOVED AT 1700. PATIENT HAS NOT VOIDED. NO SUPRAPUBIC DISCOMFORT. PATIENT SAYS HE DOES NOT HAVE TO VOID- DOES NOT FEEL LIKE IT. WILL MONITOR . HAS LARGE MIDLINE HERNIA AND DIFFICULT TO PALPATE BLADDER.
--- NOTE | 2022-12-02 01:12 | PC.NURSE ---
PATIENT RUNNING LOW GRADE TEMP. HAS NOT VOIDED SINCE MAS REMOVED AT 1345 BY CHART AND 1500 BY SHIFT REPORT. IMAN LEIVA NOTIFIED. DOES NOT WANT TO CATH PATIENT YET. WILL CATH IN AM IF HAS NOT VOIDED BY THEN.
[2022-12-02 04:00] VITALS: BP 131/74; PULSE 118; RESP 18; TEMP 37.4; O2SAT 93; BMI 21.8
--- NOTE | 2022-12-02 05:02 | PC.NURSE ---
IMAN LEIVA NOTIFIED OF NO VOID. INSTRUCTED TO DO BLADDER SCAN.
--- NOTE | 2022-12-02 05:12 | PC.NURSE ---
BLADDER SCAN 400 ML. ABBIE VALERIO NOTIFIED. ORDER TO I/O CATH AND SEND U/A.
--- NOTE | 2022-12-02 05:25 | PC.NURSE ---
PATIENT REFUSES TO HAVE I/O CATH. WANTS TO TRY TO USE URINAL. HAS AGREED IF HE IS UNABLE THEN HE WILL ALLOW I/O CATH.
--- NOTE | 2022-12-02 05:55 | PC.NURSE ---
IN/OUT CATH PERFORMED, 400 ML CONCENTRATED CLEAR YELLOW URINE RETURNED. U/A SENT
[2022-12-02 05:57] LABS: Microscopic, Urine URINE MICROSCOPIC (MICROSCOPIC)
[2022-12-02 06:13] LABS: Appearance,Urine CLEAR (Clear); Blood, Urine Negative (Negative); Color,Urine DK YELLOW (Yellow); Glucose,Urine (UA) Negative (Negative); Ketones,Urine TRACE (Negative); Leukocyte Esterase,Urine TRACE (Negative); Nitrate,Urine Negative (Negative); PH,Urine 6.5 (5.0-8.5); Protein,Urine TRACE (Negative); Specific Gravity, Urine 1.015 (1.005-1.030)
[2022-12-02 06:17] LABS: Bilirubin,Urine 1+ (Negative)
--- NOTE | 2022-12-02 06:26 | PC.NURSE ---
REQUESTING PAIN MEDICATION. RATES PAIN 8/. MEDICATED WITH OXYCODONE 5 MG PO. PATIENT SAYS OXYCODONE DOES NOT HELP HIM HE HAS BEEN ON IT FOR A LONG TIME. INSTRUCTED PATIENT TO AT LEAST EAT BREAKFAST BEFORE MORE PAIN MEDS.
[2022-12-02 06:36] LABS: Bacteria,Urine Trace /lpf; Squamous Epithelial Cell,Urine Occasional #/hpf (0-5)
[2022-12-02 06:40] LABS: Basophils % 0.1 % (0.1-2.0); Eosinophils # 0.1 K/mm3 (0.0-0.4); Lymphocytes # 0.9 K/mm3 (0.7-4.5); Mean Platelet Volume 8.7 fl (7.4-10.4); Monocytes # 0.6 K/mm3 (0.1-1.0); Neutrophils # 6.8 K/mm3 (1.8-7.8)
[2022-12-02 06:42] LABS: Eosinophils % 1.3 % (0.1-12.0); Hematocrit 37.2 % (42.0-52.0); Lymphocytes % 10.6 % (10-50); Mean Corpuscular HGB Conc 32.1 g/dL (31.8-35.4); Mean Corpuscular Hemoglobin 33.5 pg (27.0-31.2); Mean Corpuscular Volume 104.6 fl (80-94); Monocytes % 7.4 % (1.7-9.3); Neutrophils % 80.5 % (37.0-80.0); Platelet Count 230 K/mm3 (142-424); Red Blood Count 3.56 M/mm3 (4.60-6.20); Red Cell Distribution Width 13.7 % (11.5-17.5); White Blood Count 8.4 K/mm3 (4.8-10.8)
[2022-12-02 06:43] LABS: Hemoglobin 11.9 g/dL (14.1-18.0)
[2022-12-02 06:54] LABS: Chloride 100 mmol/L (98-107)
[2022-12-02 06:55] LABS: Potassium 3.9 mmoL/L (3.5-5.1); Sodium 130 mmol/L (136-145)
[2022-12-02 06:57] LABS: Alanine Aminotransferase 13 U/L (12-78); Alkaline Phosphatase 107 U/L (38-126); Aspartate Amino Transferase 33 U/L (17-59); Bilirubin,Total 1.5 mg/dl (0.2-1.3); Blood Urea Nitrogen 15 mg/dl (9-20); Creatinine Clearance Estimated 67 mL/min (50-200); Estimated Glomerular Filt Rate 68 ml/min (>60); GFR (African American) 83 ML/MIN (>60)
[2022-12-02 06:58] LABS: Albumin Level 2.2 g/dl (3.5-5.0); Albumin/Globulin Ratio 0.8 (1.1-1.8); Anion Gap 10.9 mEq/L (5-15); Calcium 7.4 mg/dl (8.4-10.2); Carbon Dioxide 23 mmol/L (22.0-30.0); Globulin 2.7 g/dL (1.3-3.2); Glucose 96 mg/dl (74-100); Total Protein,Serum 4.9 g/dl (6.3-8.2)
--- NOTE | 2022-12-02 07:38 | EXP.DC.SUM ---
General Admission date:: 11/29/22 Discharge date: 12/02/22 HPI HPI HPI: Mari Childress is a 62-year-old male with a past medical history of Multiple Sclerosis, HTN, Hyperlipidemia. He presents to [facility] due to left hip pain and the inability to bear weight on the left. He reports that he was seen in the ER at this facility following a fall in the home from ground level on 11/26. He reports hitting his left side following tripping over a rug. He had imaging performed of the Left Upper Extremity and Left Hip on that day that identified a left radial neck fracture. He had splinting placed and was discharged to home, he reports that today he was walking in his home and heard a loud pop in his left hip and was not able to bear weight, so he came back into the ER for evaluation. The ER Physician spoke with Orthopaedic Surgery who will consult on the case. Hospital Course Hospital Course Hospital Course: 62-year-old male with past medical history Multiple Sclerosis, HTN, Hyperlipidemia presents due to left hip pain, with recent fall from ground level resulting in left radial neck fracture. Status post surgery on 11/30. Tolerated well. Awaiting placement, graciously excepted by [facility]. Patient stable for discharge for rehab. Problems addressed as follows: - Fracture of Femoral Neck,? Postop day 1 Orthopedics consulted, appreciate their recommendations.? Tolerated surgery 11/30, status post left hip hemiarthroplasty, also with left radial neck fracture being treated conservatively. Continue DVT prophylaxis with 325 mg aspirin p.o. twice daily for 6 weeks.? Continue rest, ice, pain medication as needed.? Follow-up 2 weeks after discharge with orthopedics. Pain regimen transition to oral therapy. Tolerating well. Participating with PT/OT. Patient excepted to [facility] for further therapy to improve mobility before going home. - Radial Neck Fracture In splinting, conservative management. Oral pain regimen in conjunction with hip fracture - Nausea and vomiting, resolved Present on admission, suspect secondary to pain. Improved with treatment. Continue pantoprazole for GERD component at discharge. Continue pantoprazole IV 40 mg night - Multiple Sclerosis: Complicates his care, no home meds documented at this time. - Hypertension: Stable at this time, holding diuretics during admission, resume at discharge - Hyperlipidemia: Continue Statin Stable for discharge to senior living for further therapy and rehab. Exam Data for Last 24 hours Vital signs and Labs for Last 24 Hours: Temp Pulse Resp BP Pulse Ox 99.3 F 118 H 18 131/74 93 L 12/02/22 04:00 12/02/22 04:00 12/02/22 04:00 12/02/22 04:00 12/02/22 04:00 Laboratory Results - last 24 hr 12/01/22 07:10: Sodium 134 L, Potassium 4.4, Chloride 106, Carbon Dioxide 23, Anion Gap 9.4, BUN 12, Creatinine 1.00, Estimated Creat Clear 74, Estimated GFR 76, Est GFR ( Amer) 92, Glucose 138 H D, Calcium 7.4 L, Magnesium 1.8, Total Bilirubin 1.2, AST 46, ALT 20, Alkaline Phosphatase 112, Total Protein 5.1 L, Albumin 2.3 L D, Globulin 2.8, Albumin/Globulin Ratio 0.8 L 12/02/22 05:50: Urine Color Dk yellow, Urine Appearance Clear, Urine pH 6.5, Ur Specific [place] 1.015, Urine Protein Trace, Urine Glucose (UA) Negative, Urine Ketones Trace, Urine Blood Negative, Urine Nitrate Negative, Urine Bilirubin 1+ A, Urine Urobilinogen 2.0, Ur Leukocyte Esterase Trace, Urine RBC None, Urine WBC 3-5, Ur Squamous Epith Cells Occasional, Urine Bacteria Trace 12/02/22 06:30: Sodium 130 L, Potassium 3.9, Chloride 100, Carbon Dioxide 23, Anion Gap 10.9, BUN 15, Creatinine 1.10, Estimated Creat Clear 67, Estimated GFR 68, Est GFR ( Amer) 83, Glucose 96 D, Calcium 7.4 L, Total Bilirubin 1.5 H, AST 33 D, ALT 13 D, Alkaline Phosphatase 107, Total Protein 4.9 L, Albumin 2.2 L, Globulin 2.7, Albumin/Globulin Ratio 0.8 L 12/02/22 06:30: WBC 8.4
[2022-12-02 07:50] VITALS: O2SAT 98
[2022-12-02 08:00] VITALS: BP 126/77; PULSE 127; RESP 18; TEMP 36.4; O2SAT 97
--- NOTE | 2022-12-02 09:52 | DIET.NUTRFU ---
Patient has no noted BM since admit, provider aware her was given miralax yesterday and Senokot in place. He is on pain meds post sx which can cause constipation. He is tolerating regular diet with fair meal intake at 50%. Possibly placement upon discharge for rehab.
[2022-12-02 12:00] VITALS: BP 132/84; PULSE 115; RESP 20; TEMP 36.3; O2SAT 98
[2022-12-02 16:00] VITALS: BP 134/71; PULSE 116; RESP 22; TEMP 36.8; O2SAT 100
--- NOTE | 2022-12-05 14:13 | CARE MANAGER ---
Contacted [facility] and they state patient is doing well. YOLIS Davenport
== END 2022-12-02 18:35 | DRG 522 ==
LOC: ER 21:19 → 2ND 22:16
PROVIDERS: Nurse Practitioner Family; Orthopaedic Surgery; Admitting Provider Internal Medicine Adolescent Medicine; Emergency Provider Emergency Medicine; PCP Emergency Medicine; Visit Provider Internal Medicine Adolescent Medicine
PROC: 0SRS0JZ Replacement of Left Hip Joint, Femoral Surface with Synthetic Substitute, Open Approach (ICD-10-PCS; principal; 2022-11-30 13:15)
DX: S72.092A Other fracture of head and neck of left femur, initial encounter for closed fracture (principal); G35 Multiple sclerosis; I10 Essential (primary) hypertension; W18.30XA Fall on same level, unspecified, initial encounter; E78.5 Hyperlipidemia, unspecified; Z87.891 Personal history of nicotine dependence; S52.132A Displaced fracture of neck of left radius, initial encounter for closed fracture; R11.2 Nausea with vomiting, unspecified
CPT/HCPCS: 27236; 29105; 36415; 71045; 72170; 73080; 73090; 73110; 73502; 73552; 73700; 80048; 80053; 81001; 83735; 85007; 85025; 87086; 93005; 96372; 97116; 97163; 97166; 97530; 99285; C1776; C9803; J0330; J2405; U0003; U0005

== ENCOUNTER → 2022-12-15 11:21 | Outpatient (CLI) | payer MEDICARE, SELFPAY ==
--- NOTE | 2022-12-15 11:53 | XR_ITS ---
FINAL REPORT CLINICAL HISTORY: left hip fx COMPARISON: 11/29/2022 FINDINGS: LEFT HIP: Two views of the left hip demonstrate left hip prosthesis. Overlying skin clark are noted. No acute fracture. The visualized bony structures are well aligned. No soft tissue abnormality is seen. IMPRESSION: Postoperative changes with no acute bony abnormality. Reviewed, Interpreted and Dictated by Ritesh Aguilar MD Transcribed by Kelly Mcdonald Authenticated and . [facility]
== END ==
PROVIDERS: PCP Emergency Medicine; Visit Provider Orthopaedic Surgery
DX: M25.552 Pain in left hip (principal); S72.002A Fracture of unspecified part of neck of left femur, initial encounter for closed fracture
CPT/HCPCS: 73502

== ENCOUNTER 2023-03-19 20:42 | Emergency (ER) | payer MEDICARE, SELFPAY ==
[2023-03-19 20:42] VITALS: BP 96/75; PULSE 104; RESP 16; TEMP 36.6; O2SAT 98; BMI 21.2
[2023-03-19 21:30] VITALS: BP 106/69; PULSE 110; O2SAT 100
[2023-03-19 22:00] VITALS: BP 122/76; PULSE 108; O2SAT 99
--- NOTE | 2023-03-19 22:06 | CT_ITS ---
PROCEDURE INFORMATION: Exam: CT Head Without Contrast Exam date and time: 03/19/2023 10:59 PM Age: 63 years old Clinical indication: Injury or trauma; Fall; Other: Laceration back of head, clark put in; Additional info: Fall, posterior head trauma TECHNIQUE: Imaging protocol: Computed tomography of the head without contrast. Radiation optimization: All CT scans at this facility use at least one of these dose optimization techniques: automated exposure control; mA and/or kV adjustment per patient size (includes targeted exams where dose is matched to clinical indication); or iterative reconstruction. REPORTING DATA: Count of CT and Cardiac NM exams in prior 12 months: This patient has received [address] and 0 known cardiac nuclear medicine studies in the 12 months prior to the current study. COMPARISON: [facility] MRI-BRAIN W/WO 10/03/2016 1:16 PM FINDINGS: Brain: There is age related atrophy. No hemorrhage. There is moderate periventricular white matter hypodensity consistent with chronic small vessel disease. No mass effect. Cerebral ventricles: No ventriculomegaly. Paranasal sinuses: Visualized sinuses are unremarkable. No fluid levels. Mastoid air cells: Visualized mastoid air cells are well aerated. Orbital cavities: The orbital contents are symmetric and normal. Bones/joints: Unremarkable. No acute fracture. Soft tissues: Right posterior parietal scalp wound clark near the midline. IMPRESSION: No intracranial hemorrhage, mass or acute ischemia.
--- NOTE | 2023-03-19 22:06 | CT_ITS ---
PROCEDURE INFORMATION: Exam: CT Cervical Spine Without Contrast Exam date and time: 03/19/2023 11:02 PM Age: 63 years old Clinical indication: Injury or trauma; Fall; Sprain or strain, cervical ligaments; Additional info: Fall, head trauma TECHNIQUE: Imaging protocol: Computed tomography of the cervical spine without contrast. Radiation optimization: All CT scans at this facility use at least one of these dose optimization techniques: automated exposure control; mA and/or kV adjustment per patient size (includes targeted exams where dose is matched to clinical indication); or iterative reconstruction. REPORTING DATA: Count of CT and Cardiac NM exams in prior 12 months: This patient has received [address] and 0 known cardiac nuclear medicine studies in the 12 months prior to the current study. COMPARISON: [facility] MRI-C-SPINE W/WO 10/03/2016 1:16 PM FINDINGS: Bones/joints: No acute fracture. Normal alignment. Focal disc protrusion at C3-C4 measuring approximally 6 x 6 x 8 mm in AP by transverse by longitudinal dimensions. This appears slightly more prominent than on the MR examination from 10/03/2016. Moderate degenerative disc disease at C5-C6 and C6-C7. No severe spinal canal stenosis. Yxzx-pz-pntrnamg facet arthropathy. Bilateral foraminal stenosis at C6-C7. Lungs: Emphysematous changes are noted at the lung apices. Soft tissues: Unremarkable. IMPRESSION: 1. No acute cervical spine fracture. 2. Focal disc protrusion at C3-C4, more prominent than on the MR examination from 2016, causing mild central canal stenosis. Further evaluation with MR imaging could be performed as clinically indicated.
[2023-03-19 22:30] VITALS: BP 112/75; PULSE 106; O2SAT 99
--- NOTE | 2023-03-19 22:39 | PC.NURSE ---
checked on pt nothing needed adjusted light, at bs
--- NOTE | 2023-03-19 22:54 | PC.NURSE ---
pt gone to ct
[2023-03-19 23:30] VITALS: BP 113/81; PULSE 105; RESP 18; O2SAT 98
--- NOTE | 2023-03-19 23:55 | HMH.EDGENADL ---
Discharge Plan Disposition Patient Disposition: Home, Self-Care Chief Complaint: Fall Prescriptions Prescriptions: No Action cephalexin 500 mg capsule 500 mg PO TID Qty: 30 0RF gabapentin 800 mg tablet 800 mg PO TID Qty: 90 1RF oxycodone-acetaminophen [Percocet] 10-325 mg tablet 1 tab PO QID Qty: 120 0RF albuterol sulfate 90 mcg/actuation HFA aerosol inhaler 1 inh inhalation QID Qty: 8.5 2RF oxycodone 10 mg tablet 10 mg PO QID PRN (Reason: pain) Qty: 120 0RF quetiapine 300 mg tablet 600 mg PO HS ergocalciferol (vitamin D2) 1,250 mcg (50,000 unit) Capsule 50,000 unit PO WEEKLY 30 Days Qty: 0 0RF sennosides-docusate sodium [Stool Softener-Stimulant Laxat] 8.6-50 mg Tablet 1 tab PO BID Qty: 0 0RF rotzjzad-jvx-psvie-vit K-lycop 1 EACH tablet 1 each PO DAILY venlafaxine 75 MG capsule,extended release 24hr 75 mg PO DAILY Referrals Follow up/Referrals: Jonathan Lucia MD [Primary Care Provider] - See instructions Clinical Impressions Clinical Impression: Blunt head trauma Qualifiers: Encounter type: initial encounter Qualified Code(s): S09.8XXA - Other specified injuries of head, initial encounter Laceration of occipital scalp Qualifiers: Encounter type: initial encounter Qualified Code(s): S01.01XA - Laceration without foreign body of scalp, initial encounter Discharge ED Provider: Matt Abraham General Adult HPI General Chief complaint: Fall Stated complaint: Fall Time Seen by Provider: 03/19/23 20:49 Mode of Arrival: Ambulatory Source of Information: Patient Limitations: No Limitations Description of Symptoms (Recalled from ER Triage Doc. by RN): pt states was walking up ramp and tripped over feet and fell and hit back of head. pt denies loc History of Present Illness HPI narrative: Is a 63-year-old male with history of MS presenting with head trauma. Patient states that he was walking up a ramp when he tripped, twisted and hit the back of his head on concrete. Did not lose consciousness. Was able to get up and ambulate after that. No neck or back pain. No vision changes, neurologic deficits, or any other complaints. Mild pain at the site. Related Data Home Medications Medication Instructions Recorded Confirmed shmhrdnv-djevyizc-dwkxo acid 400 1 each PO DAILY Supplement 08/22/18 01/26/23 mcg-vit K 20 mcg-lycop 300 mcg tablet venlafaxine 75 mg capsule,extended 75 mg PO DAILY Depression 10/27/21 01/26/23 release 24 hr quetiapine 300 mg tablet 600 mg PO HS sleep/mood 11/30/22 01/26/23 Previous Rx's Medication Instructions Recorded ergocalciferol (vitamin D2) 1,250 50,000 unit PO WEEKLY 30 days #0 12/02/22 mcg (50,000 unit) capsule caps sennosides 8.6 mg-docusate sodium 1 tab PO BID #0 tabs 12/02/22 50 mg tablet (Stool Softener-Stimulant Laxative) cephalexin 500 mg capsule 500 mg PO TID #30 caps 01/24/23 gabapentin 800 mg tablet 800 mg PO TID Pain #90 tabs 01/24/23 oxycodone-acetaminophen 10 mg-325 1 tab PO QID #120 tabs 01/24/23 mg tablet (Percocet) albuterol sulfate 90 mcg/actuation 1 inh inhalation QID #8.5 grams 02/03/23 aerosol inhaler oxycodone 10 mg tablet 10 mg PO QID PRN pain #120 tabs 03/08/23 Allergies Allergy/AdvReac Type Severity Reaction Status Date / Time varenicline [From Chantix] Allergy Intermediate Vomiting Verified 01/26/23 11:44 [facility] Disclaimer: The information contained in this section may have been updated after the patient was seen, as this information can be updated by other users. Medical History Hyperlipidemia Hypertension Multiple sclerosis Social History Smoking Status: Former smoker pack-years: 39 second hand exposure: No alcohol intake: current substance use type: denies use current occupational status: unemployed and disabled Travel in the last 8 weeks
[2023-03-20 00:19] VITALS: BP 113/81; PULSE 105; RESP 18; TEMP 36.6; O2SAT 98
== END 2023-03-20 01:10 | disposition home or self-care (01) ==
PROVIDERS: Emergency Provider Emergency Medicine; PCP Emergency Medicine
DX: S01.01XA Laceration without foreign body of scalp, initial encounter (principal); W10.2XXA Fall (on)(from) incline, initial encounter; G35 Multiple sclerosis; I10 Essential (primary) hypertension; E78.5 Hyperlipidemia, unspecified; Z87.891 Personal history of nicotine dependence
CPT/HCPCS: 12001; 70450; 72125; 99285

== ENCOUNTER 2023-04-18 09:01 | Inpatient (IN) | payer MEDICARE, SELFPAY ==
[2023-04-18] VITALS (18 sets, daily range): BP systolic 90–113; BP diastolic 63–96; PULSE 69–113; RESP 15–20; TEMP 36.4–37.2; O2SAT 93–98; BMI 20.5; BMI 20.4; BMI 18.7
--- NOTE | 2023-04-18 09:27 | CT_ITS ---
FINAL REPORT CLINICAL HISTORY: jaundice, 25 lb unintentional wt loss FINDINGS: Axial images were obtained from the lung apex to the mid abdomen by computed tomography after the administration of IV contrast. Coronal reformatted images were obtained. This study was performed with techniques to keep radiation doses as low as reasonably achievable, (ALARA). Individualized dose reduction techniques using automated exposure control or adjustment of mA and/or kV according to the patient's size were employed. There is no axillary mass. There are several borderline size mediastinal lymph nodes. Heart size is normal. There is no pericardial or pleural effusion. There are moderate changes of emphysema with mild scarring. There are bilateral pulmonary groundglass opacities. There is left pleural thickening. Images through the upper abdomen demonstrate postoperative change of the stomach. There is severe fatty infiltration of the visualized liver. There are several chronic bilateral rib fractures. IMPRESSION: Bilateral pulmonary groundglass opacities may represent edema or alveolitis. Atypical pneumonia is felt less likely. Reviewed, Interpreted and Dictated by Pablo Sow III, MD Transcribed by Benigno Connell Authenticated and [facility]
--- NOTE | 2023-04-18 09:27 | CT_ITS ---
FINAL REPORT TECHNIQUE: After the administration of oral and intravenous contrast, axial images were obtained through the abdomen and pelvis by computed tomography. The study was performed with techniques to keep radiation dose as low as reasonably achievable, (ALARA). Individual dose reduction techniques using automated exposure control or adjustment of mA and/or kV according to the patient's size were employed. CLINICAL HISTORY: jaundice, 25 lb unintentional wt loss FINDINGS: Abdomen: There is left pleural thickening. There is severe fatty infiltration of the liver. There is mild nonspecific gallbladder wall thickening. The spleen is unremarkable. The adrenals are normal. The pancreas is unremarkable. There are postoperative changes in the stomach. Bilateral renal cysts are identified. The aorta is normal in caliber. There is no adenopathy. There is a supraumbilical hernia containing multiple nonobstructed bowel loops. There is a small amount of ascites in the abdomen and pelvis. Pelvis: The appendix is normal. The urinary bladder is unremarkable. There is no adenopathy. Streak artifact is seen from left hip arthroplasty. IMPRESSION: Nonspecific gallbladder wall thickening. Severe fatty liver. Small amount of abdominal and pelvic ascites. Reviewed, Interpreted and Dictated by Pablo Sow III, MD Transcribed by Amisha Luo Authenticated and [facility]
--- NOTE | 2023-04-18 09:29 | HMH.EDGENADL ---
Discharge Plan Disposition Patient Disposition: Admitted Chief Complaint: Weakness Prescriptions Prescriptions: No Action gabapentin 800 mg tablet 800 mg PO TID Qty: 90 1RF oxycodone-acetaminophen [Percocet] 10-325 mg tablet 1 tab PO QID Qty: 120 0RF oxycodone 10 mg tablet 10 mg PO QID PRN (Reason: pain) Qty: 120 0RF albuterol sulfate 90 mcg/actuation HFA aerosol inhaler 1 inh inhalation QID Qty: 8.5 2RF sumatriptan succinate 50 mg tablet See Rx Instructions PO .COMPLEX Qty: 30 2RF Rx Instructions: take 1 tab at onset of headache; if no relief may repeat 1 tab after at least 2 hrs; max = 4 tabs/24 hr PO quetiapine 300 mg tablet 600 mg PO HS ergocalciferol (vitamin D2) 1,250 mcg (50,000 unit) Capsule 50,000 unit PO WEEKLY 30 Days Qty: 0 0RF sennosides-docusate sodium [Stool Softener-Stimulant Laxat] 8.6-50 mg Tablet 1 tab PO BID Qty: 0 0RF kfenmrop-enx-tktqs-vit K-lycop 1 EACH tablet 1 each PO DAILY venlafaxine 75 MG capsule,extended release 24hr 75 mg PO DAILY Referrals Follow up/Referrals: Provider,Referral, [Referring] - See instructions Clinical Impressions Clinical Impression: End stage liver disease, Unintentional weight loss, Jaundice, Ascites, Alcohol abuse Discharge ED Provider: Charly Gan General Adult HPI General Chief complaint: Weakness Stated complaint: sent from pcp related to jaundice Time Seen by Provider: 04/18/23 09:18 Mode of Arrival: Wheelchair Source of Information: Patient Limitations: No Limitations Description of Symptoms (Recalled from ER Triage Doc. by RN): Patient reports going to Dr. Lucia's office to have clark removed when Dr. Lucia told him he needed to come to the er for evaluation. Patient complaint of weakness, dehydration, and not eating well for a couple of days. History of Present Illness HPI narrative: 63-year-old male sent in for jaundice from Dr. Schwartz office. Patient states that he has had a progressive decline over the last few weeks and months and he has not eaten much over the last week he had 25 pounds of unintentional weight loss he does describe some epigastric discomfort. No history of cancer. He had a CAT scan done within the last 1 to 2 years for work-up with Dr. Rollins at for preoperative planning for ventral hernia repair no cancer was noted at that time. He denies any fevers chills or any other localizing symptoms. His friend who is with him also states that his urine has been very dark. Related Data Home Medications Medication Instructions Recorded Confirmed ftnlaxjt-nzvmoxio-uakpm acid 400 1 each PO DAILY Supplement 08/22/18 01/26/23 mcg-vit K 20 mcg-lycop 300 mcg tablet venlafaxine 75 mg capsule,extended 75 mg PO DAILY Depression 10/27/21 01/26/23 release 24 hr quetiapine 300 mg tablet 600 mg PO HS sleep/mood 11/30/22 01/26/23 Previous Rx's Medication Instructions Recorded ergocalciferol (vitamin D2) 1,250 50,000 unit PO WEEKLY 30 days #0 12/02/22 mcg (50,000 unit) capsule caps sennosides 8.6 mg-docusate sodium 1 tab PO BID #0 tabs 12/02/22 50 mg tablet (Stool Softener-Stimulant Laxative) gabapentin 800 mg tablet 800 mg PO TID Pain #90 tabs 01/24/23 oxycodone-acetaminophen 10 mg-325 1 tab PO QID #120 tabs 01/24/23 mg tablet (Percocet) oxycodone 10 mg tablet 10 mg PO QID PRN pain #120 tabs 03/08/23 albuterol sulfate 90 mcg/actuation 1 inh inhalation QID #8.5 grams 03/29/23 aerosol inhaler sumatriptan succinate 50 mg tablet See Rx Instructions PO .COMPLEX 03/29/23 #30 tabs Allergies Allergy/AdvReac Type Severity Reaction Status Date / Time varenicline [From Chantix] Allergy Intermediate Vomiting Verified 01/26/23 11:44 [facility] Disclaimer: The information contained in this section may have been updated after the patient was seen, as this information can be updated by other users. Medical History (Reviewed 01/26/23 @ 11:44 by Leslie Chappell
--- NOTE | 2023-04-18 09:34 | ECG_ITS ---
APPROVED REPORT Exam: Resting ECG HR:110 bpm ECG Measurements Heart Rate [address] 140 P 83 QRSd 77 QRS 37 QT 325 T 71 QTc 390 Conclusion SINUS TACHYCARDIA LOW QRS VOLTAGE [QRS DEFLECTION < 0.5/1.0 mV IN LIMB/CHEST LEADS] ABNORMAL ECG UNCONFIRMED REPORT Electronically signed by : Foreign Villanueva MD 04/18/2023 19:55:31
[2023-04-18 09:38] LABS: Basophils % 0.4 % (0.1-2.0); Eosinophils # 0.1 K/mm3 (0.0-0.4); Eosinophils % 0.5 % (0.1-12.0); Hematocrit 43.1 % (42.0-52.0); Hemoglobin 13.8 g/dL (14.1-18.0); Lymphocytes # 0.9 K/mm3 (0.7-4.5); Lymphocytes % 10.1 % (10-50); Mean Corpuscular HGB Conc 32.1 g/dL (31.8-35.4); Mean Corpuscular Volume 102.6 fl (80-94); Mean Platelet Volume 8.8 fl (7.4-10.4); Monocytes # 0.6 K/mm3 (0.1-1.0); Monocytes % 6.5 % (1.7-9.3); Neutrophils # 7.2 K/mm3 (1.8-7.8); Neutrophils % 82.5 % (37.0-80.0); Platelet Count 270 K/mm3 (142-424); Red Cell Distribution Width 14.8 % (11.5-17.5); White Blood Count 8.7 K/mm3 (4.8-10.8)
[2023-04-18 09:39] LABS: Chloride 99 mmol/L (98-107); Potassium 4.4 mmoL/L (3.5-5.1); Sodium 133 mmol/L (136-145)
[2023-04-18 09:41] LABS: Alanine Aminotransferase 34 U/L (12-78); Aspartate Amino Transferase 46 U/L (17-59); Blood Urea Nitrogen 9 mg/dl (9-20); Creatinine Clearance Estimated 56 mL/min (50-200); Estimated Glomerular Filt Rate 62 ml/min (>60); GFR (African American) 74 ML/MIN (>60)
[2023-04-18 09:42] LABS: Albumin Level 2.2 g/dl (3.5-5.0); Albumin/Globulin Ratio 0.6 (1.1-1.8); Alkaline Phosphatase 221 U/L (38-126); Anion Gap 16.4 mEq/L (5-15); Bilirubin,Direct 3.7 mg/dl (0.0-0.4); Calcium 7.8 mg/dl (8.4-10.2); Carbon Dioxide 22 mmol/L (22.0-30.0); Globulin 3.4 g/dL (1.3-3.2); Glucose 93 mg/dl (74-100); Total Protein,Serum 5.6 g/dl (6.3-8.2)
[2023-04-18 09:44] LABS: Lipase < 10 U/L (23-300)
[2023-04-18 09:46] LABS: Activated Partial Thrombo Time 44.5 seconds (22.8-30.6); Gamma Glutamyl Transpeptidase 367 U/L (15-73); INR 2.82 (0.9-1.1); Prothrombin Time 28.5 seconds (10.1-12.5)
[2023-04-18 09:59] LABS: Troponin I < 0.01 ng/ml (0.00-0.034)
--- NOTE | 2023-04-18 10:03 | PC.NURSE ---
Rounded on pt. No needs or complaints.
--- NOTE | 2023-04-18 10:06 | PC.NURSE ---
Pt gone to RAD via stretcher
--- NOTE | 2023-04-18 10:20 | PC.NURSE ---
pt back from ct
--- NOTE | 2023-04-18 10:44 | PC.NURSE ---
pt reports unable to void at this time
--- NOTE | 2023-04-18 10:48 | PC.NURSE ---
Checked on patient. No needs at this time.
--- NOTE | 2023-04-18 11:29 | PC.NURSE ---
Rounded on pt. Pt still unable to provide urine sample at this time. Call light within reach
--- NOTE | 2023-04-18 12:23 | PC.NURSE ---
per dr. tanner pt accepted for admission to dr. valero for acute liver failure
--- NOTE | 2023-04-18 12:24 | PC.NURSE ---
notified care management of admission, spoke with rosmery.
--- NOTE | 2023-04-18 12:26 | PC.NURSE ---
dr. tanner at [facility] updating pt on POC
--- NOTE | 2023-04-18 12:31 | EXP.HP ---
History of Present Illness *Admission Date: 04/18/23 *Reason for visit:: Yellow eyes, PCP sent him to the ER for evaluation. *History of present illness: Mr. Go is a 63-year-old male with history of alcohol dependence, chronic pain, hypertension, hyperlipidemia. Presented to his primary care's office today for staple removal. Reports that he fell several weeks ago hitting his head necessitating clark. On arrival, his PCP noted that he had yellow eyes and encouraged him to go to the ER for further evaluation. He additionally complains of weakness, poor p.o. intake, feeling a little dehydrated. States he has not had much to eat the past several days. Does complain of abdominal pain associated with his longstanding abdominal hernia. On arrival to the ER, patient has no other complaints. He reports that he has lost approximately 25 pounds without trying over the past 1 to 2 months. No known history of cancer. Denies any blood in his vomit or stool. Denies any chest pain or shortness of breath. Work-up in the ER positive for coagulopathy, elevation of alkaline phosphatase and GGT, findings consistent with decompensated cirrhosis. Medicine consulted for admission. On arrival to the floor, patient is alert and oriented x3. Additional history elicits that he drinks vodka daily. Goes through a handle (1.75 L) weekly. Has not been eating well. Last drinks were last night. Denies any previous withdrawal seizures or significant symptoms. Was sober for 90 days while being worked up for abdominal hernia repair but after seeing no results or progress with scheduling of surgery, went back to drinking. At this time denies any fevers, chills, rashes, local symptoms. Just states he needs his clark removed from his head. [facility] Disclaimer: The information contained in this section may have been updated after the patient was seen, as this information can be updated by other users. Medical History Anxiety Depression Hyperlipidemia Hypertension Migraine Multiple sclerosis Surgical History History of left hip replacement Family History Coronary artery disease Hyperlipidemia Hypertension Stroke Social History Smoking Status: Former smoker pack-years: 39 second hand exposure: No alcohol intake: current substance use type: denies use current occupational status: unemployed and disabled Travel in the last 8 weeks: None household members: none housing: house current occupational exposures/hazards: No caffeine: Yes Review of Systems Review of Systems Review of systems (narrative): 14 point review of systems performed, pertinent positives and negatives as per HPI Meds Home Medications and Allergies Home Medications Medication Instructions Recorded Confirmed Type krpjbjbz-yvkuurzt-plgcp acid 400 1 each PO DAILY Supplement 08/22/18 04/18/23 History mcg-vit K 20 mcg-lycop 300 mcg tablet venlafaxine 75 mg capsule,extended 75 mg PO DAILY Depression 10/27/21 04/18/23 History release 24 hr quetiapine 300 mg tablet 600 mg PO HS sleep/mood 11/30/22 04/18/23 History gabapentin 800 mg tablet 800 mg PO TID Pain #90 tabs 01/24/23 04/18/23 Rx albuterol sulfate 90 mcg/actuation 1 inh inhalation QID PRN Shortness 04/18/23 04/18/23 History aerosol inhaler Of Breath ergocalciferol (vitamin D2) 1,250 50,000 unit PO WEEKLY Supplement 04/18/23 04/18/23 History mcg (50,000 unit) capsule oxycodone 10 mg tablet 10 mg PO QIDP PRN pain 04/18/23 04/18/23 History sumatriptan succinate 50 mg tablet 50 mg PO NEEDED PRN Headache 04/18/23 04/18/23 History New Prescriptions to Start Prescriptions: Allergies Allergy/AdvReac Type Severity Reaction Status Date / Time varenicline [From Chantix] Allergy Interm
[2023-04-18 12:53] LABS: Ethyl Alcohol < 10 mg/dl (0-10)
--- NOTE | 2023-04-18 13:05 | PC.NURSE ---
contacted care management to check on bed assignment for pt. states she will work on it now.
[2023-04-18 13:14] LABS: Bilirubin,Indirect 0.3 mg/dL (0.0-0.9)
[2023-04-18 13:19] LABS: Magnesium 1.7 mg/dl (1.6-2.3); Phosphorous 3.1 mg/dl (2.5-4.5)
--- NOTE | 2023-04-18 13:30 | PC.NURSE ---
Report given to Juan on Med surg.
[2023-04-18 13:44] LABS: Vitamin B12 > 1000 pg/mL (239-931)
--- NOTE | 2023-04-18 16:02 | DIET.NUTRFU ---
per provider change diet to regular for dinner, RD took menu selection, see assessment for further recommendations.
[2023-04-18 19:39] LABS: Alanine Aminotransferase 27 U/L (12-78); Albumin/Globulin Ratio 0.6 (1.1-1.8); Alkaline Phosphatase 193 U/L (38-126); Anion Gap 17.3 mEq/L (5-15); Aspartate Amino Transferase 45 U/L (17-59); Bilirubin,Total 4.1 mg/dl (0.2-1.3); Blood Urea Nitrogen 8 mg/dl (9-20); Calcium 7.6 mg/dl (8.4-10.2); Carbon Dioxide 15 mmol/L (22.0-30.0); Chloride 104 mmol/L (98-107); Creatinine Clearance Estimated 61 mL/min (50-200); Estimated Glomerular Filt Rate 76 ml/min (>60); GFR (African American) 92 ML/MIN (>60); Globulin 3.3 g/dL (1.3-3.2); Glucose 114 mg/dl (74-100); Potassium 5.3 mmoL/L (3.5-5.1); Sodium 131 mmol/L (136-145); Total Protein,Serum 5.3 g/dl (6.3-8.2)
[2023-04-18 19:40] LABS: Phosphorous 3.4 mg/dl (2.5-4.5)
[2023-04-19] VITALS (9 sets, daily range): BP systolic 91–132; BP diastolic 64–76; PULSE 72–93; RESP 12–18; TEMP 36.6–36.9; O2SAT 93–95; BMI 19.8
[2023-04-19 01:10] LABS: Appearance,Urine CLEAR (Clear); Blood, Urine Negative (Negative); Color,Urine ORANGE (Yellow); Glucose,Urine (UA) Negative (Negative); Ketones,Urine TRACE (Negative); Leukocyte Esterase,Urine Negative (Negative); Microscopic, Urine URINE MICROSCOPIC (MICROSCOPIC); Nitrate,Urine POSITIVE (Negative); PH,Urine 6.5 (5.0-8.5); Protein,Urine TRACE (Negative); Urobilinogen,Urine >=8.0 EU/dl (0.2)
[2023-04-19 01:22] LABS: Benzodiazepines Screen,Urine Negative ng/ml (<200)
[2023-04-19 01:23] LABS: Amphetamine/Metha Screen,Urine Negative ng/ml (<1000); Barbiturates Screen,Urine Negative ng/ml (<200)
[2023-04-19 01:24] LABS: Methadone Screen,Urine Negative ng/ml (<300)
[2023-04-19 01:25] LABS: Cannabinoid Screen,Urine Positive ng/ml (<50); Cocaine Screen,Urine Negative ng/ml (<300)
[2023-04-19 01:26] LABS: Opiate Screen,Urine Positive ng/ml (<300)
[2023-04-19 01:27] LABS: Bilirubin,Urine Negative (Negative); Phencyclidine Screen,Urine Negative ng/ml (<25)
[2023-04-19 01:30] LABS: Bacteria,Urine 1+ /lpf; Mucus,Urine 1+ /lpf; WBC,Urine Occasional #/hpf (0-3)
[2023-04-19 06:04] LABS: Basophils % 0.2 % (0.1-2.0); Eosinophils % 0.5 % (0.1-12.0); Hematocrit 36.4 % (42.0-52.0); Lymphocytes # 0.6 K/mm3 (0.7-4.5); Lymphocytes % 10.2 % (10-50); Mean Corpuscular HGB Conc 32.6 g/dL (31.8-35.4); Mean Corpuscular Hemoglobin 33.8 pg (27.0-31.2); Mean Corpuscular Volume 103.8 fl (80-94); Mean Platelet Volume 8.8 fl (7.4-10.4); Monocytes # 0.4 K/mm3 (0.1-1.0); Monocytes % 7.7 % (1.7-9.3); Neutrophils # 4.5 K/mm3 (1.8-7.8); Neutrophils % 81.5 % (37.0-80.0); Platelet Count 169 K/mm3 (142-424); Red Blood Count 3.51 M/mm3 (4.60-6.20); White Blood Count 5.6 K/mm3 (4.8-10.8)
[2023-04-19 06:10] LABS: Hemoglobin 11.8 g/dL (14.1-18.0)
[2023-04-19 06:12] LABS: INR 2.35 (0.9-1.1)
[2023-04-19 06:16] LABS: Alanine Aminotransferase 23 U/L (12-78); Albumin Level 1.8 g/dl (3.5-5.0); Albumin/Globulin Ratio 0.6 (1.1-1.8); Alkaline Phosphatase 165 U/L (38-126); Anion Gap 12.3 mEq/L (5-15); Aspartate Amino Transferase 36 U/L (17-59); Blood Urea Nitrogen 9 mg/dl (9-20); Calcium 6.9 mg/dl (8.4-10.2); Carbon Dioxide 21 mmol/L (22.0-30.0); Chloride 100 mmol/L (98-107); Creatinine Clearance Estimated 65 mL/min (50-200); Estimated Glomerular Filt Rate 76 ml/min (>60); GFR (African American) 92 ML/MIN (>60); Globulin 3.1 g/dL (1.3-3.2); Glucose 108 mg/dl (74-100); Magnesium 2.3 mg/dl (1.6-2.3); Potassium 4.3 mmoL/L (3.5-5.1); Sodium 129 mmol/L (136-145); Total Protein,Serum 4.9 g/dl (6.3-8.2)
--- NOTE | 2023-04-19 07:39 | EXP.ACUTE.PN ---
Subjective *Date: 04/19/23 *Time: 09:20 Interval history: Patient feeling well this running. Tolerating p.o. intake. Prefers boost, chocolate flavored. No nausea or vomiting. No withdrawal symptoms at this time. Stable on room air. No signs of bleeding. Alert and oriented x4. Medical Exam Vital signs and Labs for Last 24 Hours: Vital Signs Temp Pulse Pulse Resp BP BP Pulse Ox 04/19/23 07:34 98.5 F 04/19/23 04:00 80 04/19/23 04:00 98 F 77 12 98/70 L 94 L 04/19/23 06:56 04/19/23 06:00 72 16 100/71 L 93 L 04/19/23 05:00 04/19/23 02:59 04/19/23 02:00 89 14 108/76 L 95 04/19/23 01:00 04/19/23 00:00 81 04/18/23 20:00 94 H 04/19/23 00:00 98.0 F 81 16 103/71 L 94 L 04/18/23 23:00 04/18/23 20:00 94 L 04/18/23 22:00 88 20 110/74 95 04/18/23 21:00 04/18/23 20:00 99 F 92 H 17 111/63 98 04/18/23 18:59 04/18/23 18:00 96 H 15 110/78 97 04/18/23 17:00 04/18/23 16:00 100 H 04/18/23 12:01 108 H 04/18/23 15:29 98.1 F 04/18/23 14:48 04/18/23 14:00 97.7 F 101 H 20 103/70 L 04/18/23 14:13 97.6 F 108 H 18 103/70 L 96 04/18/23 13:31 108 H 95/67 L 96 04/18/23 13:00 113 H 100/68 L 95 04/18/23 12:30 108 H 103/67 L 95 04/18/23 12:00 105 H 101/70 L 95 04/18/23 11:30 108 H 90/67 L 93 L 04/18/23 11:00 111 H 93/67 L 95 04/18/23 10:30 112 H 101/73 L 96 04/18/23 10:00 108 H 18 93/63 L 96 04/18/23 09:35 110 H 93/65 L 95 04/18/23 09:02 97.8 F 69 20 113/96 H 95 O2 Del Method 04/19/23 07:34 04/19/23 04:00 04/19/23 04:00 Room Air 04/19/23 06:56 Room Air 04/19/23 06:00 Room Air 04/19/23 05:00 Room Air 04/19/23 02:59 Room Air 04/19/23 02:00 Room Air 04/19/23 01:00 Room Air 04/19/23 00:00 04/18/23 20:00 04/19/23 00:00 Room Air 04/18/23 23:00 Room Air 04/18/23 20:00 Room Air 04/18/23 22:00 Room Air 04/18/23 21:00 Room Air 04/18/23 20:00 Room Air 04/18/23 18:59 Room Air 04/18/23 18:00 Room Air 04/18/23 17:00 Room Air 04/18/23 16:00 04/18/23 12:01 04/18/23 15:29 04/18/23 14:48 Room Air 04/18/23 14:00 Room Air 04/18/23 14:13 Room Air 04/18/23 13:31 Room Air 04/18/23 13:00 Room Air 04/18/23 12:30 Room Air 04/18/23 12:00 Room Air 04/18/23 11:30 Room Air 04/18/23 11:00 Room Air 04/18/23 10:30 Room Air 04/18/23 10:00 04/18/23 09:35 Room Air 04/18/23 09:02 Room Air Intake and Output 04/18/23 04/18/23 04/19/23 15:59 23:59 07:59 Intake Total 1000 / 1873 873 / 1873 1120 / 1120 Output Total 825 / 825 Balance 1000 / 1873 873 / 1873 295 / 295 Intake: Intake, Oral Amount 540 / 540 120 / 120 Intake, Total IV Amount 1000 / 1333 333 / 1333 1000 / 1000 Mvi, Adult No.1 with Vit K 10 333 / 333 1000 / 1000 ml Thiamine HCl 100 mg Magnesium Sulfate 2 gm In Lactated Ringers 1000ML 1,000 ml @ 125 mls/hr IV DAILY [facility] Rx #:[id number] Output: Output, Urine Amount 825 / 825 Other: Weight 55.905 kg 59.449 kg Patient Weight 04/19/23 23:59 Weight 59.449 kg Laboratory Results - last 24 hr 04/18/23 09:10: Phosphorus 3.1, Magnesium 1.7, Vitamin B12 > 1000 H, Plasma/Serum Alcohol < 10 04/18/23 09:12: WBC 8.7, RBC 4.20 L, Hgb 13.8 L, Hct 43.1, MCV 102.6 H, MCH 33.0 H, MCHC 32.1, RDW 14.8, Plt Count 270, MPV 8.8, Neut % (Auto) 82.5 H, Lymph % (Auto) 10.1, Dent % (Auto) 6.5, Eos % (Auto) 0.5, Baso % (Auto) 0.4, Neut # (Auto) 7.2, Lymph # (Auto) 0.9, Dent # (Auto) 0.6, Eos # (Auto) 0.1, Baso # (Auto) 0.0, PT 28.5 H, INR 2.82 H, APTT 44.5 H, Sodium 133 L, Potassium 4.4, Chloride 99, Carbon Dioxide 22, Anion Gap 16.4 H, BUN 9, Creatinine 1.20, Estimated Creat Clear 56, Estimated GFR 62, Est GFR ( Amer) 74, Glucose 93, Calcium 7.8 L, Total Bilirubin 4.0 H, Direct Bilirubin 3.
--- NOTE | 2023-04-19 07:44 | HMH.PHAINT1 ---
Pharmacy Intervention Comments: Medication history complete, medications verified with fill history and medication list from PCP office visit. Of note, patient has Rx for Gabapentin 800mg TID and might be taking a smaller dose and still have some left at home. - Cecilia Dutta, PharmD Candidate 2023
[2023-04-19 08:00] LABS: Phosphorous 3.5 mg/dl (2.5-4.5)
--- NOTE | 2023-04-19 08:22 | ECG_ITS ---
APPROVED REPORT Exam: Resting ECG HR:90 bpm ECG Measurements Heart Rate 90 AXES MO 143 P 73 QRSd 77 QRS 43 QT 369 T 89 QTc 416 Conclusion SINUS RHYTHM LOW QRS VOLTAGE IN EXTREMITY LEADS [QRS DEFLECTION < 0.5 mV IN LIMB LEADS] BORDERLINE ECG UNCONFIRMED REPORT Electronically signed by : Foreign Villanueva MD 04/20/2023 20:00:43
--- NOTE | 2023-04-19 10:17 | DIET.NUTRFU ---
Ate good for dinner last night at 100% and 50% breakfast. Started chocolate supplements with trays, may hold and drink inbetween meals. Spoke to patient yesterday about 6 small meals/day d/t gastric sx 2 years ago had portion of stomach removed. Will continue to monitor po intake
[2023-04-20] VITALS (8 sets, daily range): BP systolic 88–129; BP diastolic 54–61; PULSE 80–102; RESP 16–18; TEMP 36.4–37.3; O2SAT 90–92; BMI 19.8
--- NOTE | 2023-04-20 00:42 | PC.NURSE ---
THIS RN WAS NOTIFIED BY THE TECH THAT PT'S O2 SAT WAS 79 ON ROOM AIR AND HARD TO AROUSE WHILE GETTING MIDNIGHT VITALS. THIS RN AND THE FLIGHT TEST SUPERVISOR WENT INTO PT'S ROOM AND WOKE PT UP. PT WAS PLACED ON 3.5L NASAL CANNULA AND O2 SAT CAME UP TO 91. BEFORE BED PT HAD PAIN MEDICATION AND SEROQUEL.
--- NOTE | 2023-04-20 00:45 | PC.NURSE ---
THIS RN WAS NOTIFIED BY THE TECH THAT PT'S O2 SAT WAS 79 ON ROOM AIR AND HARD TO AROUSE WHILE GETTING MIDNIGHT VITALS. THIS RN AND THE CAR HOSTLER WENT INTO PT'S ROOM AND WOKE PT UP. PT WAS PLACED ON 3.5L NASAL CANNULA AND O2 SAT CAME UP TO 91. PT O2 SAT WAS IN THE MID 90'S WHILE AWAKE. WILL LEAVE O2 IN PLACE WHILE PT SLEEPS.
--- NOTE | 2023-04-20 03:43 | PC.NURSE ---
pt has rested well this shift. c/o pain x1 and was treated per mar. pt did have an episode where his o2 was low and he needed to be placed on oxygen. he has tolerated that well. other vital signs are stable. horan remains in place and is draining dark, tea colored urine. pt's CIWA's have been 0 this shift.
--- NOTE | 2023-04-20 05:44 | PC.NURSE ---
THIS RN ATTEMPTED TO DRAW PT'S LABS FROM HIS MIDLINE. DAVID FLUSHED FINE BUT DID NOT HAVE BLOOD RETURN.
--- NOTE | 2023-04-20 08:00 | US_ITS ---
FINAL REPORT CLINICAL HISTORY: cirrhosis COMPARISON: none FINDINGS: Sonographic images of the right upper quadrant were obtained. The pancreas is partially obscured. There is coarsened hepatic echotexture consistent with history of cirrhosis. There is a small amount of ascites in the perihepatic region. No hepatic mass identified. The gallbladder appears normal without evidence of gallstones.There is no evidence of biliary ductal dilatation.The common duct measures 4mm. Limited images of the right kidney are unremarkable. IMPRESSION: Findings consistent with history of cirrhosis. Small amount of ascites. Reviewed, Interpreted and Dictated by Pablo Sow III, MD Transcribed by Kelly Mcdonald Authenticated and [facility]
[2023-04-20 08:19] LABS: Basophils % 0.1 % (0.1-2.0); Eosinophils # 0.1 K/mm3 (0.0-0.4); Eosinophils % 0.7 % (0.1-12.0); Hematocrit 37.7 % (42.0-52.0); Hemoglobin 11.9 g/dL (14.1-18.0); Lymphocytes # 0.4 K/mm3 (0.7-4.5); Lymphocytes % 4.3 % (10-50); Mean Corpuscular HGB Conc 31.6 g/dL (31.8-35.4); Mean Corpuscular Hemoglobin 32.6 pg (27.0-31.2); Mean Corpuscular Volume 103.3 fl (80-94); Mean Platelet Volume 8.7 fl (7.4-10.4); Monocytes # 0.6 K/mm3 (0.1-1.0); Monocytes % 5.5 % (1.7-9.3); Neutrophils # 9.1 K/mm3 (1.8-7.8); Neutrophils % 89.4 % (37.0-80.0); Platelet Count 224 K/mm3 (142-424); Red Blood Count 3.65 M/mm3 (4.60-6.20); Red Cell Distribution Width 15.2 % (11.5-17.5); White Blood Count 10.2 K/mm3 (4.8-10.8)
[2023-04-20 08:21] LABS: MANUAL DIFFERENTIAL MANUAL DIFFERENTIAL (MANUAL DIFF)
[2023-04-20 08:25] LABS: Alanine Aminotransferase 26 U/L (12-78); Albumin Level 1.8 g/dl (3.5-5.0); Albumin/Globulin Ratio 0.6 (1.1-1.8); Alkaline Phosphatase 186 U/L (38-126); Anion Gap 10.9 mEq/L (5-15); Aspartate Amino Transferase 41 U/L (17-59); Bilirubin,Total 3.7 mg/dl (0.2-1.3); Blood Urea Nitrogen 12 mg/dl (9-20); Carbon Dioxide 20 mmol/L (22.0-30.0); Chloride 100 mmol/L (98-107); Creatinine Clearance Estimated 59 mL/min (50-200); Estimated Glomerular Filt Rate 68 ml/min (>60); GFR (African American) 82 ML/MIN (>60); Glucose 87 mg/dl (74-100); Potassium 3.9 mmoL/L (3.5-5.1); Sodium 127 mmol/L (136-145); Total Protein,Serum 4.8 g/dl (6.3-8.2)
[2023-04-20 08:28] LABS: Anisocytosis 1+; INR 1.48 (0.9-1.1); Lymphocytes % 3 % (10-50); Macrocytosis 1+; Monocytes % 6 % (2-9); Neutrophils % 91 % (42-76); Platelet Estimate Normal; Prothrombin Time 15.6 seconds (10.1-12.5); Total Cells Counted 100
--- NOTE | 2023-04-20 09:10 | EXP.ACUTE.PN ---
Subjective *Date: 04/20/23 *Time: 10:10 Interval history: Patient required oxygen overnight 12/, suspect component of sleep apnea. No nausea or vomiting. Afebrile. No withdrawal symptoms. Tolerating 50% of trays yesterday. N.p.o. this morning awaiting right upper quadrant ultrasound. Alert and oriented x3. Family at bedside. Medical Exam Vital signs and Labs for Last 24 Hours: Vital Signs Temp Pulse Resp BP Pulse Ox O2 Del Method O2 Flow Rate 04/20/23 08:00 99.1 F 95 H 18 88/54 L 90 L Nasal Cannula 3.5 04/20/23 06:39 Nasal Cannula 3.5 04/20/23 05:00 Nasal Cannula 3.5 04/20/23 04:00 97.9 F 102 H 16 94/58 L 91 L 3.5 04/20/23 02:52 Nasal Cannula 3.5 04/20/23 01:00 Nasal Cannula 3.5 04/20/23 00:00 97.9 F 82 17 129/61 91 L Nasal Cannula 3.5 04/19/23 22:55 Room Air 04/19/23 21:00 Room Air 04/19/23 19:50 Room Air 04/19/23 20:00 98.1 F 89 16 91/65 L 94 L Room Air 04/19/23 18:00 Room Air 04/19/23 14:42 Room Air 04/19/23 15:53 97.9 F 93 H 17 132/66 94 L Room Air 04/19/23 11:39 97.8 F 92 H 18 105/64 L 94 L Room Air Intake and Output 04/19/23 04/20/23 04/20/23 23:59 07:59 15:59 Intake Total 1916 / 3506 Output Total 300 / 1125 200 / 200 0 / 200 Balance 1616 / 2381 -200 / -200 0 / -200 Intake: Intake, Oral Amount 932 / 1522 Intake, Total IV Amount 1983 Mvi, Adult No.1 with Vit K 10 1983 ml Thiamine HCl 100 mg Magnesium Sulfate 2 gm In Lactated Ringers 1000ML 1,000 ml @ 125 mls/hr IV DAILY [facility] Rx #:[id number] Output: Output, Urine Amount 300 / 1125 200 / 200 0 / 200 Other: Number of Unmeasured Voids 1 0 Weight 59.239 kg Patient Weight 04/20/23 23:59 Weight 59.239 kg Laboratory Results - last 24 hr 04/20/23 08:08: WBC 10.2 D, RBC 3.65 L, Hgb 11.9 L, Hct 37.7 L, MCV 103.3 H, MCH 32.6 H, MCHC 31.6 L, RDW 15.2, Plt Count 224 D, MPV 8.7, Neut % (Auto) 89.4 H, Lymph % (Auto) 4.3 L, Drew % (Auto) 5.5, Eos % (Auto) 0.7, Baso % (Auto) 0.1, Neut # (Auto) 9.1 H, Lymph # (Auto) 0.4 L, Drew # (Auto) 0.6, Eos # (Auto) 0.1, Baso # (Auto) 0.0, Total Counted 100, Neutrophils % (Manual) 91 H, Lymphocytes % (Manual) 3 L, Monocytes % (Manual) 6, Platelet Estimate Normal, Anisocytosis 1+, Macrocytosis 1+, PT 15.6 H, INR 1.48 H, Sodium 127 L, Potassium 3.9, Chloride 100, Carbon Dioxide 20 L, Anion Gap 10.9, BUN 12 D, Creatinine 1.10, Estimated Creat Clear 59, Estimated GFR 68, Est GFR ( Amer) 82, Glucose 87, Calcium 7.0 L, Total Bilirubin 3.7 H, AST 41, ALT 26, Alkaline Phosphatase 186 H, Total Protein 4.8 L, Albumin 1.8 L, Globulin 3.0, Albumin/Globulin Ratio 0.6 L I & O for Labs for Last 24 Hours: Intake & Output 04/17/23 04/18/23 04/19/23 04/20/23 23:59 23:59 23:59 23:59 Intake Total 1872 / 1873 3506 / 3506 Output Total 1125 / 1125 200 / 200 Balance 1872 / 1872 2381 / 2381 -200 / -200 Weight 55.905 kg 59.449 kg 59.239 kg Constitutional: Present no acute distress, thin and chronically ill appearing Head: Present atraumatic and normocephalic ENT: Present normal exam Comment:: Mild scleral icterus Neck: Present normal inspection Respiratory: Present normal respiratory effort; Absent rhonchi, wheezes or crackles Cardiac: Present Reg Rate and Rhythm GI: Present soft and normal bowel sounds; Absent distention or tenderness Comments:: Prominent ventral hernia, reducible, mild tenderness. Extremities: Present normal inspection; Absent tenderness or edema Skin: Present intact; Absent erythema Comment:: Bruising on arm Neuro: Present Grossly Intact, alert, awake, oriented x 3 and moves all extremities Assessment and Plan *Assessment and plan (1) Alcoholic hepatitis: Status: Acute Category: Medical Code(s): K70.10 - Alcoholic hepatitis without ascites (2) Decompensation of cirrhosis of liver: Status: Acute
--- NOTE | 2023-04-20 10:21 | PC.NURSE ---
On D/C Dr. Mcbride would like a referral started with [facility] the number is [phone] The referral sheet is on his chart.
--- NOTE | 2023-04-20 10:43 | DIET.NUTRFU ---
Meal intake reviewed consuming 50-75% for most meals. Receiving boost with all trays for extra calories and protein. RD reported no BM x2 days with pain meds in place. Suggestion to start BM regimen, senna was started. LR bolus discontinued on 04/18 and LR MVI pack was discontinued today based on fair to good meal intake. Will continue to monitor
--- NOTE | 2023-04-20 12:33 | HMH.PTEV ---
Physical Therapy Evaluation Rehab PT IP Evaluation Start: 04/20/23 10:26 Freq: ONCE Status: Active Protocol: Document 04/20/23 12:29 PHORNE (Rec: 04/20/23 12:33 PHORNE [id number]) Subjective/History History History 63 yowm adm to [facility] with acute liver failure. He has PMH of HTN, HLD, and chronic pain. He reports he lives alone 1-2 steps to enter the home and he generally is independent with a cane for all ambulation. Subjective Subjective Pt reports feeling sleepy and weak this am, but agrees to mobility once aroused. C/o dizziness in standing. New diagnosis of cancer in past 12 No months? Rehab PT IP Eval Objective Appearance Patient Behavior Appropriate Patient Orientation Person,Place,Time Difficulty following instructions none Speech Pattern Clear Ambulation Patient Able to Ambulate No Balance Ability to Arise Able, uses arms to help Sitting Balance Steady, safe Standing Balance Unsteady Dynamic Sitting Balance Ability Fair Dynamic Standing Balance Ability Poor Transfers Bed Transfer Ability Moderate x 1 (50% assist) Chair Transfer Ability Moderate x 1 (50% assist) Sit to Stand Bed Transfer Ability Moderate x 1 (50% assist) Sit to Stand Chair Transfer Ability Moderate x 1 (50% assist) ROM All Extremities PT ROM Status WFL MMT All Extremities PT MMT WFL Rehab PT IP prob,goals,plan Problems Date of Evaluation: 04/20/23 PT IP Problems Bed Mobility,Transfers,Gait Rehab Potential Rehab Potential Good Plan PT Intervention Plan Bed Mobility,Transfers,Gait, Self care,Therapeutic Exercise PT Plan Frequency Daily Duration LOS Discharge Goals Bed Transfer Ability Minimal x 1 (25% assist) Sit to Stand Chair Transfer Ability Minimal x 1 (25% assist) Ambulation Assistive Device Rolling Walker Ambulation Distance (feet) 20 Discharge Plan PT Discharge Plan Pt is currently most appropriate for rehab placement once medically stable for d/c. If he returns home without skilled intervention, he will be at increased risk for falls, injury, wounds, debility
--- NOTE | 2023-04-20 13:24 | SW/DCPLANNER ---
Addendum entered by [facility] 04/25/23 08:53: I have updated Brianna/Yasemin figueredo/ [facility]acinth Carpio that patient will discharge this AM. Addendum entered by [facility] 04/24/23 13:46: Per Brianna figueredo/ Hyacinth Carpio can admit today SNF level of care. Addendum entered by [facility] 04/24/23 08:26: I am currently waiting for a returned phone call from Brianna Carpio regarding precert that was started on Monday04/21/23. Addendum entered by [facility] 04/21/23 15:23: Per Bola figueredo/ [facility] she is unable to accept this patient. Addendum entered by [facility] 04/21/23 15:06: Domitila figuereod/ Hyacinth Carpio ([phone]) will start a precert today. Addendum entered by [facility] 04/21/23 14:10: Patient has also requested that [facility]. Addendum entered by [facility] 04/21/23 13:31: Mariana figueredo/ [facility] stated that she is unsure that she will have a male bed once patient is medically stable for discharge. Patient is agreeable for patient information to be faxed to [facility]acinth Carpio. Domitila figueredo/ Hyacinth Caprio stated that she does have male beds available: patient information has been faxed. Addendum entered by [facility] 04/20/23 15:03: Gail figueredo/ [facility] stated that she is unable to meet patient needs at this time. Mariana figueredo/ SHIVAM is reviewing information. Original Note: I spoke with this patient regarding plans once medically stable for discharge. PT/OT evaluated patient and recommended SNF level of care at time of discharge. Patient stated that he resides at home but is agreeable to short term placement once medically stable for discharge. Patient stated that he prefer [facility] or [facility]. Patient information has been faxed to both facilities. I will follow up with patient, MD and facilities once information has been reviewed.
--- NOTE | 2023-04-20 14:09 | HMH.OTEV ---
OT Inpatient Evaluation Rehab OT IP Evaluation Start: 04/20/23 10:26 Freq: ONCE Status: Active Protocol: Document 04/20/23 14:05 [email or web address] (Rec: 04/20/23 14:09 [id number] Rehab OT IP Assessment Subjective History Pt oriented x 3 on arrival and agreeable to engage in therapy evaluation. Pt is 63 yowm adm to [facility] with acute liver failure. He has PMH of HTN, HLD, and chronic pain. He reports he lives alone 1-2 steps to enter the home and he generally is independent with a cane for all ambulation. He also claims he is independent with all ADLs and IADLs. He also still drives. Subjective I do still feel a little weak . Objective Patient Orientation Person,Place,Birthday Upper Extremity Gross ROM WFL Bed Mobility bed mobility-scooting,bed mobility - supine/sit,bed mobility - rolling Assist Level Minimal x 1 (25% assist) Rehab OT IP prob,goals,plan Problems Date of Evaluation: 04/20/23 OT IP Problems Bed Mobility,Transfers,Balance ,Self care,Safety Rehab Potential Rehab Potential Good Equipment Needs Assistive Devices Rolling / Wheeled Walker Plan OT intervention Plan Bed Mobility,Transfers,Balance ,Self care,Safety,Therapeutic Exercise OT Plan Frequency BID Duration LOS Discharge Goals Bed Mobility Ability Standby Assistance Sit to Stand Chair Transfer Ability Minimal x 1 (25% assist) Chair Transfer Ability Minimal x 1 (25% assist) Chair Transfer Technique Sit to/from Ambulatory Chair Transfer Assistive Devices Rolling Walker Feeding Ability Assist with Tray Set Up Lower Body Dressing Ability Assistance X1 Upper Body Dressing Ability Assistance X1 Bathing Ability Assistance x1 Performing Toilet Hygiene Ability Assistance X1 Overall Commode/Toilet Transfer Ability Assistance x1 Commode/Toilet Transfer Technique Sit to/from Ambulatory Commode/Toilet Transfer Assistive Grab Bars Devices Oral Care Ability With Assistance decrease in endurance Yes Discharge Plan OT Discharge Plan Pt will continue to be seen for OT servic
--- NOTE | 2023-04-20 14:19 | XR_ITS ---
FINAL REPORT CLINICAL HISTORY: increased O2 requirement COMPARISON: 11/29/2022 FINDINGS: SINGLE VIEW CHEST The heart size is normal. The mediastinum is within normal limits. There are worsening pulmonary opacities, worse on the right than on the left, when compared to the prior chest x-ray.. There is no evidence of pneumothorax. The bony thorax is intact. IMPRESSION: Worsening bilateral pulmonary opacities, more prominent on the right side. These are likely worsening pneumonia or pulmonary edema. Reviewed, Interpreted and Dictated by Pablo Sow III, MD Transcribed by Larissa Corcoran Authenticated and [facility]
[2023-04-20 14:56] LABS: Adenovirus,PCR Not Detected (NotDetected); Bordetella Pertussis Not Detected (NotDetected); Chlamydophila Pneumoniae, PCR Not Detected (NotDetected); Coronavirus 19, PCR Not Detected (NotDetected); Coronavirus 229E Not Detected (NotDetected); Coronavirus NL63 Not Detected (NotDetected); Coronavirus OC43 Not Detected (NotDetected); Coronovirus HKU1,PCR Not Detected (NotDetected); Human Metapneumovirus Not Detected (NotDetected); Influenza A, PCR Not Detected (NotDetected); Influenza AH1, 2009 Not Detected (NotDetected); Influenza AH1, PCR Not Detected (NotDetected); Influenza AH3,PCR Not Detected (NotDetected); Influenza B, PCR Not Detected (NotDetected); Mycoplasma Pneumoniae, PCR Not Detected (NotDetected); Parainfluenza 1, PCR Not Detected (NotDetected); Parainfluenza 2, PCR Not Detected (NotDetected); Parainfluenza 3, PCR Not Detected (NotDetected); Parainfluenza 4, PCR Not Detected (NotDetected); Respiratory Syncytial Virus Not Detected (NotDetected); Rhinovirus/Enterovirus Not Detected (NotDetected)
--- NOTE | 2023-04-20 15:56 | PC.NURSE ---
Addendum entered by Alma Delia Mckay RN 04/20/23 17:10: PT WAS A 1 ASSIST TO GET OOB TO CHAIR. VERY WEAK. LUNG SOUNDS CLEAR WITH LEFT SIDED COURSE CRACKLES (BASE). PT WAS INSTRUCTED TO BE OOB DURING ALL MEALS AND USE OF THE INCENTIVE SPIROMETER. SWELLING NOTED TO BILATERAL FEET. Original Note: PT IS RESTING IN BED. ALERT AND ORIENTED X3. EATING AND DRINKING FAIR. CATHETER WAS DC'D AT 1300. 200 CC'S UOP EMPTIED FROM CATHETER. PT HAS NOT VOIDED SINCE CATHETER WAS DC'D. LUNG SOUNDS CLEAR. O2 SATURATION HAS MAINTAINED 90% ON 3.5 L NC. ABDOMEN SOFT/DISTENDED WITH HERNIA NOTED. BRUISING NOTED TO THE RIGHT SIDE OF THE ABDOMEN. PT WAS ABLE TO STAND AT THE SOB WITH PHYSICAL THERAPY. 0900 AND 1300 GABAPENTIN HELD DUE TO PT BEING VERY DROWSY. WILL CONTINUE TO MONITOR.
[2023-04-21] VITALS (12 sets, daily range): BP systolic 90–107; BP diastolic 56–64; PULSE 69–117; RESP 16–22; TEMP 36.4–37.6; O2SAT 89–98; BMI 19.8
--- NOTE | 2023-04-21 00:35 | PC.NURSE ---
TECH CAME OUT OF ROOM TO TELL A NURSE THAT THIS PT'S O2 WAS IN THE 70'S ON 3.5L. PT'S O2 WAS INCREASED TO 5L AND PT SAT INCREASED TO 93%.
--- NOTE | 2023-04-21 00:56 | PC.NURSE ---
BLADDER SCAN ALSO DONE ON PT AT THIS TIME AND PT ONLY HAD 161ML OR URINE IN HIS BLADDER. PT HAS NOT URINATED SINCE MAS CATH WAS REMOVED AT 1300.
--- NOTE | 2023-04-21 05:08 | PC.NURSE ---
Pt rested well through the shift. Ciwa score was 0 through the night. Midline dressing changed. 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 pt was bladder scanned and only had 161cc in bladder at midnight. Pt has no complaints of pain.
--- NOTE | 2023-04-21 07:21 | CT_ITS ---
FINAL REPORT TECHNIQUE: Then section axial CT images of the chest were obtained with contrast. Three-D reformatted images were also obtained.This study was performed with techniques to keep radiation doses as low as reasonably achievable (ALARA). Individualized dose reduction techniques using automated exposure control or adjustment of mA and/or kV according to the patient''s size were employed. CLINICAL HISTORY: desats, increasing O2 requirement. COMPARISON: CT chest 04/18/2023 FINDINGS: There is no evidence of pulmonary embolism. There is no evidence of thoracic aortic aneurysm or dissection. There are multiple borderline sized mediastinal nodes which are stable. There is no evidence of pulmonary mass or suspicious nodule. There are worsening pulmonary groundglass opacities favored to represent edema over pneumonia. There is lingular atelectasis or scar. Small bilateral pleural effusions are noted. There is moderate emphysema. Limited images of the upper abdomen demonstrate severe fatty infiltration of the liver. Left renal cyst is noted. IMPRESSION: No evidence of pulmonary embolism. Worsening pulmonary groundglass opacities favored to represent edema over pneumonia. Severe fatty liver. Reviewed, Interpreted and Dictated by Pablo Sow III, MD Transcribed by Kelly Mcdonald Authenticated and [facility]
--- NOTE | 2023-04-21 07:34 | PC.NURSE ---
Pt left floor for CTA at this time
[2023-04-21 07:55] LABS: ABG Base Excess -5.7 mmol/L (-2.4-2.3); ABG HCO3 18.3 mmhg (22.0-26.0); ABG Oxygen Saturation 85 % (90-100); ABG PH 7.45 mmol/L (7.35-7.45); ABG TCO2 19.1 mmhg (23-27)
--- NOTE | 2023-04-21 07:55 | PC.NURSE ---
pt back to unit from radiology at this time
[2023-04-21 07:57] LABS: Allen's Test Acceptable; Oxygen 6 LNC %; Source Left Radial
[2023-04-21 08:01] LABS: ABG PO2 48.9 mmhg (80-100)
[2023-04-21 08:29] LABS: Basophils % 0.2 % (0.1-2.0); Eosinophils % 0.2 % (0.1-12.0); Hematocrit 38.3 % (42.0-52.0); Hemoglobin 11.9 g/dL (14.1-18.0); Lymphocytes # 0.7 K/mm3 (0.7-4.5); Lymphocytes % 6.3 % (10-50); Mean Corpuscular Hemoglobin 32.9 pg (27.0-31.2); Mean Corpuscular Volume 106.1 fl (80-94); Mean Platelet Volume 7.8 fl (7.4-10.4); Monocytes # 0.4 K/mm3 (0.1-1.0); Monocytes % 3.7 % (1.7-9.3); Neutrophils # 9.4 K/mm3 (1.8-7.8); Neutrophils % 89.6 % (37.0-80.0); Platelet Count 212 K/mm3 (142-424); Red Blood Count 3.61 M/mm3 (4.60-6.20); Red Cell Distribution Width 15.1 % (11.5-17.5); White Blood Count 10.5 K/mm3 (4.8-10.8)
[2023-04-21 08:34] LABS: INR 1.61 (0.9-1.1); MANUAL DIFFERENTIAL MANUAL DIFFERENTIAL (MANUAL DIFF); Prothrombin Time 16.9 seconds (10.1-12.5)
[2023-04-21 08:35] LABS: Phosphorous 3.1 mg/dl (2.5-4.5)
--- NOTE | 2023-04-21 08:35 | EXP.ACUTE.PN ---
Subjective *Date: 04/21/23 *Time: 09:50 Interval history: Patient is afebrile and hemodynamically stable. Tolerating 50% of trays. Overnight developed increased oxygen requirement however. On 5 to 6 L this morning nasal cannula. Does not appear in any distress. O2 sats in the low 90s on pulse ox at 6 L this morning. Going for CTA of the chest. Denies any chest pain. Cough nonproductive. No nausea or vomiting. No confusion. Does complain of some increased edema in his legs and right upper arm. Medical Exam Vital signs and Labs for Last 24 Hours: Vital Signs Temp Pulse Pulse Resp BP Pulse Ox O2 Del Method 04/21/23 08:00 97.6 F 86 20 101/64 L 96 Nasal Cannula 04/21/23 04:00 97.5 F L 90 18 103/62 L 94 L Nasal Cannula 04/21/23 05:57 87 04/21/23 05:57 79 04/21/23 05:57 89 L Nasal Cannula 04/21/23 00:00 99.7 F H 69 16 90/56 L 92 L 04/21/23 00:45 93 L Nasal Cannula 04/20/23 23:59 80 04/20/23 23:59 80 04/21/23 03:00 Nasal Cannula 04/21/23 01:00 Nasal Cannula 04/20/23 23:00 Nasal Cannula 04/20/23 20:00 97.5 F L 97 H 17 90/58 L 90 L Room Air 04/20/23 21:00 Nasal Cannula 04/20/23 20:00 Nasal Cannula 04/20/23 19:04 91 H 04/20/23 19:04 96 H 04/20/23 19:04 92 L Nasal Cannula 04/20/23 18:36 Nasal Cannula 04/20/23 16:27 Nasal Cannula 04/20/23 16:00 97.5 F L 93 H 17 90/57 L 92 L Nasal Cannula 04/20/23 15:00 Nasal Cannula 04/20/23 13:00 Nasal Cannula 04/20/23 12:00 97.6 F 97 H 16 110/60 90 L Nasal Cannula 04/20/23 11:00 Nasal Cannula 04/20/23 09:00 Nasal Cannula O2 Flow Rate 04/21/23 08:00 6 04/21/23 04:00 4 04/21/23 05:57 09/08/23 05:57 04/21/23 05:57 3.5 04/21/23 00:00 5 04/21/23 00:45 5 04/20/23 23:59 04/20/23 23:59 04/21/23 03:00 5 04/21/23 01:00 5 04/20/23 23:00 3.5 04/20/23 20:00 04/20/23 21:00 3.5 04/20/23 20:00 3.5 04/20/23 19:04 04/20/23 19:04 04/20/23 19:04 3.5 04/20/23 18:36 3.5 04/20/23 16:27 3.5 04/20/23 16:00 3.5 04/20/23 15:00 3.5 04/20/23 13:00 3.5 04/20/23 12:00 3.5 04/20/23 11:00 04/20/23 09:00 1.5 Intake and Output 04/20/23 04/21/23 04/21/23 23:59 07:59 15:59 Intake Total 558 / 798 120 / 120 Balance 558 / 398 120 / 120 Intake: Intake, Oral Amount 270 / 510 120 / 120 Intake, Total IV Amount 288 / 288 Azithromycin 500 mg In 0.9 % 245 / 245 Sodium Chloride 250 ml @ 250 mls/hr [facility] Rx#:[id number] Ceftriaxone Sodium 1 gm In 0.9 43 / 43 % Sodium Chloride 50 ml @ 100 mls/hr IV [facility] Rx#:[id number] Other: Number of Voids 0 Weight 59.239 kg Patient Weight 04/21/23 23:59 Weight 59.239 kg Laboratory Results - last 24 hr 04/20/23 14:45: Chlamy pneumoniae PCR Not detected, Adenovirus (PCR) Not detected, B. pertussis DNA (PCR) Not detected, Coronavirus OC43 (PCR) Not detected, Coronavirus HKU1 (PCR) Not detected, Coronavirus 229E (PCR) Not detected, SARS-CoV-2 (PCR) Not detected, Coronavirus NL63 (PCR) Not detected, Human Metapneumovir PCR Not detected, Influenza A (H1) PCR Not detected, Influ A (H1N1/09) PCR Not detected, Influenza A (H3) PCR Not detected, Influenza Type A (PCR) Not detected, Influenza Type B (PCR) Not detected, M. pneumoniae (PCR) Not detected, Parainfluenza 1 (PCR) Not detected, Parainfluenza 2 (PCR) Not detected, Parainfluenza 3 (PCR) Not detected, Parainfluenza 4 (PCR) Not detected, RSV (PCR) Not detected, Entero/Rhino (PCR) Not detected 04/21/23 07:29: Specimen Source Left radial, O2 % 6 lnc, ABG pH 7.45, ABG pCO2 27.0 L, ABG pO2 48.9 L, ABG HCO3 18.3 L, ABG Total CO2 19.1 L, ABG O2 Saturation 85 L*, ABG Base Excess -5.7 L, Mario Test Acceptable 04/21/23 08:08: WBC 10.5, RBC 3.61 L, Hgb 11.9 L, Hct 38.3 L, MCV 106.1 H, MCH 32.9 H, MCHC 31.0 L, RDW 15.1, Plt Count 212, MPV 7.8, Neut
[2023-04-21 08:36] LABS: Alanine Aminotransferase 37 U/L (12-78); Albumin Level 1.8 g/dl (3.5-5.0); Albumin/Globulin Ratio 0.6 (1.1-1.8); Alkaline Phosphatase 204 U/L (38-126); Anion Gap 13.7 mEq/L (5-15); Aspartate Amino Transferase 49 U/L (17-59); Bilirubin,Total 3.1 mg/dl (0.2-1.3); Blood Urea Nitrogen 13 mg/dl (9-20); Calcium 6.9 mg/dl (8.4-10.2); Carbon Dioxide 19 mmol/L (22.0-30.0); Chloride 100 mmol/L (98-107); Creatinine Clearance Estimated 59 mL/min (50-200); Estimated Glomerular Filt Rate 68 ml/min (>60); GFR (African American) 82 ML/MIN (>60); Globulin 2.9 g/dL (1.3-3.2); Glucose 109 mg/dl (74-100); Potassium 3.7 mmoL/L (3.5-5.1); Sodium 129 mmol/L (136-145); Total Protein,Serum 4.7 g/dl (6.3-8.2)
[2023-04-21 08:40] LABS: Anisocytosis 1+; Lymphocytes % 4 % (10-50); Macrocytosis 1+; Monocytes % 6 % (2-9); Neutrophils % 90 % (42-76); Total Cells Counted 100
[2023-04-21 08:41] LABS: Platelet Estimate Normal
--- NOTE | 2023-04-21 09:41 | EXP.PULM.CON ---
History of Present Illness History of present illness: Mr. Childress is a 63-year-old male with reported history of alcohol dependence chronic pain hypertension dyslipidemia noted to have worsening malaise discoloration of the eyes and frequent falls and was sent to the ER for further management primary care clinic from which she was admitted for evaluation management of liver failure/decompensated cirrhosis. [facility] Disclaimer: The information contained in this section may have been updated after the patient was seen, as this information can be updated by other users. Medical History Anxiety Depression Hyperlipidemia Hypertension Migraine Multiple sclerosis Surgical History History of left hip replacement Family History Coronary artery disease Hyperlipidemia Hypertension Stroke Social History Smoking Status: Former smoker pack-years: 39 second hand exposure: No alcohol intake: current substance use type: denies use current occupational status: unemployed and disabled Travel in the last 8 weeks: None household members: none housing: house current occupational exposures/hazards: No caffeine: Yes Review of Systems Constitutional Constitutional: Reports anorexia, Reports body ache(s) and Reports fatigue Eyes Eyes: Denies eye discharge, Denies dry eyes, Denies irritation and Denies itchy eyes ENT Ears, Nose, Mouth, and Throat: Denies epistaxis, Denies facial pain, Denies lip swelling and Denies throat swelling *Cardiovascular Cardiovascular: Reports dyspnea, Reports dyspnea on exertion, Reports leg edema and Reports orthopnea *Respiratory Respiratory: Denies change in phlegm color, Reports chest congestion, Reports cough, Reports dyspnea, Reports dyspnea on exertion, Denies excessive phlegm production and Reports wheezing *Gastrointestinal Gastrointestinal: Denies abdominal pain, Denies belching, Reports bloating and Denies cramping *Musculoskeletal Musculoskeletal: Reports back pain, Reports myalgias and Reports other (No small joint swelling or Pain) Psychiatric Psychiatric: Denies homicidal ideation and Denies suicidal ideation Endocrine Endocrine: Reports fatigue and Denies heat intolerance Hematologic/Lymphatic Hematologic/Lymphatic: Denies easy bleeding and Denies lymphadenopathy Allergic/Immunologic Allergic/Immunologic: Denies itchy eyes, Denies lip swelling, Denies throat swelling and Reports wheezing Pulmonology Exam Inpatient Vital signs and Labs for Last 24 Hours: Temp Pulse Resp BP Pulse Ox O2 Del Method O2 Flow Rate 97.6 F 86 20 101/64 L 96 Nasal Cannula 6 04/21/23 08:00 04/21/23 08:00 04/21/23 08:00 04/21/23 08:00 04/21/23 08:00 04/21/23 08:00 04/21/23 08:00 Laboratory Results - last 24 hr 04/20/23 14:45: Chlamy pneumoniae PCR Not detected, Adenovirus (PCR) Not detected, B. pertussis DNA (PCR) Not detected, Coronavirus OC43 (PCR) Not detected, Coronavirus HKU1 (PCR) Not detected, Coronavirus 229E (PCR) Not detected, SARS-CoV-2 (PCR) Not detected, Coronavirus NL63 (PCR) Not detected, Human Metapneumovir PCR Not detected, Influenza A (H1) PCR Not detected, Influ A (H1N1/09) PCR Not detected, Influenza A (H3) PCR Not detected, Influenza Type A (PCR) Not detected, Influenza Type B (PCR) Not detected, M. pneumoniae (PCR) Not detected, Parainfluenza 1 (PCR) Not detected, Parainfluenza 2 (PCR) Not detected, Parainfluenza 3 (PCR) Not detected, Parainfluenza 4 (PCR) Not detected, RSV (PCR) Not detected, Entero/Rhino (PCR) Not detected 04/21/23 07:29: Specimen Source Left radial, O2 % 6 lnc, ABG pH 7.45, ABG pCO2 27.0 L, ABG pO2 48.9 L, ABG HCO3 18.3 L, ABG Total CO2 19.1 L, ABG O2 Saturation 85 L*, ABG Base Excess -5.7 L, Mario Test Acceptable 04/21/23 08:08: WBC 10.5, RBC 3.61 L, Hgb 11.
--- NOTE | 2023-04-21 10:10 | PC.NURSE ---
Dr Alexander in room to see pt
[2023-04-21 11:08] LABS: Alpha-1-Antitrypsin 127 mg/dL (101-187); Ceruloplasmin 11.8 mg/dL (16.0-31.0); HBsAg Screen Negative (Negative); HCV Ab Non Reactive (Non Reactive); Hep A Ab, IGM Negative (Negative); Hep B Core Ab, IgM Negative (Negative)
[2023-04-21 12:05] LABS: Ammonia 18 umol/L (9-30)
--- NOTE | 2023-04-21 13:55 | PC.NURSE ---
PT HAD NOT VOIDED ALL SHIFT, OR SINCE ADMINISTRATION OF DIURETICS. BLADDER SCAN SHOWED >659ML. ORDER TO INSERT MAS CATHETER AT THIS TIME. PT TOLERATED WELL.
--- NOTE | 2023-04-21 18:39 | PC.NURSE ---
able to get pt to 2L of O2, O2 drops upon standing and during meals, Kuhn continues to drain well and remains a dark fabiola color, Pt has weakness and has reported pain once this shift which was eased with medication.
[2023-04-22] VITALS (12 sets, daily range): BP systolic 80–103; BP diastolic 53–62; PULSE 82–110; RESP 16–19; TEMP 36.5–37; O2SAT 88–99; BMI 20.7
--- NOTE | 2023-04-22 00:30 | PC.NURSE ---
pt oxygen sat dropping to mid 80's, increased from 2LNC to 3LNC. sating in now
--- NOTE | 2023-04-22 05:41 | PC.NURSE ---
upper extremities with 2+ pitting edema have seeped fluid t/o shift
--- NOTE | 2023-04-22 06:33 | PC.NURSE ---
pt decreased to 2LNC per RT, sating upper 90's
[2023-04-22 07:33] LABS: Basophils % 0.1 % (0.1-2.0); Eosinophils % 0.4 % (0.1-12.0); Lymphocytes # 0.9 K/mm3 (0.7-4.5); Lymphocytes % 8.9 % (10-50); Mean Corpuscular HGB Conc 30.7 g/dL (31.8-35.4); Mean Corpuscular Hemoglobin 31.9 pg (27.0-31.2); Mean Corpuscular Volume 103.9 fl (80-94); Monocytes # 0.6 K/mm3 (0.1-1.0); Monocytes % 6.3 % (1.7-9.3); Neutrophils # 8.4 K/mm3 (1.8-7.8); Neutrophils % 84.4 % (37.0-80.0); Platelet Count 210 K/mm3 (142-424); Red Blood Count 3.46 M/mm3 (4.60-6.20); Red Cell Distribution Width 15.6 % (11.5-17.5); White Blood Count 9.9 K/mm3 (4.8-10.8)
[2023-04-22 07:40] LABS: Alanine Aminotransferase 28 U/L (12-78); Albumin Level 1.7 g/dl (3.5-5.0); Albumin/Globulin Ratio 0.6 (1.1-1.8); Alkaline Phosphatase 175 U/L (38-126); Anion Gap 9.6 mEq/L (5-15); Aspartate Amino Transferase 43 U/L (17-59); Bilirubin,Total 2.6 mg/dl (0.2-1.3); Blood Urea Nitrogen 14 mg/dl (9-20); Calcium 6.8 mg/dl (8.4-10.2); Carbon Dioxide 23 mmol/L (22.0-30.0); Chloride 99 mmol/L (98-107); Creatinine Clearance Estimated 62 mL/min (50-200); Estimated Glomerular Filt Rate 68 ml/min (>60); GFR (African American) 82 ML/MIN (>60); Globulin 2.7 g/dL (1.3-3.2); Glucose 70 mg/dl (74-100); INR 1.54 (0.9-1.1); Potassium 3.6 mmoL/L (3.5-5.1); Prothrombin Time 16.2 seconds (10.1-12.5); Sodium 128 mmol/L (136-145); Total Protein,Serum 4.4 g/dl (6.3-8.2)
[2023-04-22 07:44] LABS: Magnesium 1.8 mg/dl (1.6-2.3); Phosphorous 3.5 mg/dl (2.5-4.5)
--- NOTE | 2023-04-22 10:36 | EXP.ACUTE.PN ---
Subjective *Date: 04/22/23 *Time: 10:36 Interval history: Patient stable on 3 L nasal cannula this morning. Diuresing well. Tolerating some p.o. intake. Afebrile overnight. No nausea or vomiting. States he has no shortness of breath or chest pain. Medical Exam Vital signs and Labs for Last 24 Hours: Vital Signs Temp Pulse Pulse Resp BP Pulse Ox O2 Del Method 04/22/23 07:51 97.7 F 105 H 16 103/59 L 90 L Nasal Cannula 04/22/23 06:41 83 04/22/23 06:41 93 H 04/22/23 06:41 99 Nasal Cannula 04/22/23 06:31 Nasal Cannula 04/22/23 04:00 97.9 F 82 19 93/57 L 91 L Nasal Cannula 04/22/23 04:28 Nasal Cannula 04/22/23 03:00 Nasal Cannula 04/22/23 01:00 Nasal Cannula 04/22/23 00:00 96 Nasal Cannula 04/22/23 00:00 98.2 F 98 H 19 80/62 L 99 Nasal Cannula 04/21/23 23:54 91 H 04/21/23 23:54 90 04/21/23 22:34 Nasal Cannula 04/21/23 21:00 Nasal Cannula 04/21/23 20:00 91 L Nasal Cannula 04/21/23 19:43 97.9 F 104 H 20 95/57 L 98 Room Air 04/21/23 18:19 92 H 04/21/23 18:19 93 H 04/21/23 18:19 94 L Nasal Cannula 04/21/23 17:00 Nasal Cannula 04/21/23 16:00 98.1 F 93 H 18 107/57 L 98 Nasal Cannula 04/21/23 15:00 Nasal Cannula 04/21/23 13:00 Nasal Cannula 04/21/23 11:00 Nasal Cannula 04/21/23 12:00 98.1 F 117 H 22 103/58 L 95 Nasal Cannula 04/21/23 11:07 99 H 04/21/23 11:07 99 H 04/21/23 11:07 97 Nasal Cannula O2 Flow Rate 04/22/23 07:51 2 04/22/23 06:41 04/22/23 06:41 04/22/23 06:41 3 04/22/23 06:31 2 04/22/23 04:00 3.5 04/22/23 04:28 3 04/22/23 03:00 3 04/22/23 01:00 3 04/22/23 00:00 3 04/22/23 00:00 2 04/21/23 23:54 04/21/23 23:54 04/21/23 22:34 2 04/21/23 21:00 2 04/21/23 20:00 2 04/21/23 19:43 04/21/23 18:19 04/21/23 18:19 04/21/23 18:19 2 04/21/23 17:00 2 04/21/23 16:00 3.5 04/21/23 15:00 3 04/21/23 13:00 3 04/21/23 11:00 3 04/21/23 12:00 3.5 04/21/23 11:07 04/21/23 11:07 04/21/23 11:07 3 Intake and Output 04/21/23 04/22/23 04/22/23 23:59 07:59 15:59 Intake Total 240 / 840 480 / 480 Output Total 800 / 800 300 / 300 0 / 300 Balance -560 / 40 180 / 180 0 / 180 Intake: Intake, Oral Amount 240 / 840 480 / 480 Output: Output, Urine Amount 800 / 800 300 / 300 0 / 300 Other: Number of Unmeasured Voids 0 0 Weight 61.961 kg Patient Weight 04/22/23 23:59 Weight 61.961 kg Laboratory Results - last 24 hr 04/19/23 08:08: Uoonv-6-Iqobgyicgsp 127, Ceruloplasmin 11.8 L, Hepatitis A IgM Ab Negative, Hep Bs Antigen Negative, Hep B Core IgM Ab Negative, Hepatitis C Antibody Non reactive 04/21/23 11:41: Ammonia 18 04/22/23 06:45: WBC 9.9, RBC 3.46 L, Hgb 11.0 L, Hct 36.0 L, MCV 103.9 H, MCH 31.9 H, MCHC 30.7 L, RDW 15.6, Plt Count 210, MPV 9.0, Neut % (Auto) 84.4 H, Lymph % (Auto) 8.9 L, Hudspeth % (Auto) 6.3, Eos % (Auto) 0.4, Baso % (Auto) 0.1, Neut # (Auto) 8.4 H, Lymph # (Auto) 0.9, Hudspeth # (Auto) 0.6, Eos # (Auto) 0.0, Baso # (Auto) 0.0, PT 16.2 H, INR 1.54 H, Sodium 128 L, Potassium 3.6, Chloride 99, Carbon Dioxide 23, Anion Gap 9.6, BUN 14, Creatinine 1.10, Estimated Creat Clear 62, Estimated GFR 68, Est GFR ( Amer) 82, Glucose 70 L D, Calcium 6.8 L, Phosphorus 3.5, Magnesium 1.8, Total Bilirubin 2.6 H, AST 43, ALT 28, Alkaline Phosphatase 175 H, Total Protein 4.4 L, Albumin 1.7 L, Globulin 2.7, Albumin/Globulin Ratio 0.6 L I & O for Labs for Last 24 Hours: Intake & Output 04/19/23 04/20/23 04/21/23 04/22/23 23:59 23:59 23:59 23:59 Intake Total 3506 / 3506 798 / 798 600 / 840 480 / 480 Output Total 1125 / 1125 400 / 400 800 / 800 300 / 300 Balance 2381 / 2381 398 / 398 -200 / 40 180 / 180 Weight 59.449 kg 59.239 kg 59.239 kg 61.961 kg Microbiology Reports for the Last 24 Hours: Microbiology 04/21/23 21:24 Sputum - Nasotra
--- NOTE | 2023-04-22 15:21 | PC.NURSE ---
Pt has rested in his room this shift. pt was able to get cleaned up this am with assistance from staff. pt declined to get up to the chair with physical therapy this am r/t he had a visitor coming in later that he wanted to be able to sit up with. When visitor arrived pt declined to get up to the chair. pt lung sounds are diminished with crackles throughout. bowel sounds are active. pt is noted to have a hernia present to abdomen. hernia and abdomen are soft. nad noted. pt is alert and oriented x 4.
[2023-04-22 19:13] LABS: Chloride 100 mmol/L (98-107); Sodium 129 mmol/L (136-145)
[2023-04-22 19:16] LABS: Blood Urea Nitrogen 14 mg/dl (9-20); Calcium 7.1 mg/dl (8.4-10.2); Carbon Dioxide 19 mmol/L (22.0-30.0); Creatinine Clearance Estimated 62 mL/min (50-200); Estimated Glomerular Filt Rate 68 ml/min (>60); GFR (African American) 82 ML/MIN (>60); Glucose 90 mg/dl (74-100)
[2023-04-23] VITALS (11 sets, daily range): BP systolic 90–143; BP diastolic 49–81; PULSE 66–105; RESP 16–20; TEMP 36.6–37.1; O2SAT 80–97; BMI 20.8
[2023-04-23 07:29] LABS: Basophils % 0.1 % (0.1-2.0); Eosinophils % 0.4 % (0.1-12.0); Hematocrit 36.5 % (42.0-52.0); Hemoglobin 11.5 g/dL (14.1-18.0); Lymphocytes % 11.1 % (10-50); Mean Corpuscular HGB Conc 31.6 g/dL (31.8-35.4); Mean Corpuscular Hemoglobin 32.8 pg (27.0-31.2); Mean Corpuscular Volume 103.8 fl (80-94); Mean Platelet Volume 9.1 fl (7.4-10.4); Monocytes # 0.8 K/mm3 (0.1-1.0); Monocytes % 8.6 % (1.7-9.3); Neutrophils # 7.1 K/mm3 (1.8-7.8); Neutrophils % 79.7 % (37.0-80.0); Platelet Count 193 K/mm3 (142-424); Red Blood Count 3.51 M/mm3 (4.60-6.20); Red Cell Distribution Width 15.8 % (11.5-17.5); White Blood Count 8.9 K/mm3 (4.8-10.8)
[2023-04-23 07:35] LABS: Alanine Aminotransferase 31 U/L (12-78); Albumin Level 1.7 g/dl (3.5-5.0); Albumin/Globulin Ratio 0.6 (1.1-1.8); Alkaline Phosphatase 169 U/L (38-126); Anion Gap 12.5 mEq/L (5-15); Aspartate Amino Transferase 42 U/L (17-59); Bilirubin,Total 2.4 mg/dl (0.2-1.3); Blood Urea Nitrogen 14 mg/dl (9-20); Calcium 6.8 mg/dl (8.4-10.2); Carbon Dioxide 23 mmol/L (22.0-30.0); Chloride 98 mmol/L (98-107); Creatinine Clearance Estimated 53 mL/min (50-200); Estimated Glomerular Filt Rate 56 ml/min (>60); GFR (African American) 68 ML/MIN (>60); Globulin 2.8 g/dL (1.3-3.2); Glucose 60 mg/dl (74-100); Magnesium 1.8 mg/dl (1.6-2.3); Potassium 3.5 mmoL/L (3.5-5.1); Sodium 130 mmol/L (136-145); Total Protein,Serum 4.5 g/dl (6.3-8.2)
--- NOTE | 2023-04-23 09:30 | PC.NURSE ---
Pt did not want to get out of bed on previous day shift. will encourage up to chair today.
--- NOTE | 2023-04-23 15:52 | EXP.ACUTE.PN ---
Subjective *Date: 04/23/23 *Time: 15:52 Interval history: Stable overnight. On 1 L nasal cannula oxygen this morning. No nausea, vomiting, chest pain, shortness of breath. Alert and oriented x4 this morning. Hesitant to get out of bed as he has company coming to visit . Encouraged to get up to bedside chair for meals. Kuhn catheter replaced because of urinary retention Medical Exam Vital signs and Labs for Last 24 Hours: Vital Signs Temp Pulse Pulse Resp BP Pulse Ox O2 Del Method 04/23/23 15:00 Nasal Cannula 04/23/23 15:11 97.9 F 100 H 16 90/62 L 92 L Nasal Cannula 04/23/23 12:55 Nasal Cannula 04/23/23 12:39 99 H 04/23/23 12:39 98 H 04/23/23 11:11 98.7 F 89 16 108/62 L 90 L Nasal Cannula 04/23/23 11:00 Nasal Cannula 04/23/23 09:00 Nasal Cannula 04/23/23 08:30 105 H 96 Nasal Cannula 04/23/23 08:00 91 L Nasal Cannula 04/23/23 08:00 98.3 F 105 H 16 97/49 L 93 L Nasal Cannula 04/23/23 06:20 101 H 04/23/23 06:20 98 H 04/23/23 06:20 90 L Nasal Cannula 04/23/23 04:00 97.9 F 66 20 143/81 H 80 L Nasal Cannula 04/23/23 05:00 Nasal Cannula 04/23/23 03:00 Nasal Cannula 04/23/23 00:00 97.8 F 102 H 18 91/55 L 81 L Nasal Cannula 04/23/23 01:00 Nasal Cannula 04/22/23 23:00 Nasal Cannula 04/22/23 21:00 Nasal Cannula 04/22/23 20:00 Nasal Cannula 04/22/23 23:10 97 H 04/22/23 23:09 96 H 04/22/23 20:00 98.0 F 101 H 16 90/53 L 88 L Nasal Cannula 04/22/23 19:00 Nasal Cannula 04/22/23 17:00 Nasal Cannula 04/22/23 18:22 Nasal Cannula 04/22/23 18:21 101 H 04/22/23 18:21 100 H O2 Flow Rate FiO2 04/23/23 15:00 1 04/23/23 15:11 1 04/23/23 12:55 1 04/23/23 12:39 04/23/23 12:39 04/23/23 11:11 1 04/23/23 11:00 1 04/23/23 09:00 1 04/23/23 08:30 1 04/23/23 08:00 1 04/23/23 08:00 1 04/23/23 06:20 04/23/23 06:20 04/23/23 06:20 1 04/23/23 04:00 04/23/23 05:00 1 04/23/23 03:00 1 04/23/23 00:00 04/23/23 01:00 2 04/22/23 23:00 2 04/22/23 21:00 2 04/22/23 20:00 2 04/22/23 23:10 04/22/23 23:09 04/22/23 20:00 04/22/23 19:00 2 04/22/23 17:00 2 04/22/23 18:22 2 28 04/22/23 18:21 04/22/23 18:21 Intake and Output 04/22/23 04/23/23 04/23/23 23:59 07:59 15:59 Intake Total 120 / 660 510 / 510 Output Total 0 / 1575 475 / 575 100 / 575 Balance 120 / -915 -475 / -65 410 / -65 Intake: Intake, Oral Amount 120 / 660 510 / 510 Output: Output, Urine Amount 0 / 775 475 / 475 0 / 475 Output, Urine Amount (Catheter) 100 / 100 Kuhn 100 / 100 Other: Number of Unmeasured Voids 0 0 Weight 62.312 kg Patient Weight 04/23/23 23:59 Weight 62.312 kg Laboratory Results - last 24 hr 04/22/23 18:20: Sodium 129 L, Potassium 4.0, Chloride 100, Carbon Dioxide 19 L, Anion Gap 14.0, BUN 14, Creatinine 1.10, Estimated Creat Clear 62, Estimated GFR 68, Est GFR ( Amer) 82, Glucose 90 D, Calcium 7.1 L 04/23/23 06:55: WBC 8.9, RBC 3.51 L, Hgb 11.5 L, Hct 36.5 L, MCV 103.8 H, MCH 32.8 H, MCHC 31.6 L, RDW 15.8, Plt Count 193, MPV 9.1, Neut % (Auto) 79.7, Lymph % (Auto) 11.1, [place] % (Auto) 8.6, Eos % (Auto) 0.4, Baso % (Auto) 0.1, Neut # (Auto) 7.1, Lymph # (Auto) 1.0, [place] # (Auto) 0.8, Eos # (Auto) 0.0, Baso # (Auto) 0.0, Sodium 130 L, Potassium 3.5, Chloride 98, Carbon Dioxide 23, Anion Gap 12.5, BUN 14, Creatinine 1.30 H, Estimated Creat Clear 53, Estimated GFR 56 L, Est GFR ( Amer) 68, Glucose 60 L D, Calcium 6.8 L, Magnesium 1.8, Total Bilirubin 2.4 H, AST 42, ALT 31, Alkaline Phosphatase 169 H, Total Protein 4.5 L, Albumin 1.7 L, Globulin 2.8, Albumin/Globulin Ratio 0.6 L I & O for Labs for Last 24 Hours: Intake & Output 04/20/23 04/21/23 04/22/23 04/23/23 23:59 23:59 23:59 23:59 Intake Total 798 / 798 600 / 8
--- NOTE | 2023-04-23 16:48 | PC.NURSE ---
Addendum entered by Maira Baugh RN 04/23/23 16:52: 2-3+ pitting edema noted to ble. 1+ non pitting edema to gabi lower forearm and antecubital areas. Original Note: Pt has been up to the chair since approx 1200, with multiple visitors this shift. pt had linen changed this shift as well as clean clothes put on. pt is a/o x 4. lungs have crackles in gabi bases. bowel sounds are active in all quads. pt has large, soft hernia noted to abdomen. nad noted.
[2023-04-24] VITALS (9 sets, daily range): BP systolic 81–120; BP diastolic 47–74; PULSE 75–99; RESP 16–19; TEMP 36.5–37; O2SAT 90–98; BMI 19.8
[2023-04-24 07:40] LABS: Basophils % 0.1 % (0.1-2.0); Eosinophils % 0.6 % (0.1-12.0); Hematocrit 35.7 % (42.0-52.0); Hemoglobin 11.5 g/dL (14.1-18.0); Lymphocytes # 0.7 K/mm3 (0.7-4.5); Lymphocytes % 10.4 % (10-50); Mean Corpuscular HGB Conc 32.2 g/dL (31.8-35.4); Mean Corpuscular Hemoglobin 32.8 pg (27.0-31.2); Mean Corpuscular Volume 101.7 fl (80-94); Mean Platelet Volume 8.5 fl (7.4-10.4); Monocytes # 0.4 K/mm3 (0.1-1.0); Monocytes % 5.4 % (1.7-9.3); Neutrophils # 5.7 K/mm3 (1.8-7.8); Neutrophils % 83.6 % (37.0-80.0); Platelet Count 178 K/mm3 (142-424); Red Blood Count 3.51 M/mm3 (4.60-6.20); Red Cell Distribution Width 16.1 % (11.5-17.5); White Blood Count 6.8 K/mm3 (4.8-10.8)
[2023-04-24 07:48] LABS: Alanine Aminotransferase 31 U/L (12-78); Albumin Level 1.8 g/dl (3.5-5.0); Albumin/Globulin Ratio 0.7 (1.1-1.8); Alkaline Phosphatase 159 U/L (38-126); Anion Gap 11.9 mEq/L (5-15); Aspartate Amino Transferase 44 U/L (17-59); Bilirubin,Total 2.3 mg/dl (0.2-1.3); Blood Urea Nitrogen 11 mg/dl (9-20); Calcium 6.8 mg/dl (8.4-10.2); Carbon Dioxide 21 mmol/L (22.0-30.0); Chloride 98 mmol/L (98-107); Creatinine Clearance Estimated 54 mL/min (50-200); Estimated Glomerular Filt Rate 62 ml/min (>60); GFR (African American) 74 ML/MIN (>60); Globulin 2.6 g/dL (1.3-3.2); Glucose 66 mg/dl (74-100); INR 1.42 (0.9-1.1); Sodium 128 mmol/L (136-145); Total Protein,Serum 4.4 g/dl (6.3-8.2)
[2023-04-24 07:52] LABS: Potassium 2.9 mmoL/L (3.5-5.1)
[2023-04-24 08:15] LABS: Magnesium 1.7 mg/dl (1.6-2.3)
--- NOTE | 2023-04-24 08:24 | EXP.PHA.PN ---
Subjective *Date: 04/24/23 *Time: 08:24 Medical Exam Vital signs and Labs for Last 24 Hours: Vital Signs Temp Pulse Pulse Resp BP Pulse Ox O2 Del Method 04/24/23 07:55 98.0 F 96 H 19 91/56 L 91 L Nasal Cannula 04/24/23 07:55 Nasal Cannula 04/24/23 05:00 Nasal Cannula 04/24/23 05:25 80 04/24/23 05:25 89 04/24/23 05:25 98 Nasal Cannula 04/24/23 04:00 97.7 F 89 18 98/59 L 95 Nasal Cannula 04/24/23 03:00 Nasal Cannula 04/24/23 01:00 Nasal Cannula 04/23/23 23:00 Nasal Cannula 04/24/23 00:00 98.6 F 87 18 97/62 L 90 L Nasal Cannula 04/23/23 21:00 Nasal Cannula 04/23/23 20:00 Nasal Cannula 04/23/23 20:00 97.9 F 99 H 18 107/63 L 90 L Nasal Cannula 04/23/23 18:44 Nasal Cannula 04/23/23 18:44 93 H 04/23/23 18:44 91 H 04/23/23 18:33 Nasal Cannula 04/23/23 16:46 Nasal Cannula 04/23/23 16:00 97 Nasal Cannula 04/23/23 15:00 Nasal Cannula 04/23/23 15:11 97.9 F 100 H 16 90/62 L 92 L Nasal Cannula 04/23/23 12:55 Nasal Cannula 04/23/23 12:39 99 H 04/23/23 12:39 98 H 04/23/23 11:11 98.7 F 89 16 108/62 L 90 L Nasal Cannula 04/23/23 11:00 Nasal Cannula 04/23/23 09:00 Nasal Cannula 04/23/23 08:30 105 H 96 Nasal Cannula O2 Flow Rate FiO2 04/24/23 07:55 1 04/24/23 07:55 1 04/24/23 05:00 2 04/24/23 05:25 04/24/23 05:25 04/24/23 05:25 1 04/24/23 04:00 4 04/24/23 03:00 2 04/24/23 01:00 2 04/23/23 23:00 2 04/24/23 00:00 2 04/23/23 21:00 2 04/23/23 20:00 2 04/23/23 20:00 2 04/23/23 18:44 1 24 04/23/23 18:44 04/23/23 18:44 04/23/23 18:33 1 04/23/23 16:46 1 04/23/23 16:00 1 04/23/23 15:00 1 04/23/23 15:11 1 04/23/23 12:55 1 04/23/23 12:39 04/23/23 12:39 04/23/23 11:11 1 04/23/23 11:00 1 04/23/23 09:00 1 04/23/23 08:30 1 Intake and Output 04/23/23 04/24/23 04/24/23 23:59 07:59 15:59 Intake Total 60 / 570 240 / 240 Output Total 0 / 575 500 / 500 Balance 60 / -5 -260 / -260 Intake: Intake, Oral Amount 60 / 570 240 / 240 Output: Output, Urine Amount 0 / 475 500 / 500 Other: Number of Unmeasured Voids 0 Weight 59.222 kg Patient Weight 04/24/23 23:59 Weight 59.222 kg Laboratory Results - last 24 hr 04/24/23 07:20: WBC 6.8, RBC 3.51 L, Hgb 11.5 L, Hct 35.7 L, MCV 101.7 H, MCH 32.8 H, MCHC 32.2, RDW 16.1, Plt Count 178, MPV 8.5, Neut % (Auto) 83.6 H, Lymph % (Auto) 10.4, [place] % (Auto) 5.4, Eos % (Auto) 0.6, Baso % (Auto) 0.1, Neut # (Auto) 5.7, Lymph # (Auto) 0.7, [place] # (Auto) 0.4, Eos # (Auto) 0.0, Baso # (Auto) 0.0, PT 15.0 H, INR 1.42 H, Sodium 128 L, Potassium 2.9 L*, Chloride 98, Carbon Dioxide 21 L, Anion Gap 11.9, BUN 11, Creatinine 1.20, Estimated Creat Clear 54, Estimated GFR 62, Est GFR ( Amer) 74, Glucose 66 L, Calcium 6.8 L, Total Bilirubin 2.3 H, AST 44, ALT 31, Alkaline Phosphatase 159 H, Total Protein 4.4 L, Albumin 1.8 L, Globulin 2.6, Albumin/Globulin Ratio 0.7 L I & O for Labs for Last 24 Hours: Intake & Output 04/21/23 04/22/23 04/23/23 04/24/23 23:59 23:59 23:59 23:59 Intake Total 600 / 840 660 / 660 570 / 570 240 / 240 Output Total 800 / 800 1100 / 1575 575 / 575 500 / 500 Balance -200 / 40 -440 / -915 -5 / -5 -260 / -260 Weight 59.239 kg 61.961 kg 62.312 kg 59.222 kg Microbiology Reports for the Last 24 Hours: Microbiology 04/21/23 21:24 Sputum - Nasotracheal Suction Gram Stain - Final 04/21/23 21:24 Sputum - Nasotracheal Suction Sputum Culture - Final Klebsiella pneumoniae The patient's infection will respond to the chosen ABx?: No (SPUTUM GROWING K. PNEUMONIAE RESISTANT TO LEVAQUIN, CHANGED TO INVANZ) Is the patient receiving the right drug, dose, and route?: Yes Could a more targeted ABx be ordered?: Yes (CHANGED TO INVANZ)
--- NOTE | 2023-04-24 09:18 | EXP.PULM.PN ---
Subjective *Date: 04/24/23 *Time: 10:02 Interval history: No acute respiratory vents over the weekend. Patient denies any worsening/improving respiratory symptoms. Pulmonology Exam Inpatient Vital signs and Labs for Last 24 Hours: Temp Pulse Resp BP Pulse Ox O2 Del Method O2 Flow Rate 98.0 F 96 H 19 91/56 L 91 L Nasal Cannula 1 04/24/23 07:55 04/24/23 07:55 04/24/23 07:55 04/24/23 07:55 04/24/23 07:55 04/24/23 07:55 04/24/23 07:55 FiO2 24 04/23/23 18:44 Laboratory Results - last 24 hr 04/24/23 07:20: WBC 6.8, RBC 3.51 L, Hgb 11.5 L, Hct 35.7 L, MCV 101.7 H, MCH 32.8 H, MCHC 32.2, RDW 16.1, Plt Count 178, MPV 8.5, Neut % (Auto) 83.6 H, Lymph % (Auto) 10.4, [place] % (Auto) 5.4, Eos % (Auto) 0.6, Baso % (Auto) 0.1, Neut # (Auto) 5.7, Lymph # (Auto) 0.7, [place] # (Auto) 0.4, Eos # (Auto) 0.0, Baso # (Auto) 0.0, PT 15.0 H, INR 1.42 H, Sodium 128 L, Potassium 2.9 L*, Chloride 98, Carbon Dioxide 21 L, Anion Gap 11.9, BUN 11, Creatinine 1.20, Estimated Creat Clear 54, Estimated GFR 62, Est GFR ( Amer) 74, Glucose 66 L, Calcium 6.8 L, Magnesium 1.7, Total Bilirubin 2.3 H, AST 44, ALT 31, Alkaline Phosphatase 159 H, Total Protein 4.4 L, Albumin 1.8 L, Globulin 2.6, Albumin/Globulin Ratio 0.7 L I & O for Labs for Last 24 Hours: Intake & Output 04/21/23 04/22/23 04/23/23 04/24/23 23:59 23:59 23:59 23:59 Intake Total 600 / 840 660 / 660 570 / 570 240 / 240 Output Total 800 / 800 1100 / 1575 575 / 575 500 / 500 Balance -200 / 40 -440 / -915 -5 / -5 -260 / -260 Weight 130 lb 9.594 oz 136 lb 9.6 oz 137 lb 6 oz 130 lb 9 oz Microbiology Reports for the Last 24 Hours: Microbiology 04/21/23 21:24 Sputum - Nasotracheal Suction Gram Stain - Final 04/21/23 21:24 Sputum - Nasotracheal Suction Sputum Culture - Final Klebsiella pneumoniae Constitutional: Present moderate distress Head: Present normocephalic and atraumatic ENT: Present normal exam, normal oropharynx and mucous membranes moist Neck: Present normal inspection and full ROM Respiratory: Present rhonchi and able to speak in complete sentences; Absent respiratory distress or wheezes Cardiac: Present S1/S2, Tachycardia and radial pulses present GI: Present soft and distention; Absent tenderness or guarding Comments:: Midline scar and hernia noted. Easily reducible. No tenderness or guarding noted. Skin: Present intact; Absent cyanosis or jaundice Neuro: Present alert and awake; Absent oriented x 3 Extremities: Present normal inspection and edema; Absent clubbing or cyanosis Psychiatric: Present normal affect and cooperative Assessment and Plan *Assessment and plan (1) Acute hypoxemic respiratory failure: Status: Acute Category: Medical Code(s): J96.01 - Acute respiratory failure with hypoxia (2) Pulmonary edema: Status: Acute Qualifiers: Chronicity: acute Qualified Code(s): J81.0 - Acute pulmonary edema Category: Medical Code(s): J81.1 - Chronic pulmonary edema Plan Mr. Childress is a 63-year-old male with reported history of alcohol dependence chronic pain hypertension dyslipidemia noted to have worsening malaise discoloration of the eyes and frequent falls and was sent to the ER for further management primary care clinic from which she was admitted for evaluation management of liver failure/decompensated cirrhosis. CT chest upper admission bilateral emphysematous changes along with groundglass opacities and interstitial thickening which appear to be progressively worsening in similar distribution on his CTA from 04/21/2023. No dense consolidation/pleural effusions noted. Calcified nodule with lymphadenopathy likely from prior granulomatous disease. Comprehensive respiratory viral PCR panel negative. Interval update: No acute respiratory events over the weekend. Stable oxygen requirements afebrile. No evidence of leukocytosis. Afebrile, no evidence of leucocytosis. Contin
--- NOTE | 2023-04-24 09:20 | XR_ITS ---
FINAL REPORT CLINICAL HISTORY: Hypoxia COMPARISON: 04/20/2023 FINDINGS: A single portable view of the chest was obtained. The heart size and pulmonary vascularity are within normal limits. The mediastinum is within normal limits. Persistent pulmonary opacities are worrisome for bilateral pneumonia. The bony thorax is intact. IMPRESSION: Persistent pulmonary opacities worrisome for bilateral pneumonia. Reviewed, Interpreted and Dictated by Pablo Sow III, MD Transcribed by Kelly Mcdonald Authenticated and [facility]
--- NOTE | 2023-04-24 10:09 | DIET.NUTRFU ---
Addendum entered by Radha Webb RD, LD 04/24/23 13:20: lactulose started. Discharge plan is rehab facilities when ready Original Note: Saw patient today, meal consumption is fair eating 25-50% at meals. He is filling out menu just not hungry enough to finish trays. Supplements are in place, he prefers the chocolate boost, he dislikes the chocolate ensure. Currently out of stock, looking into re-ordering. Patient agree to try homemade shake to met the extra calories/protein. Patient triggered for severe PCM, provider aware and noted. Patient has not had BM since admit which maybe affecting appetite, has a BM regimen in place of senekot. Offered prune juice, he feels like gas is moving and maybe today. Only ate applesauce this morning. Reviewing labs: K 2.9L, Na 128L, bilirubin 2.3L, albumin 1.8L. Edema was noted 2-3 to BLE today, he did receive last IVF on 04/18, bumex on 04/21 and lasix on 04/22. Weight non significant changes. He is also receiving multiple vitamins for additional nutritional support. Will continue to follow POC
--- NOTE | 2023-04-24 13:45 | EXP.DC.SUM ---
General Admission date:: 04/18/23 Discharge date: 04/24/23 HPI HPI HPI: Mr. Go is a 63-year-old male with history of alcohol dependence, chronic pain, hypertension, hyperlipidemia. Presented to his primary care's office today for staple removal. Reports that he fell several weeks ago hitting his head necessitating clark. On arrival, his PCP noted that he had yellow eyes and encouraged him to go to the ER for further evaluation. He additionally complains of weakness, poor p.o. intake, feeling a little dehydrated. States he has not had much to eat the past several days. Does complain of abdominal pain associated with his longstanding abdominal hernia. On arrival to the ER, patient has no other complaints. He reports that he has lost approximately 25 pounds without trying over the past 1 to 2 months. No known history of cancer. Denies any blood in his vomit or stool. Denies any chest pain or shortness of breath. Work-up in the ER positive for coagulopathy, elevation of alkaline phosphatase and GGT, findings consistent with decompensated cirrhosis. Medicine consulted for admission. On arrival to the floor, patient is alert and oriented x3. Additional history elicits that he drinks vodka daily. Goes through a handle (1.75 L) weekly. Has not been eating well. Last drinks were last night. Denies any previous withdrawal seizures or significant symptoms. Was sober for 90 days while being worked up for abdominal hernia repair but after seeing no results or progress with scheduling of surgery, went back to drinking. At this time denies any fevers, chills, rashes, local symptoms. Just states he needs his clark removed from his head. Hospital Course Hospital Course Hospital Course: 63-year-old male with history of alcohol dependence. Presents with finding of jaundice by his PCP. In the ER, work-up concerning for coagulopathy, decompensated cirrhosis. Had oxygen requirement during hospitalization. Mix of pneumonia and pulmonary edema. Transitioned to IV antibiotics to complete course after speciation of respiratory culture. Patient showing some response to steroids. Needs close follow-up with hepatology at for further evaluation of possible liver transplant. Continues to require 1 L nasal cannula oxygen. Has shown good improvement during hospitalization. Evaluated by PT and OT. Patient necessitating long term, will discharge to [facility] in [place]. Appreciate their assistance in care. Stable for discharge. Problems addressed as follows: Acute hypoxemic respiratory failure COPD Pulmonary edema versus pneumonia -Chest imaging showing pulmonary edema versus pneumonia on admission. Patient had increased oxygen requirement with previous stability on room air. Initially started on levofloxacin. Sputum culture obtained that returned positive for Klebsiella resistant to levofloxacin. Will transition to ertapenem for 5 days. Patient has midline and right upper extremity, okay to remove after completing antibiotics. Last day of antibiotics 04/28. Responded well to diuresis with Lasix and spironolactone. We will continue spironolactone daily as ordered. Pulmonology consulted during admission and assisted with care. Recommend follow-up with pulmonology as scheduled. Continue DuoNeb every 6 hours as needed. Continue 1 L nasal cannula oxygen, goal saturation greater 90%. May necessitate 2 L at night when he sleeps. Recommend repeat CBC, CMP, magnesium, phosphorus, INR in 1 week. Decompensated cirrhosis Alcoholic hepatitis Hypoalbuminemia Coagulopathy - Maddrey's discriminant function 89.1 points. Continue methylprednisolone 40mg IV daily, plan to complete 7 days of steroids. Given response so far, would not necessitate further steroids. Will benefit from referral to hepatology/liver transplant service at for further work-up. Referral has been made and service will contact patient when insurance appro
--- NOTE | 2023-04-24 14:21 | PC.NURSE ---
called Isabelle's office and spoke with Hannah. she will inform of admit to [facility]
--- NOTE | 2023-04-24 15:53 | XR_ITS ---
PROCEDURE INFORMATION: Exam: XR Abdomen Exam date and time: 04/24/2023 5:03 PM Age: 63 years old Clinical indication: Abdominal pain; Generalized; Additional info: Constipation TECHNIQUE: Imaging protocol: Radiologic exam of the abdomen. Views: Frontal supine view of the abdomen. 1 View. COMPARISON: CT ABDOMEN PELVIS W CON 04/18/2023 10:07 AM FINDINGS: Gastrointestinal tract: Non-obstructive bowel gas pattern. Bones/joints: No evidence of acute osseous abnormality. IMPRESSION: No acute findings.
--- NOTE | 2023-04-24 16:03 | PC.NURSE ---
CALLED [facility] TO GIVE REPORT AND THEY STATED THEY WANTED PT TO HAVE A KUB DONE B/C HE HAS NOT HAD A BOWEL MOVEMENT SINCE ADMISSION AND WANTED HIM TO VOID SINCE HE HAS HAD ISSUES WITH URINARY RETENTION WHILE HERE BEFORE THEY WOULD EXCEPT HIM. NOTIFIED HOSPITALIST AND HE STATED HE WOULD ORDER KUB AND HE WOULD GIVE PT MORE TIME TO VOID AND PLAN FOR TRANSFER TO [facility] TOMORROW.
--- NOTE | 2023-04-24 16:24 | PC.NURSE ---
PT IS SITTING UP IN THE CHAIR. ALERT AND ORIENTED X4. PT STILL HAS NOT VOIDED SINCE CATHETER WAS DC'D AT 1300. AWAITING KUB. PT WAS A 1 ASSIST TO GET OOB TO CHAIR. SWELLING NOTED TO BLE. MIDLINE NOTED TO RUE. PT'S APPETITE HAS BEEN POOR. PT HAS NOT HAD A BOWEL MOVEMENT SINCE 04/18. WHEN PT WAS QUESTIONED ABOUT HOW OFTEN HE HAS BOWEL MOVEMENTS HE STATED ABOUT EVERY 5-6 DAYS AND HE OCCASIONALLY HAS TO TAKE A SUPPOSITORY. ABDOMEN SOFT WITH HERNIA NOTED. HYPOACTIVE BOWEL SOUNDS. WILL CONTINUE TO MONITOR.
--- NOTE | 2023-04-24 18:13 | EXP.ACUTE.PN ---
Subjective *Date: 04/24/23 *Time: 18:13 Interval history: Patient pleasant on exam. On 1 L nasal cannula oxygen. Has not had a bowel movement since admission. Currently on bowel regimen. Does not have any worsening abdominal pain or distention. Will remove Kuhn today and trial voiding. Tolerating p.o. intake. Afebrile. Hemodynamically stable. Medical Exam Vital signs and Labs for Last 24 Hours: Vital Signs Temp Pulse Pulse Resp BP Pulse Ox O2 Del Method 04/24/23 16:00 Nasal Cannula 04/24/23 16:00 98.3 F 90 16 120/74 93 L Nasal Cannula 04/24/23 14:51 Nasal Cannula 04/24/23 08:00 Nasal Cannula 04/24/23 13:29 75 04/24/23 13:29 76 04/24/23 13:00 Nasal Cannula 04/24/23 11:33 98.2 F 81 16 91/59 L 97 Room Air 04/24/23 11:00 Nasal Cannula 04/24/23 09:00 Nasal Cannula 04/24/23 07:55 98.0 F 96 H 19 91/56 L 91 L Nasal Cannula 04/24/23 07:55 Nasal Cannula 04/24/23 05:00 Nasal Cannula 04/24/23 05:25 80 04/24/23 05:25 89 04/24/23 05:25 98 Nasal Cannula 04/24/23 04:00 97.7 F 89 18 98/59 L 95 Nasal Cannula 04/24/23 03:00 Nasal Cannula 04/24/23 01:00 Nasal Cannula 04/23/23 23:00 Nasal Cannula 04/24/23 00:00 98.6 F 87 18 97/62 L 90 L Nasal Cannula 04/23/23 21:00 Nasal Cannula 04/23/23 20:00 Nasal Cannula 04/23/23 20:00 97.9 F 99 H 18 107/63 L 90 L Nasal Cannula 04/23/23 18:44 Nasal Cannula 04/23/23 18:44 93 H 04/23/23 18:44 91 H 04/23/23 18:33 Nasal Cannula O2 Flow Rate FiO2 04/24/23 16:00 1 04/24/23 16:00 04/24/23 14:51 1 04/24/23 08:00 1 04/24/23 13:29 04/24/23 13:29 04/24/23 13:00 1 04/24/23 11:33 04/24/23 11:00 1 04/24/23 09:00 1 04/24/23 07:55 1 04/24/23 07:55 1 04/24/23 05:00 2 04/24/23 05:25 04/24/23 05:25 04/24/23 05:25 1 04/24/23 04:00 4 04/24/23 03:00 2 04/24/23 01:00 2 04/23/23 23:00 2 04/24/23 00:00 2 04/23/23 21:00 2 04/23/23 20:00 2 04/23/23 20:00 2 04/23/23 18:44 1 24 04/23/23 18:44 04/23/23 18:44 04/23/23 18:33 1 Intake and Output 04/24/23 04/24/23 04/24/23 07:59 15:59 23:59 Intake Total 240 / 1650 940 / 1650 470 / 1650 Output Total 500 / 700 200 / 700 Balance -260 / 950 740 / 950 470 / 950 Intake: Intake, Oral Amount 240 / 1650 940 / 1650 470 / 1650 Output: Output, Urine Amount 500 / 500 0 / 500 Output, Urine Amount (Catheter) 200 / 200 Kuhn 200 / 200 Other: Number of Unmeasured Voids 0 Weight 59.222 kg Patient Weight 04/24/23 23:59 Weight 59.222 kg Laboratory Results - last 24 hr 04/24/23 07:20: WBC 6.8, RBC 3.51 L, Hgb 11.5 L, Hct 35.7 L, MCV 101.7 H, MCH 32.8 H, MCHC 32.2, RDW 16.1, Plt Count 178, MPV 8.5, Neut % (Auto) 83.6 H, Lymph % (Auto) 10.4, [place] % (Auto) 5.4, Eos % (Auto) 0.6, Baso % (Auto) 0.1, Neut # (Auto) 5.7, Lymph # (Auto) 0.7, [place] # (Auto) 0.4, Eos # (Auto) 0.0, Baso # (Auto) 0.0, PT 15.0 H, INR 1.42 H, Sodium 128 L, Potassium 2.9 L*, Chloride 98, Carbon Dioxide 21 L, Anion Gap 11.9, BUN 11, Creatinine 1.20, Estimated Creat Clear 54, Estimated GFR 62, Est GFR ( Amer) 74, Glucose 66 L, Calcium 6.8 L, Magnesium 1.7, Total Bilirubin 2.3 H, AST 44, ALT 31, Alkaline Phosphatase 159 H, Total Protein 4.4 L, Albumin 1.8 L, Globulin 2.6, Albumin/Globulin Ratio 0.7 L I & O for Labs for Last 24 Hours: Intake & Output 04/21/23 04/22/23 04/23/23 04/24/23 23:59 23:59 23:59 23:59 Intake Total 600 / 840 660 / 660 570 / 570 1650 / 1650 Output Total 800 / 800 1100 / 1575 575 / 575 700 / 700 Balance -200 / 40 -440 / -915 -5 / -5 950 / 950 Weight 59.239 kg 61.961 kg 62.312 kg 59.222 kg Microbiology Reports for the Last 24 Hours: Microbiology 04/21/23 21:24 Sputum - Nasotracheal Suction Gram Stain - Final 04/21/23 21:24 Sputum - Nasotracheal Suctio
[2023-04-25] VITALS: BP 88/60; PULSE 85; RESP 16; TEMP 36.9; O2SAT 90
[2023-04-25 01:05] VITALS: PULSE 84; PULSE 87
[2023-04-25 04:00] VITALS: BP 90/56; PULSE 95; RESP 18; TEMP 36.7; O2SAT 92; BMI 19.7
[2023-04-25 06:00] VITALS: O2SAT 94
[2023-04-25 06:02] VITALS: PULSE 79; PULSE 80
[2023-04-25 07:10] LABS: Alanine Aminotransferase 30 U/L (12-78); Albumin Level 1.7 g/dl (3.5-5.0); Albumin/Globulin Ratio 0.7 (1.1-1.8); Alkaline Phosphatase 135 U/L (38-126); Aspartate Amino Transferase 53 U/L (17-59); Blood Urea Nitrogen 10 mg/dl (9-20); Calcium 6.8 mg/dl (8.4-10.2); Carbon Dioxide 23 mmol/L (22.0-30.0); Chloride 102 mmol/L (98-107); Creatinine Clearance Estimated 59 mL/min (50-200); Estimated Glomerular Filt Rate 68 ml/min (>60); GFR (African American) 82 ML/MIN (>60); Globulin 2.4 g/dL (1.3-3.2); Glucose 60 mg/dl (74-100); Sodium 131 mmol/L (136-145); Total Protein,Serum 4.1 g/dl (6.3-8.2)
--- NOTE | 2023-04-25 07:36 | PC.NURSE ---
notifed MD Mcbride of pt's critical potassium of 3.0, no new orders at this time
[2023-04-25 08:00] VITALS: BP 105/65; PULSE 70; RESP 18; TEMP 36.6; O2SAT 88
--- NOTE | 2023-04-25 09:35 | EXP.PULM.PN ---
Subjective *Date: 04/25/23 *Time: 09:35 Pulmonology Exam Inpatient Vital signs and Labs for Last 24 Hours: Temp Pulse Resp BP Pulse Ox O2 Del Method O2 Flow Rate 98 F 70 18 105/65 L 88 L Nasal Cannula 1 04/25/23 08:00 04/25/23 08:00 04/25/23 08:00 04/25/23 08:00 04/25/23 08:00 04/25/23 08:00 04/25/23 08:00 FiO2 24 04/23/23 18:44 Laboratory Results - last 24 hr 04/25/23 05:50: Sodium 131 L, Potassium 3.0 L, Chloride 102, Carbon Dioxide 23, Anion Gap 9.0, BUN 10, Creatinine 1.10, Estimated Creat Clear 59, Estimated GFR 68, Est GFR ( Amer) 82, Glucose 60 L, Calcium 6.8 L, Total Bilirubin 2.0 H, AST 53, ALT 30, Alkaline Phosphatase 135 H, Total Protein 4.1 L, Albumin 1.7 L, Globulin 2.4, Albumin/Globulin Ratio 0.7 L I & O for Labs for Last 24 Hours: Intake & Output 04/22/23 04/23/23 04/24/23 04/25/23 23:59 23:59 23:59 23:59 Intake Total 660 / 660 570 / 570 1650 / 1650 Output Total 1100 / 1575 575 / 575 700 / 700 0 / 0 Balance -440 / -915 -5 / -5 950 / 950 0 / 0 Weight 136 lb 9.6 oz 137 lb 6 oz 130 lb 9 oz 130 lb 1.6 oz Microbiology Reports for the Last 24 Hours: Microbiology 04/21/23 21:24 Sputum - Nasotracheal Suction Gram Stain - Final 04/21/23 21:24 Sputum - Nasotracheal Suction Sputum Culture - Final Klebsiella pneumoniae Assessment and Plan *Assessment and plan (1) Acute hypoxemic respiratory failure: Status: Acute Category: Medical Code(s): J96.01 - Acute respiratory failure with hypoxia (2) Pulmonary edema: Status: Acute Qualifiers: Chronicity: acute Qualified Code(s): J81.0 - Acute pulmonary edema Category: Medical Code(s): J81.1 - Chronic pulmonary edema Plan Mr. Childress is a 63-year-old male with reported history of alcohol dependence chronic pain hypertension dyslipidemia noted to have worsening malaise discoloration of the eyes and frequent falls and was sent to the ER for further management primary care clinic from which she was admitted for evaluation management of liver failure/decompensated cirrhosis. CT chest upper admission bilateral emphysematous changes along with groundglass opacities and interstitial thickening which appear to be progressively worsening in similar distribution on his CTA from 04/21/2023. No dense consolidation/pleural effusions noted. Calcified nodule with lymphadenopathy likely from prior granulomatous disease. Comprehensive respiratory viral PCR panel negative. Interval update: No acute respiratory events over the weekend. Stable oxygen requirements afebrile. No evidence of leukocytosis. Afebrile, no evidence of leucocytosis. Continue to receive levoflaxacin, sputum cultures grew Klebsiella, resistant to levoflaxacin. Chest x-ray from this point relatively stable, concerning worsening of the left upper lobe infiltrates. Improving right upper lobe infiltrate. Auscultation worsening rhonchi Continue to receive diuretics. Plan: Continue nasal cannula oxygen supplementation to maintain O2 saturation goal of 90% above. Wean as tolerated Continue ertapenem to cover for Klebsiella pneumonia for total of 7 days Continue DuoNebs every 6 hours scheduled Volume optimization as per primary team. Thank you for involving pulmonary in this patient care. We will follow the patient in pulmonary clinic 2 weeks postop with a chest x-ray PA lateral prior to clinic visit.
--- NOTE | 2023-04-25 11:29 | PC.NURSE ---
report called to Meghan LAGOS at [facility]
--- NOTE | 2023-04-25 11:31 | PC.NURSE ---
notified ambulance service that pt needs to go to [facility]
== END 2023-04-25 12:09 | DRG 432 ==
LOC: ER 12:30 → 2ND 13:10
PROVIDERS: Admitting Provider Internal Medicine Adolescent Medicine; Emergency Provider Student in an Organized Health Care Education/Training Program; PCP Emergency Medicine; Visit Provider Internal Medicine Adolescent Medicine
DX: K74.60 Unspecified cirrhosis of liver (principal); E43 Unspecified severe protein-calorie malnutrition; J96.01 Acute respiratory failure with hypoxia; J81.0 Acute pulmonary edema; J18.9 Pneumonia, unspecified organism; Z68.1 Body mass index [BMI] 19.9 or less, adult; K72.90 Hepatic failure, unspecified without coma; I10 Essential (primary) hypertension; E78.5 Hyperlipidemia, unspecified; G35 Multiple sclerosis; Z87.891 Personal history of nicotine dependence; G89.29 Other chronic pain; F41.9 Anxiety disorder, unspecified; F32.A Depression, unspecified; K70.11 Alcoholic hepatitis with ascites; N40.1 Benign prostatic hyperplasia with lower urinary tract symptoms; R33.8 Other retention of urine; E87.6 Hypokalemia; K59.00 Constipation, unspecified
CPT/HCPCS: 36410; 36415; 71045; 71260; 71275; 74018; 74177; 76705; 80048; 80053; 80074; 80305; 81001; 82103; 82140; 82248; 82390; 82525; 82607; 82803; 82977; 83690; 83735; 84100; 84484; 85007; 85025; 85610; 85730; 87070; 87077; 87186; 87205; 87581; 87632; 87798; 93005; 94640; 94760; 94761; 97110; 97163; 97166; 97530; 99291; J0456; J0696; J1335; J1956; J2405; Q9967

== ENCOUNTER 2023-04-29 08:02 | Emergency (ER) | payer MEDICARE, SELFPAY ==
[2023-04-29] VITALS (9 sets, daily range): BP systolic 90–102; BP diastolic 60–71; PULSE 79–93; RESP 16–20; TEMP 36.5; O2SAT 96–100; BMI 19.8
--- NOTE | 2023-04-29 08:11 | HMH.EDGENADL ---
Discharge Plan Disposition Patient Disposition: Home Health Service Condition: Good Prescriptions Prescriptions: No Action albuterol sulfate 90 mcg/actuation HFA aerosol inhaler 1 inh inhalation QID PRN (Reason: Shortness Of Breath) ipratropium-albuterol 0.5 mg-3 mg(2.5 mg base)/3 mL Solution For Nebulization 3 ml inhalation Q6RT Qty: 0 0RF nicotine 21 mg/24 hr Patch 24 Hour 21 mg transdermal DAILYP PRN (Reason: Nicotine Cravings) Qty: 0 0RF gabapentin 100 mg Capsule 200 mg PO TIDP PRN (Reason: Moderate Pain (4-6)) 30 Days Qty: 180 0RF finasteride 5 mg Tablet 5 mg PO HS 30 Days Qty: 0 0RF lactulose 20 gram/30 mL Solution 20 g PO DAILY 30 Days Qty: 0 0RF potassium chloride [Klor-Con M20] 20 mEq Tablet,Er Particles/Crystals 20 meq PO BID 10 Days Qty: 0 0RF quetiapine 100 mg Tablet 200 mg PO HS 30 Days Qty: 0 0RF spironolactone 25 mg Tablet 12.5 mg PO DAILY 30 Days Qty: 0 0RF tamsulosin 0.4 mg Capsule 0.4 mg PO HS Qty: 0 0RF oxycodone 5 mg Tablet 5 mg PO BIDP PRN (Reason: Moderate To Severe Pain (4-10)) 3 Days Qty: 6 0RF sumatriptan succinate 25 mg Tablet 50 mg PO DAILYP PRN (Reason: Headache) 30 Days Qty: 0 0RF oaicpboq-aus-asmyp-vit K-lycop 1 EACH tablet 1 each PO DAILY Referrals Follow up/Referrals: Provider,Referral, MD [Primary Care Provider] - See instructions Activity Restrictions/Add. Instructions Additional Instructions/Restrictions: Please follow-up with urologist. Please continue to drink plenty of fluids, I would expect that your urine will clear up in color over the next 1 to 2 days, if it darkens or you develop any other new or worsening symptoms, please return to the emergency department. Clinical Impressions Clinical Impression: Acute on chronic urinary retention Instructions Patient Instructions: DI for Urinary Tract Infection (UTI), DI for Urinary Tract Infection in Children Discharge ED Provider: Mulugeta Saxena Adult [facility] General Chief complaint: Urogenital-Male Stated complaint: urinary retention Time Seen by Provider: 04/29/23 08:11 History of Present Illness HPI narrative: Patient presents for evaluation of urinary retention. Presents from a rehabilitation facility after reported episode of complications associated with cirrhosis. Patient states that he has not urinated in several days, however has difficulty recalling exactly when he last urinated, per report, Kuhn catheter was attempted x5 at rehabilitation facility, patient does describe that this was performed yesterday however he reportedly had multiple attempts today. Patient denies any complaints outside of urinary retention at this time, denies fevers, chills, chest pain, nausea, vomiting, constipation, diarrhea. History is limited as patient has limited recollection of his medical history however does report that he has had issues with urinary retention in the past requiring Kuhn catheterization. Per report patient is followed by urology. Related Data Home Medications Medication Instructions Recorded Confirmed dxxivzje-drquzilc-ygjeq acid 400 1 each PO DAILY Supplement 08/22/18 04/19/23 mcg-vit K 20 mcg-lycop 300 mcg tablet albuterol sulfate 90 mcg/actuation 1 inh inhalation QID PRN Shortness 04/18/23 04/18/23 aerosol inhaler Of Breath Previous Rx's Medication Instructions Recorded finasteride 5 mg tablet 5 mg PO HS 30 days #0 tabs 04/24/23 gabapentin 100 mg capsule 200 mg PO TIDP PRN Moderate Pain 04/24/23 (4-6) 30 days #180 caps ipratropium 0.5 mg-albuterol 3 mg 3 ml inhalation Q6RT #0 mL 04/24/23 (2.5 mg base)/3 mL nebulization soln lactulose 20 gram/30 mL oral 20 g (30 mL) PO DAILY 30 days #0 mL 04/24/23 solution nicotine 21 mg/24 hr daily 21 mg transdermal DAILYP PRN 04/24/23 transdermal patch Nicotine Cravings #0 ea oxycodone 5 mg tablet 5 mg PO BIDP PRN Moderate To 04/24/23 Severe Pain (4-10) 3 days #6 tabs potas
--- NOTE | 2023-04-29 08:46 | PC.NURSE ---
bladder scan shoed 487mL
[2023-04-29 08:57] LABS: Microscopic, Urine URINE MICROSCOPIC (MICROSCOPIC)
[2023-04-29 09:00] LABS: Appearance,Urine CLEAR (Clear); Bilirubin,Urine Negative (Negative); Blood, Urine Negative (Negative); Color,Urine BROWN (Yellow); Glucose,Urine (UA) Negative (Negative); Ketones,Urine TRACE (Negative); Leukocyte Esterase,Urine Negative (Negative); Nitrate,Urine POSITIVE (Negative); Protein,Urine 1+ (Negative); Specific Gravity, Urine >= 1.030 (1.005-1.030); Urobilinogen,Urine 0.2 EU/dl (0.2)
[2023-04-29 09:05] LABS: Basophils % 0.2 % (0.1-2.0); Eosinophils # 0.2 K/mm3 (0.0-0.4); Eosinophils % 1.1 % (0.1-12.0); Hematocrit 39.9 % (42.0-52.0); Hemoglobin 11.9 g/dL (14.1-18.0); Lymphocytes # 0.7 K/mm3 (0.7-4.5); Lymphocytes % 5.4 % (10-50); Mean Corpuscular HGB Conc 29.8 g/dL (31.8-35.4); Mean Corpuscular Hemoglobin 32.2 pg (27.0-31.2); Mean Corpuscular Volume 108.3 fl (80-94); Mean Platelet Volume 9.7 fl (7.4-10.4); Monocytes # 0.3 K/mm3 (0.1-1.0); Monocytes % 2.3 % (1.7-9.3); Neutrophils # 12.1 K/mm3 (1.8-7.8); Platelet Count 185 K/mm3 (142-424); Red Blood Count 3.68 M/mm3 (4.60-6.20); White Blood Count 13.3 K/mm3 (4.8-10.8)
[2023-04-29 09:11] LABS: MANUAL DIFFERENTIAL MANUAL DIFFERENTIAL (MANUAL DIFF)
[2023-04-29 09:34] LABS: Alanine Aminotransferase 33 U/L (12-78); Albumin Level 1.7 g/dl (3.5-5.0); Albumin/Globulin Ratio 0.6 (1.1-1.8); Alkaline Phosphatase 156 U/L (38-126); Anion Gap 10.2 mEq/L (5-15); Aspartate Amino Transferase 42 U/L (17-59); Bilirubin,Total 1.7 mg/dl (0.2-1.3); Blood Urea Nitrogen 8 mg/dl (9-20); Calcium 6.6 mg/dl (8.4-10.2); Carbon Dioxide 20 mmol/L (22.0-30.0); Chloride 106 mmol/L (98-107); Creatinine Clearance Estimated 65 mL/min (50-200); Estimated Glomerular Filt Rate 86 ml/min (>60); GFR (African American) 104 ML/MIN (>60); Globulin 2.7 g/dL (1.3-3.2); Glucose 84 mg/dl (74-100); Potassium 4.2 mmoL/L (3.5-5.1); Sodium 132 mmol/L (136-145); Total Protein,Serum 4.4 g/dl (6.3-8.2)
--- NOTE | 2023-04-29 09:55 | PC.NURSE ---
pt was given a warm blanket.
[2023-04-29 10:02] LABS: Bacteria,Urine Trace /lpf; Squamous Epithelial Cell,Urine Occasional #/hpf (0-5); WBC,Urine Occasional #/hpf (0-3)
[2023-04-29 10:04] LABS: Eosinophils % 1 % (0-3); Lymphocytes % 5 % (10-50); Monocytes % 2 % (2-9); Neutrophils % 92 % (42-76); Total Cells Counted 100
[2023-04-29 10:05] LABS: Macrocytosis 2+; Platelet Estimate Normal
--- NOTE | 2023-04-29 10:10 | PC.NURSE ---
report called to jozef connelly. ems called for transport
--- NOTE | 2023-04-29 11:03 | PC.NURSE ---
EMS is here to transport pt to [facility]
== END 2023-04-29 11:13 | disposition home health service (06) ==
PROVIDERS: Emergency Provider Emergency Medicine
DX: R33.9 Retention of urine, unspecified (principal); K74.60 Unspecified cirrhosis of liver; G35 Multiple sclerosis; E78.5 Hyperlipidemia, unspecified; I10 Essential (primary) hypertension; F41.9 Anxiety disorder, unspecified; F32.A Depression, unspecified; Z87.891 Personal history of nicotine dependence
CPT/HCPCS: 51702; 80053; 81001; 85007; 85025; 99284

== ENCOUNTER 2023-06-05 13:47 | Observation (INO) | payer MEDICARE, SELFPAY ==
[2023-06-05] VITALS (11 sets, daily range): BP systolic 86–151; BP diastolic 50–89; PULSE 106–138; RESP 17–22; TEMP 36.5–38.1; O2SAT 87–96; BMI 19.0
--- NOTE | 2023-06-05 14:51 | XR_ITS ---
FINAL REPORT CLINICAL HISTORY: Shortness of breath COMPARISON: 04/24/2023 FINDINGS: A single portable view of the chest was obtained. The heart size and pulmonary vascularity are within normal limits. The mediastinum is within normal limits. Persistent interstitial opacities much of which likely represent interstitial fibrosis/scarring. More focal opacities in the left mid lung may represent atelectasis or pneumonia and appear worse compared to the prior. The bony thorax is intact. IMPRESSION: Left midlung focal opacities, which may represent atelectasis or pneumonia, appear worse. Follow-up radiographs recommended. Reviewed, Interpreted and Dictated by Pablo Sow III, MD Transcribed by Kelly Mcdonald Authenticated and [facility]
--- NOTE | 2023-06-05 15:01 | HMH.EDGENADL ---
Discharge Plan Disposition Patient Disposition: Admitted Chief Complaint: Shortness of Breath/Dyspnea Prescriptions Prescriptions: No Action Jorden Aerosphere 160-9-4.8 mcg/actuation HFA aerosol inhaler 2 inh inhalation BID 90 Days Qty: 10.7 3RF albuterol sulfate [ProAir HFA] 90 mcg/actuation HFA aerosol inhaler 2 puff inhalation QID PRN (Reason: shortness of breath or wheezing) 90 Days Qty: 8.5 3RF furosemide [Lasix] 20 mg tablet 20 mg PO Q OTHER DAY Qty: 4 0RF ipratropium-albuterol 0.5 mg-3 mg(2.5 mg base)/3 mL solution for nebulization 3 ml inhalation Q6RT PRN (Reason: shortness of breath or wheezing) Qty: 180 0RF albuterol sulfate 90 mcg/actuation HFA aerosol inhaler 1 inh inhalation QID PRN (Reason: Shortness Of Breath) nicotine 21 mg/24 hr Patch 24 Hour 21 mg transdermal DAILYP PRN (Reason: Nicotine Cravings) Qty: 0 0RF gabapentin 100 mg Capsule 200 mg PO TIDP PRN (Reason: Moderate Pain (4-6)) 30 Days Qty: 180 0RF finasteride 5 mg Tablet 5 mg PO HS 30 Days Qty: 0 0RF lactulose 20 gram/30 mL Solution 20 g PO DAILY 30 Days Qty: 0 0RF potassium chloride [Klor-Con M20] 20 mEq Tablet,Er Particles/Crystals 20 meq PO BID 10 Days Qty: 0 0RF quetiapine 100 mg Tablet 200 mg PO HS 30 Days Qty: 0 0RF spironolactone 25 mg Tablet 12.5 mg PO DAILY 30 Days Qty: 0 0RF tamsulosin 0.4 mg Capsule 0.4 mg PO HS Qty: 0 0RF oxycodone 5 mg Tablet 5 mg PO BIDP PRN (Reason: Moderate To Severe Pain (4-10)) 3 Days Qty: 6 0RF sumatriptan succinate 25 mg Tablet 50 mg PO DAILYP PRN (Reason: Headache) 30 Days Qty: 0 0RF kbavudwd-dxw-qempw-vit K-lycop 1 EACH tablet 1 each PO DAILY Referrals Follow up/Referrals: Provider,Referral, MD [Primary Care Provider] - See instructions Clinical Impressions Clinical Impression: Encephalopathy, Pneumonia, Acute on chronic respiratory failure with hypoxemia Discharge ED Provider: John Henson General Adult HPI General Chief complaint: Shortness of Breath/Dyspnea Stated complaint: SOA Time Seen by Provider: 06/05/23 13:49 Mode of Arrival: EMS Source of Information: Patient Limitations: No Limitations Description of Symptoms (Recalled from ER Triage Doc. by RN): Patient reports recently being discharged from [facility]. States he started to become short of breath yesterday and it just continued to get worse. When home health came to his house his O2 was in the the low 80s. History of Present Illness HPI narrative: 63-year male with history of alcoholic hepatitis and liver failure, hypertension, hyperlipidemia, COPD presenting with confusion. Patient was discharged from [facility] recently. Has been home for about a week. Unknown if he has been taking his medications, family says there is no way he has been given his confusion. Home health went to visit him today, oxygen was in the low 80s, so EMS was called. Related Data Home Medications Medication Instructions Recorded Confirmed lescayxf-vkzbmqlv-dmmoo acid 400 1 each PO DAILY Supplement 08/22/18 05/08/23 mcg-vit K 20 mcg-lycop 300 mcg tablet albuterol sulfate 90 mcg/actuation 1 inh inhalation QID PRN Shortness 04/18/23 05/08/23 aerosol inhaler Of Breath Previous Rx's Medication Instructions Recorded finasteride 5 mg tablet 5 mg PO HS 30 days #0 tabs 04/24/23 gabapentin 100 mg capsule 200 mg PO TIDP PRN Moderate Pain 04/24/23 (4-6) 30 days #180 caps lactulose 20 gram/30 mL oral 20 g (30 mL) PO DAILY 30 days #0 mL 04/24/23 solution nicotine 21 mg/24 hr daily 21 mg transdermal DAILYP PRN 04/24/23 transdermal patch Nicotine Cravings #0 ea oxycodone 5 mg tablet 5 mg PO BIDP PRN Moderate To 04/24/23 Severe Pain (4-10) 3 days #6 tabs potassium chloride 20 mEq 20 meq PO BID 10 days #0 tabs 04/24/23 tablet,extended release(part/cryst) (Klor-Con M) quetiapine 100 mg tablet 200 mg PO HS 30 days #0 tabs 04/24/23 spironolactone 25 mg table
[2023-06-05 15:03] LABS: Basophils % 0.1 % (0.1-2.0); Eosinophils # 0.1 K/mm3 (0.0-0.4); Eosinophils % 0.5 % (0.1-12.0); Hematocrit 40.6 % (42.0-52.0); Hemoglobin 13.2 g/dL (14.1-18.0); Lymphocytes # 0.4 K/mm3 (0.7-4.5); Lymphocytes % 3.5 % (10-50); Mean Corpuscular HGB Conc 32.5 g/dL (31.8-35.4); Mean Corpuscular Hemoglobin 35.8 pg (27.0-31.2); Mean Corpuscular Volume 110.2 fl (80-94); Mean Platelet Volume 10.1 fl (7.4-10.4); Monocytes # 0.5 K/mm3 (0.1-1.0); Monocytes % 3.8 % (1.7-9.3); Neutrophils # 10.9 K/mm3 (1.8-7.8); Neutrophils % 92.2 % (37.0-80.0); Platelet Count 236 K/mm3 (142-424); Red Blood Count 3.69 M/mm3 (4.60-6.20); Red Cell Distribution Width 16.5 % (11.5-17.5); White Blood Count 11.8 K/mm3 (4.8-10.8)
[2023-06-05 15:04] LABS: MANUAL DIFFERENTIAL MANUAL DIFFERENTIAL (MANUAL DIFF)
--- NOTE | 2023-06-05 15:08 | ECG_ITS ---
APPROVED REPORT Exam: Resting ECG HR:121 bpm ECG Measurements Heart Rate 121 AXES QRSd 106 QRS 257 QT 313 T 204 QTc 385 Conclusion SUPRAVENTRICULAR TACHYCARDIA RIGHT AXIS DEVIATION [QRS AXIS > 100] LOW QRS VOLTAGE IN EXTREMITY LEADS [QRS DEFLECTION < 0.5 mV IN LIMB LEADS] INFERIOR MYOCARDIAL INFARCTION , OF INDETERMINATE AGE [40+ ms Q WAVE AND/OR ST/T ABNORMALITY IN II/aVF] ANTEROLATERAL MYOCARDIAL INFARCTION , OF INDETERMINATE AGE [40+ ms Q WAVE IN I/aVL/V3-V6] ABNORMAL ECG UNCONFIRMED REPORT Electronically signed by : Foreign Villanueva MD 06/06/2023 14:48:14
[2023-06-05 15:12] LABS: Chloride 109 mmol/L (98-107); Sodium 137 mmol/L (136-145)
[2023-06-05 15:13] LABS: Potassium 4.2 mmoL/L (3.5-5.1)
[2023-06-05 15:15] LABS: Alanine Aminotransferase 37 U/L (12-78); Albumin Level 2.6 g/dl (3.5-5.0); Albumin/Globulin Ratio 0.7 (1.1-1.8); Alkaline Phosphatase 180 U/L (38-126); Anion Gap 15.2 mEq/L (5-15); Aspartate Amino Transferase 80 U/L (17-59); Bilirubin,Total 1.8 mg/dl (0.2-1.3); Blood Urea Nitrogen 5 mg/dl (9-20); Carbon Dioxide 17 mmol/L (22.0-30.0); Creatinine Clearance Estimated 62 mL/min (50-200); Estimated Glomerular Filt Rate 86 ml/min (>60); GFR (African American) 104 ML/MIN (>60); Globulin 3.5 g/dL (1.3-3.2); Total Protein,Serum 6.1 g/dl (6.3-8.2)
[2023-06-05 15:16] LABS: Calcium 7.3 mg/dl (8.4-10.2); Glucose 100 mg/dl (74-100)
[2023-06-05 15:19] LABS: VBG Base Excess -9.8 mmol/L (-2.4-2.3); VBG HCO3 16.8 mmol/L (23-30); VBG Oxygen Saturation 78.6 % (50-70); VBG PH 7.29 mmol/L (7.31-7.41); VBG PO2 48.5 mmol/L (28-40); VBG Total CO2 17.9 mmol/L (23-27)
[2023-06-05 15:25] LABS: NT Pro Brain Natriuretic Pep. 1090 pg/mL (0-125)
[2023-06-05 15:26] LABS: Eosinophils % 1 % (0-3); Lymphocytes % 6 % (10-50); Monocytes % 1 % (2-9); Neutrophils % 92 % (42-76); Total Cells Counted 100
[2023-06-05 15:27] LABS: Platelet Estimate Normal
[2023-06-05 15:28] LABS: Macrocytosis 2+
[2023-06-05 15:33] LABS: Troponin I 0.02 ng/ml (0.00-0.034)
[2023-06-05 15:37] LABS: T4 (Thyroxine) 3.3 ug/dl (5.53-11.0)
[2023-06-05 15:41] LABS: Ammonia 66 umol/L (9-30)
[2023-06-05 15:51] LABS: Thyroid Stimulating Hormone 6.19 uIU/mL (0.465-4.68)
[2023-06-05 15:57] LABS: Lactic Acid 2.9 mmol/L (0.7-2.1)
--- NOTE | 2023-06-05 16:42 | PC.NURSE ---
Report given to Carolina on Med Surg.
--- NOTE | 2023-06-05 17:19 | PC.NURSE ---
arrived by stretcher from ED
[2023-06-05 18:36] LABS: Troponin I < 0.01 ng/ml (0.00-0.034)
--- NOTE | 2023-06-05 18:56 | EXP.HP ---
History of Present Illness *Admission Date: 06/05/23 *Reason for visit:: AMS, Low o2 *History of present illness: Patient is a 63-year-old male with past medical history of cirrhosis alcoholic hepatitis hypertension hyperlipidemia, severe protein calorie malnutrition who presented to hospital from home due to low oxygen and confusion. According to the patient family at the bedside patient was found confused and had low oxygen saturations in the 80s, EMS was called patient was brought to the hospital. Patient lives by himself, family is not sure if patient has been taking his medications. At time of my evaluation patient appears alert awake however he has tangential conversation and has some confusion. He denied chest pain nausea vomiting diarrhea constipation dysuria. He complains of shortness of breath cough productive of phlegm. [facility] Disclaimer: The information contained in this section may have been updated after the patient was seen, as this information can be updated by other users. Medical History Anxiety Cirrhosis Closed hip fracture COPD mixed type Depression Hyperlipidemia Hyperlipidemia Hypertension Hypertension Migraine Multiple sclerosis Pulmonary emphysema Smoking greater than 30 pack years Surgical History History of left hip replacement Family History Other Coronary artery disease Hyperlipidemia Hypertension Stroke Social History (Updated 06/05/23 @ 17:53 by Sameera Louis RN) Smoking Status: Former smoker tobacco type: cigarettes packs per day: 1 second hand exposure: No alcohol intake: former substance use type: denies use current occupational status: unemployed and disabled Travel in the last 8 weeks: None household members: none housing: house current occupational exposures/hazards: No caffeine: Yes Review of Systems Review of Systems Review of systems (narrative): as per HPI Meds Home Medications and Allergies Home Medications Medication Instructions Recorded Confirmed Type dzozzetj-ydetzbjs-oiqzo acid 400 1 each PO DAILY Supplement 08/22/18 06/05/23 History mcg-vit K 20 mcg-lycop 300 mcg tablet albuterol sulfate 90 mcg/actuation 1 inh inhalation QID PRN Shortness 04/18/23 06/05/23 History aerosol inhaler Of Breath finasteride 5 mg tablet 5 mg PO HS 30 days #0 tabs 04/24/23 06/05/23 Rx gabapentin 100 mg capsule 200 mg PO TIDP PRN Moderate Pain 04/24/23 06/05/23 Rx (4-6) 30 days #180 caps lactulose 20 gram/30 mL oral 20 g (30 mL) PO DAILY 30 days #0 mL 04/24/23 06/05/23 Rx solution nicotine 21 mg/24 hr daily 21 mg transdermal DAILYP PRN 04/24/23 06/05/23 Rx transdermal patch Nicotine Cravings #0 ea oxycodone 5 mg tablet 5 mg PO BIDP PRN Moderate To 04/24/23 06/05/23 Rx Severe Pain (4-10) 3 days #6 tabs potassium chloride 20 mEq 20 meq PO BID 10 days #0 tabs 04/24/23 06/05/23 Rx tablet,extended release(part/cryst) (Klor-Con M) quetiapine 100 mg tablet 200 mg PO HS 30 days #0 tabs 04/24/23 06/05/23 Rx spironolactone 25 mg tablet 12.5 mg PO DAILY 30 days #0 tabs 04/24/23 06/05/23 Rx tamsulosin 0.4 mg capsule 0.4 mg PO HS #0 caps 04/24/23 06/05/23 Rx sumatriptan succinate 25 mg tablet 50 mg PO DAILYP PRN Headache 30 04/25/23 06/05/23 Rx days #0 tabs albuterol sulfate 90 mcg/actuation 2 puff inhalation QID PRN 05/08/23 06/05/23 Rx aerosol inhaler (ProAir HFA) shortness of breath or wheezing 90 days #8.5 grams budesonide 160 mcg-glycopyr 9 2 inh inhalation BID 90 days #10.7 05/08/23 06/05/23 Rx mcg-formot 4.8 mcg/actuation HFA grams inhaler (Breztri Aerosphere) furosemide 20 mg tablet (Lasix) 20 mg PO Q OTHER DAY #4 tabs 05/08/23 06/05/23 Rx ipratropium 0.5 mg-albuterol 3 mg 3 ml inhalation Q6RT PRN shortness 05/08/23 06/05/23 Rx (2.5 mg base)/3 mL nebulization of breath or wheezing #180 mL soln
[2023-06-05 19:34] LABS: Reflex Lactic Add Lactic Reflex
--- NOTE | 2023-06-05 19:40 | PC.NURSE ---
pt o2 sat upper 80's at 3L [place] - increased to 4L (baseline at SNF) and pt sat's at 92.
[2023-06-05 20:01] LABS: Lactic Acid Follow Up (RFLX 1) 2.6 mmol/L (0.7-2.1)
[2023-06-05 21:30] LABS: Reflex Lactic (2 hrs) Add Lactic Reflex
[2023-06-05 21:59] LABS: Troponin I < 0.01 ng/ml (0.00-0.034)
--- NOTE | 2023-06-05 23:48 | PC.NURSE ---
Addendum entered by Cecilio Power RN 06/06/23 01:26: oral temperature 100.3F - patient still has several blankets on and refuses to remove anymore. room temperature decreased to 70 degrees Original Note: oral temp of 100.6F - removed some blankets, turned thermostat down from 76 to 72, and contacted hospitalist for Tylenol per oct. POC ongoing
[2023-06-06] VITALS (10 sets, daily range): BP systolic 84–132; BP diastolic 35–72; PULSE 64–110; RESP 17–18; TEMP 36.5–37.9; O2SAT 92–100; BMI 19.3
--- NOTE | 2023-06-06 02:07 | PC.WOUNDNOTE ---
left hip - meplex applied
[2023-06-06 06:10] LABS: Chloride 112 mmol/L (98-107)
[2023-06-06 06:11] LABS: Sodium 136 mmol/L (136-145)
[2023-06-06 06:13] LABS: Blood Urea Nitrogen 4 mg/dl (9-20); Creatinine Clearance Estimated 63 mL/min (50-200); Estimated Glomerular Filt Rate 115 ml/min (>60); GFR (African American) 139 ML/MIN (>60)
[2023-06-06 06:14] LABS: Calcium 6.5 mg/dl (8.4-10.2); Carbon Dioxide 19 mmol/L (22.0-30.0); Glucose 83 mg/dl (74-100)
[2023-06-06 06:16] LABS: Basophils % 0.2 % (0.1-2.0); Eosinophils # 0.1 K/mm3 (0.0-0.4); Eosinophils % 1.4 % (0.1-12.0); Hematocrit 28.6 % (42.0-52.0); Lymphocytes # 0.9 K/mm3 (0.7-4.5); Lymphocytes % 11.8 % (10-50); Mean Corpuscular HGB Conc 32.3 g/dL (31.8-35.4); Mean Corpuscular Hemoglobin 34.9 pg (27.0-31.2); Mean Corpuscular Volume 107.9 fl (80-94); Monocytes # 0.4 K/mm3 (0.1-1.0); Monocytes % 5.7 % (1.7-9.3); Neutrophils # 5.9 K/mm3 (1.8-7.8); Neutrophils % 80.9 % (37.0-80.0); Platelet Count 200 K/mm3 (142-424); Red Blood Count 2.65 M/mm3 (4.60-6.20); Red Cell Distribution Width 16.5 % (11.5-17.5); White Blood Count 7.3 K/mm3 (4.8-10.8)
[2023-06-06 06:17] LABS: Hemoglobin 9.2 g/dL (14.1-18.0)
--- NOTE | 2023-06-06 06:19 | PC.NURSE ---
notified Glynn of critical lab K+ 3.0
--- NOTE | 2023-06-06 07:10 | EXP.SURG.CON ---
History of Present Illness *Admission Date: 06/05/23 *Reason for visit:: Ventral hernia *History of present illness: This is a 63-year-old gentleman with a known large complex mid ventral wall hernia who presented with increasing confusion/hypoxia. He was admitted to the hospitalist service for evaluation management. He requested surgical evaluation with regard to his hernia. Forwarded from admission H&P: Patient is a 63-year-old male with past medical history of cirrhosis alcoholic hepatitis hypertension hyperlipidemia, severe protein calorie malnutrition who presented to hospital from home due to low oxygen and confusion. According to the patient family at the bedside patient was found confused and had low oxygen saturations in the 80s, EMS was called patient was brought to the hospital. Patient lives by himself, family is not sure if patient has been taking his medications. At time of my evaluation patient appears alert awake however he has tangential conversation and has some confusion. He denied chest pain nausea vomiting diarrhea constipation dysuria. He complains of shortness of breath cough productive of phlegm. [facility] Disclaimer: The information contained in this section may have been updated after the patient was seen, as this information can be updated by other users. Medical History Anxiety Cirrhosis Closed hip fracture COPD mixed type Depression Hyperlipidemia Hyperlipidemia Hypertension Hypertension Migraine Multiple sclerosis Pulmonary emphysema Smoking greater than 30 pack years Surgical History History of left hip replacement Family History Other Coronary artery disease Hyperlipidemia Hypertension Stroke Social History (Updated 06/05/23 @ 17:53 by Sameera Louis RN) Smoking Status: Former smoker tobacco type: cigarettes packs per day: 1 second hand exposure: No alcohol intake: former substance use type: denies use current occupational status: unemployed and disabled Travel in the last 8 weeks: None household members: none housing: house current occupational exposures/hazards: No caffeine: Yes Meds Home Medications and Allergies Home Medications Medication Instructions Recorded Confirmed Type ljcqfvom-oxftaqhe-yjbnf acid 400 1 each PO DAILY Supplement 08/22/18 06/05/23 History mcg-vit K 20 mcg-lycop 300 mcg tablet albuterol sulfate 90 mcg/actuation 1 inh inhalation QID PRN Shortness 04/18/23 06/05/23 History aerosol inhaler Of Breath finasteride 5 mg tablet 5 mg PO HS 30 days #0 tabs 04/24/23 06/05/23 Rx gabapentin 100 mg capsule 200 mg PO TIDP PRN Moderate Pain 04/24/23 06/05/23 Rx (4-6) 30 days #180 caps lactulose 20 gram/30 mL oral 20 g (30 mL) PO DAILY 30 days #0 mL 04/24/23 06/05/23 Rx solution nicotine 21 mg/24 hr daily 21 mg transdermal DAILYP PRN 04/24/23 06/05/23 Rx transdermal patch Nicotine Cravings #0 ea oxycodone 5 mg tablet 5 mg PO BIDP PRN Moderate To 04/24/23 06/05/23 Rx Severe Pain (4-10) 3 days #6 tabs potassium chloride 20 mEq 20 meq PO BID 10 days #0 tabs 04/24/23 06/05/23 Rx tablet,extended release(part/cryst) (Klor-Con M) quetiapine 100 mg tablet 200 mg PO HS 30 days #0 tabs 04/24/23 06/05/23 Rx spironolactone 25 mg tablet 12.5 mg PO DAILY 30 days #0 tabs 04/24/23 06/05/23 Rx tamsulosin 0.4 mg capsule 0.4 mg PO HS #0 caps 04/24/23 06/05/23 Rx sumatriptan succinate 25 mg tablet 50 mg PO DAILYP PRN Headache 30 04/25/23 06/05/23 Rx days #0 tabs albuterol sulfate 90 mcg/actuation 2 puff inhalation QID PRN 05/08/23 06/05/23 Rx aerosol inhaler (ProAir HFA) shortness of breath or wheezing 90 days #8.5 grams budesonide 160 mcg-glycopyr 9 2 inh inhalation BID 90 days #10.7 05/08/23 06/05/23 Rx mcg-formot 4.8 mcg/actuation HFA grams inhaler (Breztri Aerosphere) furosemide 20 mg tablet (Lasix) 20 mg PO Q
--- NOTE | 2023-06-06 07:57 | HMH.PHAINT1 ---
Pharmacy Intervention Comments: HOME MEDICATION LIST VERIFIED USING LIST FROM OUTPATIENT PHARMACY AND PT INTERVIEW
[2023-06-06 08:44] LABS: Ethyl Alcohol < 10 mg/dl (0-10)
--- NOTE | 2023-06-06 09:58 | EXP.PULM.CON ---
History of Present Illness History of present illness: Mr. Ding is a 63-year-old male with an [id number] smoking history, alcoholic cirrhosis as presented to the hospital with worsening mentation, shortness of breath increased oxygen requirement and pulmonary was called for further evaluation and management [facility] Disclaimer: The information contained in this section may have been updated after the patient was seen, as this information can be updated by other users. Medical History Anxiety Cirrhosis Closed hip fracture COPD mixed type Depression Hyperlipidemia Hyperlipidemia Hypertension Hypertension Migraine Multiple sclerosis Pulmonary emphysema Smoking greater than 30 pack years Surgical History History of left hip replacement Family History Other Coronary artery disease Hyperlipidemia Hypertension Stroke Social History (Updated 06/05/23 @ 17:53 by Sameera Louis RN) Smoking Status: Former smoker tobacco type: cigarettes packs per day: 1 second hand exposure: No alcohol intake: former substance use type: denies use current occupational status: unemployed and disabled Travel in the last 8 weeks: None household members: none housing: house current occupational exposures/hazards: No caffeine: Yes Review of Systems Constitutional Constitutional: Reports anorexia, Reports body ache(s) and Reports fatigue Eyes Eyes: Denies eye discharge, Denies dry eyes, Denies irritation and Denies itchy eyes ENT Ears, Nose, Mouth, and Throat: Denies epistaxis, Denies facial pain, Denies lip swelling and Denies throat swelling *Cardiovascular Cardiovascular: Reports dyspnea and Reports dyspnea on exertion *Respiratory Respiratory: Reports chest congestion, Reports cough, Reports dyspnea, Reports dyspnea on exertion, Denies excessive phlegm production and Reports wheezing *Gastrointestinal Gastrointestinal: Denies abdominal pain, Denies belching and Denies cramping *Musculoskeletal Musculoskeletal: Reports back pain, Reports myalgias and Reports other (No small joint swelling or Pain) Psychiatric Psychiatric: Denies homicidal ideation and Denies suicidal ideation Endocrine Endocrine: Reports fatigue and Denies heat intolerance Hematologic/Lymphatic Hematologic/Lymphatic: Denies easy bleeding and Denies lymphadenopathy Allergic/Immunologic Allergic/Immunologic: Denies itchy eyes, Denies lip swelling, Denies throat swelling and Reports wheezing Pulmonology Exam Inpatient Vital signs and Labs for Last 24 Hours: Temp Pulse Resp BP Pulse Ox O2 Del Method O2 Flow Rate 97.7 F 104 H 17 105/55 L 94 L Nasal Cannula 4 06/06/23 07:45 06/06/23 08:00 06/06/23 07:45 06/06/23 07:45 06/06/23 07:45 06/06/23 09:00 06/06/23 09:00 Laboratory Results - last 24 hr 06/05/23 14:34: WBC 11.8 H, RBC 3.69 L, Hgb 13.2 L, Hct 40.6 L, MCV 110.2 H, MCH 35.8 H, MCHC 32.5, RDW 16.5, Plt Count 236, MPV 10.1, Neut % (Auto) 92.2 H, Lymph % (Auto) 3.5 L, Hamb[place] % (Auto) 3.8, Eos % (Auto) 0.5, Baso % (Auto) 0.1, Neut # (Auto) 10.9 H, Lymph # (Auto) 0.4 L, [place] # (Auto) 0.5, Eos # (Auto) 0.1, Baso # (Auto) 0.0, Total Counted 100, Neutrophils % (Manual) 92 H, Lymphocytes % (Manual) 6 L, Monocytes % (Manual) 1 L, Eosinophils % (Manual) 1, Platelet Estimate Normal, Macrocytosis 2+, VBG pH 7.29 L, VBG pCO2 36.0, VBG pO2 48.5 H, VBG HCO3 16.8 L, VBG Total CO2 17.9 L, VBG O2 Saturation 78.6 H, VBG Base Excess -9.8 L, Sodium 137, Potassium 4.2, Chloride 109 H, Carbon Dioxide 17 L, Anion Gap 15.2 H, BUN 5 L, Creatinine 0.90, Estimated Creat Clear 62, Estimated GFR 86, Est GFR ( Amer) 104, Glucose 100, Calcium 7.3 L, Total Bilirubin 1.8 H, AST 80 H, ALT 37, Alkaline Phosphatase 180 H, Troponin I 0.02, NT-Pro-B Natriuret Pep 1090 H, Total Protein 6.1 L D, Albumin 2.6 L, Globulin 3.5 H, Albumin/Globulin Ratio 0.7 L, TSH 6.19 H, Thyroxine
--- NOTE | 2023-06-06 10:06 | SW/DCPLANNER ---
Patient is currently established w/ [facility] services. I will continue to follow up w/ patient until medically stable for discharge. PT/OT has been ordered for this patient. Discharge date is unknown at this time.
--- NOTE | 2023-06-06 13:15 | EXP.ACUTE.PN ---
Subjective *Date: 06/06/23 *Time: 13:29 Interval history: Denies any chest pain. Stable on 4 L nasal cannula oxygen. No nausea or vomiting. Still quite weak. Having numerous bowel movements daily. Alert and oriented x2. Medical Exam Vital signs and Labs for Last 24 Hours: Vital Signs Temp Pulse Pulse Resp BP BP Pulse Ox 06/06/23 12:00 110 H 06/06/23 12:00 98.4 F 82 17 132/72 94 L 06/06/23 11:00 06/06/23 11:14 77 06/06/23 11:14 77 06/06/23 08:00 100 H 06/06/23 09:00 06/06/23 08:00 104 H 06/06/23 07:45 97.7 F 104 H 17 105/55 L 94 L 06/06/23 04:00 100 H 06/06/23 06:21 06/06/23 04:55 06/06/23 04:00 98.7 F 103 H 18 84/53 L 92 L 06/06/23 02:37 06/06/23 01:00 06/06/23 01:00 100.3 F H 06/06/23 00:00 110 H 06/05/23 23:47 100.6 F H 117 H 20 97/50 L 91 L 06/05/23 23:00 06/05/23 21:00 06/05/23 20:00 110 H 06/05/23 20:04 92 L 06/05/23 19:51 120 H 90 L 06/05/23 19:51 99.1 F 119 H 18 89/59 L 87 L 06/05/23 18:49 06/05/23 18:47 06/05/23 17:00 06/05/23 17:34 130 H 06/05/23 17:33 97.7 F 126 H 17 96/66 L 90 L 06/05/23 17:26 98.2 F 106 H 20 86/64 L 06/05/23 15:30 106 H 20 86/64 L 92 L 06/05/23 15:00 126 H 20 93/65 L 92 L 06/05/23 14:02 122 H 20 87/57 L 96 06/05/23 13:47 98.2 F 138 H 22 151/89 H 92 L O2 Del Method O2 Flow Rate 06/06/23 12:00 06/06/23 12:00 Nasal Cannula 3 06/06/23 11:00 Room Air 06/06/23 11:14 06/06/23 11:14 06/06/23 08:00 06/06/23 09:00 Nasal Cannula 4 06/06/23 08:00 Nasal Cannula 4 06/06/23 07:45 Nasal Cannula 4 06/06/23 04:00 06/06/23 06:21 Nasal Cannula 4 06/06/23 04:55 Nasal Cannula 4 06/06/23 04:00 Nasal Cannula 4 06/06/23 02:37 Nasal Cannula 4 06/06/23 01:00 Nasal Cannula 4 06/06/23 01:00 06/06/23 00:00 06/05/23 23:47 Nasal Cannula 4 06/05/23 23:00 Nasal Cannula 4 06/05/23 21:00 Nasal Cannula 4 06/05/23 20:00 06/05/23 20:04 Nasal Cannula 4 06/05/23 19:51 Nasal Cannula 4 06/05/23 19:51 Nasal Cannula 3 06/05/23 18:49 Nasal Cannula 3 06/05/23 18:47 Nasal Cannula 3 06/05/23 17:00 Nasal Cannula 3 06/05/23 17:34 06/05/23 17:33 Nasal Cannula 3.5 06/05/23 17:26 Nasal Cannula 3 06/05/23 15:30 Nasal Cannula 3 06/05/23 15:00 Nasal Cannula 3 06/05/23 14:02 06/05/23 13:47 Nasal Cannula 3 Intake and Output 06/05/23 06/06/23 06/06/23 23:59 07:59 15:59 Intake Total 620 / 620 570 / 1040 470 / 1040 Output Total 0 / 0 0 / 0 Balance 620 / 620 570 / 1040 470 / 1040 Intake: Intake, Oral Amount 300 / 300 470 / 940 470 / 940 Intake, Other Amount 20 / 20 Intake, Total IV Amount 300 / 300 100 / 100 Azithromycin 500 mg In 0.9 % 250 / 250 Sodium Chloride 250 ml @ 250 mls/hr IV Q24H [facility] Rx#: [id number] Ceftriaxone 1 gm 1 gm In 0.9 % 50 / 50 Sodium Chloride 50 ml @ 100 mls /hr IV Q24H [facility] Rx#:[id number] KCl 20mEq/100ml 100 ml @ 50 mls 100 / 100 /hr IV Q2H [facility] Rx#:[id number] Output: Output, Urine Amount 0 / 0 0 / 0 Other: Intake, Other Source Saline Solution Number of Unmeasured Voids 1 1 Number of Bowel Movements 1 1 Weight 56.784 kg 57.72 kg Patient Weight 06/06/23 23:59 Weight 57.72 kg Laboratory Results - last 24 hr 06/05/23 14:34: WBC 11.8 H, RBC 3.69 L, Hgb 13.2 L, Hct 40.6 L, MCV 110.2 H, MCH 35.8 H, MCHC 32.5, RDW 16.5, Plt Count 236, MPV 10.1, Neut % (Auto) 92.2 H, Lymph % (Auto) 3.5 L, Nolan % (Auto) 3.8, Eos % (Auto) 0.5, Baso % (Auto) 0.1, Neut # (Auto) 10.9 H, Lymph # (Auto) 0.4 L, Nolan # (Auto) 0.5, Eos # (Auto) 0.1, Baso # (Auto) 0.0, Total Counted 100, Neutrophils % (Manual) 92 H, Lymphocytes % (Manual) 6 L, Monocytes % (Manual) 1 L, Eosinophils % (Manual) 1, Plate
--- NOTE | 2023-06-06 13:51 | HMH.OTEV ---
OT Inpatient Evaluation Rehab OT IP Evaluation Start: 06/06/23 10:12 Freq: ONCE Status: Active Protocol: Document 06/06/23 13:27 TYMER (Rec: 06/06/23 13:51 IRMA [id number]) Rehab OT IP Assessment Subjective History Patient is a 63-year-old male with past medical history of cirrhosis alcoholic hepatitis hypertension hyperlipidemia, severe protein calorie malnutrition who presented to hospital from home due to low oxygen and confusion. According to the patient family at the bedside patient was found confused and had low oxygen saturations in the 80s , EMS was called patient was brought to the hospital. Patient lives by himself, family is not sure if patient has been taking his medications. At time of my evaluation patient appears alert awake however he has tangential conversation and has some confusion. He denied chest pain nausea vomiting diarrhea constipation dysuria. He complains of shortness of breath cough productive of phlegm. Patient has been a resident at [facility] for the past 4-6 months. Patient requested to leave [facility] with being unable to ambulate. Patient was d/c home. lives alone in 1 story apartment. Subjective I want to go back home. Instructed Patient on participating in bed mobility from supine->sit @ EOB requiring Mod A. Patient able to sit @ EOB SUP for safety. Instructed Patient on PLB while seated at EOB on 2L. Recover >90%. Patient requested to lay back in bed at <1 min at EOB. Patient requested to remain back in bed
--- NOTE | 2023-06-06 14:03 | HMH.PTEV ---
Physical Therapy Evaluation Rehab PT IP Evaluation Start: 06/05/23 19:59 Freq: ONCE Status: Active Protocol: Document 06/06/23 13:55 PHORNE (Rec: 06/06/23 14:03 PHORNE [id number]) Subjective/History History History 63 yo wm adm to [facility] with hypoxia, PNA, and encephalopathy. PMH of alcoholic cirrhosis, HLD, HTN, COPD. He recently spent ~ 30 days in subacute rehab facility and was home for 3 days. He reports he lives alone and is generally able to perform all ADL's independently. He reports he has not walked in > 1 mo, but has used a walker to stand. He also presents with wounds to sacrum and L hip that were present on admission. Subjective Subjective I was at the care home for 30 days and I stood up to get out of the bed to the chair twice while I was there. He reports pain in B feet and 3/4 tenderness to palpation in B lower legs. New diagnosis of cancer in past 12 No months? Rehab PT IP Eval Objective Appearance Patient Behavior Appropriate Patient Orientation Person,Place Difficulty following instructions none Speech Pattern Clear Ambulation Patient Able to Ambulate No Balance Ability to Arise Unable Sitting Balance Steady, safe Dynamic Sitting Balance Ability Fair Transfers Bed Transfer Ability Moderate x 1 (50% assist) Rehab PT IP prob,goals,plan Problems Date of Evaluation: 06/06/23 PT IP Problems Bed Mobility,Transfers,Gait, Self care Rehab Potential Rehab Potential Good Plan PT Intervention Plan Bed Mobility,Transfers,Gait, Self care,Therapeutic Exercise PT Plan Frequency Daily Duration LOS Discharge Goals Bed Transfer Ability Minimal x 2 (25% assist) Sit to Stand Chair Transfer Ability Maximum x 1 (75% assist) Ambulation Assistive Device Rolling Walker Ambulation Distance (feet) 5 Discharge Plan PT Discharge Plan Pt is currently most appropriate for rehab
--- NOTE | 2023-06-06 14:06 | HMH.PTWOUND ---
Rehab Inpt Wound Evaluation Rehab IP Wound Evaluation Start: 06/06/23 09:24 Freq: ONCE Status: Active Protocol: Document 06/06/23 14:03 PHOKESHIA (Rec: 06/06/23 14:06 PHORNE [id number]) Rehab PT Wound Assessment Subjective Subjective 63 [address] [facility] with hypoxia, PNA, and encephalopathy. PMH of alcoholic cirrhosis, HLD, HTN, COPD. He recently spent ~ 30 days in subacute rehab facility and was home for 3 days. He reports he lives alone and is generally able to perform all ADL's independently. He reports he has not walked in > 1 mo, but has used a walker to stand. He also presents with wounds to sacrum and L hip that were present on admission. Wound Sacrum Wound Type Pressure Ulcer Is This a Chronic Wound Yes Wound Staging Stage II Query Text:Stage I - Unbroken, red skin, no blanching. Stage II - Skin broken, superficial skin loss involving epidermis alone or also dermis. Partial loss of skin layers. Stage III - Pressure area involves epidermis, dermis and subcutaneous tissue, full thickness skin loss. Stage IV - Pressure area involves epidermis, subcutaneous tissue, bone and other supportive tissue. Full thickness skin loss with extensive destruction of underlying tissue and structures. Wound Length (cm) 2.0 Wound Width (cm) 2.0 Wound Depth (cm) 0.1 Wound Bed Appearance Dusky Red,[place] Wound Margins Description Well Defined Surrounding Tissue Appearance [place] Wound Drainage Description Serous Drainage Amount Scant Primary Dressing Composite Dressing Change Patient Tolerance Tolerated Well Left Hip Wound Type Pressure Ulcer Is This a Chronic Wound Yes Wound Staging Stage II Query Text:Stage I - Unbroken, red skin, no blanching. Stage II - Skin broken, superficial skin loss involving epidermis alone or also dermis. Partial loss of skin layers. Stage III - Pressure area involves epidermis, dermis and subcutaneous tissue, full thickness skin loss. Stage
--- NOTE | 2023-06-06 14:16 | SW/DCPLANNER ---
Addendum entered by Chyna Pennington 06/09/23 07:38: Per Mariana w/ [facility] this patient has been approved for SNF level of care. Patient will discharge to [facility] today pending no setbacks. Addendum entered by Chyna Pennington 06/08/23 15:04: Per Anthonyealrenetta precert is still pending at this time. Addendum entered by Chyna Pennington 06/08/23 13:50: Patient's sister in law/POA, patient and myself did have a lengthy conversation in room this afternoon regarding discharge plans. Addendum entered by Chyna Pennington 06/08/23 12:26: Patient is also adamant that he is not interested in private pay or [facility] pending placement. Addendum entered by Chyna Pennington 06/08/23 12:11: Per David precert is still pending at this time. I have also updated Julieth figueredo/ [facility] regarding situation. I did have a lengthy discussion w/ patient this AM regarding plans if his insurance denies SNF level of care. Patient stated that he will begin speaking w/ family, friends and private sitters list provided to patient yesterday for assistance at home if needing to return home w/ Hospice services. I will continue to follow up w/ precert. Addendum entered by Chyna Pennington 06/07/23 15:47: Julieth figueredo/ Hospice is at [facility] to evaluate this patient. Mariana figueredo/ [facility] has also offered this patient a bed SNF level of care and will start the precert. Patient would like to see if [facility] approves for SNF if not would prefer to discharge home w/ Hospice. Addendum entered by Chyna Pennington 06/07/23 12:57: After a lengthy discussion w/ myself, patient and Dr Mcbride: patient is agreeable for information to be faxed to [facility] to speak w/ a nurse. Patient information has been faxed to Julieth figueredo/ [facility]. I will follow up once she reviews patient information. Addendum entered by Chyna Pennington 06/07/23 10:05: Per patient's request information has also been faxed to [facility]. Addendum entered by Chyna Pennington 06/07/23 08:19: Perri figueredo/ [facility] is not able to accept patient. I did have a conversation w/ patient this AM regarding other SNF facilities. Patient is agreeable for patient information to be faxed to the following facilities: [facility], [facility] and [facility]. I will fax information and continue to follow up w/ facilities. Addendum entered by Chyna Pennington 06/06/23 14:40: Gail w/ [facility] is unable to accept this patient. Perri w/ [facility] is reviewing patient information at this time. Original Note: I spoke w/ this patient regarding plans once medically stable for discharge. PT/OT evaluated this patient and recommended SNF level of care. Patient was discharged from [facility] on 06/02/23 to return home w/ home health (per Domitila w/ [facility] patient could not decide between [facility] or [facility] because patient could not decide between two agencies) and patient did not qualify for home O2 at time of discharge. Patient is now residing at home w/ assistance from his S.O. whom is limited on assistance she can provide for patient. Patient expressed an interest in [facility] or [facility] only if insurance will over. Patient is NOT interested in returning to [facility]. I have faxed patient information to [facility]: I will follow up once facilities have reviewed information. Discharge date is unknown at this time.
--- NOTE | 2023-06-06 16:18 | DIET.NUTRFU ---
RD consulted for low jose score of 14-15 with poor nutrition. He is also down 25# since last admit on 04/18. Some weight change maybe d/t fluid he is noted to have +2 edema this admit and diuretic tx in place. Upon visit can visually see fat tissues loss to temporal area and neck area along with arms. He is noted to have redness and excoriation to buttock. He sat in recliner all weekend and has incontinent episodes at times. Reviewed menu and suggested high protein items and benefit form prostat. He agreed to drink boost chocolate TID for extra calories and protein.
--- NOTE | 2023-06-06 17:34 | PC.NURSE ---
midline placed in lt upper arm. pt tolerated well. pt has c/o bue pain and very tender to touch. prior to midline, this nurse cleaned pts arm to attempted iv, cleansed with alcohol pad and within seconds pts arm began to bruise. or nurse attempted to remove sticker from pts lt fa and pts skin was tearing off with the sticker. pt wants no one to touch it stating i will remove the stickers . +2 pitting edema in gabi ac's and fa, ble, and groin area. pt had multiple bms this shift and adequate uop. dsg to coccyx, cdi and to lt hip cdi. family at bs t/o shift, call hanh w/i reach.
[2023-06-06 19:06] LABS: INR 1.66 (0.9-1.1); Prothrombin Time 17.3 seconds (10.1-12.5)
[2023-06-06 19:09] LABS: Alanine Aminotransferase 29 U/L (12-78); Albumin/Globulin Ratio 0.7 (1.1-1.8); Alkaline Phosphatase 153 U/L (38-126); Anion Gap 13.3 mEq/L (5-15); Aspartate Amino Transferase 44 U/L (17-59); Bilirubin,Total 0.9 mg/dl (0.2-1.3); Blood Urea Nitrogen 5 mg/dl (9-20); Carbon Dioxide 19 mmol/L (22.0-30.0); Chloride 110 mmol/L (98-107); Creatinine Clearance Estimated 63 mL/min (50-200); Estimated Glomerular Filt Rate 115 ml/min (>60); GFR (African American) 139 ML/MIN (>60); Globulin 2.8 g/dL (1.3-3.2); Glucose 125 mg/dl (74-100); Potassium 3.3 mmoL/L (3.5-5.1); Sodium 139 mmol/L (136-145); Total Protein,Serum 4.8 g/dl (6.3-8.2)
[2023-06-07] VITALS (11 sets, daily range): BP systolic 80–117; BP diastolic 52–72; PULSE 8–110; RESP 17–19; TEMP 36.6–37.1; O2SAT 91–99; BMI 19.2
--- NOTE | 2023-06-07 01:57 | PC.NURSE ---
between 0045 to 0150 MAP was 63 -- notified hospitalist camp new orders for 500ml LR bolus and albumin 0150 BP 90/60 MAP 70
--- NOTE | 2023-06-07 03:54 | PC.NURSE ---
contacted hospitalist r/t 06/06 progress note stating lactulose once daily (current order 6xday) and DVT for heparin (not ordered) -- orders adjusted
--- NOTE | 2023-06-07 06:05 | PC.NURSE ---
RESPIRATORY CARE NOTE: SPUTUM SAMPLE SENT TO LAB AT THIS TIME
--- NOTE | 2023-06-07 06:53 | PC.NURSE ---
can't get midline to draw - Sydni and I both attempted and was unsuccessful
[2023-06-07 07:21] LABS: Basophils % 0.2 % (0.1-2.0); Eosinophils # 0.2 K/mm3 (0.0-0.4); Eosinophils % 4.5 % (0.1-12.0); Hematocrit 30.1 % (42.0-52.0); Hemoglobin 9.9 g/dL (14.1-18.0); Lymphocytes # 0.8 K/mm3 (0.7-4.5); Lymphocytes % 16.9 % (10-50); Mean Corpuscular Hemoglobin 35.8 pg (27.0-31.2); Mean Corpuscular Volume 108.6 fl (80-94); Mean Platelet Volume 9.4 fl (7.4-10.4); Monocytes # 0.3 K/mm3 (0.1-1.0); Monocytes % 5.5 % (1.7-9.3); Neutrophils # 3.5 K/mm3 (1.8-7.8); Neutrophils % 72.9 % (37.0-80.0); Platelet Count 190 K/mm3 (142-424); Red Blood Count 2.77 M/mm3 (4.60-6.20); Red Cell Distribution Width 16.7 % (11.5-17.5); White Blood Count 4.9 K/mm3 (4.8-10.8)
[2023-06-07 07:30] LABS: Chloride 114 mmol/L (98-107); Sodium 142 mmol/L (136-145)
[2023-06-07 07:31] LABS: Potassium 3.1 mmoL/L (3.5-5.1)
[2023-06-07 07:33] LABS: Blood Urea Nitrogen 5 mg/dl (9-20); Creatinine Clearance Estimated 63 mL/min (50-200); Estimated Glomerular Filt Rate 115 ml/min (>60); GFR (African American) 139 ML/MIN (>60)
[2023-06-07 07:34] LABS: Anion Gap 12.1 mEq/L (5-15); Calcium 6.6 mg/dl (8.4-10.2); Carbon Dioxide 19 mmol/L (22.0-30.0); Glucose 95 mg/dl (74-100)
--- NOTE | 2023-06-07 09:49 | EXP.PULM.PN ---
Subjective *Date: 06/07/23 *Time: 12:14 Interval history: No acute respiratory vents overnight. Pulmonology Exam Inpatient Vital signs and Labs for Last 24 Hours: Temp Pulse Resp BP Pulse Ox O2 Del Method O2 Flow Rate 98.0 F 100 H 19 117/72 92 L Nasal Cannula 4 06/07/23 08:00 06/07/23 08:00 06/07/23 08:00 06/07/23 08:00 06/07/23 08:00 06/07/23 09:00 06/07/23 09:00 Laboratory Results - last 24 hr 06/06/23 15:28: Hgb 11.0 L D, Hct 34.0 L 06/06/23 18:00: PT 17.3 H, INR 1.66 H, Sodium 139, Potassium 3.3 L, Chloride 110 H, Carbon Dioxide 19 L, Anion Gap 13.3, BUN 5 L, Creatinine 0.70, Estimated Creat Clear 63, Estimated GFR 115, Est GFR ( Amer) 139, Glucose 125 H D, Calcium 7.0 L, Total Bilirubin 0.9, AST 44 D, ALT 29, Alkaline Phosphatase 153 H, Total Protein 4.8 L, Albumin 2.0 L D, Globulin 2.8, Albumin/Globulin Ratio 0.7 L 06/07/23 06:30: WBC 4.9 D, RBC 2.77 L, Hgb 9.9 L, Hct 30.1 L, MCV 108.6 H, MCH 35.8 H, MCHC 33.0, RDW 16.7, Plt Count 190, MPV 9.4, Neut % (Auto) 72.9, Lymph % (Auto) 16.9, [place] % (Auto) 5.5, Eos % (Auto) 4.5, Baso % (Auto) 0.2, Neut # (Auto) 3.5, Lymph # (Auto) 0.8, [place]ckett # (Auto) 0.3, Eos # (Auto) 0.2, Baso # (Auto) 0.0, Sodium 142, Potassium 3.1 L, Chloride 114 H, Carbon Dioxide 19 L, Anion Gap 12.1, BUN 5 L, Creatinine 0.70, Estimated Creat Clear 63, Estimated GFR 115, Est GFR ( Amer) 139, Glucose 95 D, Calcium 6.6 L I & O for Labs for Last 24 Hours: Intake & Output 06/04/23 06/05/23 06/06/23 06/07/23 23:59 23:59 23:59 23:59 Intake Total 620 / 620 1640 / 1640 1150 / 1150 Output Total 600 / 600 500 / 500 Balance 620 / 620 1040 / 1040 650 / 650 Weight 125 lb 3 oz 127 lb 4.013 oz 127 lb 0.838 oz Microbiology Reports for the Last 24 Hours: Microbiology 04/21/23 21:24 Sputum - Nasotracheal Suction Gram Stain - Final 04/21/23 21:24 Sputum - Nasotracheal Suction Sputum Culture - Final Klebsiella pneumoniae Constitutional: Present moderate distress Head: Present normocephalic and atraumatic ENT: Present normal exam, normal oropharynx and mucous membranes moist Neck: Present normal inspection and full ROM Respiratory: Present rhonchi, normal respiratory effort and able to speak in complete sentences; Absent prolonged expiratory phase, respiratory distress or wheezes Cardiac: Present S1/S2, Tachycardia and radial pulses present GI: Present soft and distention; Absent tenderness or guarding Comments:: Midline scar and hernia noted. Easily reducible. No tenderness or guarding noted. Skin: Present intact; Absent cyanosis or jaundice Neuro: Present alert and awake Extremities: Present normal inspection and edema; Absent clubbing or cyanosis Psychiatric: Present normal affect and cooperative Assessment and Plan *Assessment and plan (1) Acute on chronic respiratory failure with hypoxemia: Status: Acute Category: Medical Code(s): J96.21 - Acute and chronic respiratory failure with hypoxia (2) Pneumonia: Status: Acute Qualifiers: Laterality: left Lung location: upper lobe of lung Pneumonia type: due to unspecified organism Qualified Code(s): J18.9 - Pneumonia, unspecified organism Category: Medical Code(s): J18.9 - Pneumonia, unspecified organism Plan Mr. Ding is a 63-year-old male with an [id number]-uvzc smoking history, alcoholic cirrhosis as presented to the hospital with worsening mentation, shortness of breath increased oxygen requirement. Chest x-ray bilateral diffuse interstitial changes slightly worse than prior concerning for edema.Along with a more focal hyperdense opacity noted in the left lingula likely PNM. Mild leukocytosis improving. Hemodynamically stable. Initiated on ceftriaxone azithromycin for possible sepsis and pneumonia on admission. VBG upon admission showed metabolic acidosis with hypoxia Interval update: No acute respiratory vents overnight. Patient sat 100% 4 L,
--- NOTE | 2023-06-07 09:50 | XR_ITS ---
FINAL REPORT CLINICAL HISTORY: PNM COMPARISON: 06/05/2023 FINDINGS: A single portable view of the chest was obtained. The heart size and pulmonary vascularity are within normal limits. The mediastinum is within normal limits. Persistent bilateral pulmonary opacities are consistent with bilateral pneumonia. There is a small left pleural effusion. The bony thorax is intact. IMPRESSION: Bilateral pneumonia with small left pleural effusion. Reviewed, Interpreted and Dictated by Pablo Sow III, MD Transcribed by Kelly Mcdonald Authenticated and [facility]
[2023-06-07 10:21] LABS: Procalcitonin 0.736 ng/mL (0.0-2.0)
--- NOTE | 2023-06-07 13:04 | EXP.ACUTE.PN ---
Subjective *Date: 06/07/23 *Time: 17:54 Interval history: Patient continuing to require oxygen today. On 2 L at this time. Diuresing well. Given low blood pressure, initiated on midodrine. Still having some nausea but tolerating at least 50% of trays. Afebrile. Extensive discussion with case management and patient about placement options when he is stable. At this time he is open to alf or hospice. Given complex of his cirrhosis, he is considering hospice to facilitate getting home. Medical Exam Vital signs and Labs for Last 24 Hours: Vital Signs Temp Pulse Pulse Resp BP Pulse Ox O2 Del Method 06/07/23 11:29 98.1 F 94 H 18 101/65 L 95 Nasal Cannula 06/07/23 10:33 Nasal Cannula 06/07/23 10:15 94 H 06/07/23 10:15 96 H 06/07/23 10:15 91 L Nasal Cannula 06/07/23 09:00 Nasal Cannula 06/07/23 08:00 Nasal Cannula 06/07/23 08:00 92 L Nasal Cannula 06/07/23 08:00 98.0 F 100 H 19 117/72 92 L Nasal Cannula 06/07/23 06:13 Nasal Cannula 06/07/23 06:05 98 Nasal Cannula 06/07/23 04:00 98.5 F 90 19 80/64 L 99 Nasal Cannula 06/07/23 04:55 Nasal Cannula 06/07/23 03:00 Nasal Cannula 06/07/23 04:00 90 06/07/23 00:00 80 06/07/23 01:00 Nasal Cannula 06/07/23 01:56 90/60 L 06/07/23 00:00 98.0 F 8 L 18 86/52 L 97 Room Air 06/07/23 00:00 93 L Nasal Cannula 06/06/23 20:00 89 06/06/23 23:00 Nasal Cannula 06/06/23 21:00 Room Air, Nasal Cannula 06/06/23 20:00 Nasal Cannula 06/06/23 20:00 98.8 F 64 17 86/35 L 100 Nasal Cannula 06/06/23 18:45 Nasal Cannula 06/06/23 18:25 Nasal Cannula 06/06/23 16:00 100 H 06/06/23 17:00 Room Air 06/06/23 15:00 Nasal Cannula 06/06/23 15:46 98.6 F 103 H 17 94/58 L 98 Nasal Cannula O2 Flow Rate 06/07/23 11:29 2 06/07/23 10:33 4 06/07/23 10:15 06/07/23 10:15 06/07/23 10:15 1 06/07/23 09:00 4 06/07/23 08:00 4 06/07/23 08:00 4 06/07/23 08:00 4 06/07/23 06:13 4 06/07/23 06:05 4 06/07/23 04:00 4 06/07/23 04:55 4 06/07/23 03:00 4 06/07/23 04:00 06/07/23 00:00 06/07/23 01:00 4 06/07/23 01:56 06/07/23 00:00 06/07/23 00:00 4 06/06/23 20:00 06/06/23 23:00 4 06/06/23 21:00 4 06/06/23 20:00 4 06/06/23 20:00 4 06/06/23 18:45 4 06/06/23 18:25 4 06/06/23 16:00 06/06/23 17:00 06/06/23 15:00 4 06/06/23 15:46 3 Intake and Output 06/06/23 06/07/23 06/07/23 23:59 07:59 15:59 Intake Total 600 / 1640 680 / 1390 710 / 1390 Output Total 600 / 600 300 / 700 400 / 700 Balance 0 / 1040 380 / 690 310 / 690 Intake: Intake, Oral Amount 590 / 1530 120 / 830 710 / 830 Intake, Other Amount Intake, Total IV Amount 550 / 550 Ceftriaxone 1 gm 1 gm In 0.9 % 50 / 50 Sodium Chloride 50 ml @ 100 mls /hr IV Q24H [facility] Rx#:[id number] Lactated Ringers 1000ML 500 ml 500 / 500 @ 999 mls/hr IV .Q31M [facility] Rx#: [id number] Output: Output, Urine Amount 600 / 600 300 / 700 400 / 700 Other: Intake, Other Source Saline Solution Saline Solution Number of Unmeasured Voids 1 0 1 Number of Bowel Movements 3 1 1 Weight 57.72 kg 57.63 kg Patient Weight 06/07/23 23:59 Weight 57.63 kg Laboratory Results - last 24 hr 06/06/23 15:28: Hgb 11.0 L D, Hct 34.0 L 06/06/23 18:00: PT 17.3 H, INR 1.66 H, Sodium 139, Potassium 3.3 L, Chloride 110 H, Carbon Dioxide 19 L, Anion Gap 13.3, BUN 5 L, Creatinine 0.70, Estimated Creat Clear 63, Estimated GFR 115, Est GFR ( Amer) 139, Glucose 125 H D, Calcium 7.0 L, Total Bilirubin 0.9, AST 44 D, ALT 29, Alkaline Phosphatase 153 H, Total Protein 4.8 L, Albumin 2.0 L D, Globulin 2.8, Albumin/Globulin Ratio 0.7 L 06/07/23 06:30: WBC 4.9 D, RBC 2.77 L, Hgb 9.9 L, Hct 30.1 L, MCV 108.6 H, MCH 35.8 H, MCHC 33.0, RDW 16.7, Plt Count 190, MPV 9.4
--- NOTE | 2023-06-07 19:00 | PC.NURSE ---
A&OX4. TOLERATING 2LNC WELL. DID GET UP AND WALK WITH PT TODAY, TOLERATED WELL. HAS BEEN IN BED RESTING MAJORITY OF SHIFT. IS LETTING NURSING STAFF TURN HIM Q2H. HAS HAD MULTIPLE LOOSE BMS. PT HAS C/O INTERMITTENT BLE PAIN. TX PER OCT, EFFECTIVENESS NOTED. NO OTHER NEEDS OR C/O NOTED AT THIS TIME, VSS.
[2023-06-08] VITALS (8 sets, daily range): BP systolic 88–103; BP diastolic 51–64; PULSE 70–121; RESP 18–20; TEMP 36.6–36.8; O2SAT 92–98; BMI 19.3
--- NOTE | 2023-06-08 05:18 | PC.NURSE ---
Pt is alert and oriented x4, Currently on 2L of O2 and telemetry with a NSR. Pt has complained of mild pain this shift and discomfort which has been relieved with tylenol. Pt coccyx remains excoriated and pt has continued to reposition for comfort and prvention of further breakdown.
[2023-06-08 08:41] LABS: Basophils % 0.2 % (0.1-2.0); Eosinophils # 0.3 K/mm3 (0.0-0.4); Eosinophils % 4.1 % (0.1-12.0); Hematocrit 37.2 % (42.0-52.0); Hemoglobin 12.1 g/dL (14.1-18.0); Lymphocytes % 12.1 % (10-50); Mean Corpuscular HGB Conc 32.4 g/dL (31.8-35.4); Mean Corpuscular Hemoglobin 35.7 pg (27.0-31.2); Mean Corpuscular Volume 110.1 fl (80-94); Mean Platelet Volume 9.3 fl (7.4-10.4); Monocytes # 0.4 K/mm3 (0.1-1.0); Monocytes % 4.8 % (1.7-9.3); Neutrophils # 6.4 K/mm3 (1.8-7.8); Neutrophils % 78.7 % (37.0-80.0); Platelet Count 262 K/mm3 (142-424); Red Blood Count 3.38 M/mm3 (4.60-6.20); Red Cell Distribution Width 16.6 % (11.5-17.5); White Blood Count 8.1 K/mm3 (4.8-10.8)
[2023-06-08 08:46] LABS: Chloride 111 mmol/L (98-107); Potassium 3.6 mmoL/L (3.5-5.1); Sodium 139 mmol/L (136-145)
[2023-06-08 08:49] LABS: Alanine Aminotransferase 25 U/L (12-78); Albumin Level 2.1 g/dl (3.5-5.0); Albumin/Globulin Ratio 0.8 (1.1-1.8); Alkaline Phosphatase 144 U/L (38-126); Anion Gap 12.6 mEq/L (5-15); Aspartate Amino Transferase 41 U/L (17-59); Blood Urea Nitrogen 5 mg/dl (9-20); Calcium 6.6 mg/dl (8.4-10.2); Carbon Dioxide 19 mmol/L (22.0-30.0); Creatinine Clearance Estimated 63 mL/min (50-200); Estimated Glomerular Filt Rate 98 ml/min (>60); GFR (African American) 119 ML/MIN (>60); Globulin 2.7 g/dL (1.3-3.2); Glucose 101 mg/dl (74-100); Magnesium 1.3 mg/dl (1.6-2.3); Total Protein,Serum 4.8 g/dl (6.3-8.2)
[2023-06-08 08:50] LABS: INR 1.62 (0.9-1.1)
--- NOTE | 2023-06-08 09:52 | EXP.PULM.PN ---
Subjective *Date: 06/08/23 *Time: 12:57 Interval history: No acute respiratory events overnight. Patient denies any new respiratory complaints. Pulmonology Exam Inpatient Vital signs and Labs for Last 24 Hours: Temp Pulse Resp BP Pulse Ox O2 Del Method O2 Flow Rate 98 F 100 H 19 97/64 L 92 L Nasal Cannula 2 06/08/23 08:00 06/08/23 08:00 06/08/23 08:00 06/08/23 08:00 06/08/23 08:00 06/08/23 09:00 06/08/23 09:00 Laboratory Results - last 24 hr 06/07/23 06:30: Procalcitonin 0.736 06/08/23 08:10: WBC 8.1 D, RBC 3.38 L, Hgb 12.1 L, Hct 37.2 L, MCV 110.1 H, MCH 35.7 H, MCHC 32.4, RDW 16.6, Plt Count 262 D, MPV 9.3, Neut % (Auto) 78.7, Lymph % (Auto) 12.1, [place] % (Auto) 4.8, Eos % (Auto) 4.1, Baso % (Auto) 0.2, Neut # (Auto) 6.4, Lymph # (Auto) 1.0, [place] # (Auto) 0.4, Eos # (Auto) 0.3, Baso # (Auto) 0.0, PT 17.0 H, INR 1.62 H, Sodium 139, Potassium 3.6, Chloride 111 H, Carbon Dioxide 19 L, Anion Gap 12.6, BUN 5 L, Creatinine 0.80, Estimated Creat Clear 63, Estimated GFR 98, Est GFR ( Amer) 119, Glucose 101 H, Calcium 6.6 L, Magnesium 1.3 L, Total Bilirubin 1.0, AST 41, ALT 25, Alkaline Phosphatase 144 H, Total Protein 4.8 L, Albumin 2.1 L, Globulin 2.7, Albumin/Globulin Ratio 0.8 L I & O for Labs for Last 24 Hours: Intake & Output 06/05/23 06/06/23 06/07/23 06/08/23 23:59 23:59 23:59 23:59 Intake Total 620 / 620 1640 / 1640 1630 / 1990 630 / 630 Output Total 600 / 600 700 / 700 0 / 0 Balance 620 / 620 1040 / 1040 930 / 1290 630 / 630 Weight 125 lb 3 oz 127 lb 4.013 oz 127 lb 0.838 oz 127 lb 9 oz Microbiology Reports for the Last 24 Hours: Microbiology 04/21/23 21:24 Sputum - Nasotracheal Suction Gram Stain - Final 04/21/23 21:24 Sputum - Nasotracheal Suction Sputum Culture - Final Klebsiella pneumoniae Constitutional: Present mild distress Head: Present normocephalic and atraumatic ENT: Present normal exam, normal oropharynx and mucous membranes moist Neck: Present normal inspection and full ROM Respiratory: Present normal respiratory effort and able to speak in complete sentences; Absent prolonged expiratory phase, respiratory distress, rhonchi or wheezes Cardiac: Present S1/S2, Tachycardia and radial pulses present GI: Present soft and distention; Absent tenderness or guarding Comments:: Midline scar and hernia noted. Easily reducible. No tenderness or guarding noted. Skin: Present intact; Absent cyanosis or jaundice Neuro: Present alert and awake Extremities: Present normal inspection and edema; Absent clubbing or cyanosis Psychiatric: Present normal affect and cooperative Assessment and Plan *Assessment and plan (1) Acute on chronic respiratory failure with hypoxemia: Status: Acute Category: Medical Code(s): J96.21 - Acute and chronic respiratory failure with hypoxia (2) Pneumonia: Status: Acute Qualifiers: Laterality: left Lung location: upper lobe of lung Pneumonia type: due to unspecified organism Qualified Code(s): J18.9 - Pneumonia, unspecified organism Category: Medical Code(s): J18.9 - Pneumonia, unspecified organism Plan Mr. Ding is a 63-year-old male with an [id number] smoking history, alcoholic cirrhosis as presented to the hospital with worsening mentation, shortness of breath increased oxygen requirement. Chest x-ray bilateral diffuse interstitial changes slightly worse than prior concerning for edema.Along with a more focal hyperdense opacity noted in the left lingula likely PNM. Mild leukocytosis improving. Hemodynamically stable. Initiated on ceftriaxone azithromycin for possible sepsis and pneumonia on admission. VBG upon admission showed metabolic acidosis with hypoxia Interval update: No acute respiratory vents overnight. Patient weaned to room air this morning. Plan: Continue Trelegy 100 inhaler, can be discharged home on Breztri inhaler along with DuoNebs every 6 hours scheduled An
--- NOTE | 2023-06-08 13:41 | EXP.ACUTE.PN ---
Subjective *Date: 06/08/23 *Time: 13:41 Interval history: Patient continuing to require oxygen today. Diuresing well. Tolerating midodrine. No nausea or vomiting. Tolerating less than 50% of his trays. Up to bedside chair today with therapy. Stable on 2 L nasal cannula oxygen. Discussion about next site of care. Patient weighing his options, still awaiting approval for insurance to go to [facility]. If this does not oden out, he is looking at hospice with sitters at home. He is adamant he does not want to go somewhere long-term. Expressed my concerns to him for his high likelihood of readmission and adverse events if he goes home in his current condition. Medical Exam Vital signs and Labs for Last 24 Hours: Vital Signs Temp Pulse Pulse Resp BP Pulse Ox O2 Del Method 06/08/23 13:00 Nasal Cannula 06/08/23 12:00 98.3 F 105 H 20 88/51 L 94 L Room Air 06/08/23 11:00 Nasal Cannula 06/08/23 08:00 100 H 06/08/23 09:00 Nasal Cannula 06/08/23 08:00 Nasal Cannula 06/08/23 08:00 92 L Nasal Cannula 06/08/23 08:00 98 F 100 H 19 97/64 L 92 L 06/08/23 06:41 Nasal Cannula 06/08/23 06:16 98 Nasal Cannula 06/08/23 04:00 98.1 F 94 H 18 94/62 L 96 Nasal Cannula 06/08/23 05:00 Nasal Cannula 06/08/23 04:00 80 06/08/23 03:00 Room Air 06/08/23 00:00 98.3 F 76 18 99/57 L 97 Nasal Cannula 06/08/23 01:00 Nasal Cannula 06/08/23 00:00 96 Nasal Cannula 06/07/23 23:00 Nasal Cannula 06/07/23 21:00 Nasal Cannula 06/07/23 20:00 96 Nasal Cannula 06/08/23 00:00 70 06/07/23 20:00 80 06/07/23 20:00 98.7 F 85 18 95/65 L 96 Nasal Cannula 06/07/23 18:58 Nasal Cannula 06/07/23 17:00 Nasal Cannula 06/07/23 16:00 95 Nasal Cannula 06/07/23 16:00 90 06/07/23 15:26 97.9 F 99 H 17 95/70 L 95 Nasal Cannula 06/07/23 15:00 Nasal Cannula O2 Flow Rate 06/08/23 13:00 2 06/08/23 12:00 06/08/23 11:00 2 06/08/23 08:00 06/08/23 09:00 2 06/08/23 08:00 2 06/08/23 08:00 2 06/08/23 08:00 06/08/23 06:41 2 06/08/23 06:16 2 06/08/23 04:00 2 06/08/23 05:00 2 06/08/23 04:00 06/08/23 03:00 2 06/08/23 00:00 2 06/08/23 01:00 2 06/08/23 00:00 2 06/07/23 23:00 2 06/07/23 21:00 2 06/07/23 20:00 2 06/08/23 00:00 06/07/23 20:00 06/07/23 20:00 2 06/07/23 18:58 2 06/07/23 17:00 2 06/07/23 16:00 2 06/07/23 16:00 06/07/23 15:26 2 06/07/23 15:00 2 Intake and Output 06/07/23 06/08/23 06/08/23 23:59 07:59 15:59 Intake Total 240 / 1990 360 / 630 270 / 630 Output Total 0 / 700 0 / 0 Balance 240 / 1290 360 / 630 270 / 630 Intake: Intake, Oral Amount 240 / 1430 360 / 630 270 / 630 Output: Output, Urine Amount 0 / 700 0 / 0 Other: Number of Voids 0 Number of Unmeasured Voids 1 Number of Bowel Movements 1 Weight 57.861 kg Patient Weight 06/08/23 23:59 Weight 57.861 kg Laboratory Results - last 24 hr 06/08/23 08:10: WBC 8.1 D, RBC 3.38 L, Hgb 12.1 L, Hct 37.2 L, MCV 110.1 H, MCH 35.7 H, MCHC 32.4, RDW 16.6, Plt Count 262 D, MPV 9.3, Neut % (Auto) 78.7, Lymph % (Auto) 12.1, [place] % (Auto) 4.8, Eos % (Auto) 4.1, Baso % (Auto) 0.2, Neut # (Auto) 6.4, Lymph # (Auto) 1.0, [place] # (Auto) 0.4, Eos # (Auto) 0.3, Baso # (Auto) 0.0, PT 17.0 H, INR 1.62 H, Sodium 139, Potassium 3.6, Chloride 111 H, Carbon Dioxide 19 L, Anion Gap 12.6, BUN 5 L, Creatinine 0.80, Estimated Creat Clear 63, Estimated GFR 98, Est GFR ( Amer) 119, Glucose 101 H, Calcium 6.6 L, Magnesium 1.3 L, Total Bilirubin 1.0, AST 41, ALT 25, Alkaline Phosphatase 144 H, Total Protein 4.8 L, Albumin 2.1 L, Globulin 2.7, Albumin/Globulin Ratio 0.8 L I & O for Labs for Last 24 Hours: Intake & Output 06/05/23 06/06/23 06/07/23 06/08/23 23:59 23:59 23:59 23:59 Intake Total 620 / 620 1640 / 1640 0 / 1989 630 / 630
--- NOTE | 2023-06-08 15:39 | PC.NURSE ---
A&OX4. TOLERATING 2LNC WELL. UP TO CHAIR T/O SOME OF SHIFT. DID HAVE BATH TODAY. HAS HAD INTERMITTENT BLE PAIN AND SOME NAUSEA. TX PER MAR, EFFECTIVENESS NOTED. NO OTHER C/O THUS FAR, VSS.
[2023-06-09] VITALS: BP 96/62; PULSE 100; PULSE 121; RESP 18; TEMP 36.7; O2SAT 94
[2023-06-09 04:00] VITALS: BP 83/52; PULSE 100; PULSE 102; RESP 18; TEMP 37; O2SAT 99; BMI 19.2
--- NOTE | 2023-06-09 04:00 | PC.NURSE ---
Pt is alert and oriented x4, Pt is currently tolerating 2L of o2 well. Pt has slept well this shift and has complained of mild pain Pt anticipating placement in rehab facility today. pt offers no other complaints.
--- NOTE | 2023-06-09 07:42 | EXP.DC.SUM ---
General Admission date:: 06/05/23 Discharge date: 06/09/23 HPI HPI HPI: Patient is a 63-year-old male with past medical history of cirrhosis alcoholic hepatitis hypertension hyperlipidemia, severe protein calorie malnutrition who presented to hospital from home due to low oxygen and confusion. According to the patient family at the bedside patient was found confused and had low oxygen saturations in the 80s, EMS was called patient was brought to the hospital. Patient lives by himself, family is not sure if patient has been taking his medications. At time of my evaluation patient appears alert awake however he has tangential conversation and has some confusion. He denied chest pain nausea vomiting diarrhea constipation dysuria. He complains of shortness of breath cough productive of phlegm. Hospital Course Hospital Course Hospital Course: Patient is a 63-year-old male with past medical history of cirrhosis alcoholic hepatitis hypertension hyperlipidemia, severe protein calorie malnutrition who presented to hospital from home due to low oxygen and confusion. According to the patient family at the bedside patient was found confused and had low oxygen saturations in the 80s, EMS was called patient was brought to the hospital. Patient lives by himself, family is not sure if patient has been taking his medications. Improved oxygenation to 2 L today. Still quite weak and having difficulty ambulating independently. PT and OT consulted. Patient not sure about going to nursing facility versus home. Discussed inpatient sitter, home health, rehab/SNF, and hospice. Patient was approved to go to [facility] for SNF care. Would benefit from therapy to improve mobility with goal of eventually getting home. Also explored the concept of hospice during admission. Patient is open to this if his condition does not improve. Stable for discharge. Problems addressed as follows: Acute hepatic encephalopathy likely due to hyperammonemia Severe sepsis, resolved Coagulopathy -Encephalopathic on admission. That is improved as his ammonia level has come down and we have treated his hepatic encephalopathy. Plan to continue lactulose once daily to control ammonia. Given concern for possible SBP versus pneumonia, was started on empiric antibiotics. Overall has done well with negative cultures. Plan to give single dose of levofloxacin on day of discharge, this is completed 5 days of antibiotics. No further antibiotics at this time. In regard to liver function, continues to have coagulopathy with INR of 1.8 on day of discharge. Meld of 14 at this time. Scheduled for follow-up with GI at in August. Would benefit from repeat CBC, CMP, INR in 1 week. Would also recommend ammonia level if patient more confused at that time. Acute on chronic hypoxic respiratory failure likely due to COPD -Initially on 4 L on arrival. Has weaned to 2 L with good saturations greater 90%. Recommend continuing furosemide 20mg once a day to maintain volume status. Pulmonology was consulted, recommended completing 5 days of antibiotics as above. We will also recommend continuing DuoNebs as needed 4 times a day. Hypotension -In setting of cirrhosis and infection. Blood pressure stabilized. Recommend continuing midodrine 5 mg 3 times daily. Recommend continuing potassium repletion daily given diuretic use and chronically low potassium. Recommend oral calcium supplementation along with oral magnesium daily. Spent 35 minutes in discharge counseling, documentation, chart review, discussion with subspecialist, and direct care with patient. Exam Data for Last 24 hours Vital signs and Labs for Last 24 Hours: Temp Pulse Resp BP Pulse Ox O2 Del Method O2 Flow Rate 98.6 F 102 H 18 83/52 L 99 Nasal Cannula 2 06/09/23 04:00 06/09/23 04:00 06/09/23 04:00 06/09/23 04:00 06/09/23 04:00 06/09/23 06:39 06/09/23 06:39 Laboratory Results - last 24 h
[2023-06-09 08:00] VITALS: BP 103/50; PULSE 100; RESP 19; TEMP 36.7; O2SAT 97
--- NOTE | 2023-06-09 09:09 | EXP.PHA.PN ---
Subjective *Date: 06/09/23 *Time: 09:09 Medical Exam Vital signs and Labs for Last 24 Hours: Vital Signs Temp Pulse Pulse Resp BP Pulse Ox O2 Del Method 06/09/23 08:00 98.1 F 100 H 19 103/50 L 97 Nasal Cannula 06/09/23 06:39 Nasal Cannula 06/09/23 04:00 98.6 F 102 H 18 83/52 L 99 Nasal Cannula 06/09/23 00:00 98.0 F 121 H 18 96/62 L 94 L Nasal Cannula 06/09/23 05:00 Nasal Cannula 06/09/23 04:00 100 H 06/09/23 00:00 100 H 06/09/23 03:00 Nasal Cannula 06/08/23 20:00 98.0 F 121 H 18 96/62 L 94 L Nasal Cannula 06/09/23 01:00 Nasal Cannula 06/09/23 00:00 94 L Nasal Cannula 06/08/23 20:00 120 H 06/08/23 23:00 Nasal Cannula 06/08/23 21:00 Nasal Cannula 06/08/23 20:00 Nasal Cannula 06/08/23 18:30 Nasal Cannula 06/08/23 18:27 118 H 06/08/23 18:27 118 H 06/08/23 16:00 93 L Nasal Cannula 06/08/23 16:00 97.9 F 105 H 20 103/64 L 93 L Nasal Cannula 06/08/23 16:42 Nasal Cannula 06/08/23 16:00 110 H 06/08/23 12:00 100 H 06/08/23 14:51 Nasal Cannula 06/08/23 13:00 Nasal Cannula 06/08/23 12:00 98.3 F 105 H 20 88/51 L 94 L Room Air 06/08/23 11:00 Nasal Cannula O2 Flow Rate 06/09/23 08:00 06/09/23 06:39 2 06/09/23 04:00 2 06/09/23 00:00 2 06/09/23 05:00 2 06/09/23 04:00 06/09/23 00:00 06/09/23 03:00 2 06/08/23 20:00 2 06/09/23 01:00 2 06/09/23 00:00 2 06/08/23 20:00 06/08/23 23:00 2 06/08/23 21:00 2 06/08/23 20:00 2 06/08/23 18:30 2 06/08/23 18:27 06/08/23 18:27 06/08/23 16:00 2 06/08/23 16:00 06/08/23 16:42 2 06/08/23 16:00 06/08/23 12:00 06/08/23 14:51 2 06/08/23 13:00 2 06/08/23 12:00 06/08/23 11:00 2 Intake and Output 06/08/23 06/09/23 06/09/23 23:59 07:59 15:59 Intake Total 100 / 370 270 / 370 Output Total 0 / 0 0 / 0 0 / 0 Balance 0 / 850 100 / 370 270 / 370 Intake: Intake, Oral Amount 270 / 270 Intake, Total IV Amount 100 / 100 Cefepime HCl 2 gm In 0.9 % 100 / 100 Sodium Chloride 100 ml @ 200 mls/hr IV Q12H [facility] Rx#:[id number] Output: Output, Urine Amount 0 / 0 0 / 0 0 / 0 Other: Number of Voids 2 0 Number of Unmeasured Voids 1 1 0 Number of Urine Attends/Diapers 2 Number of Bowel Movements 1 1 Weight 57.635 kg Patient Weight 06/09/23 23:59 Weight 57.635 kg I & O for Labs for Last 24 Hours: Intake & Output 06/06/23 06/07/23 06/08/23 06/09/23 23:59 23:59 23:59 23:59 Intake Total 1640 / 1640 1630 / 1990 750 / 850 370 / 370 Output Total 600 / 600 700 / 700 0 / 0 0 / 0 Balance 1040 / 1040 930 / 1290 750 / 850 370 / 370 Weight 57.72 kg 57.63 kg 57.861 kg 57.635 kg The patient's infection will respond to the chosen ABx?: Yes (NO LABS, AFEBRILE, SPUTUM AND BLOOD CULTURES PENDING.) Is the patient receiving the right drug, dose, and route?: Yes Could a more targeted ABx be ordered?: No
[2023-06-09 09:37] LABS: Basophils % 0.3 % (0.1-2.0); Eosinophils # 0.1 K/mm3 (0.0-0.4); Eosinophils % 1.9 % (0.1-12.0); Hematocrit 33.4 % (42.0-52.0); Hemoglobin 10.5 g/dL (14.1-18.0); Lymphocytes # 1.2 K/mm3 (0.7-4.5); Lymphocytes % 17.2 % (10-50); Mean Corpuscular HGB Conc 31.4 g/dL (31.8-35.4); Mean Corpuscular Volume 111.5 fl (80-94); Mean Platelet Volume 8.8 fl (7.4-10.4); Monocytes # 0.3 K/mm3 (0.1-1.0); Monocytes % 4.7 % (1.7-9.3); Neutrophils # 5.2 K/mm3 (1.8-7.8); Neutrophils % 75.9 % (37.0-80.0); Platelet Count 198 K/mm3 (142-424); Red Blood Count 2.99 M/mm3 (4.60-6.20); Red Cell Distribution Width 16.6 % (11.5-17.5); White Blood Count 6.8 K/mm3 (4.8-10.8)
[2023-06-09 09:44] LABS: INR 1.81 (0.9-1.1); Prothrombin Time 18.8 seconds (10.1-12.5)
[2023-06-09 09:48] LABS: Chloride 113 mmol/L (98-107); Sodium 139 mmol/L (136-145)
[2023-06-09 09:49] LABS: Magnesium 1.9 mg/dl (1.6-2.3)
[2023-06-09 09:51] LABS: Alanine Aminotransferase 28 U/L (12-78); Albumin Level 1.9 g/dl (3.5-5.0); Albumin/Globulin Ratio 0.8 (1.1-1.8); Alkaline Phosphatase 121 U/L (38-126); Aspartate Amino Transferase 30 U/L (17-59); Bilirubin,Total 0.9 mg/dl (0.2-1.3); Blood Urea Nitrogen 5 mg/dl (9-20); Carbon Dioxide 18 mmol/L (22.0-30.0); Creatinine Clearance Estimated 63 mL/min (50-200); Estimated Glomerular Filt Rate 98 ml/min (>60); GFR (African American) 119 ML/MIN (>60); Globulin 2.4 g/dL (1.3-3.2); Total Protein,Serum 4.3 g/dl (6.3-8.2)
[2023-06-09 09:52] LABS: Calcium 7.2 mg/dl (8.4-10.2); Glucose 102 mg/dl (74-100)
--- NOTE | 2023-06-09 11:23 | PC.NURSE ---
courtesy tech note: pt was cleaned up and rolled to their left side with wedge in place. call light within reach and family is at BS.
--- NOTE | 2023-06-09 11:25 | EXP.PULM.PN ---
Subjective *Date: 06/09/23 *Time: 11:25 Interval history: No acute respiratory vents overnight. Patient denies any new respiratory complaints. Stable oxygen requirements. Pulmonology Exam Inpatient Vital signs and Labs for Last 24 Hours: Temp Pulse Resp BP Pulse Ox O2 Del Method O2 Flow Rate 98.1 F 100 H 19 103/50 L 97 Nasal Cannula 2 06/09/23 08:00 06/09/23 08:00 06/09/23 08:00 06/09/23 08:00 06/09/23 08:00 06/09/23 08:00 06/09/23 08:00 Laboratory Results - last 24 hr 06/09/23 08:58: WBC 6.8, RBC 2.99 L, Hgb 10.5 L, Hct 33.4 L, MCV 111.5 H, MCH 35.0 H, MCHC 31.4 L, RDW 16.6, Plt Count 198, MPV 8.8, Neut % (Auto) 75.9, Lymph % (Auto) 17.2, [place] % (Auto) 4.7, Eos % (Auto) 1.9, Baso % (Auto) 0.3, Neut # (Auto) 5.2, Lymph # (Auto) 1.2, [place] # (Auto) 0.3, Eos # (Auto) 0.1, Baso # (Auto) 0.0, PT 18.8 H, INR 1.81 H, Sodium 139, Potassium 4.0, Chloride 113 H, Carbon Dioxide 18 L, Anion Gap 12.0, BUN 5 L, Creatinine 0.80, Estimated Creat Clear 63, Estimated GFR 98, Est GFR ( Amer) 119, Glucose 102 H, Calcium 7.2 L, Magnesium 1.9 D, Total Bilirubin 0.9, AST 30 D, ALT 28, Alkaline Phosphatase 121, Total Protein 4.3 L, Albumin 1.9 L, Globulin 2.4, Albumin/Globulin Ratio 0.8 L I & O for Labs for Last 24 Hours: Intake & Output 06/06/23 06/07/23 06/08/23 06/09/23 23:59 23:59 23:59 23:59 Intake Total 1640 / 1640 1630 / 1990 750 / 850 370 / 370 Output Total 600 / 600 700 / 700 0 / 0 0 / 0 Balance 1040 / 1040 930 / 1290 750 / 850 370 / 370 Weight 127 lb 4.013 oz 127 lb 0.838 oz 127 lb 9 oz 127 lb 1 oz Microbiology Reports for the Last 24 Hours: Microbiology 04/21/23 21:24 Sputum - Nasotracheal Suction Gram Stain - Final 04/21/23 21:24 Sputum - Nasotracheal Suction Sputum Culture - Final Klebsiella pneumoniae Constitutional: Present mild distress Head: Present normocephalic and atraumatic ENT: Present normal exam, normal oropharynx and mucous membranes moist Neck: Present normal inspection and full ROM Respiratory: Present normal respiratory effort and able to speak in complete sentences; Absent prolonged expiratory phase, respiratory distress, rhonchi or wheezes Cardiac: Present S1/S2, Tachycardia and radial pulses present GI: Present soft and distention; Absent tenderness or guarding Comments:: Midline scar and hernia noted. Easily reducible. No tenderness or guarding noted. Skin: Present intact; Absent cyanosis or jaundice Neuro: Present alert and awake Extremities: Present normal inspection and edema; Absent clubbing or cyanosis Psychiatric: Present normal affect and cooperative Assessment and Plan *Assessment and plan (1) Acute on chronic respiratory failure with hypoxemia: Status: Acute Category: Medical Code(s): J96.21 - Acute and chronic respiratory failure with hypoxia (2) Pneumonia: Status: Acute Qualifiers: Laterality: left Lung location: upper lobe of lung Pneumonia type: due to unspecified organism Qualified Code(s): J18.9 - Pneumonia, unspecified organism Category: Medical Code(s): J18.9 - Pneumonia, unspecified organism Plan Mr. Ding is a 63-year-old male with an [id number] smoking history, alcoholic cirrhosis as presented to the hospital with worsening mentation, shortness of breath increased oxygen requirement. Chest x-ray bilateral diffuse interstitial changes slightly worse than prior concerning for edema.Along with a more focal hyperdense opacity noted in the left lingula likely PNM. Mild leukocytosis improving. Hemodynamically stable. Initiated on ceftriaxone azithromycin for possible sepsis and pneumonia on admission. VBG upon admission showed metabolic acidosis with hypoxia Interval update: No acute respiratory vents overnight. Patient weaned to room air this morning. Plan: Continue Trelegy 100 inhaler, can be discharged home on Breztri inhaler along with DuoNebs every 6 hours scheduled Can be
[2023-06-09 12:00] VITALS: BP 89/53; PULSE 109; RESP 24; TEMP 36.8; O2SAT 91
== END 2023-06-09 14:18 ==
LOC: ER 16:11 → 2ND 16:36
PROVIDERS: Emergency Medicine; Internal Medicine Adolescent Medicine; Internal Medicine Pulmonary Disease; Admitting Provider Internal Medicine; Emergency Provider Emergency Medicine; Visit Provider Internal Medicine
DX: K76.82 Hepatic encephalopathy (principal); K70.40 Alcoholic hepatic failure without coma; K43.9 Ventral hernia without obstruction or gangrene; J96.21 Acute and chronic respiratory failure with hypoxia; J18.9 Pneumonia, unspecified organism; F17.210 Nicotine dependence, cigarettes, uncomplicated; J43.2 Centrilobular emphysema; K70.31 Alcoholic cirrhosis of liver with ascites; E43 Unspecified severe protein-calorie malnutrition; I50.33 Acute on chronic diastolic (congestive) heart failure; Z68.1 Body mass index [BMI] 19.9 or less, adult; F10.20 Alcohol dependence, uncomplicated; Y90.0 Blood alcohol level of less than 20 mg/100 ml
CPT/HCPCS: 36410; 36415; 71045; 80048; 80053; 82140; 82803; 83605; 83735; 83880; 84145; 84436; 84443; 84484; 85007; 85014; 85018; 85025; 85610; 87040; 87070; 87205; 93005; 94640; 94667; 94761; 97110; 97116; 97163; 97165; 97530; 97535; 99285; G0378; J0456; J0696; J3475; P9047